=== PATIENT | female | born 1960 | race Hispanic/Latino ===

== ENCOUNTER 2016-08-27 10:06 | Emergency (ER) | payer MEDICARE ==
[2016-08-27 11:24] VITALS: BP 120/82
[2016-08-27 11:59] LABS: Basophils % (Auto) 0.7 % (0.0-1.8); Eosinophils % (Auto) 2.2 % (0.0-4.3); Hematocrit 37.4 % (30.3-42.9); Hemoglobin 12.2 gm/dl (10.1-14.3); Mean Corpuscular HGB Conc 33 % (30-34); Mean Corpuscular Hemoglobin 28 pg (28-32); Mean Corpuscular Volume 86 fl (79-97); Platelet Count 308 K/mm3 (140-440); Red Blood Count 4.33 M/mm3 (3.65-5.03); Red Cell Distribution Width 13.9 % (13.2-15.2); White Blood Count 6.8 K/mm3 (4.5-11.0)
--- NOTE | 2016-08-27 11:59 | Cat Scan Report ---
CT HEAD WITHOUT CONTRAST: HISTORY: Headache, loss of consciousness. Serial contiguous axial images were obtained through the cranium. Intravenous contrast material was not administered. The ventricles are normal in size and appearance. There is no mass effect or midline shift. No areas of abnormally increased or decreased attenuation are seen. No mass lesion is seen. The mastoid air cells and visualized portions of the sinuses are normal. IMPRESSION: Cranial CT scan within normal limits.
[2016-08-27 12:31] LABS: Anion Gap 18 mmol/L; Blood Urea Nitrogen 7 mg/dL (7-17); Calcium 9.3 mg/dL (8.4-10.2); Carbon Dioxide 26 mmol/L (22-30); Chloride 103.1 mmol/L (98-107); Glucose 95 mg/dL (65-100); Potassium 4.6 mmol/L (3.6-5.0); Sodium 142 mmol/L (137-145)
--- NOTE | 2016-08-29 00:50 | ED Elopement Review ---
ED Pt Elopement review - Results review Lab results: Laboratory Tests 08/27/16 08/27/16 11:50 11:50 WBC 6.8 RBC 4.33 Hgb 12.2 Hct 37.4 MCV 86 MCH 28 MCHC 33 RDW 13.9 Plt Count 308 Lymph % (Auto) 35.2 H [place] % (Auto) 9.7 H Eos % (Auto) 2.2 Baso % (Auto) 0.7 Lymph # 2.4 [place] # 0.7 Eos # 0.1 Baso # 0.0 Seg Neutrophils % 52.2 Seg Neutrophils # 3.5 Sodium 142 Potassium 4.6 Chloride 103.1 Carbon Dioxide 26 Anion Gap 18 BUN 7 Creatinine 0.7 Estimated GFR > 60 BUN/Creatinine Ratio 10.00 Glucose 95 Calcium 9.3 - Call Back decision Pt Call Back Decision: Pt to F/U with PMD
== END 2016-08-27 15:08 | disposition left against medical advice (07) ==
LOC: ED 10:06
DX: R51 Headache (principal); Z53.21 Procedure and treatment not carried out due to patient leaving prior to being seen by health care provider
CPT/HCPCS: 36415; 70450; 80048; 85025

== ENCOUNTER 2016-08-30 14:06 | Emergency (ER) | payer MEDICARE ==
[2016-08-30 14:58] VITALS: BP 107/73
[2016-08-30] MEDS ORDERED: NACL 0.9% 1000 ML 1,000 ML IV ONE (15:05)
--- NOTE | 2016-08-30 15:07 | Emergency Department Report ---
Chief Complaint: Seizure Stated Complaint: SEIZURE/FALLS Time Seen by Provider: 08/30/16 14:50 - HPI History of Present Illness: witnessed sz on keppra sz from noise she said see pmh bruising and redness of nose and bue ambulatory takes meds see list vss sleepy but a/o with no focal neuro - Exam Vital Signs: Vital Signs 08/30/16 14:55 Temperature 98.2 F Pulse Rate 79 Respiratory 16 Rate Blood Pressure 107/73 O2 Sat by Pulse 98 Oximetry MSE screening note: Focused history and physical exam performed. Due to findings the following was ordered: ED Medical Decision Making - Lab Data Result diagrams: 08/30/16 15:10 08/30/16 15:10 ED Disposition for MSE Condition: Stable
[2016-08-30 15:29] LABS: Basophils % (Auto) 0.5 % (0.0-1.8); Hematocrit 35.7 % (30.3-42.9); Mean Corpuscular HGB Conc 34 % (30-34); Mean Corpuscular Hemoglobin 29 pg (28-32); Mean Corpuscular Volume 85 fl (79-97); Platelet Count 316 K/mm3 (140-440); Red Blood Count 4.19 M/mm3 (3.65-5.03); Red Cell Distribution Width 13.6 % (13.2-15.2); White Blood Count 8.7 K/mm3 (4.5-11.0)
[2016-08-30 16:10] LABS: Chloride 100.1 mmol/L (98-107); Potassium 4.5 mmol/L (3.6-5.0); Sodium 138 mmol/L (137-145)
[2016-08-30 16:47] LABS: Alanine Aminotransferase 15 units/L (7-56); Albumin/Globulin Ratio 1.2 %; Alkaline Phosphatase 113 units/L (35-129); Anion Gap 20 mmol/L; BUN/Creatinine Ratio 18.88; Blood Urea Nitrogen 17 mg/dL (7-17); Calcium 9.4 mg/dL (8.4-10.2); Carbon Dioxide 22 mmol/L (22-30); Creatine Kinase 298 units/L (30-135); Glucose 124 mg/dL (65-100); Total Protein 7.4 g/dL (6.3-8.2)
== END 2016-08-30 20:35 | disposition left against medical advice (07) ==
LOC: ED 14:06
DX: R56.9 Unspecified convulsions (principal); Z53.21 Procedure and treatment not carried out due to patient leaving prior to being seen by health care provider
CPT/HCPCS: 36415; 80053; 80177; 82550; 85025

== ENCOUNTER 2016-08-31 16:32 | Inpatient (IN) | payer MEDICARE ==
[2016-08-31] MEDS ORDERED: TYLENOL PO ONE (18:58)
[2016-08-31] MEDS ORDERED: FIORICET PO ONE (19:46)
[2016-08-31] MEDS ORDERED: KEPPRA 1,000 MG/NS 0.75% 100ML 1,000 MG/100 ML BAG IV ONE (19:46)
[2016-08-31] MEDS ORDERED: ATIVAN IV ONE ×2 (19:46→21:41)
--- NOTE | 2016-08-31 19:58 | Emergency Department Report ---
HPI - General Chief Complaint: Seizure Time Seen by Provider: 08/31/16 19:37 - HPI HPI: Room 24 The patient is a 56-year-old female presenting with a chief complaint of seizures. The patient states yesterday she had a seizure. The patient believes today she had 2 seizures. The patient states she does develop bruising all over her body including bilateral elbows, bilateral knees and pain in the left right toe. The patient has bilateral black eyes. The patient complains of a headache and gives a score of 10/10. Patient denies nausea or vomiting. The patient states she feels "beat up." The patient states she has been compliant with her Keppra at 1000 mg twice a day Location: [see above] Duration: Intermittent since yesterday Quality: "Beat up" Severity: 01/25 Modifying factors: [see above] Context: [see above] Mode of transportation: [not driving] ED Past Medical Hx - Past Medical History Hx Hypertension: Yes Hx CVA: Yes Hx Seizures: Yes Hx Asthma: Yes Additional medical history: 'nerve disorder,' a-fib, fibroids - Surgical History Past Surgical History?: Yes Hx Cholecystectomy: Yes Hx Appendectomy: Yes Additional Surgical History: head sx, hysterectomy. right ankle surgery. spinal surgery x 2. jaw surgery. nasal surgery - Family History Family history: no significant - Social History Smoking Status: Never Smoker Substance Use Type: None - Medications Home Medications: Home Medications Medication Instructions Recorded Confirmed Last Taken Type Ondansetron [Zofran ODT TAB] 4 mg PO Q8HR #20 tab.rapdis 01/14/15 08/31/16 1 Day Ago Rx Ibuprofen [Motrin 400 MG tab] 400 mg PO Q8H PRN #30 tablet 06/30/16 08/31/16 Unknown Rx Lexapro 10 mg PO DAILY 08/31/16 08/31/16 Unknown History Lyrica 150 mg PO TID 08/31/16 08/31/16 Unknown History NexIUM 40 mg PO DAILY 08/31/16 08/31/16 Unknown History Promethazine 25 mg PO Q6HR PRN 08/31/16 08/31/16 Unknown History Zolpidem 10 mg PO HS 08/31/16 08/31/16 Unknown History levETIRAcetam 1,000 mg PO BID 08/31/16 08/31/16 Unknown History ED Review of Systems ROS: Stated complaint: POSS SEIZURE Other details as noted in HPI Comment: All other systems reviewed and negative Constitutional: denies: chills, fever Eyes: denies: eye pain, eye discharge, vision change ENT: denies: ear pain, throat pain Respiratory: denies: cough, shortness of breath, wheezing Cardiovascular: denies: chest pain, palpitations Endocrine: no symptoms reported Gastrointestinal: denies: abdominal pain, nausea, diarrhea Genitourinary: denies: urgency, dysuria, discharge Musculoskeletal: myalgia Skin: other (bruising in bilateral lower and upper extremities). denies: rash, lesions Neurological: headache, other (seizures) Psychiatric: denies: anxiety, depression Hematological/Lymphatic: denies: easy bleeding, easy bruising Physical Exam - Physical Exam Vital Signs: Vital Signs 08/31/16 17:50 Temperature 98 F Pulse Rate 71 Blood Pressure 101/75 O2 Sat by Pulse 97 Oximetry Physical Exam: GENERAL: The patient is well-developed well-nourished female lying on stretcher with bilateral periorbital ecchymosis. [] HEENT: Normocephalic. Bilateral periorbital ecchymosis. Extraocular motions are intact. Patient has moist mucous membranes. NECK: There is tenderness palpation of the upper cervical spine CHEST/LUNGS: Clear to auscultation. There is no respiratory distress noted. HEART/CARDIOVASCULAR: Regular. There is no tachycardia. There is no gallop rub or murmur. ABDOMEN: Abdomen is soft, nontender. Patient has normal bowel sounds. There is no abdominal distention. SKIN: There is bilateral periorbital ecchymosis. There is ecchymosis of bilateral elbows and knees. NEURO: The patient is awake, alert, and oriented. The patient is cooperative. The patient has no focal neurologic deficits. The patient has normal speech. Cranial nerves II through XII grossly intact, there is no pronator drift MUSCULOSKELETAL: There is tenderness to palpation of bilateral knees ED Course Vital Signs 08/31/16 17:50 Temperature 98 F Pulse Rate 71 Blood Pressure 101/75 O2 Sat by Pulse 97 Oximetry - Reevaluation(s) Reevaluation #1: 08/31/16 21:50 Patient reported syncopal episode while in CT there was no convulsive activity noted. Will admit the patient to the hospital for further evaluation - Consultations Consultation #1: 08/31/16 19:59 Dr Jl rodríguez ED Medical Decision Making - Lab Data Result diagrams: 08/31/16 19:57 08/31/16 19:57 Laboratory Tests 08/31/16 08/31/16 08/31/16 19:57 19:57 19:57 WBC 6.4 RBC 4.27 Hgb 11.9 Hct 36.5 MCV 86 MCH 28 MCHC 33 RDW 13.7 Plt Count 273 Lymph % (Auto) 41.5 H [place] % (Auto) 10.7 H Eos % (Auto) 2.1 Baso % (Auto) 0.5 Lymph # 2.6 [place] # 0.7 Eos # 0.1 Baso # 0.0 Seg Neutrophils % 45.2 Seg Neutrophils # 2.9 Sodium 140 Potassium 3.9 Chloride 99.8 Carbon Dioxide 26 Anion Gap 18 BUN 13 Creatinine 0.7 Estimated GFR > 60 BUN/Creatinine Ratio 18.57 Glucose 102 H Calcium 8.9 Magnesium 2.10 - Radiology Data Radiology results: report reviewed (CT head, CT cervical spine), image reviewed (CT head, CT cervical spine, bilateral knee x-ray, bilateral elbow x-ray, left great toe x-ray) interpreted by me: Left great toe x-ray-no acute fracture Bilateral knee x-rays-no acute fractures Bilateral elbow x-rays-no acute fractures CT cervical spine (read by radiologist)-no evidence of fracture or subluxation. CT head (read by radiologist)-small scalp hematoma left side of the forehead. No evidence of skull fracture or acute intracranial hemorrhage - Differential Diagnosis ICH, epilepsy, hyponatremia, hypomagnesemia, patella fracture, olecranon fr Critical care attestation.: If time is entered above; I have spent that time in minutes in the direct care of this critically ill patient, excluding procedure time. ED Disposition Clinical Impression: Seizures, Syncope, Contusion, knee, Elbow contusion Disposition: OP ADMITTED IP TO THIS HOSP Is pt being admited?: Yes Does the pt Need Aspirin: No Condition: Fair Instructions: Syncope (ED) Referrals: OSITO MA JR, MD [Primary Care Provider] - 3-5 Days Time of Disposition: 21:50 (hospitalist notified)
[2016-08-31 20:22] LABS: Basophils % (Auto) 0.5 % (0.0-1.8); Eosinophils % (Auto) 2.1 % (0.0-4.3); Hematocrit 36.5 % (30.3-42.9); Hemoglobin 11.9 gm/dl (10.1-14.3); Mean Corpuscular HGB Conc 33 % (30-34); Mean Corpuscular Hemoglobin 28 pg (28-32); Mean Corpuscular Volume 86 fl (79-97); Platelet Count 273 K/mm3 (140-440); Red Blood Count 4.27 M/mm3 (3.65-5.03); Red Cell Distribution Width 13.7 % (13.2-15.2); White Blood Count 6.4 K/mm3 (4.5-11.0)
[2016-08-31 21:06] LABS: Anion Gap 18 mmol/L; BUN/Creatinine Ratio 18.57; Blood Urea Nitrogen 13 mg/dL (7-17); Calcium 8.9 mg/dL (8.4-10.2); Carbon Dioxide 26 mmol/L (22-30); Chloride 99.8 mmol/L (98-107); Glucose 102 mg/dL (65-100); Potassium 3.9 mmol/L (3.6-5.0); Sodium 140 mmol/L (137-145)
--- NOTE | 2016-08-31 21:18 | Cat Scan Report ---
FINAL REPORT PROCEDURE: CT HEAD/BRAIN WO CON TECHNIQUE: Computerized tomography of the head was performed without contrast material. HISTORY: head trauma after seizure. History of epilepsy COMPARISON: Prior CT scan of the brain 08/27/2016 FINDINGS: Brain: Brain density appears normal. No evidence of intracranial hemorrhage. No parenchymal hemorrhage, mass lesions or mass effect are seen. No abnormal extraxial fluid collects or masses are seen. Ventricles: Ventricles are normal size and are midline. Bone Windows: No evidence of skull fracture. Small scalp hematoma visualized left side of the forehead. Paranasal sinuses: Clear Mastoid air cells: Clear IMPRESSION: Small scalp hematoma left side of the forehead. No evidence of skull fracture or acute intracranial hemorrhage.
--- NOTE | 2016-08-31 21:28 | Cat Scan Report ---
FINAL REPORT PROCEDURE: CT CERVICAL SPINE WO CON TECHNIQUE: Computerized tomography of the cervical spine was performed from the skull base to T1 without contrast material. HISTORY: neck pain after seizure. History of epilepsy COMPARISON: No prior studies are available for comparison. FINDINGS: No fracture or subluxation is visualized. The prevertebral soft tissues appear normal. Bone density appears normal. Mild facet arthritis visualized on the left at C5-C6. Facets otherwise are unremarkable. There is minimal posterior osteophytic spurring at the C2-3 level without focal disc herniation or spinal stenosis. There is mild posterior osteophytic spurring at C3-C4 level overlying a mild disc bulge obscuring the anterior epidural space without definite cord compression or focal disc herniation. There is asymmetric posterior osteophytic spurring at the C4-C5 level to the left overlying a disc protrusion. This obscures the anterior epidural space and appears to be mildly compressing the left side of the cord. There is mild posterior osteophytic spurring at the C5-C6 level without focal disc herniation or spinal stenosis. There is no cord compression. There is heterogeneous density throughout the thyroid gland. There may be multiple nodules present. No other abnormalities are seen. IMPRESSION: No evidence of fracture or subluxation. Mild facet arthritis present as described. Degenerative disc disease is present as described. This is greatest at the C4-C5 level as described with possible mild cord compression as described Possible nodular thyroid gland. Consider follow-up thyroid ultrasound.
[2016-08-31] MEDS ORDERED: MORPHINE IV ONE (22:11)
[2016-08-31] MEDS ORDERED: MILK OF MAGNESIA PO PRN (22:15)
[2016-08-31] MEDS ORDERED: DULCOLAX PR PRN (22:15)
--- NOTE | 2016-08-31 22:26 | History and Physical Report ---
History of Present Illness History of present illness: SEE PREVIOUS H & P DICTATION Medications and Allergies Allergies Allergy/AdvReac Type Severity Reaction Status Date / Time Penicillins Allergy Itching Verified 01/14/15 20:26 seafood Allergy Swelling Uncoded 06/29/16 13:16 tape Allergy Rash Uncoded 06/29/16 13:16 Home Medications Medication Instructions Recorded Confirmed Last Taken Type Ondansetron [Zofran ODT TAB] 4 mg PO Q8HR #20 tab.rapdis 01/14/15 08/31/16 1 Day Ago Rx Ibuprofen [Motrin 400 MG tab] 400 mg PO Q8H PRN #30 tablet 06/30/16 08/31/16 Unknown Rx Lexapro 10 mg PO DAILY 08/31/16 08/31/16 Unknown History Lyrica 150 mg PO TID 08/31/16 08/31/16 Unknown History NexIUM 40 mg PO DAILY 08/31/16 08/31/16 Unknown History Promethazine 25 mg PO Q6HR PRN 08/31/16 08/31/16 Unknown History Zolpidem 10 mg PO HS 08/31/16 08/31/16 Unknown History levETIRAcetam 1,000 mg PO BID 08/31/16 08/31/16 Unknown History Exam - Constitutional Vitals: Temp Pulse Resp BP Pulse Ox 98 F 71 101/75 97 08/31/16 17:50 08/31/16 17:50 08/31/16 17:50 08/31/16 17:50 Results - Labs CBC & Chem 7: 09/01/16 07:10 09/02/16 03:48 Labs: Abnormal lab results 08/31/16 08/31/16 Range/Units 19:57 19:57 Lymph % (Auto) 41.5 H (13.4-35.0) % [place] % (Auto) 10.7 H (0.0-7.3) % Glucose 102 H (65-100) mg/dL
[2016-09-01] MEDS: TYLENOL PO PRN (00:49)
--- NOTE | 2016-09-01 07:41 | Admit Criteria Form ---
Admission Criteria Documentation: SYNCOPE Clinical Indications for Admission to Inpatient Care ( Place 'X' for any and all applicable criteria): Admission is indicated for syncope and ANY ONE of the following (1)(2)(3)(4)(5) (6)(7) : [ X]I. Inpatient admission required rather than observation care (Also use Syncope: Observation Care Criteria as appropriate) because of ANY ONE of the following: [ ]a) Hemodynamic instability that is severe or persistent [ ]b) Cardiac arrhythmias of immediate concern identified or strongly suspected (eg, needs electrophysiologic study) [ ]c) Acute coronary syndrome identified (Also use Myocardial Infarction or Angina Criteria form ) [ ]d) Structural cardiac disorder (eg, aortic stenosis) suspected as cause that requires immediate correction [ ]e) Respiratory symptoms (eg, dyspnea, tachypnea) that are severe or persistent [X ]f) Neurologic signs or symptoms that are severe or persistent ( eg, stroke, seizures, altered mental status) [ ]g) Severe electrolyte abnormalities requiring inpatient care [ ]h) Supplemental oxygen or respiratory treatment for over 24 hrs that are performable only in acute inpatient setting [ ]i) IV fluid to replace significant ongoing (eg, for over 24 hrs ) losses (>3 L/m2 per day) [ ]j) Continuous intravenous infusion of anticoagulation, platelet inhibitor, vasoactive, or antiarrhythmic medication(15)(16) [ ]k) Pulmonary artery catheter monitoring [ ]l) Temporary pacemaker placement(17) [ ]m) Emergent cardioversion(18) [ ]n) Other conditions, treatment or monitoring requiring inpatient admission [ ]II. Suspicion of imminently dangerous cause (eg, rare causes like pericardial tamponade, pulmonary embolism) [ ]III. Syncope causing severe injury requiring hospitalization Extended stay beyond goal length of stay may be needed for(28) [ ]a) Dangerous arrhythmia(15)(23)(27)(29) [ ]b) Myocardial ischemia [ ]c) Seizure disorder [ ]d) Syncope-related injuries The original Standardized Safety content created by [employer] has been revised. The portions of the content which have been revised are identified through the use of italic text or in bold, and Chad [employer] has neither reviewed nor approved the modified material. All other unmodified content is copyright [facility] [employer]. Please see references footnoted in the original [facility] edition 2016 Admission Criteria Met: Yes
[2016-09-01 08:02] LABS: Anion Gap 15 mmol/L; BUN/Creatinine Ratio 21.66; Blood Urea Nitrogen 13 mg/dL (7-17); Calcium 8.6 mg/dL (8.4-10.2); Carbon Dioxide 27 mmol/L (22-30); Chloride 102.2 mmol/L (98-107); Glucose 95 mg/dL (65-100); Potassium 3.4 mmol/L (3.6-5.0); Sodium 141 mmol/L (137-145)
[2016-09-01] MEDS ORDERED: K-DUR PO ONE (10:00)
--- NOTE | 2016-09-01 10:01 | XRay Report ---
X-RAY LEFT GREAT TOE THREE VIEWS: 08/31/16 19:48:00 CLINICAL: Pain after seizure. FINDINGS: No fracture or dislocation. Hallux valgus deformity and mild arthritis at the first MTP joint. Normal soft tissues. The rest of the bones are normal. No soft tissue air or foreign body. IMPRESSION: Mild arthritis.
--- NOTE | 2016-09-01 10:01 | XRay Report ---
BILATERAL KNEE THREE VIEWS EACH: 08/31/16 16:32:00 CLINICAL: Pain and bruising after seizure. FINDINGS: Right: No fracture or dislocation. Normal joint spaces. No joint effusion. Normal soft tissues. Left: No fracture or dislocation. Normal joint spaces. No joint effusion.Mild anterior soft tissue swelling. No foreign body or soft tissue air. IMPRESSION: Mild anterior soft tissue swelling of the left knee but otherwise normal.
--- NOTE | 2016-09-01 10:01 | XRay Report ---
X-RAY BILATERAL ELBOW THREE VIEWS EACH: 08/31/16 19:48:00 CLINICAL: Pain and bruising after seizure. FINDINGS: Right: Normal bones, joints and soft tissues. No joint effusion. No fracture or dislocation. Left: No fracture or dislocation. Arthritis at the radiohumeral joint. No joint effusion. Benign calcification at the medial epicondyle of the humerus. IMPRESSION: Mild arthritis of the left elbow. Normal right elbow.
[2016-09-01 10:29] LABS: Basophils % (Auto) 0.7 % (0.0-1.8); Hematocrit 35.8 % (30.3-42.9); Hemoglobin 11.7 gm/dl (10.1-14.3); Mean Corpuscular HGB Conc 33 % (30-34); Mean Corpuscular Hemoglobin 28 pg (28-32); Mean Corpuscular Volume 86 fl (79-97); Platelet Count 257 K/mm3 (140-440); Red Blood Count 4.17 M/mm3 (3.65-5.03); Red Cell Distribution Width 14.1 % (13.2-15.2); White Blood Count 5.4 K/mm3 (4.5-11.0)
[2016-09-01] MEDS: MORPHINE IV PRN (10:39)
[2016-09-01] MEDS ORDERED: KEPPRA PO SCH ×2 (11:00→22:00)
[2016-09-01] MEDS ORDERED: NARCAN 0.4 MG/1 ML ONE (11:26)
--- NOTE | 2016-09-01 11:31 | Consultation ---
History of Present Illness Consult date: 09/01/16 Requesting physician: JUSTUS BRYSON Reason for Consult: seizure Chief complaint: seizure History of present illness: The patient is a 56-year-old female Hx seizure disorder since age 12 on LEV 1g BID, Lyrica 150mg TID also for fibromyalgia, stroke in 2008 w/ residual R hemiparesis/sensory loss, and R ankle RSD p/w breakthrough Sz w/ LOC on 08/31. She has had seizure poorly described but w/ LOC Q2 days over this last 1 week. She is not clear of triggers. She gets SANCHEZ then loses consciousness. She has been told she convulses. Druation is ? 2-3 mins. There were no clear aggravating , relieving or temporal factors. Severity such to cause LOC and fall w/ bruising all over her body including bilateral elbows, bilateral knees and pain in the left right toe. The patient has bilateral black eyes. The patient complains of a headache and gives a score of 10/10 which has been progressive over this last 1 week Patient denies nausea or vomiting. The patient states she feels "beat up." The patient states she has been compliant with her meds. Past History Past Medical History: seizures, other (fibromylagia) Past Surgical History: No surgical history Social history: single. denies: alcohol abuse, prescription drug abuse, IV drug use Family history: no significant family history Medications and Allergies Allergies Allergy/AdvReac Type Severity Reaction Status Date / Time Penicillins Allergy Itching Verified 01/14/15 20:26 seafood Allergy Swelling Uncoded 06/29/16 13:16 tape Allergy Rash Uncoded 06/29/16 13:16 Home Medications Medication Instructions Recorded Confirmed Last Taken Type Ondansetron [Zofran ODT TAB] 4 mg PO Q8HR #20 tab.rapdis 01/14/15 08/31/16 1 Day Ago Rx Ibuprofen [Motrin 400 MG tab] 400 mg PO Q8H PRN #30 tablet 06/30/16 08/31/16 Unknown Rx Lexapro 10 mg PO DAILY 08/31/16 08/31/16 Unknown History Lyrica 150 mg PO TID 08/31/16 08/31/16 Unknown History NexIUM 40 mg PO DAILY 08/31/16 08/31/16 Unknown History Promethazine 25 mg PO Q6HR PRN 08/31/16 08/31/16 Unknown History Zolpidem 10 mg PO HS 08/31/16 08/31/16 Unknown History levETIRAcetam 1,000 mg PO BID 08/31/16 08/31/16 Unknown History Active Meds: Active Medications Acetaminophen (Tylenol) 650 mg PO Q4H PRN PRN Reason: Pain MILD(1-3)/Fever >100.5/SANCHEZ Last Admin: 09/01/16 00:49 Dose: 650 mg Bisacodyl (Dulcolax) 10 mg CO QDAY PRN PRN Reason: Constipation unrelieved by [facility] Lorazepam (Ativan) 2 mg IV Q4H PRN PRN Reason: Seizures Magnesium Hydroxide (Milk Of Magnesia) 30 ml PO Q4H PRN PRN Reason: Constipation Morphine Sulfate (Morphine) 1 mg IV Q4H PRN PRN Reason: Pain, Moderate (4-6) Last Admin: 09/01/16 10:39 Dose: 1 mg Ondansetron HCl (Zofran) 4 mg IV Q8H PRN PRN Reason: N/V unrelieved by [facility] Pneumococcal Polyvalent Vaccine (Pneumovax 23) 0.5 ml IM .ONCE ONE Stop: 09/01/16 12:01 Potassium Chloride (K-Dur) 40 meq PO ONCE ONE Stop: 09/01/16 10:01 Review of Systems All systems: negative Neurological: head injury, weakness, numbness, seizures, syncope, lack of coordination, headaches, change in mentation, confusion, memory loss, balance difficulties, motor disturbance (R side chronic), sensory deficit (R sided chronic) Physical Examination - Vital Signs Vital Signs: Vital Signs Temp Pulse BP Pulse Ox 98 F 71 101/75 97 08/31/16 17:50 08/31/16 17:50 08/31/16 17:50 08/31/16 17:50 - Constitutional General appearance: uncomfortable, acutely ill - EENT EENT: Present: PERRL, mucous membranes moist, hearing intact, vision intact, other (b/l facial ecchymoses) - Respiratory Respiratory: Present: chest non-tender, normal breath sounds, no respiratory distress - Cardiovascular Cardiovascular: Present: regular rate Extremities: Present: no peripheral edema bilatateraly, no clubbing, cyanosis, no inflammation, no ischemia or petechiae, other (bruising all over lindsey elbows, knees) - Gastrointestinal Gastrointestinal: Present: normoactive bowel sounds, soft, non-distended - Integumentary Integumentary: Present: normal - Neurologic Cranial nerve examination: PERRL, EOMI, VFF, tongue midline, intact, intact shoulder shrug, Intact Vestibulo-ocular r, intact corneal reflex, normal palatal elevation, other (decr sensation on R face) Speech examination: intact Sensorimotor examination: hemiparesis (on R) Motor examination - right side: 5: biceps (exaggerated giveaway power in RUE) , triceps, wrist flexion, wrist extension, cargo service agent, hip flexors, knee extensors, dorsiflexion, toe extension (EHL), plantarflexion Motor examination - left side: 08/20: biceps, triceps, wrist flexion, wrist extension, cargo service agent, hip flexors, knee extensors, dorsiflexion, toe extension (EHL) , plantarflexion Detailed sensory examination: light touch (decr on R), temperature (decr on R) Reflex and gait examination: intact Reflexes: 1+: ankle, 2+: bicep, knee, tricep - Musculoskeletal Musculoskeletal: Present: no fluid collection, no pain, normal range of motion - Psychiatric Psychiatric: Present: depressed, cooperative Results - Laboratory Findings CBC and BMP: 09/01/16 07:10 09/01/16 04:00 Abnormal Lab Findings: Abnormal Labs 08/31/16 09/01/16 09/01/16 22:36 04:00 07:10 Lymph % (Auto) 44.9 H [place] % (Auto) 11.1 H D-Dimer 242.30 H Potassium 3.4 L Creatinine 0.6 L Assessment and Plan 56 YO F reported Hx seizure disorder since age 12 on LEV 1g BID, Lyrica 150mg TID also for fibromyalgia, reported AED complaince, stroke in 2008 w/ residual R hemiparesis/sensory loss, and R ankle RSD p/w breakthrough poorly described but w/ LOC x up to 2-6 times on 08/31 w/ recent increase in baseline frequency to LOC Q2 days over this last 1 week for unclear etiology. She has suffered numerous facial and elbow/knee ecchymoses from fall. She also reports progressive holocranial bifrontal maximal headache but w/o migrainous Hx-I suspect post concussive syndrome. CTH/C-spine nonacute beyond L scalp hematoma. Neuro exam essentially intact w/ slightly worsened baseline R hemiparesis. Plan and Recommendation: 1. Telemetry bed w/ Q4 hour neuro checks & Sz precautions 2. Brain imaging: MRI Brain +/- Jonny Seizure Protocol 3. Labs: Serum/Urine Tox, UA/UCx, Electrolytes especially Na, Ca, Mg, and Glucose, TSH/Vit B12/Ammonia and correct as necessary 4. Cont Infectious work up/medical management for UTI, PNA, cellulitis, bacteremia, etc. 5. Avoid hyponatremia, hypo/hyper-calcemia, hypo/hyperglycemia, acidosis, hypoxia/hypoxemia, hypercarbia/hypercapnia 6. Avoid institution of any psychoactive medications (e.g. antihistamines, anticholinergics, BZD, hypnotics, opiates) as able unless low doses of low potency antipsychotic needed for behavioral issues complicating medical care 7. AED therapy: Increase Keppra to 1500mg BID, cont Lyrica 150mg TID 8. Avoid meds that can lower sz threshold e.g. Tramadol, fluroquinolones, carbapenems 9. If Hx obtained to suggest EtOH dependence, supplement Thiamine, Folate and B12 10. Pt advised of [place] driving regulations: report date of presumed Seizure/ unexplained loss of consciousness/awareness spell to [facility], refrain from operating a motor vehicle for 6 months after this date, and avoid unsupervised activity particularly around water or heights 11. For SANCHEZ: KINDRA-Decadron 4mg IV BID x 6 doses, VPA 500mg IV Q8hrs x 3 doses, Fioricet prn. Pt w/ Toradol intolerance.
[2016-09-01] MEDS ORDERED: PNEUMOVAX 23 IM ONE (12:00)
[2016-09-01] MEDS ORDERED: KEPPRA 1,000 MG in D5W 100 ML IV SCH (12:00)
[2016-09-01] MEDS ORDERED: NARCAN 0.4 MG/1 ML IV ONE (12:09)
[2016-09-01] MEDS: DECADRON IV SCH ×2 (12:41→21:54)
[2016-09-01] MEDS ORDERED: DepaCON 500 MG in NACL 0.9% 100 ML IV SCH (14:00)
[2016-09-01] MEDS: DepaCON 500 MG in NACL 0.9% 100 ML IV SCH ×2 (14:39→23:00)
[2016-09-01] MEDS: LYRICA PO SCH ×2 (14:40→20:41)
[2016-09-01] MEDS: FIORICET PO PRN ×2 (14:40→20:41)
--- NOTE | 2016-09-01 15:23 | Progress Note ---
Assessment and Plan 56 YO F reported Hx seizure disorder on Keppra 1g BID, Lyrica 150mg TID also for fibromyalgia, reported AED complaince, stroke in 2008 w/ residual R hemiparesis/sensory loss, and R ankle RSD presented with breakthrough seizure with LOC x up to 2-6 times on 08/31. She has suffered numerous facial and elbow/ knee ecchymoses from fall. She also reports progressive holocranial bifrontal maximal headache but w/o migrainous Hx-I suspect post concussive syndrome. CTH/C -spine nonacute beyond L scalp hematoma. Neuro exam essentially intact w/ slightly worsened baseline R hemiparesis. Breakthrough seizure - CT head did not show any acute new finding - Neurologic following - Added Depakote and increase the dose of Keppra - We'll transfer her to ICU as she had another 2 episodes of breakthrough seizure on the floor History of CVA with right-sided hemiparesis - We'll monitor her frequent neuro exam - We'll continue Lipitor and we will do PT for when medically stable Fibromyalgia - Continue developing team Headache - Placed on fiorecet by Neurology Scalp hematoma - Seen on CT patient at the left Side of the forehead - Continue to monitor clinically GI and DVT prophylaxis - PPI and SCD Subjective Date of service: 09/01/16 Interval history: Patient seen and examined. Medical records and medication list reviewed. Code MET called this am. Pt was taking to nurse then became unresponsive, but did not loose pulse she then developed jerking movement for few seconds After the episode she was awake and c/o headache Similar episode develop this afternoon, pt will be transferred to ICU Discussed with Dr. Dos Santos Objective - Exam Narrative Exam: GENERAL: well-developed and well-nourished WF lying on bed appeared to be in no discomfort. HEENT: Normocephalic. Atraumatic. No conjunctival congestion or icterus. Patient has moist mucous membranes. NECK: Supple. Trachea midline. CHEST/LUNGS: Clear to auscultated bilaterally, breathing nonlabored. No wheezes crackles or rhonchi. HEART/CARDIOVASCULAR: Regular in rate and rhythm. S1 and S2 positive. ABDOMEN: Abdomen is soft, nontender. Patient has normal bowel sounds. SKIN: There is no rash. Warm and dry. NEURO: Right-sided weakness. MUSCULOSKELETAL: No joint effusion or tenderness. EXTRIMITY: No edema, no cyanosis or clubbing. PSYCH: Noted no agitation. - Constitutional Vitals: Vital Signs - 12hr 09/01/16 08:00 Temperature 97.9 F Pulse Rate [ 65 Left Radial] Respiratory 18 Rate Blood Pressure 104/62 [Left Arm] O2 Sat by Pulse 95 Oximetry - Labs CBC & Chem 7: 09/01/16 07:10 09/02/16 03:48 Labs: Abnormal lab results 08/31/16 09/01/16 09/01/16 Range/Units 22:36 04:00 07:10 Lymph % (Auto) 44.9 H (13.4-35.0) % [place] % (Auto) 11.1 H (0.0-7.3) % D-Dimer 242.30 H (0-234) ng/mlDDU Potassium 3.4 L (3.6-5.0) mmol/L Creatinine 0.6 L (0.7-1.2) mg/dL POC Glucose (70-105) TSH (0.270-4.200) mlU/mL 09/01/16 09/01/16 Range/Units 11:36 13:45 Lymph % (Auto) (13.4-35.0) % [place] % (Auto) (0.0-7.3) % D-Dimer (0-234) ng/mlDDU Potassium (3.6-5.0) mmol/L Creatinine (0.7-1.2) mg/dL POC Glucose 106 H (70-105) TSH 5.370 H (0.270-4.200) mlU/mL
[2016-09-01] MEDS: ATIVAN IV PRN ×2 (17:18→21:46)
[2016-09-01] MEDS: ZOFRAN IV PRN (21:46)
[2016-09-02] MEDS: MORPHINE IV PRN ×2 (00:59→21:15)
[2016-09-02] MEDS ORDERED: DILANTIN 1,000 MG in NACL 0.9% 250ML 250 ML IV ONE (01:16)
[2016-09-02] MEDS: BENADRYL IV PRN (02:40)
[2016-09-02 05:36] LABS: Anion Gap 21 mmol/L; BUN/Creatinine Ratio 21.66; Blood Urea Nitrogen 13 mg/dL (7-17); Calcium 8.8 mg/dL (8.4-10.2); Carbon Dioxide 21 mmol/L (22-30); Chloride 101.5 mmol/L (98-107); Glucose 157 mg/dL (65-100); Potassium 4.4 mmol/L (3.6-5.0); Sodium 139 mmol/L (137-145)
[2016-09-02] MEDS: DepaCON 500 MG in NACL 0.9% 100 ML IV SCH (06:46)
[2016-09-02] MEDS: TYLENOL PO PRN (08:37)
[2016-09-02] MEDS: DECADRON IV SCH ×2 (09:37→22:21)
[2016-09-02] MEDS: LYRICA PO SCH ×3 (09:37→19:49)
[2016-09-02] MEDS ORDERED: KEPPRA PO SCH (10:00)
--- NOTE | 2016-09-02 10:47 | Event Note ---
Date: 09/02/16 I attempted to see this patient between my scheduled coverage time of 8 AM-12 PM but they were not present in the floor room. I will return to staff in f/u . Multiple recurrent events noted of b/l UE and LE rotational and side to side movements w/ preserved consciousness, no tongue bite, incontinence or post ictal state. I am suspicious her events are more likely psychogenic/factitious rather than neurologic/epileptic in etiology. 56 YO F reported Hx seizure disorder since age 12 on LEV 1g BID, Lyrica 150mg TID also for fibromyalgia, reported AED complaince, stroke in 2008 w/ residual R hemiparesis/sensory loss, and R ankle RSD p/w breakthrough poorly described but w/ LOC x up to 2-6 times on 08/31 w/ recent increase in baseline frequency to LOC Q2 days over this last 1 week for unclear etiology. She has suffered numerous facial and elbow/knee ecchymoses from unclear reasion. She also reports progressive holocranial bifrontal maximal headache but w/o migrainous Hx -I suspect post concussive syndrome. CTH/C-spine nonacute beyond L scalp hematoma. Neuro exam essentially intact w/ slightly worsened baseline R hemiparesis. Plan and Recommendation: 1. Telemetry bed w/ Q4 hour neuro checks & Sz precautions 2. Brain imaging: MRI Brain +/- Jonny Seizure Protocol 3. Labs: Serum/Urine Tox, UA/UCx, Electrolytes especially Na, Ca, Mg, and Glucose, TSH/Vit B12/Ammonia and correct as necessary 4. Cont Infectious work up/medical management for UTI, PNA, cellulitis, bacteremia, etc. 5. Avoid hyponatremia, hypo/hyper-calcemia, hypo/hyperglycemia, acidosis, hypoxia/hypoxemia, hypercarbia/hypercapnia 6. Avoid institution of any psychoactive medications (e.g. antihistamines, anticholinergics, BZD, hypnotics, opiates) as able unless low doses of low potency antipsychotic needed for behavioral issues complicating medical care 7. AED therapy: Resume home Keppra to 1000mg BID, cont Lyrica 150mg TID 8. Avoid meds that can lower sz threshold e.g. Tramadol, fluroquinolones, carbapenems 9. If Hx obtained to suggest EtOH dependence, supplement Thiamine, Folate and B12 10. Pt advised of [place] driving regulations: report date of presumed Seizure/ unexplained loss of consciousness/awareness spell to [place], refrain from operating a motor vehicle for 6 months after this date, and avoid unsupervised activity particularly around water or heights 11. For SANCHEZ: KINDRA-Decadron 4mg IV BID x 6 doses, VPA 500mg IV Q8hrs x 3 doses, Fioricet prn. Pt w/ Toradol intolerance. 12. Consider mental health evaluation as available.
[2016-09-02] MEDS: ATIVAN IV PRN ×2 (12:58→19:18)
[2016-09-02] MEDS: KEPPRA PO SCH ×2 (13:12→22:22)
[2016-09-02] MEDS: FIORICET PO PRN ×2 (13:28→19:19)
--- NOTE | 2016-09-02 15:41 | Progress Note ---
Assessment and Plan 56 YO F reported Hx seizure disorder on Keppra 1g BID, Lyrica 150mg TID also for fibromyalgia, reported AED complaince, stroke in 2008 w/ residual R hemiparesis/sensory loss, and R ankle RSD presented with breakthrough seizure with LOC x up to 2-6 times on 08/31. She has suffered numerous facial and elbow/ knee ecchymoses from fall. She also reports progressive holocranial bifrontal maximal headache but w/o migrainous Hx-I suspect post concussive syndrome. CTH/C -spine nonacute beyond L scalp hematoma. Neuro exam essentially intact w/ slightly worsened baseline R hemiparesis. Breakthrough seizure, likely - CT head did not show any acute new finding - Neurologic following and questioned whether patient has underlying psych issue contributing to this seizure-like episode - d/filiberto Depakote and cont the dose of Keppra 1000 bid -We'll get psych eval History of bipolar disorder - We'll get psych consult History of CVA with right-sided hemiparesis - We'll monitor her frequent neuro exam - We'll continue Lipitor and we will do PT for when medically stable Fibromyalgia - Continue developing team Headache - Placed on fiorecet by Neurology Scalp hematoma due to fall - Seen on CT patient at the left Side of the forehead - Continue to monitor clinically GI and DVT prophylaxis - PPI and SCD Subjective Date of service: 09/02/16 Interval history: Patient seen and examined. Medical records and medication list reviewed. She is resting on bed, answers questions appropriately Objective - Exam Narrative Exam: GENERAL: well-developed and well-nourished WF lying on bed appeared to be in no discomfort. HEENT: Normocephalic. Atraumatic. No conjunctival congestion or icterus. Patient has moist mucous membranes. Bilateral black eyes. NECK: Supple. Trachea midline. CHEST/LUNGS: Clear to auscultated bilaterally, breathing nonlabored. No wheezes crackles or rhonchi. HEART/CARDIOVASCULAR: Regular in rate and rhythm. S1 and S2 positive. ABDOMEN: Abdomen is soft, nontender. Patient has normal bowel sounds. SKIN: There is no rash. Warm and dry. Multiple bruises mostly on hands and legs and on her left breast NEURO: Right-sided weakness. MUSCULOSKELETAL: No joint effusion or tenderness. EXTRIMITY: No edema, no cyanosis or clubbing. PSYCH: Noted no agitation. - Constitutional Vitals: Vital Signs - 12hr 09/02/16 09/02/16 08:00 10:00 Temperature 97.7 F Pulse Rate [ 82 Left Radial] Respiratory 20 Rate Blood Pressure 102/59 [Left Arm] O2 Sat by Pulse 96 94 Oximetry - Labs CBC & Chem 7: 09/01/16 07:10 09/02/16 03:48 Labs: Abnormal lab results 09/01/16 09/02/16 Range/Units 13:45 03:48 Carbon Dioxide 21 L (22-30) mmol/L Creatinine 0.6 L (0.7-1.2) mg/dL Glucose 157 H (65-100) mg/dL Free T4 0.73 L (0.76-1.46) ng/dL
--- NOTE | 2016-09-02 18:13 | Consultation ---
History of Present Illness - Reason for Consult Consult date: 09/02/16 Reason for consult: Mental Health Evaluation Requesting physician: DANIELITO GUTIERREZ - Chief Complaint Chief complaint: "I have seizures" - History of Present Psychiatric Illness The patient is a 56-year-old female presenting with a chief complaint of seizures. Today patient is calm, cooperative, but lethargic during assessment. Currently, patient has bruising under her eyes and her elbows. She stated that she had experienced LOC and fail prior to coming to hospital. She stated that she had a seizure and decided to come [facility] for treatment. She stated it's important for her to get a "handle" of this situation so she can have a productive life. During our conversation, patient was eating and drinking with no problems. Earlier today, she left her room and was found in a different part of hospital per the RN notes. She stated that the nurses took to long to come to her room (wanted to shower), so she decided to leave and go home. Patient admitted that leaving her room may have been the "wrong thing to do." Patient stated that she has had a couple seizures since her admission. She denies SI/HI' s, AVH's, a poor appetite, or depression symptoms. Patient denies recreational drug use or consumption of alcohol (etoh). Per the RN notes, her sister Kae [phone] stated that the patient has a mental health hx. Patient has taken Lexapro. Medications and Allergies Allergies Allergy/AdvReac Type Severity Reaction Status Date / Time Penicillins Allergy Itching Verified 01/14/15 20:26 seafood Allergy Swelling Uncoded 06/29/16 13:16 tape Allergy Rash Uncoded 06/29/16 13:16 Home Medications Medication Instructions Recorded Confirmed Last Taken Type Ondansetron [Zofran ODT TAB] 4 mg PO Q8HR #20 tab.rapdis 01/14/15 08/31/16 1 Day Ago Rx Ibuprofen [Motrin 400 MG tab] 400 mg PO Q8H PRN #30 tablet 06/30/16 08/31/16 Unknown Rx Lexapro 10 mg PO DAILY 08/31/16 08/31/16 Unknown History Lyrica 150 mg PO TID 08/31/16 08/31/16 Unknown History NexIUM 40 mg PO DAILY 08/31/16 08/31/16 Unknown History Promethazine 25 mg PO Q6HR PRN 08/31/16 08/31/16 Unknown History Zolpidem 10 mg PO HS 08/31/16 08/31/16 Unknown History levETIRAcetam 1,000 mg PO BID 08/31/16 08/31/16 Unknown History Active Meds: Active Medications Acetaminophen (Tylenol) 650 mg PO Q4H PRN PRN Reason: Pain MILD(1-3)/Fever >100.5/SANCHEZ Last Admin: 09/02/16 08:37 Dose: 650 mg Acetaminophen/Butalbital/Caffeine (Fioricet) 2 tab PO Q4H PRN PRN Reason: Headache Last Admin: 09/02/16 13:28 Dose: 2 tab Bisacodyl (Dulcolax) 10 mg [place] QDAY PRN PRN Reason: Constipation unrelieved by MOM Dexamethasone (Decadron) 4 mg IV Q12HR [facility] Stop: 09/03/16 22:01 Last Admin: 09/02/16 09:37 Dose: 4 mg Diphenhydramine HCl (Benadryl) 25 mg IV Q6H PRN PRN Reason: Itching Last Admin: 09/02/16 02:40 Dose: 25 mg Levetiracetam (Keppra) 1,000 mg PO BID [facility] Last Admin: 09/02/16 13:12 Dose: 1,000 mg Lorazepam (Ativan) 2 mg IV Q4H PRN PRN Reason: Seizures Last Admin: 09/02/16 12:58 Dose: 2 mg Magnesium Hydroxide (Milk Of Magnesia) 30 ml PO Q4H PRN PRN Reason: Constipation Morphine Sulfate (Morphine) 1 mg IV Q4H PRN PRN Reason: Pain, Moderate (4-6) Last Admin: 09/02/16 00:59 Dose: 1 mg Ondansetron HCl (Zofran) 4 mg IV Q8H PRN PRN Reason: N/V unrelieved by Reglan Last Admin: 09/01/16 21:46 Dose: 4 mg Pregabalin (Lyrica) 150 mg PO TID [facility] Last Admin: 09/02/16 13:12 Dose: 150 mg Past psychiatric history - Past Medical History Past Medical History: hypothyroidism, seizures Past Surgical History: Other (ankle surgery) - past Psychiatric treatment and history psychiatric treatment history: Patient states that she takes Lexapro. TSH elevated. Patient denies a fam psy hx. - Social History Social history: Lives alone Mental Status Exam - Vital signs Last Vital Signs Temp 97.7 F 09/02/16 08:00 Pulse 82 09/02/16 08:00 Resp 20 09/02/16 08:00 BP 102/59 09/02/16 08:00 Pulse Ox 94 09/02/16 10:00 - Exam Narrative exam: ROS (-) depression MSE: Appearance: cooperative, calm Behavior: good eye contact Speech: regular rate and tone Mood: "I feel good" Affect: congruent to mood Thought Process: circumstantial Thought Content: denies SI/HI's and AVH's Motor Activity: in bed eating Cognition: a/ox 3 Insight: fair Judgment: limited Results Result Diagrams: 09/01/16 07:10 09/02/16 03:48 Abnormal lab results 09/01/16 09/02/16 Range/Units 13:45 03:48 Carbon Dioxide 21 L (22-30) mmol/L Creatinine 0.6 L (0.7-1.2) mg/dL Glucose 157 H (65-100) mg/dL Free T4 0.73 L (0.76-1.46) ng/dL All other labs normal. Assessment and Plan Assessment and plan: Impression: Hx of seizures. The patient is a 56-year-old female presenting with a chief complaint of seizures. Today patient is calm, cooperative, but lethargic during assessment. Currently, patient has blackened eyes and bruising on her elbows. She stated that she had experienced LOC and fail prior to coming to hospital. She stated that she had a seizure and decided to come [facility] for treatment. She stated it's important for her to get a "handle" of this situation so she can have a productive life. During our conversation, patient was eating and drinking with no problems. She denies SI/HI's and AVH's. TSH 5.370. Called Vish Palomo (past boyfriend) [phone], number does not work. Called sister Kae [phone] to confirm that patient may have a mental rula hx, no answer. DD: Unspecified Mood DO Recommendation/Plan: Gather more collateral information to determine treatment. Continue current medical treatment (seizure mgmt) - hospitalist/neuro. Recommend 1:1 sitter if possible. Move patient closer to nursing station. Continue with bed alarm. Will follow-up with patient tomorrow.
--- NOTE | 2016-09-02 23:02 | Cat Scan Report ---
FINAL REPORT EXAM: CT HEAD/BRAIN WO CON HISTORY: fall TECHNIQUE: Noncontrast serial axial images from skull base to vertex PRIORS: CT scan of the head from 08/31/2016 FINDINGS: Soft tissue swelling is noted in the scalp over the left frontal convexity.There is no mass effect or midline shift. There are no abnormal intra or extra-axial fluid collections. Cortical sulci and lateral ventricles are within normal limits for size and configuration. Basilar cisterns are patent. No acute intracranial hemorrhage is identified. Visualized paranasal sinuses and mastoid air cells are well aerated. No acute osseous abnormality is identified. IMPRESSION: 1. No acute intracranial hemorrhage is identified. 2. Soft tissue swelling is seen in the scalp over the left frontal convexity. No underlying fracture is identified.
[2016-09-03] MEDS: FIORICET PO PRN ×2 (05:31→14:09)
[2016-09-03] MEDS: SYNTHROID PO SCH (05:32)
[2016-09-03] MEDS: LYRICA PO SCH ×3 (09:12→23:45)
[2016-09-03] MEDS: KEPPRA PO SCH ×2 (09:12→23:45)
[2016-09-03] MEDS: DECADRON IV SCH ×2 (09:13→23:45)
[2016-09-03] MEDS: MORPHINE IV PRN (10:14)
[2016-09-03] MEDS: BENADRYL IV PRN (10:15)
--- NOTE | 2016-09-03 10:57 | Progress Note ---
Assessment and Plan 56 YO F reported Hx seizure disorder since age 12 on LEV 1g BID, Lyrica 150mg TID also for fibromyalgia, reported AED complaince, stroke in 2008 w/ residual R hemiparesis/sensory loss, and R ankle RSD p/w breakthrough poorly described but w/ reported LOC x up to 2-6 times on 08/31 w/ recent increase in Sz baseline frequency to LOC Q2 days over this last 1 week for unclear etiology. She has suffered numerous facial and elbow/knee ecchymoses from fall she states. She also reports progressive holocranial bifrontal maximal headache but w/o migrainous Hx-I suspect post concussive syndrome. CTH/C-spine nonacute beyond L scalp hematoma. Neuro exam essentially intact w/ slightly worsened baseline R hemiparesis. ON 09/01 and 09/02 nurses and other care providers have witnessed numerous recurrent events of b/l UE and LE rotational and side to side movements w/ preserved consciousness, no tongue bite, incontinence or post ictal state. I am suspicious her events are more likely psychogenic/factitious rather than neurologic/epileptic in etiology. She also affirms prior Dx of stress induced seizures but also affirms epileptic seizures as well. f/u CTH neg. MRI unable to be done d/t inability to stay still. Plan and Recommendation: 1. Telemetry bed w/ Q4 hour neuro checks & Sz precautions 2. Brain imaging: MRI Brain +/- Jonny Seizure Protocol when able to tolerate 3. Labs: Serum/Urine Tox, UA/UCx, Electrolytes especially Na, Ca, Mg, and Glucose, TSH/Vit B12/Ammonia and correct as necessary 4. Cont Infectious work up/medical management for UTI, PNA, cellulitis, bacteremia, etc. 5. Avoid hyponatremia, hypo/hyper-calcemia, hypo/hyperglycemia, acidosis, hypoxia/hypoxemia, hypercarbia/hypercapnia 6. Avoid institution of any psychoactive medications (e.g. antihistamines, anticholinergics, BZD, hypnotics, opiates) as able unless low doses of low potency antipsychotic needed for behavioral issues complicating medical care 7. AED therapy: Resume home Keppra to 1000mg BID, cont Lyrica 150mg TID 8. Avoid meds that can lower sz threshold e.g. Tramadol, fluroquinolones, carbapenems 9. If Hx obtained to suggest EtOH dependence, supplement Thiamine, Folate and B12 10. Pt advised of [place] driving regulations: report date of presumed Seizure/ unexplained loss of consciousness/awareness spell to [facility], refrain from operating a motor vehicle for 6 months after this date, and avoid unsupervised activity particularly around water or heights 11. For SANCHEZ: KINDRA-Decadron 4mg IV BID x 6 doses, VPA 500mg IV Q8hrs x 3 doses, Fioricet prn. Pt w/ Toradol intolerance. 12. Cont mental health evaluation as available. 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 multiple recurrent events 09/02 requiring restraints and Psych eval ongoing. Objective - Vital Sign Vital Signs - 12hr 09/03/16 10:00 O2 Sat by Pulse 96 Oximetry - General Apperance Constitutional: uncomfortable, older than stated age - EENT EENT: PERRL, mucous membranes dry, hearing intact, vision intact, other ( ecchymoses throughout) - Respiratory Respiratory: chest non-tender, normal breath sounds, no respiratory distress - Cardiovascular Cardiovascular: regular rate Extremities: no peripheral edema bilat, no clubbing, cyanosis, no inflammation, no ischemia or petechiae - Gastrointestinal Gastrointestinal: normoactive bowel sounds, soft, non-distended - Integumentary Integumentary: normal - Neurologic Cranial nerve examination: PERRL, EOMI, VFF, face symmetric, tongue midline, intact, Intact Vestibulo-ocular r, intact corneal reflex, normal palatal elevation Speech examination: intact Detailed motor examination: full strength in all [place] Motor examination - right side: 5/5: biceps, triceps, wrist flexion, wrist extension, wallpaper cleaner, hip flexors, knee extensors, dorsiflexion, toe extension (EHL) , plantarflexion Motor examination - left side: 5/5: biceps, triceps, wrist flexion, wrist extension, wallpaper cleaner, hip flexors, knee extensors, dorsiflexion, toe extension (EHL) , plantarflexion Detailed sensory examination: intact, light touch Reflexes: 2+: ankle, bicep, knee, tricep - Musculoskeletal Musculoskeletal: no fluid collection, no pain, normal range of motion - Psychiatric Psychiatric: mood/affect appropriate, cooperative - Laboratory Findings CBC and BMP: 09/01/16 07:10 09/02/16 03:48 Abnormal Lab Findings: Abnormal Labs 08/31/16 09/01/16 09/01/16 22:36 04:00 07:10 Lymph % (Auto) 44.9 H [place] % (Auto) 11.1 H D-Dimer 242.30 H Potassium 3.4 L Carbon Dioxide Creatinine 0.6 L Glucose POC Glucose TSH Free T4 09/01/16 09/01/16 09/01/16 11:36 13:45 13:45 Lymph % (Auto) [place] % (Auto) D-Dimer Potassium Carbon Dioxide Creatinine Glucose POC Glucose 106 H TSH 5.370 H Free T4 0.73 L 09/02/16 03:48 Lymph % (Auto) [place] % (Auto) D-Dimer Potassium Carbon Dioxide 21 L Creatinine 0.6 L Glucose 157 H POC Glucose TSH Free T4
--- NOTE | 2016-09-03 14:18 | Progress Note ---
Assessment and Plan 56 YO F reported Hx seizure disorder on Keppra 1g BID, Lyrica 150mg TID also for fibromyalgia, reported AED complaince, stroke in 2008 w/ residual R hemiparesis/sensory loss, and R ankle RSD presented with breakthrough seizure with LOC x up to 2-6 times on 08/31. She has suffered numerous facial and elbow/ knee ecchymoses from fall. She also reports progressive holocranial bifrontal maximal headache but w/o migrainous Hx-I suspect post concussive syndrome. CTH/C -spine nonacute beyond L scalp hematoma. Neuro exam essentially intact w/ slightly worsened baseline R hemiparesis. Breakthrough seizure, likely - CT head did not show any acute new finding - Neurologic following and questioned whether patient has underlying psych issue contributing to this seizure-like episode - d/filiberto Depakote and cont the dose of Keppra 1000 bid Acute psychosis - psych following - place on prn haldol History of CVA with right-sided hemiparesis - We'll monitor her frequent neuro exam - We'll continue Lipitor and we will do PT for when medically stable Fibromyalgia - Continue neurontin Headache - Placed on fiorecet by Neurology Scalp hematoma due to fall - Seen on CT patient at the left Side of the forehead - Continue to monitor clinically GI and DVT prophylaxis - PPI and SCD Disposition: patient might need inpatient psych placement Subjective Date of service: 09/03/16 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 Medical records and medication list reviewed. Patient is very restless, placed on 1;1 sitter last night after she took off her restrain and tried to get out of the bed Objective - Exam Narrative Exam: GENERAL: well-developed and well-nourished WF lying on bed restrained HEENT: Normocephalic. Atraumatic. No conjunctival congestion or icterus. Patient has moist mucous membranes. Bilateral black eyes. NECK: Supple. Trachea midline. CHEST/LUNGS: Clear to auscultated bilaterally, breathing nonlabored. No wheezes crackles or rhonchi. HEART/CARDIOVASCULAR: Regular in rate and rhythm. S1 and S2 positive. ABDOMEN: Abdomen is soft, nontender. Patient has normal bowel sounds. SKIN: There is no rash. Warm and dry. Multiple bruises mostly on hands and legs and on her left breast NEURO: Right-sided weakness. MUSCULOSKELETAL: No joint effusion or tenderness. EXTRIMITY: No edema, no cyanosis or clubbing. PSYCH: restless. - Constitutional Vitals: Vital Signs - 12hr 09/03/16 09/03/16 09/03/16 10:00 10:44 14:06 Temperature 98.1 F Pulse Rate [ 72 Apical] Respiratory 18 16 Rate Blood Pressure 114/70 [Left Arm] O2 Sat by Pulse 96 98 Oximetry - Labs CBC & Chem 7: 09/01/16 07:10 09/02/16 03:48
[2016-09-03] MEDS: HALDOL IM PRN (16:12)
--- NOTE | 2016-09-03 17:46 | Progress Note ---
Subjective - Reason for Consult Consult date: 09/03/16 Reason for consult: psychosis/epilepsy Mental Status Exam - Vital signs Last Vital Signs Temp 97.9 F 09/03/16 15:47 Pulse 78 09/03/16 15:47 Resp 16 09/03/16 15:47 BP 134/96 09/03/16 15:47 Pulse Ox 98 09/03/16 14:06 Assessment and Plan Per discussion with nursing staff, patient was heavily sedated with haloperidol secondary to physical agitation. On examination, patient was in physical restraints. I informed the nurse that as long as she is chemically restrained, we should remove physical reassurance and observed. No further assessment could be completed because patient was sedated Plan: - Remove physical restraints as tolerated - Continue to use haloperidol as necessary for severe agitation - Reassess for admission to an inpatient psychiatric facility when patient is less sedated
[2016-09-04] MEDS: HALDOL IM PRN ×2 (02:48→22:27)
[2016-09-04] MEDS: SYNTHROID PO SCH (06:02)
[2016-09-04] MEDS: LYRICA PO SCH ×3 (12:17→20:07)
[2016-09-04] MEDS: KEPPRA PO SCH ×2 (12:18→22:28)
[2016-09-04] MEDS: MORPHINE IV PRN ×2 (13:18→20:08)
--- NOTE | 2016-09-04 16:28 | Progress Note ---
Assessment and Plan 56 YO F reported Hx seizure disorder on Keppra 1g BID, Lyrica 150mg TID also for fibromyalgia, reported AED complaince, stroke in 2008 w/ residual R hemiparesis/sensory loss, and R ankle RSD presented with breakthrough seizure with LOC x up to 2-6 times on 08/31. She has suffered numerous facial and elbow/ knee ecchymoses from fall. She also reports progressive holocranial bifrontal maximal headache but w/o migrainous Hx-I suspect post concussive syndrome. CTH/C -spine nonacute beyond L scalp hematoma. Neuro exam essentially intact w/ slightly worsened baseline R hemiparesis. Breakthrough seizure, likely - CT head did not show any acute new finding - Neurologic following and questioned whether patient has underlying psych issue contributing to this seizure-like episode - d/filiberto Depakote and cont the dose of Keppra 1000 bid Acute psychosis - psych following, will wait for further recommendation - placed on prn haldol History of CVA with right-sided hemiparesis - We'll monitor her frequent neuro exam - We'll continue Lipitor and we will do PT for when medically stable Fibromyalgia - Continue neurontin Headache - Placed on fiorecet by Neurology Scalp hematoma due to fall - Seen on CT patient at the left Side of the forehead - Continue to monitor clinically GI and DVT prophylaxis - PPI and SCD Disposition: patient might need inpatient psych placement Subjective Date of service: 09/04/16 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 Medical records and medication list reviewed. Patient was very restless, placed on 1;1 sitter after she took off her restrain and tried to get out of the bed she is restrained today and appears agitated Objective - Exam Narrative Exam: GENERAL: well-developed and well-nourished WF lying on bed restrained HEENT: Normocephalic. Atraumatic. No conjunctival congestion or icterus. Patient has moist mucous membranes. Bilateral black eyes. NECK: Supple. Trachea midline. CHEST/LUNGS: Clear to auscultated bilaterally, breathing nonlabored. No wheezes crackles or rhonchi. HEART/CARDIOVASCULAR: Regular in rate and rhythm. S1 and S2 positive. ABDOMEN: Abdomen is soft, nontender. Patient has normal bowel sounds. SKIN: There is no rash. Warm and dry. Multiple bruises mostly on hands and legs and on her left breast NEURO: Right-sided weakness. MUSCULOSKELETAL: No joint effusion or tenderness. EXTRIMITY: No edema, no cyanosis or clubbing. PSYCH: restless. - Constitutional Vitals: Vital Signs - 12hr 09/04/16 09/04/16 09/04/16 07:34 12:27 13:25 Temperature 97.8 F 98.7 F Pulse Rate [ 77 76 Right] Respiratory 18 18 Rate Blood Pressure 88/52 91/57 114/59 [Right Arm] O2 Sat by Pulse 93 100 Oximetry 09/04/16 15:12 Temperature 97.8 F Pulse Rate [ 68 Right] Respiratory 18 Rate Blood Pressure 81/49 [Right Arm] O2 Sat by Pulse 97 Oximetry - Labs CBC & Chem 7: 09/01/16 07:10 09/02/16 03:48
[2016-09-04] MEDS: FIORICET PO PRN (17:38)
[2016-09-05] MEDS: SYNTHROID PO SCH (05:59)
[2016-09-05] MEDS: KEPPRA PO SCH ×2 (09:17→22:24)
[2016-09-05] MEDS: LYRICA PO SCH ×3 (09:17→20:25)
[2016-09-05] MEDS: FIORICET PO PRN ×3 (11:44→20:23)
--- NOTE | 2016-09-05 14:36 | Progress Note ---
Assessment and Plan 56 YO F reported Hx seizure disorder on Keppra 1g BID, Lyrica 150mg TID also for fibromyalgia, reported AED complaince, stroke in 2008 w/ residual R hemiparesis/sensory loss, and R ankle RSD presented with breakthrough seizure with LOC x up to 2-6 times on 08/31. She has suffered numerous facial and elbow/ knee ecchymoses from fall. She also reports progressive holocranial bifrontal maximal headache but w/o migrainous Hx-I suspect post concussive syndrome. CTH/C -spine nonacute beyond L scalp hematoma. Neuro exam essentially intact w/ slightly worsened baseline R hemiparesis. Breakthrough seizure, likely - CT head did not show any acute new finding - Neurologic following and questioned whether patient has underlying psych issue contributing to this seizure-like episode - d/filiberto Depakote and cont the dose of Keppra 1000 bid Acute psychosis - psych following, will wait for further recommendation - placed on prn haldol History of CVA with right-sided hemiparesis - We'll monitor her frequent neuro exam - We'll continue Lipitor and we will do PT for when medically stable Fibromyalgia - Continue neurontin Headache - Placed on fiorecet by Neurology Scalp hematoma due to fall - Seen on CT patient at the left Side of the forehead - Continue to monitor clinically GI and DVT prophylaxis - PPI and SCD Disposition: wait for psych eval Subjective Date of service: 09/05/16 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 Medical records and medication list reviewed. Patient was very restless, placed on 1;1 sitter after she took off her restrain and tried to get out of the bed she is off restrained today and appears much cooperative today Objective - Exam Narrative Exam: GENERAL: well-developed and well-nourished WF lying on bed off restrained HEENT: Normocephalic. Atraumatic. No conjunctival congestion or icterus. Patient has moist mucous membranes. Bilateral black eyes. NECK: Supple. Trachea midline. CHEST/LUNGS: Clear to auscultated bilaterally, breathing nonlabored. No wheezes crackles or rhonchi. HEART/CARDIOVASCULAR: Regular in rate and rhythm. S1 and S2 positive. ABDOMEN: Abdomen is soft, nontender. Patient has normal bowel sounds. SKIN: There is no rash. Warm and dry. Multiple bruises mostly on hands and legs and on her left breast NEURO: Right-sided weakness. MUSCULOSKELETAL: No joint effusion or tenderness. EXTRIMITY: No edema, no cyanosis or clubbing. PSYCH: cooperative. - Constitutional Vitals: Vital Signs - 12hr 09/05/16 08:00 Temperature 97.8 F Pulse Rate [ 64 Left Radial] Respiratory 20 Rate Blood Pressure 87/52 [Left Arm] O2 Sat by Pulse 94 Oximetry - Labs CBC & Chem 7: 09/01/16 07:10 09/02/16 03:48
[2016-09-05] MEDS: HALDOL IM PRN (22:22)
[2016-09-05] MEDS: TYLENOL PO PRN (22:23)
--- NOTE | 2016-09-05 22:37 | Physician Progress Note ---
REASON FOR FOLLOWUP: To reevaluate her mental status and also her response to therapy. SUBJECTIVE DATA: Includes \\"I'm fine, how are you? Who are you?\\" OBJECTIVE DATA: Includes the patient is noted sitting in bed, eating her lunch. She is alert and oriented to person, place, time and situation. Affect appears to be a kind of flat. Mood is depressed. She appeared to have some black eyes and also a knot on her head. I am not sure exactly what happened, may be the incident leading up to being here. She reports she had a seizure and fell out. Eye contact was good. Thought process appeared to be organized. She is more improved with cognition. She is able to answer questions. She denies any suicidal or homicidal ideations. She denies any auditory or visual hallucinations. She reports eating well as about 80% of her lunch has gone as she was eating well, being assessed. She reports sleeping well. She denies any other issues. She denies any auditory or visual hallucinations. Concentration appeared to be intact. Memory appeared to be intact. Insight and judgment appeared to be appropriate at the current time. ASSESSMENT: Includes altered mental status which appeared to be resolving. PLAN: To continue with the current regimen as prescribed and continue to follow during hospitalization. JOB# [id number] TORRIE/VINCE
[2016-09-06] MEDS: SYNTHROID PO SCH (06:54)
[2016-09-06] MEDS: FIORICET PO PRN ×4 (08:09→20:57)
[2016-09-06] MEDS: LYRICA PO SCH ×3 (08:09→20:58)
[2016-09-06] MEDS: ZOFRAN IV PRN (09:52)
[2016-09-06] MEDS: KEPPRA PO SCH ×2 (09:52→21:00)
--- NOTE | 2016-09-06 12:51 | Progress Note ---
Assessment and Plan 56 YO F reported Hx seizure disorder since age 12 on LEV 1g BID, Lyrica 150mg TID also for fibromyalgia, reported AED complaince, stroke in 2008 w/ residual R hemiparesis/sensory loss, and R ankle RSD p/w breakthrough poorly described but w/ reported LOC x up to 2-6 times on 08/31 w/ recent increase in Sz baseline frequency to LOC Q2 days over this last 1 week for unclear etiology. She has suffered numerous facial and elbow/knee ecchymoses from fall she states. She also reports progressive holocranial bifrontal maximal headache but w/o migrainous Hx-I suspect post concussive syndrome. CTH/C-spine nonacute beyond L scalp hematoma. Neuro exam essentially intact w/ slightly worsened baseline R hemiparesis. ON 09/01 and 09/02 nurses and other care providers have witnessed numerous recurrent events of b/l UE and LE rotational and side to side movements w/ preserved consciousness, no tongue bite, incontinence or post ictal state. I am suspicious her events are more likely psychogenic/factitious rather than neurologic/epileptic in etiology. She also affirms prior Dx of stress induced seizures but also affirms epileptic seizures as well. f/u CTH neg. MRI unable to be done d/t inability to stay still. On 09/06 remains @ baseline w/o recurrent "seizure." Plan and Recommendation: 1. Telemetry bed w/ Q4 hour neuro checks & Sz precaution 2. Labs: Serum/Urine Tox, UA/UCx, Electrolytes especially Na, Ca, Mg, and Glucose, TSH/Vit B12/Ammonia and correct as necessary 3. Cont Infectious work up/medical management for UTI, PNA, cellulitis, bacteremia, etc. 4. Avoid hyponatremia, hypo/hyper-calcemia, hypo/hyperglycemia, acidosis, hypoxia/hypoxemia, hypercarbia/hypercapnia 5. Avoid institution of any psychoactive medications (e.g. antihistamines, anticholinergics, BZD, hypnotics, opiates) as able unless low doses of low potency antipsychotic needed for behavioral issues complicating medical care 6. AED therapy: Resume home Keppra to 1000mg BID, cont Lyrica 150mg TID 7. Avoid meds that can lower sz threshold e.g. Tramadol, fluroquinolones, carbapenems 8. If Hx obtained to suggest EtOH dependence, supplement Thiamine, Folate and B12 9. Pt advised of [place] driving regulations: report date of presumed Seizure/ unexplained loss of consciousness/awareness spell to [facility], refrain from operating a motor vehicle for 6 months after this date, and avoid unsupervised activity particularly around water or heights 10. For SANCHEZ: KINDRA-Decadron 4mg IV BID x 6 doses, VPA 500mg IV Q8hrs x 3 doses, Fioricet prn. Pt w/ Toradol intolerance. 11. Cont mental health evaluation as available. 12. 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 off restraints. Objective - Vital Sign Vital Signs - 12hr 09/06/16 08:15 Temperature 98.3 F Pulse Rate [ 72 Right] Respiratory 16 Rate Blood Pressure 109/60 [Right Arm] O2 Sat by Pulse 98 Oximetry - General Apperance Constitutional: comfortable - EENT EENT: PERRL, mucous membranes moist, hearing intact, vision intact, other ( echymosses under eyes, on knees/elbows) - Respiratory Respiratory: chest non-tender, normal breath sounds, no respiratory distress - Cardiovascular Cardiovascular: regular rate Extremities: no peripheral edema bilat, no clubbing, cyanosis, no inflammation, no ischemia or petechiae - Gastrointestinal Gastrointestinal: normoactive bowel sounds, soft, non-distended - Integumentary Integumentary: normal - Neurologic Cranial nerve examination: PERRL, EOMI, VFF, V1/V2/V3 grossly intact, face symmetric, tongue midline, intact, intact shoulder shrug, Intact Vestibulo- ocular r, intact corneal reflex, normal palatal elevation Speech examination: intact Detailed motor examination: full strength in all guicho Motor examination - right side: 5/5: biceps, triceps, wrist flexion, wrist extension, esthetician permanent makeup artist, hip flexors, knee extensors, dorsiflexion, toe extension (EHL) , plantarflexion Motor examination - left side: 5/5: biceps, triceps, wrist flexion, wrist extension, esthetician permanent makeup artist, hip flexors, knee extensors, dorsiflexion, toe extension (EHL) , plantarflexion Detailed sensory examination: intact Reflex and gait examination: intact Reflexes: 2+: ankle, bicep, knee, tricep - Musculoskeletal Musculoskeletal: no fluid collection, no pain, normal range of motion - Psychiatric Psychiatric: mood/affect appropriate, cooperative - Laboratory Findings CBC and BMP: 09/01/16 07:10 09/02/16 03:48 Abnormal Lab Findings: Abnormal Labs 08/31/16 09/01/16 09/01/16 22:36 04:00 07:10 Lymph % (Auto) 44.9 H [place] % (Auto) 11.1 H D-Dimer 242.30 H Potassium 3.4 L Carbon Dioxide Creatinine 0.6 L Glucose POC Glucose TSH Free T4 09/01/16 09/01/16 09/01/16 11:36 13:45 13:45 Lymph % (Auto) [place] % (Auto) D-Dimer Potassium Carbon Dioxide Creatinine Glucose POC Glucose 106 H TSH 5.370 H Free T4 0.73 L 09/02/16 03:48 Lymph % (Auto) [place] % (Auto) D-Dimer Potassium Carbon Dioxide 21 L Creatinine 0.6 L Glucose 157 H POC Glucose TSH Free T4
--- NOTE | 2016-09-06 13:33 | Progress Note ---
Assessment and Plan 56 YO F reported Hx seizure disorder on Keppra 1g BID, Lyrica 150mg TID also for fibromyalgia, reported AED complaince, stroke in 2008 w/ residual R hemiparesis/sensory loss, and R ankle RSD presented with breakthrough seizure with LOC x up to 2-6 times on 08/31. She has suffered numerous facial and elbow/ knee ecchymoses from fall. She also reports progressive holocranial bifrontal maximal headache but w/o migrainous Hx-I suspect post concussive syndrome. CTH/C -spine nonacute beyond L scalp hematoma. Neuro exam essentially intact w/ slightly worsened baseline R hemiparesis. Breakthrough seizure, likely - CT head did not show any acute new finding - Neurologic following and questioned whether patient has underlying psych issue contributing to this seizure-like episode - d/filiberto Depakote and cont the dose of Keppra 1000 bid Acute psychosis - psych following, will wait for further recommendation - placed on prn haldol History of CVA with right-sided hemiparesis - We'll monitor her frequent neuro exam - We'll continue Lipitor and we will do PT for when medically stable - MRI could not be done as she was not cooperative Fibromyalgia - Continue neurontin Headache - Placed on fiorecet by Neurology Scalp hematoma due to fall - Seen on CT patient at the left Side of the forehead - Continue to monitor clinically GI and DVT prophylaxis - PPI and SCD Disposition: wait for psych eval, will consult PT Subjective Date of service: 09/06/16 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 Medical records and medication list reviewed. Patient was very restless, placed on 1;1 sitter after she took off her restrain and tried to get out of the bed she is off restrained since yesterday and appears much cooperative Objective - Exam Narrative Exam: GENERAL: well-developed and well-nourished WF lying on bed off restrained HEENT: Normocephalic. Atraumatic. No conjunctival congestion or icterus. Patient has moist mucous membranes. Bilateral black eyes. NECK: Supple. Trachea midline. CHEST/LUNGS: Clear to auscultated bilaterally, breathing nonlabored. No wheezes crackles or rhonchi. HEART/CARDIOVASCULAR: Regular in rate and rhythm. S1 and S2 positive. ABDOMEN: Abdomen is soft, nontender. Patient has normal bowel sounds. SKIN: There is no rash. Warm and dry. Multiple bruises mostly on hands and legs and on her left breast NEURO: Right-sided weakness. MUSCULOSKELETAL: No joint effusion or tenderness. EXTRIMITY: No edema, no cyanosis or clubbing. PSYCH: cooperative. - Constitutional Vitals: Vital Signs - 12hr 09/06/16 08:15 Temperature 98.3 F Pulse Rate [ 72 Right] Respiratory 16 Rate Blood Pressure 109/60 [Right Arm] O2 Sat by Pulse 98 Oximetry - Labs CBC & Chem 7: 09/01/16 07:10 09/02/16 03:48
--- NOTE | 2016-09-06 16:49 | Progress Note ---
Subjective - Reason for Consult Consult date: 09/06/16 Reason for consult: Psychiatry Follow-up - Chief Complaint Chief complaint: "Thank you" The patient is a 56-year-old female presenting with a chief complaint of seizures. Today patient is calm and cooperative during our conversation. She stated that she would like help once she is discharged. She asked about seeing a therapist and a psychiatrist in her local area. Per RN note, no distress or behavioral issues overnight. Patient denies SI/HI's, AVH's, poor appetite, sleep disturbance or depression symptoms. Mental Status Exam - Vital signs Last Vital Signs Temp 98.3 F 09/06/16 08:15 Pulse 72 09/06/16 08:15 Resp 16 09/06/16 08:15 BP 109/60 09/06/16 08:15 Pulse Ox 98 09/06/16 08:15 - Exam Narrative exam: MSE: Appearance: cooperative, calm Behavior: good eye contact Speech: regular rate and tone Mood: "I feel good" Affect: congruent to mood Thought Process: linear Thought Content: denies SI/HI's and AVH's Motor Activity: in bed eating Cognition: a/ox 3 Insight: fair Judgment: fair Assessment and Plan Impression: The patient is a 56-year-old female presenting with a chief complaint of seizures. Today patient is calm and cooperative during our conversation. She stated that she would like help once she is discharged. She asked about seeing a therapist and a psychiatrist in her local area. Per RN note , no distress or behavioral issues overnight. She denies SI/HI's and AVH's Recommendation/Plan: Per psychiatry we sign off this patient. Provided outpatient psy services information to patient within her local area.
[2016-09-06] MEDS: MORPHINE IV PRN (22:26)
[2016-09-06] MEDS: BENADRYL IV PRN (22:26)
[2016-09-07] MEDS: FIORICET PO PRN ×3 (05:54→16:01)
[2016-09-07] MEDS ORDERED: SYNTHROID PO SCH (06:00)
[2016-09-07 07:44] VITALS: BP 102/80
[2016-09-07] MEDS: LYRICA PO SCH ×2 (09:28→13:29)
[2016-09-07] MEDS: KEPPRA PO SCH (09:29)
--- NOTE | 2016-09-07 10:43 | Discharge Summary ---
Providers - Providers Date of Admission: 08/31/16 22:15 Date of discharge: 09/07/16 Attending physician: JARETT DE GUZMNA 09/01/16 03:59 Consult to Wound/ET Nurse [CONS] Routine Reason For Exam: wound eval 09/02/16 10:10 Consult to Physician [CONS] Routine Consulting Provider: OLY GREEN Reason For Exam: bipolar disorder Place consult to:: mental health Notified:: ELIZA Phone number called:: [phone] Was contact made?: Yes If yes, spoke with:: ELIZA Time called:: 10:19 09/06/16 11:22 Physical Therapy Evaluation and Treat [CONS] Routine Comment: Reason For Exam: ambulation Primary care physician: OSITO MA Hospitalization Reason for admission: seizure-like activity Condition: Fair Disposition: DC/TX HOME UNDER HOME HEALTH Time spent for discharge: 35 min Core Measure Documentation - Palliative Care Palliative Care/ Comfort Measures: Not Applicable Exam - Constitutional Vitals: Temp Pulse Resp BP Pulse Ox 97.7 F 68 18 102/80 100 09/07/16 07:40 09/07/16 07:40 09/07/16 07:40 09/07/16 07:40 09/07/16 07:40 Plan Activity: advance as tolerated, fall precautions Diet: low cholesterol, low salt Durable Medical Equipment Needed Upon Discharge: Walker-Rolling Follow up with: OSITO MA JR, MD [Primary Care Provider] - 3-5 Days Prescriptions: AtorvaSTATin [Lipitor] 10 mg PO QHS #30 tablet Aspirin EC [Aspirin Enteric Coated TAB] 81 mg PO QDAY #30 tablet.dr De La Cruz/Acetamin/Caff 50-325-40 [Fioricet] 2 tab PO Q4H PRN #20 tablet PRN Reason: Headache levETIRAcetam [Keppra TAB] 1,000 mg PO BID #120 tablet Levothyroxine [Synthroid] 100 mcg PO DAILY@0600 #30 tablet Lyrica 150 mg PO TID #180
== END 2016-09-07 18:28 | disposition home health service (06) | DRG 101 ==
LOC: ED 16:32 → 3A 22:15
PROVIDERS: ADMIT Internal Medicine; ATTEND Internal Medicine
DX: G40.901 Epilepsy, unspecified, not intractable, with status epilepticus (principal); F23 Brief psychotic disorder; I69.351 Hemiplegia and hemiparesis following cerebral infarction affecting right dominant side; S00.03XA Contusion of scalp, initial encounter; M79.7 Fibromyalgia; I10 Essential (primary) hypertension; I48.91 Unspecified atrial fibrillation; S80.02XA Contusion of left knee, initial encounter; S80.01XA Contusion of right knee, initial encounter; S50.02XA Contusion of left elbow, initial encounter; S50.01XA Contusion of right elbow, initial encounter; R55 Syncope and collapse; E03.9 Hypothyroidism, unspecified; F31.9 Bipolar disorder, unspecified; Z90.49 Acquired absence of other specified parts of digestive tract; Z90.710 Acquired absence of both cervix and uterus; Z88.0 Allergy status to penicillin; Z91.013 Allergy to seafood
CPT/HCPCS: 36415; 70450; 72125; 80048; 82962; 83735; 84439; 84443; 85025; 85379; 90732; 93005; 93010; 96374; 96375; 96376; G8978-GP; G8979-GP; J1100; J1165; J1200; J1630; J1953; J2060; J2270; J2310; J2405; J7050

== ENCOUNTER 2016-09-08 14:55 | Emergency (ER) | payer MEDICARE ==
--- NOTE | 2016-09-08 15:31 | Emergency Department Report ---
ED Seizure HPI - General Chief Complaint: Seizure Stated Complaint: SEIZURE Time Seen by Provider: 09/08/16 15:26 Source: patient Mode of arrival: Stretcher Limitations: No Limitations - History of Present Illness Initial Comments: 56-year-old female presents to the emergency department after a CODE BLUE was called in the hospital cafeteria. Upon my response to this CODE BLUE, the patient was found lying on the floor the cafeteria. Witnesses stated that the patient had 2 seizures. Patient was alert and following commands on my arrival. She states she did not know what happened. Patient was apparently discharged from the hospital yesterday. There are no other complaints. MD Complaint: seizure -: Sudden, This afternoon Description of Episode: tonic-clonic movement Witnessed:: Yes Trauma: No Seizure History: known seizure disorder Possible Precipitating Event: none Associated Symptoms: denies other symptoms Treatments Prior to Arrival: none - Related Data Home Medications Medication Instructions Recorded Confirmed Last Taken Lexapro 10 mg PO DAILY 08/31/16 08/31/16 Unknown NexIUM 40 mg PO DAILY 08/31/16 08/31/16 Unknown Promethazine 25 mg PO Q6HR PRN 08/31/16 08/31/16 Unknown Zolpidem 10 mg PO HS 08/31/16 08/31/16 Unknown Previous Rx's Medication Instructions Recorded Last Taken Type Ondansetron [Zofran ODT TAB] 4 mg PO Q8HR #20 tab.rapdis 01/14/15 1 Day Ago Rx Ibuprofen [Motrin 400 MG tab] 400 mg PO Q8H PRN #30 tablet 06/30/16 Unknown Rx Aspirin EC [Aspirin Enteric Coated 81 mg PO QDAY #30 tablet. 09/07/16 Unknown Rx TAB] AtorvaSTATin [Lipitor] 10 mg PO QHS #30 tablet 09/07/16 Unknown Rx Butalb/Acetamin/Caff 50-325-40 2 tab PO Q4H PRN #20 tablet 09/07/16 Unknown Rx [Fioricet] Levothyroxine [Synthroid] 100 mcg PO DAILY@0600 #30 tablet 09/07/16 Unknown Rx Lyrica 150 mg PO TID #180 09/07/16 Unknown Rx levETIRAcetam [Keppra TAB] 1,000 mg PO BID #120 tablet 09/07/16 Unknown Rx Allergies Allergy/AdvReac Type Severity Reaction Status Date / Time Penicillins Allergy Itching Verified 01/14/15 20:26 seafood Allergy Swelling Uncoded 06/29/16 13:16 tape Allergy Rash Uncoded 06/29/16 13:16 ED Review of Systems ROS: Stated complaint: SEIZURE Other details as noted in HPI Comment: All other systems reviewed and negative Neurological: as per HPI (seizure) ED Past Medical Hx - Past Medical History Previous Medical History?: Yes Hx Hypertension: Yes Hx CVA: Yes Hx Seizures: Yes Hx Asthma: Yes Additional medical history: 'nerve disorder,' a-fib, fibroids - Surgical History Past Surgical History?: Yes Hx Cholecystectomy: Yes Hx Appendectomy: Yes Additional Surgical History: head sx, hysterectomy. right ankle surgery. spinal surgery x 2. jaw surgery. nasal surgery - Family History Family history: no significant - Social History Smoking Status: Never Smoker Substance Use Type: None - Medications Home Medications: Home Medications Medication Instructions Recorded Confirmed Last Taken Type Ondansetron [Zofran ODT TAB] 4 mg PO Q8HR #20 tab.rapdis 01/14/15 08/31/16 1 Day Ago Rx Ibuprofen [Motrin 400 MG tab] 400 mg PO Q8H PRN #30 tablet 06/30/16 08/31/16 Unknown Rx Lexapro 10 mg PO DAILY 08/31/16 08/31/16 Unknown History NexIUM 40 mg PO DAILY 08/31/16 08/31/16 Unknown History Promethazine 25 mg PO Q6HR PRN 08/31/16 08/31/16 Unknown History Zolpidem 10 mg PO HS 08/31/16 08/31/16 Unknown History Aspirin EC [Aspirin Enteric Coated 81 mg PO QDAY #30 tablet. 09/07/16 Unknown Rx TAB] AtorvaSTATin [Lipitor] 10 mg PO QHS #30 tablet 09/07/16 Unknown Rx Butalb/Acetamin/Caff 50-325-40 2 tab PO Q4H PRN #20 tablet 09/07/16 Unknown Rx [Fioricet] Levothyroxine [Synthroid] 100 mcg PO DAILY@0600 #30 tablet 09/07/16 Unknown Rx Lyrica 150 mg PO TID #180 09/07/16 Unknown Rx levETIRAcetam [Keppra TAB] 1,000 mg PO BID #120 tablet 09/07/16 Unknown Rx ED Physical Exam - General Limitations: No Limitations General appearance: alert, in no apparent distress - Head Head exam: Present: atraumatic, normocephalic - Eye Eye exam: Present: normal appearance, PERRL, EOMI - ENT ENT exam: Present: normal exam, normal orophraynx, mucous membranes moist - Neck Neck exam: Present: normal inspection, full ROM. Absent: tenderness - Respiratory Respiratory exam: Present: normal lung sounds bilaterally. Absent: respiratory distress - Cardiovascular Cardiovascular Exam: Present: regular rate, normal rhythm, normal heart sounds - GI/Abdominal GI/Abdominal exam: Present: soft, normal bowel sounds. Absent: distended, tenderness - Extremities Exam Extremities exam: Present: normal inspection, full ROM. Absent: tenderness - Back Exam Back exam: Present: normal inspection, full ROM. Absent: tenderness - Neurological Exam Neurological exam: Present: alert, oriented X3. Absent: motor sensory deficit - Skin Skin exam: Present: warm, dry, intact ED Course Vital Signs 09/08/16 09/08/16 09/08/16 14:46 14:50 15:00 Temperature Pulse Rate 105 H 107 H Respiratory 31 H 17 Rate Blood Pressure 166/94 166/94 Blood Pressure [Right] O2 Sat by Pulse 89 100 99 Oximetry 09/08/16 09/08/16 09/08/16 15:08 15:10 15:20 Temperature 98.1 F Pulse Rate 110 H 101 H 133 H Respiratory 18 17 12 Rate Blood Pressure 166/94 152/90 143/113 Blood Pressure [Right] O2 Sat by Pulse 100 100 99 Oximetry 09/08/16 09/08/16 09/08/16 15:30 15:40 15:50 Temperature Pulse Rate 70 95 H Respiratory 15 9 L 11 L Rate Blood Pressure 143/113 143/113 143/113 Blood Pressure [Right] O2 Sat by Pulse 100 100 100 Oximetry 09/08/16 09/08/16 09/08/16 16:00 16:10 16:20 Temperature Pulse Rate 89 101 H 102 H Respiratory 29 H 18 16 Rate Blood Pressure 143/113 143/113 143/113 Blood Pressure [Right] O2 Sat by Pulse 99 98 100 Oximetry 09/08/16 09/08/16 09/08/16 16:56 17:00 17:10 Temperature Pulse Rate Respiratory Rate Blood Pressure 143/113 111/78 156/89 Blood Pressure [Right] O2 Sat by Pulse 100 99 100 Oximetry 09/08/16 09/08/16 09/08/16 17:21 17:30 17:41 Temperature Pulse Rate Respiratory Rate Blood Pressure 143/113 123/79 136/82 Blood Pressure [Right] O2 Sat by Pulse 100 100 99 Oximetry 09/08/16 09/08/16 09/08/16 17:51 18:01 18:11 Temperature Pulse Rate Respiratory Rate Blood Pressure 119/75 126/72 126/72 Blood Pressure [Right] O2 Sat by Pulse 100 100 99 Oximetry 09/08/16 09/08/16 09/08/16 18:21 18:30 18:41 Temperature Pulse Rate Respiratory Rate Blood Pressure 121/79 116/68 126/72 Blood Pressure [Right] O2 Sat by Pulse 100 100 100 Oximetry 09/08/16 18:58 Temperature Pulse Rate 91 H Respiratory 18 Rate Blood Pressure Blood Pressure 126/72 [Right] O2 Sat by Pulse 98 Oximetry ED Medical Decision Making - Lab Data Result diagrams: 09/08/16 15:35 09/08/16 14:35 - EKG Data -: EKG Interpreted by Ri EKG shows normal: sinus rhythm, axis, intervals, QRS complexes, ST-T waves Rate: normal - EKG Data When compared to previous EKG there are: previous EKG unavailable Interpretation: normal EKG - Medical Decision Making Patient apparently had no postictal period. There is some concern for possible pseudoseizures. Obtaining labs. Patient will be monitored in the emergency department. Results reviewed and unremarkable. Patient had no further seizure activity in the emergency department. Patient was discharged home to follow up with her neurologist. - Differential Diagnosis seizure disorder, pseudoseizure, electrolyte abnormality Critical care attestation.: If time is entered above; I have spent that time in minutes in the direct care of this critically ill patient, excluding procedure time. ED Disposition Clinical Impression: Headache, Chronic pain of right lower extremity Disposition: DISCHARGED TO HOME OR SELFCARE Is pt being admited?: No Condition: Good Additional Instructions: Continue current outpatient medications. Do not drive or car or operate motor vehicles for the next 6 months. Follow up with an outpatient psychiatrist as directed during her recent discharge summary. Follow up with any of the listed neurology specialist within the next 2 weeks. Follow up with a primary care doctor within the next week. please return to the ER right away with fevers, chills, chest pain, shortness of breath, loss of consciousness, intractable nausea or vomiting, homicidality, suicidality, confusion, change in mental status. Referrals: CRISTINA LOPEZ MD [Staff Physician] - 3-5 Days THADDEUS GUERRA MD [Staff Physician] - 3-5 Days PRIMARY CARE, [Primary Care Provider] - 3-5 Days WINSOME SAMUELS MD [Staff Physician] - 3-5 Days
[2016-09-08 16:11] LABS: Basophils % (Auto) 0.6 % (0.0-1.8); Eosinophils % (Auto) 1.5 % (0.0-4.3); Hematocrit 38.9 % (30.3-42.9); Hemoglobin 13.3 gm/dl (10.1-14.3); Mean Corpuscular HGB Conc 34 % (30-34); Mean Corpuscular Hemoglobin 30 pg (28-32); Mean Corpuscular Volume 87 fl (79-97); Platelet Count 269 K/mm3 (140-440); Red Blood Count 4.45 M/mm3 (3.65-5.03); Red Cell Distribution Width 14.6 % (13.2-15.2); White Blood Count 9.7 K/mm3 (4.5-11.0)
[2016-09-08 16:23] LABS: Anion Gap 20 mmol/L; BUN/Creatinine Ratio 17.14; Blood Urea Nitrogen 12 mg/dL (7-17); Calcium 9.5 mg/dL (8.4-10.2); Carbon Dioxide 24 mmol/L (22-30); Chloride 102.9 mmol/L (98-107); Glucose 116 mg/dL (65-100); Potassium 4.3 mmol/L (3.6-5.0); Sodium 143 mmol/L (137-145)
[2016-09-08] MEDS ORDERED: KETALAR IV ONE ×2 (16:28→17:00)
--- NOTE | 2016-09-08 16:29 | Event Note ---
Date: 09/08/16 Patient signed out to me by Dr. Ellison. One ago evaluated the patient, she complains of headache pain, and chronic right lower extremity pain. Patient recently had an extensive workup and evaluation at this facility. To me, the patient denies chest pain, shortness of breath, homicidality, suicidality. During her recent hospital admission, she had an extensive evaluation by neurology, and psychiatry. She also had an essentially unremarkable nuclear stress test June 2016. She currently has a GCS of 15, with an NIH score of 0. She did complain of chronic right lower extremity pain, consistent with her prior episodes of RSD. Patient has an unremarkable neurologic examination, and has been observed in the ER for a prolonged period of time. Her laboratory studies are unremarkable , noncontrast CT scan of the brain is negative, x-ray of the chest not consistent with pneumonia, and her tachycardia has resolved. As per review of her old medical records, the patient is suitable to follow-up with outpatient psychiatry, outpatient neurology. Alert and oriented 3. Head is normocephalic, with bilateral periorbital ecchymosis. Extraocular movements intact. Tongue midline. No facial droop. Facial sensation intact to light touch in the V1, V2, V3 distribution bilaterally. 5 and 5 strength in 4 extremities.. Sensation is intact to light touch in 4 extremities. Gait within normal limits. Neck is nontender, no midline tenderness, full range of motion. Abdomen soft and benign, no rebound, guarding or peritoneal signs. S1, S2, regular rate and rhythm. No murmurs rubs or gallops. 2+ pulses are appreciated for extremity. No long bony tenderness. Compartments are soft. No crepitus. No streaking. Vital Signs 09/08/16 09/08/16 09/08/16 14:46 14:50 15:00 Temperature Pulse Rate 105 H 107 H Respiratory 31 H 17 Rate Blood Pressure 166/94 166/94 O2 Sat by Pulse 89 100 99 Oximetry 09/08/16 09/08/16 09/08/16 15:08 15:10 15:20 Temperature 98.1 F Pulse Rate 110 H 101 H 133 H Respiratory 18 17 12 Rate Blood Pressure 166/94 152/90 143/113 O2 Sat by Pulse 100 100 99 Oximetry 09/08/16 09/08/16 09/08/16 15:30 15:40 15:50 Temperature Pulse Rate 70 95 H Respiratory 15 9 L 11 L Rate Blood Pressure 143/113 143/113 143/113 O2 Sat by Pulse 100 100 100 Oximetry 09/08/16 09/08/16 09/08/16 16:00 16:10 16:20 Temperature Pulse Rate 89 101 H 102 H Respiratory 29 H 18 16 Rate Blood Pressure 143/113 143/113 143/113 O2 Sat by Pulse 99 98 100 Oximetry 09/08/16 17:21 Temperature Pulse Rate Respiratory Rate Blood Pressure 143/113 O2 Sat by Pulse 100 Oximetry Labs 09/08/16 09/08/16 09/08/16 14:35 15:35 16:25 WBC 9.7 RBC 4.45 Hgb 13.3 Hct 38.9 MCV 87 MCH 30 MCHC 34 RDW 14.6 Plt Count 269 Lymph % (Auto) 27.0 [place] % (Auto) 9.8 H Eos % (Auto) 1.5 Baso % (Auto) 0.6 Lymph # 2.6 [place] # 0.9 H Eos # 0.1 Baso # 0.1 Seg Neutrophils % 61.1 Seg Neutrophils # 5.9 PT 12.6 INR 0.95 Sodium 143 Potassium 4.3 Chloride 102.9 Carbon Dioxide 24 Anion Gap 20 BUN 12 Creatinine 0.7 Estimated GFR > 60 BUN/Creatinine Ratio 17.14 Glucose 116 H Calcium 9.5 Magnesium 2.20 Urine Color Urine Turbidity Urine pH Ur Specific [place] Urine Protein Urine Glucose (UA) Urine Ketones Urine Blood Urine Nitrite Urine Bilirubin Urine Urobilinogen Ur Leukocyte Esterase Urine WBC (Auto) Urine RBC (Auto) U Epithel Cells (Auto) Urine Mucus Salicylates Acetaminophen 09/08/16 09/08/16 09/08/16 16:25 16:25 16:38 WBC RBC Hgb Hct MCV MCH MCHC RDW Plt Count Lymph % (Auto) [place] % (Auto) Eos % (Auto) Baso % (Auto) Lymph # [place] # Eos # Baso # Seg Neutrophils % Seg Neutrophils # PT INR Sodium Potassium Chloride Carbon Dioxide Anion Gap BUN Creatinine Estimated GFR BUN/Creatinine Ratio Glucose Calcium Magnesium Urine Color Yellow Urine Turbidity Clear Urine pH 5.0 Ur Specific [place] 1.023 Urine Protein <15 mg/dl Urine Glucose (UA) Neg Urine Ketones Neg Urine Blood Neg Urine Nitrite Neg Urine Bilirubin Neg Urine Urobilinogen < 2.0 Ur Leukocyte Esterase Tr Urine WBC (Auto) 6.0 Urine RBC (Auto) 2.0 U Epithel Cells (Auto) < 1.0 Urine Mucus 3+ Salicylates < 0.3 L Acetaminophen < 15.0
[2016-09-08 16:53] LABS: INR 0.95 (0.87-1.13)
--- NOTE | 2016-09-08 16:57 | Cat Scan Report ---
CRANIAL CT SCAN: History: Seizure. Serial contiguous axial images were obtained through the cranium. Intravenous contrast material was not administered. The ventricles are normal in size and appearance. There is no mass effect or midline shift. No areas of abnormally increased or decreased attenuation are seen. No mass lesion is seen. The mastoid air cells and visualized portions of the sinuses are normal. IMPRESSION: Cranial CT scan within normal limits.
[2016-09-08 17:18] LABS: Bilirubin,Urine NEG (Negative); Blood,Urine NEG (Negative); Ketones,Urine NEG (Negative); Leukocyte Esterase,Urine TR (Negative); Mucus,Urine 3+ /HPF; Nitrite,Urine NEG (Negative); Protein,Urine <15 mg/dL mg/dL (Negative); Urobilinogen,Urine < 2.0 mg/dL (<2.0)
[2016-09-08 18:58] VITALS: BP 126/72
--- NOTE | 2016-09-09 07:36 | XRay Report ---
AP CHEST: HISTORY: Seizure, pneumonia AP view of the chest demonstrates a normal mediastinal and cardiac contour with clear lungs and normal bony and soft tissue structures. IMPRESSION: Unremarkable AP chest. No change since 06/29/16.
== END 2016-09-08 18:58 | disposition home or self-care (01) ==
LOC: ED 14:55
DX: R51 Headache (principal); G89.29 Other chronic pain; M79.661 Pain in right lower leg; I10 Essential (primary) hypertension; Z86.73 Personal history of transient ischemic attack (TIA), and cerebral infarction without residual deficits; J45.909 Unspecified asthma, uncomplicated; Z90.49 Acquired absence of other specified parts of digestive tract; Z79.82 Long term (current) use of aspirin; Z88.0 Allergy status to penicillin; Z91.013 Allergy to seafood; Z91.018 Allergy to other foods
CPT/HCPCS: 36415; 70450; 71010; 80048; 81001; 83735; 85025; 85610; 93005; 93010; 96374; 99285; G0480; 80320

== ENCOUNTER 2016-12-17 19:17 | Emergency (ER) | payer MEDICARE ==
[2016-12-17] MEDS ORDERED: KEPPRA 1,000 MG/NS 0.75% 100ML 1,000 MG/100 ML BAG IV ONE (20:49)
[2016-12-17] MEDS ORDERED: NORCO 5/325 PO ONE (20:50)
--- NOTE | 2016-12-17 21:01 | Emergency Department Report ---
HPI - General Chief Complaint: Back Pain/Injury Time Seen by Provider: 12/17/16 20:41 - HPI HPI: Room 3 The patient is a 56-year-old female presented with a chief complaint of back pain. The patient has a history of seizures states she had one 2 days ago. The patient states she was told during her fall the seizure she was striking her back the corner of a wall. Patient states that time she developed low back pain that has been worsening. Patient comes to the hospital for evaluation of her low back pain. Patient also states she has a bump on her head from where she struck it during the seizures as well Location: Head, low back Duration: 2 days Quality: Pain Severity: 01/25 Modifying factors: Movement increases pain Context: [see above] Mode of transportation: [not driving] ED Past Medical Hx - Past Medical History Hx Hypertension: Yes Hx CVA: Yes (2008) Hx Arthritis: Yes Hx Seizures: Yes Hx Asthma: Yes Additional medical history: 'nerve disorder,' a-fib, fibroids - Surgical History Hx Cholecystectomy: Yes Hx Appendectomy: Yes Additional Surgical History: head sx, hysterectomy. right ankle surgery. spinal surgery x 2. jaw surgery. nasal surgery - Family History Family history: no significant - Social History Smoking Status: Never Smoker Substance Use Type: None - Medications Home Medications: Home Medications Medication Instructions Recorded Confirmed Last Taken Type Ondansetron [Zofran ODT TAB] 4 mg PO Q8HR #20 tab.rapdis 01/14/15 08/31/16 1 Day Ago Rx Ibuprofen [Motrin 400 MG tab] 400 mg PO Q8H PRN #30 tablet 06/30/16 08/31/16 Unknown Rx Lexapro 10 mg PO DAILY 08/31/16 08/31/16 Unknown History NexIUM 40 mg PO DAILY 08/31/16 08/31/16 Unknown History Promethazine 25 mg PO Q6HR PRN 08/31/16 08/31/16 Unknown History Zolpidem 10 mg PO HS 08/31/16 08/31/16 Unknown History Aspirin EC [Aspirin Enteric Coated 81 mg PO QDAY #30 tablet. 09/07/16 Unknown Rx TAB] AtorvaSTATin [Lipitor] 10 mg PO QHS #30 tablet 09/07/16 Unknown Rx Butalb/Acetamin/Caff 50-325-40 2 tab PO Q4H PRN #20 tablet 09/07/16 Unknown Rx [Fioricet] Levothyroxine [Synthroid] 100 mcg PO DAILY@0600 #30 tablet 09/07/16 Unknown Rx Lyrica 150 mg PO TID #180 09/07/16 Unknown Rx levETIRAcetam [Keppra TAB] 1,000 mg PO BID #120 tablet 09/07/16 Unknown Rx Ibuprofen [Motrin 800 MG tab] 800 mg PO Q8HR PRN #20 tablet 12/17/16 Unknown Rx Metaxalone [Skelaxin] 800 mg PO TID #10 tablet 12/17/16 Unknown Rx traMADol [Ultram] 50 mg PO Q6HR PRN #10 tablet 12/17/16 Unknown Rx ED Review of Systems ROS: Stated complaint: BACK PAIN Other details as noted in HPI Comment: All other systems reviewed and negative Constitutional: denies: chills, fever Eyes: denies: eye pain, eye discharge, vision change ENT: denies: ear pain, throat pain Respiratory: denies: cough, shortness of breath, wheezing Cardiovascular: denies: chest pain, palpitations Endocrine: no symptoms reported Gastrointestinal: denies: abdominal pain, nausea, diarrhea Genitourinary: denies: urgency, dysuria, discharge Musculoskeletal: back pain Skin: denies: rash, lesions Neurological: headache Psychiatric: denies: anxiety, depression Hematological/Lymphatic: denies: easy bleeding, easy bruising Physical Exam - Physical Exam Vital Signs: Vital Signs 12/17/16 20:00 Temperature 98.2 F Pulse Rate 74 Respiratory 16 Rate Blood Pressure 114/77 Blood Pressure 114/77 [Right] O2 Sat by Pulse 98 Oximetry Physical Exam: GENERAL: The patient is well-developed well-nourished female lying on stretcher appearing to be in mild discomfort. [] HEENT: Normocephalic. Extraocular motions are intact. Patient has moist mucous membranes. NECK: Supple. Trachea midline CHEST/LUNGS: Clear to auscultation. There is no respiratory distress noted. HEART/CARDIOVASCULAR: Regular. There is no tachycardia. There is no gallop rub or murmur. ABDOMEN: Abdomen is soft, nontender. Patient has normal bowel sounds. There is no abdominal distention. SKIN: There is no rash. There is no edema. There is no diaphoresis. NEURO: The patient is awake, alert, and oriented. The patient is cooperative. The patient has normal speech MUSCULOSKELETAL: There is tenderness to palpation of the lumbar spine. There is no axial step-offs. There is no evidence of acute injury. ED Course Vital Signs 12/17/16 20:00 Temperature 98.2 F Pulse Rate 74 Respiratory 16 Rate Blood Pressure 114/77 Blood Pressure 114/77 [Right] O2 Sat by Pulse 98 Oximetry ED Medical Decision Making - Radiology Data Radiology results: report reviewed (CT head, CT lumbar spine), image reviewed ( CT head, CT lumbar spine) CT head (read by radiologist)-normal examination. Stable appearance CT lumbar spine (read by radiologist)-mild degenerative change. No fracture seen - Differential Diagnosis lumbar strain, lumbar fracture, ICH, closed head injury Critical care attestation.: If time is entered above; I have spent that time in minutes in the direct care of this critically ill patient, excluding procedure time. ED Disposition Clinical Impression: Acute lumbar back pain, Closed head injury Disposition: TO HOME OR SELFCARE Is pt being admited?: No Does the pt Need Aspirin: No Condition: Stable Additional Instructions: Return to the emergency department immediately should you develop worsening symptoms, fever, inability to tolerate food or liquid or any other concerns. Prescriptions: Ibuprofen [Motrin 800 MG tab] 800 mg PO Q8HR PRN #20 tablet PRN Reason: Pain Metaxalone [Skelaxin] 800 mg PO TID #10 tablet traMADol [Ultram] 50 mg PO Q6HR PRN #10 tablet PRN Reason: Pain Referrals: LISS ANGEL MD [Primary Care Provider] - 3-5 Days ELLEN NOLEN MD [Staff Physician] - 3-5 Days (Dr. Nolen is an orthopedic surgeon. Please follow up with him for further evaluation) Time of Disposition: 23:24
--- NOTE | 2016-12-17 22:25 | Cat Scan Report ---
FINAL REPORT PROCEDURE: CT LUMBAR SPINE WO CON TECHNIQUE: Computerized axial tomography of the lumbar spine was performed from T12 to the sacrum without contrast material. HISTORY: pain after seizure and fall COMPARISON: No prior studies are available for comparison. FINDINGS: Alignment is satisfactory. No fracture. L1-2: No significant abnormality. L2-3: Mild disc bulge. L3-4: Mild disc bulge. L4-5: Mild disc bulge. Facet spurring. No canal stenosis. L5-S1: Disc bulge with left paracentral disc protrusion narrowing the left lateral recess, series 4 image 78. Mild facet spurring. Other: Paraspinal soft tissues are intact. Punctate right renal calcification.. IMPRESSION: Mild degenerative change. No fracture seen
--- NOTE | 2016-12-17 23:19 | Cat Scan Report ---
FINAL REPORT PROCEDURE: CT HEAD/BRAIN WO CON TECHNIQUE: Computerized tomography of the head was performed without contrast material. HISTORY: pain after seizure and fall COMPARISON: September 02, 2016 FINDINGS: Skull and scalp: Normal. Paranasal sinuses: Normal. Ventricles and subarachnoid spaces: Normal. Cerebrum: No evidence of hemorrhage, acute infarction or mass . Cerebellum and brainstem: No evidence of hemorrhage, acute infarction or mass. Vasculature: Normal. Comments: None. IMPRESSION: Normal Examination. Stable appearance.
[2016-12-18 00:05] VITALS: BP 126/88
== END 2016-12-18 00:20 | disposition home or self-care (01) ==
LOC: ED 19:17
DX: S09.90XA Unspecified injury of head, initial encounter (principal); M54.5 Low back pain; I10 Essential (primary) hypertension; M19.90 Unspecified osteoarthritis, unspecified site; J45.909 Unspecified asthma, uncomplicated; G58.9 Mononeuropathy, unspecified; Z79.82 Long term (current) use of aspirin; W18.30XA Fall on same level, unspecified, initial encounter; Y93.89 Activity, other specified; Y99.9 Unspecified external cause status; Y92.89 Other specified places as the place of occurrence of the external cause
CPT/HCPCS: 70450; 72131; 96365; 99284; J1953

== ENCOUNTER 2017-08-26 12:09 | Inpatient (IN) | payer MEDICARE ==
[~2017-08-26 12:09] MED LIST: Fluarix Quad 2017-2018(36 MOS+ IM ONE
--- NOTE | 2017-08-26 12:47 | Emergency Department Report ---
ED Neuro Deficit HPI - General Chief Complaint: Neuro Symptoms/Deficit Stated Complaint: POSSIBLE CVA Time Seen by Provider: 08/26/17 12:32 Source: EMS Mode of arrival: Ambulatory Limitations: Physical Limitation - History of Present Illness Initial Comments: Patient was last seen normal last night. She woke up this morning with increased right-sided weakness and dysarthria and dysphagia. -: unknown Location: speech, right face, right arm, right leg Presenting Symptoms: Present: Weak/Paralyzed One Side, Facial Droop/Numbness, Unable to Speak Clearly History of same: Yes Place: home Severity: Unable to Determine Quality: weak Improves With: none Worsens With: none Associated Symptoms: denies other symptoms Treatments Prior to Arrival: none - Related Data Home Medications: Home Medications Medication Instructions Recorded Confirmed Last Taken levETIRAcetam [Keppra TAB] 1,500 mg PO BID 05/13/17 08/26/17 08/25/17 Cyclobenzaprine HCl [Flexeril 5 MG 5 mg PO TID 08/26/17 08/26/17 08/25/17 TAB] Pregabalin [Lyrica] 150 mg PO TID 08/26/17 08/26/17 08/25/17 Zolpidem [Ambien] 10 mg PO QHS 08/26/17 08/26/17 08/25/17 Previous Rx's Medication Instructions Recorded Last Taken Type Metoprolol Xl [Metoprolol 50 mg PO QDAY #30 tablet 05/16/17 08/25/17 Rx SUCCINATE ER TAB] Allergies/Adverse Reactions: Allergies Allergy/AdvReac Type Severity Reaction Status Date / Time Penicillins Allergy Itching Verified 01/14/15 20:26 seafood Allergy Swelling Uncoded 06/29/16 13:16 tape Allergy Rash Uncoded 06/29/16 13:16 ED Review of Systems ROS: Stated complaint: POSSIBLE CVA Other details as noted in HPI Comment: Unobtainable due to pts medical conditions (Patient is non verbal) ED Past Medical Hx - Past Medical History Previous Medical History?: Yes Hx Hypertension: Yes Hx CVA: Yes (2008) Hx Heart Attack/AMI: No Hx Congestive Heart Failure: No Hx Diabetes: No Hx Deep Vein Thrombosis: No Hx Pulmonary Embolism: No Hx GERD: No Hx Liver Disease: No Hx Renal Disease: No Hx of Cancer: No Hx Sickle Cell Disease: No Hx Arthritis: Yes Hx Headaches / Migraines: No Hx Seizures: Yes Hx Kidney Stones: No Hx Psychiatric Treatment: No Hx Asthma: Yes Hx COPD: No Hx Tuberculosis: No Hx Dementia: No Hx HIV: No Additional medical history: 'nerve disorder,' a-fib, fibroids - Surgical History Past Surgical History?: Yes Hx Coronary Stent: No Hx Open Heart Surgery: No Hx Pacemaker: No Hx Internal Defibrillator: No Hx Cholecystectomy: Yes Hx Appendectomy: Yes Hx Breast Surgery: No Additional Surgical History: head sx, hysterectomy. right ankle surgery. spinal surgery x 2. jaw surgery. nasal surgery - Social History Smoking Status: Unknown if ever smoked Substance Use Type: None - Medications Home Medications: Home Medications Medication Instructions Recorded Confirmed Last Taken Type levETIRAcetam [Keppra TAB] 1,500 mg PO BID 05/13/17 08/26/17 08/25/17 History Metoprolol Xl [Metoprolol 50 mg PO QDAY #30 tablet 05/16/17 08/26/17 08/25/17 Rx SUCCINATE ER TAB] Cyclobenzaprine HCl [Flexeril 5 MG 5 mg PO TID 08/26/17 08/26/17 08/25/17 History TAB] Pregabalin [Lyrica] 150 mg PO TID 08/26/17 08/26/17 08/25/17 History Zolpidem [Ambien] 10 mg PO QHS 08/26/17 08/26/17 08/25/17 History ED Neuro Physical Exam - General Limitations: Altered Mental Status, Physical Limitation General appearance: alert, in no apparent distress Suspected Stroke: Yes - Head Head exam: Present: atraumatic, normocephalic, normal inspection - Eye Eye exam: Present: normal appearance - ENT ENT exam: Present: mucous membranes moist, other (Right facial droop) - Neck Neck exam: Present: normal inspection - Respiratory Respiratory exam: Present: normal lung sounds bilaterally. Absent: respiratory distress, wheezes - Cardiovascular Cardiovascular Exam: Present: regular rate, normal rhythm, normal heart sounds - GI/Abdominal GI/Abdominal exam: Present: soft, normal bowel sounds. Absent: distended, tenderness, guarding, rebound - Extremities Exam Extremities exam: Present: normal inspection, full ROM, normal capillary refill - Back Exam Back exam: Present: normal inspection, full ROM - Neurological Exam Neurological exam: Present: alert - NIHSS Assessment Interval: Baseline 1a. Level of Consciousness: alert 1b. LOC Questions: answers no questions correctly 1c. LOC Commands: performs no tasks correctly 2. Best Gaze: normal 3. Visual: no visual loss 4. Facial Palsy: partial paralysis 5b. Motor Arm Right: no movement 5a. Motor Arm Left: some gravity effort 6a. Motor Leg Left: some gravity effort 6b. Motor Leg Right: no movement 7. Limb Ataxia: present 2 limbs 8. Sensory: mild/moderate sensory loss 9. Best Language: severe aphasia 10. Dysarthria: severe dysarthria 11. Extinction/Inattention: profound inattention Total Score: 27 Stroke Severity: Severe Stroke - Psychiatric Psychiatric exam: Present: flat affect ED Course Vital Signs 08/26/17 08/26/17 08/26/17 12:29 12:30 12:42 Temperature 98.6 F 98.6 F Pulse Rate 86 Respiratory 12 12 12 Rate Blood Pressure 116/12 Blood Pressure 116/82 [Right] O2 Sat by Pulse 100 100 100 Oximetry 08/26/17 08/26/17 08/26/17 15:01 16:55 17:00 Temperature 98.6 F 98.6 F Pulse Rate 88 89 Respiratory 14 18 18 Rate Blood Pressure Blood Pressure 129/79 147/85 [Right] O2 Sat by Pulse 100 100 Oximetry 08/26/17 18:00 Temperature Pulse Rate Respiratory 18 Rate Blood Pressure Blood Pressure 113/74 [Right] O2 Sat by Pulse 100 Oximetry - Reevaluation(s) Reevaluation #1: 08/26/17 16:[address] Smith who is a tele neurology specialist. He said patient is out of the window for TPA therefore TPA is not recommended. However patient sholud get CT angiogram of head and neck. He also wants patient to be given aspirin and she should be admitted by the hospitalist for further stroke workup. - Lab Data Result diagrams: 08/26/17 12:57 08/26/17 13:02 Lab Results 08/26/17 08/26/17 08/26/17 Range/Units 12:57 12:57 13:02 WBC 5.7 (4.5-11.0) K/mm3 RBC 4.42 (3.65-5.03) M/mm3 Hgb 12.4 (10.1-14.3) gm/dl Hct 37.6 (30.3-42.9) % MCV 85 (79-97) fl MCH 28 (28-32) pg MCHC 33 (30-34) % RDW 15.0 (13.2-15.2) % Plt Count 298 (140-440) K/mm3 Lymph % (Auto) 40.1 H (13.4-35.0) % [facility] % (Auto) 8.8 H (0.0-7.3) % Eos % (Auto) 2.3 (0.0-4.3) % Baso % (Auto) 0.7 (0.0-1.8) % Lymph # 2.3 (1.2-5.4) K/mm3 [facility] # 0.5 (0.0-0.8) K/mm3 Eos # 0.1 (0.0-0.4) K/mm3 Baso # 0.0 (0.0-0.1) K/mm3 Seg Neutrophils % 48.1 (40.0-70.0) % Seg Neutrophils # 2.7 (1.8-7.7) K/mm3 PT 12.1 L (12.2-14.9) Sec. INR 0.86 L (0.87-1.13) APTT 27.2 (24.2-36.6) Sec. Thrombin Time 16.1 (15.1-19.6) Sec. Sodium (137-145) mmol/L Potassium (3.6-5.0) mmol/L Chloride (98-107) mmol/L Carbon Dioxide (22-30) mmol/L Anion Gap mmol/L BUN (7-17) mg/dL Creatinine (0.7-1.2) mg/dL Estimated GFR ml/min BUN/Creatinine Ratio % Glucose (65-100) mg/dL Calcium (8.4-10.2) mg/dL Total Bilirubin (0.1-1.2) mg/dL AST (5-40) units/L ALT (7-56) units/L Alkaline Phosphatase (35-129) units/L Total Creatine Kinase 74 (30-135) units/L CK-MB (CK-2) 1.1 (0.0-4.0) ng/mL CK-MB (CK-2) Rel Index 1.4 (0-4) Troponin T < 0.010 (0.00-0.029) ng/mL Total Protein (6.3-8.2) g/dL Albumin (3.9-5) g/dL Albumin/Globulin Ratio % Urine Color (Yellow) Urine Turbidity (Clear) Urine pH (5.0-7.0) Ur Specific [place] (1.003-1.030) Urine Protein (Negative) mg/dL Urine Glucose (UA) (Negative) mg/dL Urine Ketones (Negative) mg/dL Urine Blood (Negative) Urine Nitrite (Negative) Urine Bilirubin (Negative) Urine Urobilinogen (<2.0) mg/dL Ur Leukocyte Esterase (Negative) Urine WBC (Auto) (0.0-6.0) /HPF Urine RBC (Auto) (0.0-6.0) /HPF U Epithel Cells (Auto) (0-13.0) /HPF Hyaline Casts /LPF Urine Mucus /HPF Urine Opiates Screen Urine Methadone Screen Ur Barbiturates Screen Ur Phencyclidine Scrn Ur Amphetamines Screen U Benzodiazepines Scrn Urine Cocaine Screen U Marijuana (THC) Screen Drugs of Abuse Note 08/26/17 08/26/17 08/26/17 Range/Units 13:02 14:11 14:11 WBC (4.5-11.0) K/mm3 RBC (3.65-5.03) M/mm3 Hgb (10.1-14.3) gm/dl Hct (30.3-42.9) % MCV (79-97) fl MCH (28-32) pg MCHC (30-34) % RDW (13.2-15.2) % Plt Count (140-440) K/mm3 Lymph % (Auto) (13.4-35.0) % [facility] % (Auto) (0.0-7.3) % Eos % (Auto) (0.0-4.3) % Baso % (Auto) (0.0-1.8) % Lymph # (1.2-5.4) K/mm3 [facility] # (0.0-0.8) K/mm3 Eos # (0.0-0.4) K/mm3 Baso # (0.0-0.1) K/mm3 Seg Neutrophils % (40.0-70.0) % Seg Neutrophils # (1.8-7.7) K/mm3 PT (12.2-14.9) Sec. INR (0.87-1.13) APTT (24.2-36.6) Sec. Thrombin Time (15.1-19.6) Sec. Sodium 138 (137-145) mmol/L Potassium 4.3 (3.6-5.0) mmol/L Chloride 101.2 (98-107) mmol/L Carbon Dioxide 24 (22-30) mmol/L Anion Gap 17 mmol/L BUN 9 (7-17) mg/dL Creatinine 0.7 (0.7-1.2) mg/dL Estimated GFR > 60 ml/min BUN/Creatinine Ratio 13 % Glucose 111 H (65-100) mg/dL Calcium 9.6 (8.4-10.2) mg/dL Total Bilirubin 0.20 (0.1-1.2) mg/dL AST 18 (5-40) units/L ALT 15 (7-56) units/L Alkaline Phosphatase 123 (35-129) units/L Total Creatine Kinase (30-135) units/L CK-MB (CK-2) (0.0-4.0) ng/mL CK-MB (CK-2) Rel Index (0-4) Troponin T (0.00-0.029) ng/mL Total Protein 7.7 (6.3-8.2) g/dL Albumin 3.6 L (3.9-5) g/dL Albumin/Globulin Ratio 0.9 % Urine Color Straw (Yellow) Urine Turbidity Clear (Clear) Urine pH 5.0 (5.0-7.0) Ur Specific [place] 1.004 (1.003-1.030) Urine Protein <15 mg/dl (Negative) mg/dL Urine Glucose (UA) Neg (Negative) mg/dL Urine Ketones Neg (Negative) mg/dL Urine Blood Neg (Negative) Urine Nitrite Neg (Negative) Urine Bilirubin Neg (Negative) Urine Urobilinogen < 2.0 (<2.0) mg/dL Ur Leukocyte Esterase Neg (Negative) Urine WBC (Auto) 3.0 (0.0-6.0) /HPF Urine RBC (Auto) 1.0 (0.0-6.0) /HPF U Epithel Cells (Auto) 1.0 (0-13.0) /HPF Hyaline Casts 1 /LPF Urine Mucus Few /HPF Urine Opiates Screen Presumptive negative Urine Methadone Screen Presumptive negative Ur Barbiturates Screen Presumptive negative Ur Phencyclidine Scrn Presumptive negative Ur Amphetamines Screen Presumptive negative U Benzodiazepines Scrn Presumptive negative Urine Cocaine Screen Presumptive negative U Marijuana (THC) Screen Presumptive negative Drugs of Abuse Note Disclamer - EKG Data -: EKG Interpreted by Me EKG shows normal: sinus rhythm Rate: normal When compared to previous EKG there are: previous EKG unavailable, other (No STEMI) Interpretation: nonspecific ST-T wave spencer - Radiology Data Radiology results: report reviewed, image reviewed Critical Care Time: Yes Critical care time in (mins) excluding proc time.: 35 Critical care attestation.: If time is entered above; I have spent that time in minutes in the direct care of this critically ill patient, excluding procedure time. ED Disposition Clinical Impression: Weakness due to cerebrovascular accident CVA (cerebral vascular accident) Qualifiers: CVA mechanism: other Qualified Code(s): I63.8 - Other cerebral infarction Altered mental status Qualifiers: Altered mental status type: unspecified Qualified Code(s): R41.82 - Altered mental status, unspecified Disposition: DC-09 OP ADMIT IP TO THIS HOSP Is pt being admited?: Yes Does the pt Need Aspirin: Yes Condition: Stable Time of Disposition: 15:35
[2017-08-26 13:07] LABS: Basophils % (Auto) 0.7 % (0.0-1.8); Eosinophils # (Auto) 0.1 K/mm3 (0.0-0.4); Eosinophils % (Auto) 2.3 % (0.0-4.3); Hematocrit 37.6 % (30.3-42.9); Hemoglobin 12.4 gm/dl (10.1-14.3); Lymphocytes # (Auto) 2.3 K/mm3 (1.2-5.4); Lymphocytes % (Auto) 40.1 % (13.4-35.0); Mean Corpuscular HGB Conc 33 % (30-34); Mean Corpuscular Hemoglobin 28 pg (28-32); Mean Corpuscular Volume 85 fl (79-97); Monocytes # (Auto) 0.5 K/mm3 (0.0-0.8); Monocytes % (Auto) 8.8 % (0.0-7.3); Platelet Count 298 K/mm3 (140-440); Red Blood Count 4.42 M/mm3 (3.65-5.03)
--- NOTE | 2017-08-26 13:08 | XRay Report ---
CHEST ONE VIEW INDICATION: Shortness of breath. COMPARISON: 09/08/2016. FINDINGS: Portable, single, frontal chest radiograph demonstrates normal cardiomediastinal silhouette and clear lungs, given poorer inspiration. Unremarkable bones. Extrinsic EKG leads. CONCLUSION: No acute disease in the chest. Thank you for the opportunity to participate in this patient's care.
[2017-08-26 13:18] LABS: INR 0.86 (0.87-1.13); Partial Thromboplastin Time 27.2 Sec. (24.2-36.6); Thrombin Time 16.1 Sec. (15.1-19.6)
[2017-08-26 13:24] LABS: Creatine Kinase MB 1.1 ng/mL (0.0-4.0)
[2017-08-26 13:26] LABS: Alanine Aminotransferase 15 units/L (7-56); Albumin 3.6 g/dL (3.9-5); BUN/Creatinine Ratio 13; Blood Urea Nitrogen 9 mg/dL (7-17); Calcium 9.6 mg/dL (8.4-10.2); Hemolysis Index 6
--- NOTE | 2017-08-26 13:59 | Cat Scan Report ---
HEAD CT WITHOUT CONTRAST INDICATION: Neurologic deficits less than 6 hours or symptoms present upon awakening. 98N. COMPARISON: 05/14/2017 FINDINGS: Noncontrast head CT demonstrates normal ventricles and sulci without acute or recent infarct, hemorrhage, mass effect or midline shift. No abnormal extra-axial fluid collections. Posterior fossa structures and basilar cisterns appear within normal limits. Grossly clear imaged paranasal sinuses and mastoid air cells. Rightward nasal septal bowing/approximately 3 mm rightward septal spur again noted. Normal eye globes. Normal calvarium and scalp. Small radiopaque dental material and few possible missing teeth. CONCLUSION: No acute intracranial CT abnormality with few other findings, as above. MRI is more sensitive for detection of acute infarct and may be useful for further evaluation in the setting of a focal neurologic deficit. I phoned the above results to Dr. Smith in the ER, 1:50 PM, 08/26/2017. Thank you for the opportunity to participate in this patient's care.
[2017-08-26] MEDS ORDERED: SUBLIMAZE ONE (14:35)
[2017-08-26 14:45] LABS: Bilirubin,Urine NEG (Negative); Blood,Urine NEG (Negative); Color,Urine Straw (Yellow); Hyaline Casts,Urine 1 /LPF; Mucus,Urine FEW /HPF; Protein,Urine <15 mg/dL mg/dL (Negative); Urobilinogen,Urine < 2.0 mg/dL (<2.0)
[2017-08-26 14:51] LABS: Amphetamine Screen,Urine PRESUMPTIVE NEGATIVE; Benzodiazepines Screen,Urine PRESUMPTIVE NEGATIVE; Cannabinoid Screen,Urine PRESUMPTIVE NEGATIVE; Cocaine Screen,Urine PRESUMPTIVE NEGATIVE; Methadone Screen,Urine PRESUMPTIVE NEGATIVE; Opiate Screen,Urine PRESUMPTIVE NEGATIVE
[2017-08-26] MEDS ORDERED: ASPIRIN PR ONE (16:20)
[2017-08-26] MEDS ORDERED: SUBLIMAZE IV ONE (16:54)
--- NOTE | 2017-08-26 17:20 | Cat Scan Report ---
FINAL REPORT EXAM: CT ANGIO HEAD HISTORY: Right sided weakness TECHNIQUE: Spiral CTA of brain after the uneventful administration of IV contrast. Multiplanar reformations. PRIORS: CT brain, 13 May 2017. FINDINGS: Normal enhancement of the basilar and bilateral internal carotid arteries and their main intracranial branches. No abnormal aneurysmal dilatation, significant stenosis or apparent occlusion. P-comm arteries evident bilaterally. No parenchymal mass, hemorrhage, midline shift or hydrocephalus. No evidence of acute cortical infarct. No abnormal extra-axial fluid or air collections. No pathologic enhancement. Osseous calvarium grossly intact. IMPRESSION: 1. No acute intracranial findings. 2. < 50% stenosis by NASCET criteria.
--- NOTE | 2017-08-26 17:26 | Cat Scan Report ---
FINAL REPORT EXAM: CT ANGIO NECK HISTORY: Right sided weakness TECHNIQUE: Spiral CTA of the neck after the uneventful administration of IV contrast. Multiplanar reformations. PRIORS: None. FINDINGS: Normal enhancement of the bilateral CCAs, ICAs and ECAs. No abnormal aneurysmal dilatation, apparent dissection, significant stenosis or occlusion. Vertebral arteries are patent, with very mild left-sided dominance. Hyperdense or enhancing nodule in left inferior thyroid lobe measuring 1.2 cm, nonspecific. IMPRESSION: 1. < 50% carotid stenosis by NASCET criteria. 2. Left thyroid nodule, nonspecific. Followup may be warranted.
[2017-08-26] MEDS ORDERED: MORPHINE IV PRN (21:44)
--- NOTE | 2017-08-27 00:30 | History and Physical Report ---
History of Present Illness Date of examination: 08/26/17 Date of admission: 08/26/17 16:21 Chief complaint: Chief complaint: Right-sided weakness History of present illness: History of Present Illness: 57-year-old female- with history of seizure disorder and muscle spasms and hypertension comes in for right-sided weakness and aphasia. Patient also has a right facial weakness. Patient went to bed normal but woke up with right- sided weakness and dysarthria and dysphagia. Last well-known time is not known. Patient has no movement on the right side Past Medical History Previous Medical History?: Yes Hx Hypertension: Yes Hx CVA: Yes (2008) Hx Arthritis: Yes Hx Seizures: Yes Hx Asthma: Yes Additional medical history: 'nerve disorder,' a-fib, fibroids - Surgical History Past Surgical History?: Yes Hx Cholecystectomy: Yes Hx Appendectomy: Yes Additional Surgical History: head sx, hysterectomy. right ankle surgery. spinal surgery x 2. jaw surgery. nasal surgery Family history Htn - Social History Smoking Status: Unknown if ever smoked Substance Use Type: None - Medications Home Medications: Home Medications Medication Instructions Recorded Confirmed Last Taken Type levETIRAcetam [Keppra TAB] 1,500 mg PO BID 05/13/17 08/26/17 08/25/17 History Metoprolol Xl [Metoprolol 50 mg PO QDAY #30 tablet 05/16/17 08/26/17 08/25/17 Rx SUCCINATE ER TAB] Cyclobenzaprine HCl [Flexeril 5 MG 5 mg PO TID 08/26/17 08/26/17 08/25/17 History TAB] Pregabalin [Lyrica] 150 mg PO TID 08/26/17 08/26/17 08/25/17 History Zolpidem [Ambien] 10 mg PO QHS 08/26/17 08/26/17 08/25/17 History Review of Systems ROS: Stated complaint: POSSIBLE CVA Other details as noted in HPI Comment: Unobtainable due to pts medical conditions (Patient is non verbal) Medications and Allergies Allergies Allergy/AdvReac Type Severity Reaction Status Date / Time Penicillins Allergy Itching Verified 01/14/15 20:26 seafood Allergy Swelling Uncoded 06/29/16 13:16 tape Allergy Rash Uncoded 06/29/16 13:16 Home Medications Medication Instructions Recorded Confirmed Last Taken Type levETIRAcetam [Keppra TAB] 1,500 mg PO BID 05/13/17 08/26/17 08/25/17 History Metoprolol Xl [Metoprolol 50 mg PO QDAY #30 tablet 05/16/17 08/26/17 08/25/17 Rx SUCCINATE ER TAB] Cyclobenzaprine HCl [Flexeril 5 MG 5 mg PO TID 08/26/17 08/26/17 08/25/17 History TAB] Pregabalin [Lyrica] 150 mg PO TID 08/26/17 08/26/17 08/25/17 History Zolpidem [Ambien] 10 mg PO QHS 08/26/17 08/26/17 08/25/17 History Active Meds: Active Medications Morphine Sulfate (Morphine) 2 mg IV Q3H PRN PRN Reason: Pain, Moderate (4-6) Last Admin: 08/26/17 21:53 Dose: 2 mg Exam - Constitutional Vitals: Temp Pulse Resp BP Pulse Ox 98.0 F 89 18 142/87 96 08/26/17 19:11 08/26/17 19:53 08/26/17 22:23 08/26/17 19:11 08/26/17 20:11 General appearance: Present: no acute distress, well-nourished - EENT Eyes: Present: PERRL ENT: hearing intact, clear oral mucosa - Neck Neck: Present: supple, normal ROM - Respiratory Respiratory effort: normal Respiratory: bilateral: CTA - Cardiovascular Heart rate: 80 Rhythm: regular Heart Sounds: Present: S1 & S2. Absent: rub, click - Extremities Extremities: no ischemia, pulses intact, pulses symmetrical, No edema Peripheral Pulses: within normal limits - Abdominal General gastrointestinal: Present: soft, non-tender, non-distended, normal bowel sounds Female genitourinary: Present: normal - Rectal Rectal Exam: deferred - Integumentary Integumentary: Present: clear, warm, dry - Musculoskeletal Musculoskeletal: right sided weakness (0/5 power in right side), other (right facial weakness present. Dysarthria present. Dysphagia present.) - Psychiatric Psychiatric: appropriate mood/affect, intact judgment & insight - Neurologic Neurologic: CNII-XII intact, moves all extremities - Allied Health Allied health notes reviewed: nursing, case management Results - Labs CBC & Chem 7: 05/11/18 12:57 08/26/17 13:02 Labs: Laboratory Last Values WBC 5.7 K/mm3 (4.5-11.0) 08/26/17 12:57 RBC 4.42 M/mm3 (3.65-5.03) 08/26/17 12:57 Hgb 12.4 gm/dl (10.1-14.3) 08/26/17 12:57 Hct 37.6 % (30.3-42.9) 08/26/17 12:57 MCV 85 fl (79-97) 08/26/17 12:57 MCH 28 pg (28-32) 08/26/17 12:57 MCHC 33 % (30-34) 08/26/17 12:57 RDW 15.0 % (13.2-15.2) 08/26/17 12:57 Plt Count 298 K/mm3 (140-440) 08/26/17 12:57 Lymph % (Auto) 40.1 % (13.4-35.0) H 08/26/17 12:57 [place] % (Auto) 8.8 % (0.0-7.3) H 08/26/17 12:57 Eos % (Auto) 2.3 % (0.0-4.3) 08/26/17 12:57 Baso % (Auto) 0.7 % (0.0-1.8) 08/26/17 12:57 Lymph # 2.3 K/mm3 (1.2-5.4) 08/26/17 12:57 [place] # 0.5 K/mm3 (0.0-0.8) 08/26/17 12:57 Eos # 0.1 K/mm3 (0.0-0.4) 08/26/17 12:57 Baso # 0.0 K/mm3 (0.0-0.1) 08/26/17 12:57 Seg Neutrophils % 48.1 % (40.0-70.0) 08/26/17 12:57 Seg Neutrophils # 2.7 K/mm3 (1.8-7.7) 08/26/17 12:57 PT 12.1 Sec. (12.2-14.9) L 08/26/17 12:57 INR 0.86 (0.87-1.13) L 08/26/17 12:57 APTT 27.2 Sec. (24.2-36.6) 08/26/17 12:57 Thrombin Time 16.1 Sec. (15.1-19.6) 08/26/17 12:57 Sodium 138 mmol/L (137-145) 08/26/17 13:02 Potassium 4.3 mmol/L (3.6-5.0) 08/26/17 13:02 Chloride 101.2 mmol/L (98-107) 08/26/17 13:02 Carbon Dioxide 24 mmol/L (22-30) 08/26/17 13:02 Anion Gap 17 mmol/L 08/26/17 13:02 BUN 9 mg/dL (7-17) 08/26/17 13:02 Creatinine 0.7 mg/dL (0.7-1.2) 08/26/17 13:02 Estimated GFR > 60 ml/min 08/26/17 13:02 BUN/Creatinine Ratio 13 % 08/26/17 13:02 Glucose 111 mg/dL (65-100) H 08/26/17 13:02 Calcium 9.6 mg/dL (8.4-10.2) 08/26/17 13:02 Total Bilirubin 0.20 mg/dL (0.1-1.2) 08/26/17 13:02 AST 18 units/L (5-40) 08/26/17 13:02 ALT 15 units/L (7-56) 08/26/17 13:02 Alkaline Phosphatase 123 units/L (35-129) 08/26/17 13:02 Total Creatine Kinase 74 units/L (30-135) 08/26/17 13:02 CK-MB (CK-2) 1.1 ng/mL (0.0-4.0) 08/26/17 13:02 CK-MB (CK-2) Rel Index 1.4 (0-4) 08/26/17 13:02 Troponin T < 0.010 ng/mL (0.00-0.029) 08/26/17 13:02 Total Protein 7.7 g/dL (6.3-8.2) 08/26/17 13:02 Albumin 3.6 g/dL (3.9-5) L 08/26/17 13:02 Albumin/Globulin Ratio 0.9 % 08/26/17 13:02 Urine Color Straw (Yellow) 08/26/17 14:11 Urine Turbidity Clear (Clear) 08/26/17 14:11 Urine pH 5.0 (5.0-7.0) 08/26/17 14:11 Ur Specific [place] 1.004 (1.003-1.030) 08/26/17 14:11 Urine Protein <15 mg/dl mg/dL (Negative) 08/26/17 14:11 Urine Glucose (UA) Neg mg/dL (Negative) 08/26/17 14:11 Urine Ketones Neg mg/dL (Negative) 08/26/17 14:11 Urine Blood Neg (Negative) 08/26/17 14:11 Urine Nitrite Neg (Negative) 08/26/17 14:11 Urine Bilirubin Neg (Negative) 08/26/17 14:11 Urine Urobilinogen < 2.0 mg/dL (<2.0) 08/26/17 14:11 Ur Leukocyte Esterase Neg (Negative) 08/26/17 14:11 Urine WBC (Auto) 3.0 /HPF (0.0-6.0) 08/26/17 14:11 Urine RBC (Auto) 1.0 /HPF (0.0-6.0) 08/26/17 14:11 U Epithel Cells (Auto) 1.0 /HPF (0-13.0) 08/26/17 14:11 Hyaline Casts 1 /LPF 08/26/17 14:11 Urine Mucus Few /HPF 08/26/17 14:11 Urine Opiates Screen Presumptive negative 08/26/17 14:11 Urine Methadone Screen Presumptive negative 08/26/17 14:11 Ur Barbiturates Screen Presumptive negative 08/26/17 14:11 Ur Phencyclidine Scrn Presumptive negative 08/26/17 14:11 Ur Amphetamines Screen Presumptive negative 08/26/17 14:11 U Benzodiazepines Scrn Presumptive negative 08/26/17 14:11 Urine Cocaine Screen Presumptive negative 08/26/17 14:11 U Marijuana (THC) Screen Presumptive negative 08/26/17 14:11 Drugs of Abuse Note Disclamer 08/26/17 14:11 - Imaging and Cardiology EKG: report reviewed CT Scan - head: report reviewed (CT head) Imaging and Cardiology: CT head CONCLUSION: No acute intracranial CT abnormality with few other findings, as above. MRI is more sensitive for detection of acute infarct and may be useful for further evaluation in the setting of a focal neurologic deficit. CT angiogram FINDINGS: Normal enhancement of the bilateral CCAs, ICAs and ECAs. No abnormal aneurysmal dilatation, apparent dissection, significant stenosis or occlusion. Vertebral arteries are patent, with very mild left-sided dominance. Hyperdense or enhancing nodule in left inferior thyroid lobe measuring 1.2 cm, nonspecific. IMPRESSION: 1. lt; 50% carotid stenosis by NASCET criteria. 2. Left thyroid nodule, nonspecific. Followup may be warranted. Head CTA FINDINGS: Normal enhancement of the basilar and bilateral internal carotid arteries and their main intracranial branches. No abnormal aneurysmal dilatation , significant stenosis or apparent occlusion. P-comm arteries evident bilaterally. No parenchymal mass, hemorrhage, midline shift or hydrocephalus. No evidence of acute cortical infarct. No abnormal extra-axial fluid or air collections. No pathologic enhancement. Osseous calvarium grossly intact. IMPRESSION: 1. No acute intracranial findings. Assessment and Plan Advance Directives: Yes (full code) VTE prophylaxis?: Chemical Plan of care discussed with patient/family: Yes - Patient Problems (1) CVA (cerebral vascular accident) Current Visit: Yes Status: Acute Qualifiers: CVA mechanism: other Qualified Code(s): I63.8 - Other cerebral infarction Plan to address problem: Patient not a candidate for TPA Last well-known time not known MRI/MRA echocardiogram and carotid duplex scan ordered Neurology consult ordered (2) Hypertension Current Visit: Yes Status: Chronic Qualifiers: Hypertension type: essential hypertension Qualified Code(s): I10 - Essential (primary) hypertension Plan to address problem: continue metoprolol (3) Seizure disorder Current Visit: Yes Status: Acute Plan to address problem: Continue Keppra and Lyrica (4) DVT prophylaxis Current Visit: No Status: Acute Plan to address problem: Heparin subcutaneously GI prophylaxis with famotidine
[2017-08-27] MEDS ORDERED: TYLENOL PO PRN (00:45)
[2017-08-27] MEDS ORDERED: SODIUM CHLORIDE FLUSH SYRINGE 10 ML INJ PRN (00:47)
[2017-08-27] MEDS: NACL 0.9% 1000 ML 1,000 ML IV SCH (05:39)
[2017-08-27] MEDS: KEPPRA 750 MG in NACL 0.9% 100 ML IV SCH ×3 (05:39→21:23)
[2017-08-27] MEDS ORDERED: Fluarix Quad 2017-2018(36 MOS+ IM ONE (12:00)
[2017-08-27] MEDS: PEPCID IV SCH ×2 (12:09→21:23)
[2017-08-27] MEDS: SODIUM CHLORIDE FLUSH SYRINGE 10 ML IV SCH ×2 (12:10→21:24)
[2017-08-27] MEDS: MORPHINE IV PRN ×2 (12:10→18:06)
--- NOTE | 2017-08-27 13:17 | Progress Note ---
Assessment and Plan Assessment and plan: Patient is a 56 yo woman with a history cva x 2, sz disorder, hypertension, asthma who pw right sided weakness. CT head CONCLUSION: No acute intracranial CT abnormality with few other findings , as above. MRI is more sensitive for detection of acute infarct and may be useful for further evaluation in the setting of a focal neurologic deficit. CT angiogram FINDINGS: Normal enhancement of the bilateral CCAs, ICAs and ECAs. No abnormal aneurysmal dilatation, apparent dissection, significant stenosis or occlusion. Vertebral arteries are patent, with very mild left-sided dominance. Hyperdense or enhancing nodule in left inferior thyroid lobe measuring 1.2 cm, nonspecific. IMPRESSION: 1. lt; 50% carotid stenosis by NASCET criteria. 2. Left thyroid nodule, nonspecific. Followup may be warranted. Head CTA FINDINGS: Normal enhancement of the basilar and bilateral internal carotid arteries and their main intracranial branches. No abnormal aneurysmal dilatation, significant stenosis or apparent occlusion. P-comm arteries evident bilaterally. No parenchymal mass, hemorrhage, midline shift or hydrocephalus. No evidence of acute cortical infarct. No abnormal extra-axial fluid or air collections. No pathologic enhancement. Osseous calvarium grossly intact. IMPRESSION: 1. No acute intracranial findings. - Patient Problems (1) CVA (cerebral vascular accident) Current Visit: Yes Status: Acute CVA mechanism: other Qualified Code(s): I63.8 - Other cerebral infarction Plan to address problem: Patient not a candidate for TPA Last well-known time not known MRI/MRA echocardiogram and carotid duplex scan ordered Neurology consult ordered -Hypertension Current Visit: Yes Status: Chronic Qualifiers: Hypertension type: essential hypertension Qualified Code(s): I10 - Essential (primary) hypertension Plan to address problem: continue metoprolol - Seizure disorder Current Visit: Yes Status: Acute Plan to address problem: Continue Keppra and Lyrica - DVT prophylaxis Current Visit: No Status: Acute Plan to address problem: Heparin subcutaneously -GI prophylaxis with famotidine mri brain, echo, us carotid pending History Interval history: Patient was seen and examined. Follow-up on current diagnosis. Overnight uneventful. Patient denies any chest pain, shortness breath, nausea/vomiting or severe headaches. Imaging, nursing note, chart, labs and old chart reviewed. Discussed with patient. Hospitalist Physical - Physical exam Narrative exam: GEN: WDWN, NAD, Awake, Alert, Orientated x 3 HEENT: NCAT, EOMI, PERRL, OP Clear NECK: supple, no adenopathy, no thyromegaly, no JVD CVS/HEART: RRR, normal S1S2, pulses present bilaterally CHEST/LUNGS: CTA B, Symmetrical chest expansion, good air entry bilaterally GI/Abdomen: soft, NTND, good bowel sounds, no guarding or rebound /Bladder: no suprapubic tenderness, no CVA or paraspinal tenderness EXT/Skin: no c/c/e, no obvious rash MSK: right sided weakness Neuro: CN 2-12 grossly intact, facial asym, dysarthria, right hemiparesis Psych: calm - Constitutional Vitals: Temp Pulse Resp BP Pulse Ox 97.7 F 98 H 20 107/51 95 08/27/17 05:53 08/27/17 05:38 08/27/17 12:40 08/27/17 05:38 08/27/17 12:20 General appearance: Present: no acute distress, well-nourished Results - Labs CBC & Chem 7: 08/26/17 12:57 08/26/17 13:02 Labs: Laboratory Last Values WBC 5.7 K/mm3 (4.5-11.0) 08/26/17 12:57 RBC 4.42 M/mm3 (3.65-5.03) 08/26/17 12:57 Hgb 12.4 gm/dl (10.1-14.3) 08/26/17 12:57 Hct 37.6 % (30.3-42.9) 08/26/17 12:57 MCV 85 fl (79-97) 08/26/17 12:57 MCH 28 pg (28-32) 08/26/17 12:57 MCHC 33 % (30-34) 08/26/17 12:57 RDW 15.0 % (13.2-15.2) 08/26/17 12:57 Plt Count 298 K/mm3 (140-440) 08/26/17 12:57 Lymph % (Auto) 40.1 % (13.4-35.0) H 08/26/17 12:57 [place] % (Auto) 8.8 % (0.0-7.3) H 08/26/17 12:57 Eos % (Auto) 2.3 % (0.0-4.3) 08/26/17 12:57 Baso % (Auto) 0.7 % (0.0-1.8) 08/26/17 12:57 Lymph # 2.3 K/mm3 (1.2-5.4) 08/26/17 12:57 [place] # 0.5 K/mm3 (0.0-0.8) 08/26/17 12:57 Eos # 0.1 K/mm3 (0.0-0.4) 08/26/17 12:57 Baso # 0.0 K/mm3 (0.0-0.1) 08/26/17 12:57 Seg Neutrophils % 48.1 % (40.0-70.0) 08/26/17 12:57 Seg Neutrophils # 2.7 K/mm3 (1.8-7.7) 08/26/17 12:57 PT 12.1 Sec. (12.2-14.9) L 08/26/17 12:57 INR 0.86 (0.87-1.13) L 08/26/17 12:57 APTT 27.2 Sec. (24.2-36.6) 08/26/17 12:57 Thrombin Time 16.1 Sec. (15.1-19.6) 08/26/17 12:57 Sodium 138 mmol/L (137-145) 08/26/17 13:02 Potassium 4.3 mmol/L (3.6-5.0) 08/26/17 13:02 Chloride 101.2 mmol/L (98-107) 08/26/17 13:02 Carbon Dioxide 24 mmol/L (22-30) 08/26/17 13:02 Anion Gap 17 mmol/L 08/26/17 13:02 BUN 9 mg/dL (7-17) 08/26/17 13:02 Creatinine 0.7 mg/dL (0.7-1.2) 08/26/17 13:02 Estimated GFR > 60 ml/min 08/26/17 13:02 BUN/Creatinine Ratio 13 % 08/26/17 13:02 Glucose 111 mg/dL (65-100) H 08/26/17 13:02 Hemoglobin A1c 5.9 % (4-6) 08/27/17 01:21 Calcium 9.6 mg/dL (8.4-10.2) 08/26/17 13:02 Total Bilirubin 0.20 mg/dL (0.1-1.2) 08/26/17 13:02 AST 18 units/L (5-40) 08/26/17 13:02 ALT 15 units/L (7-56) 08/26/17 13:02 Alkaline Phosphatase 123 units/L (35-129) 08/26/17 13:02 Total Creatine Kinase 74 units/L (30-135) 08/26/17 13:02 CK-MB (CK-2) 1.1 ng/mL (0.0-4.0) 08/26/17 13:02 CK-MB (CK-2) Rel Index 1.4 (0-4) 08/26/17 13:02 Troponin T < 0.010 ng/mL (0.00-0.029) 08/26/17 13:02 Total Protein 7.7 g/dL (6.3-8.2) 08/26/17 13:02 Albumin 3.6 g/dL (3.9-5) L 08/26/17 13:02 Albumin/Globulin Ratio 0.9 % 08/26/17 13:02 Urine Color Straw (Yellow) 08/26/17 14:11 Urine Turbidity Clear (Clear) 08/26/17 14:11 Urine pH 5.0 (5.0-7.0) 08/26/17 14:11 Ur Specific [place] 1.004 (1.003-1.030) 08/26/17 14:11 Urine Protein <15 mg/dl mg/dL (Negative) 08/26/17 14:11 Urine Glucose (UA) Neg mg/dL (Negative) 08/26/17 14:11 Urine Ketones Neg mg/dL (Negative) 08/26/17 14:11 Urine Blood Neg (Negative) 08/26/17 14:11 Urine Nitrite Neg (Negative) 08/26/17 14:11 Urine Bilirubin Neg (Negative) 08/26/17 14:11 Urine Urobilinogen < 2.0 mg/dL (<2.0) 08/26/17 14:11 Ur Leukocyte Esterase Neg (Negative) 08/26/17 14:11 Urine WBC (Auto) 3.0 /HPF (0.0-6.0) 08/26/17 14:11 Urine RBC (Auto) 1.0 /HPF (0.0-6.0) 08/26/17 14:11 U Epithel Cells (Auto) 1.0 /HPF (0-13.0) 08/26/17 14:11 Hyaline Casts 1 /LPF 08/26/17 14:11 Urine Mucus Few /HPF 08/26/17 14:11 Urine Opiates Screen Presumptive negative 08/26/17 14:11 Urine Methadone Screen Presumptive negative 08/26/17 14:11 Ur Barbiturates Screen Presumptive negative 08/26/17 14:11 Ur Phencyclidine Scrn Presumptive negative 08/26/17 14:11 Ur Amphetamines Screen Presumptive negative 08/26/17 14:11 U Benzodiazepines Scrn Presumptive negative 08/26/17 14:11 Urine Cocaine Screen Presumptive negative 08/26/17 14:11 U Marijuana (THC) Screen Presumptive negative 08/26/17 14:11 Drugs of Abuse Note Disclamer 08/26/17 14:11
--- NOTE | 2017-08-27 13:28 | Consultation ---
History of Present Illness Consult date: 08/27/17 History of present illness: patient seen and assessed went over the teleneurology consult interesting that she has long history of epilepsy but doubt this is related to seizure plan MRI of brain Medications and Allergies Allergies Allergy/AdvReac Type Severity Reaction Status Date / Time Penicillins Allergy Itching Verified 01/14/15 20:26 seafood Allergy Swelling Uncoded 06/29/16 13:16 tape Allergy Rash Uncoded 06/29/16 13:16 Home Medications Medication Instructions Recorded Confirmed Last Taken Type levETIRAcetam [Keppra TAB] 1,500 mg PO BID 05/13/17 08/26/17 08/25/17 History Metoprolol Xl [Metoprolol 50 mg PO QDAY #30 tablet 05/16/17 08/26/17 08/25/17 Rx SUCCINATE ER TAB] Cyclobenzaprine HCl [Flexeril 5 MG 5 mg PO TID 08/26/17 08/26/17 08/25/17 History TAB] Pregabalin [Lyrica] 150 mg PO TID 08/26/17 08/26/17 08/25/17 History Zolpidem [Ambien] 10 mg PO QHS 08/26/17 08/26/17 08/25/17 History Active Meds: Active Medications Acetaminophen (Tylenol) 650 mg PO Q4H PRN PRN Reason: Pain MILD(1-3)/Fever >100.5/SANCHEZ Famotidine (Pepcid) 20 mg IV BID [facility] Last Admin: 08/27/17 12:09 Dose: 20 mg Levetiracetam 750 mg/ Sodium (Chloride) 107.5 mls @ 400 mls/hr IV Q12HR [facility] Last Admin: 08/27/17 12:10 Dose: 400 mls/hr Sodium Chloride (Nacl 0.9% 1000 Ml) 1,000 mls @ 75 mls/hr IV DIRECT [facility] Last Admin: 08/27/17 05:39 Dose: 75 mls/hr Morphine Sulfate (Morphine) 2 mg IV Q4H PRN PRN Reason: Pain, Moderate (4-6) Last Admin: 08/27/17 12:10 Dose: 2 mg Ondansetron HCl (Zofran) 4 mg IV Q8H PRN PRN Reason: Nausea And Vomiting Sodium Chloride (Sodium Chloride Flush Syringe 10 Ml) 10 ml IV BID [facility] Last Admin: 08/27/17 12:10 Dose: Not Given Sodium Chloride (Sodium Chloride Flush Syringe 10 Ml) 10 ml IV PRN PRN PRN Reason: LINE FLUSH Physical Examination - Vital Signs Vital Signs: Vital Signs Temp Resp BP Pulse Ox 98.6 F 12 116/12 100 08/26/17 12:29 08/26/17 12:29 08/26/17 12:29 08/26/17 12:29 - Assessment Assessment Interval: Baseline - Level of Consciousness 1a. Level of Consciousness: alert - LOC Questions 1b. LOC Questions: answers no questions correctly - LOC Command 1c. LOC Commands: performs no tasks correctly - Best Gaze 2. Best Gaze: normal - Visual 3. Visual: no visual loss - Facial Palsy 4. Facial Palsy: partial paralysis - Motor Arm 5b. Motor Arm Right: no movement - Motor Leg 6a. Motor Leg Left: some gravity effort - Limb Ataxia 7. Limb Ataxia: present 2 limbs - Sensory 8. Sensory: mild/moderate sensory loss - Best Language 9. Best Language: severe aphasia - Dysarthria 10. Dysarthria: severe dysarthria - Extinction and Inattention 11. Extinction/Inattention: profound inattention Results - Laboratory Findings CBC and BMP: 08/26/17 12:57 08/26/17 13:02 Abnormal Lab Findings: Abnormal Labs 08/26/17 08/26/17 08/26/17 12:57 12:57 13:02 Lymph % (Auto) 40.1 H Sac % (Auto) 8.8 H PT 12.1 L INR 0.86 L Glucose 111 H Albumin 3.6 L
--- NOTE | 2017-08-27 16:30 | Magnetic Resonance Report ---
FINAL REPORT EXAM: MR BRAIN WO CON HISTORY: Stroke. Slurred speech and right-sided weakness. TECHNIQUE: Multiplanar MRI of the brain. No contrast administered. PRIORS: CT brain, 13 May 2017. CTA brain, 26 Aug 2017. FINDINGS: Brain volume is normal for age. No acute infarct seen on diffusion-weighted imaging. No parenchymal mass, mass-effect, hemorrhage, midline shift or hydrocephalus. No pathologic extra-axial fluid collection. No pineal region or sellar masses. No cerebellar tonsillar herniation. IMPRESSION: 1. No acute intracranial findings.
--- NOTE | 2017-08-27 16:32 | Magnetic Resonance Report ---
FINAL REPORT EXAM: MR MRA/MRV HEAD WO CON HISTORY: Stroke. Slurred speech and right-sided weakness. TECHNIQUE: Multiplanar MRA of [place]. No contrast administered. PRIORS: CTA brain, 26 Aug 2017. FINDINGS: Normal flow related enhancement in the basilar and bilateral internal carotid arteries and their main intracranial branches. No abnormal aneurysmal dilatation, focal signal dropout or signal void to suggest significant stenosis or apparent occlusion. P-comm arteries evident bilaterally. IMPRESSION: 1. No significant findings.
[2017-08-28] MEDS: NACL 0.9% 1000 ML 1,000 ML IV SCH ×2 (00:28→16:51)
[2017-08-28] MEDS: MORPHINE IV PRN ×3 (01:02→16:47)
--- NOTE | 2017-08-28 04:21 | Consultation ---
HISTORY OF PRESENT ILLNESS: This is a patient who presented to [facility] on 08/26/2017. I have reviewed over the ____ Neurology about a patient who has had right-sided weakness, last known ____ was the previous evening. She apparently awoke, home health worker notes that she was not speaking correctly, difficulty speaking. IV medication was not recommended because she was outside the time window. Consultation with a local neurologist was recommended. The patient had noted to have aphasia with right-sided weakness. On seeing the patient at this point, she has a bit of weakness over the right side is present. She has a stammering, slurred speech. Reviewing her CT scan is negative. She is under the care of an [facility] neurologist for seizure disorder. She states she had seizures as a child, had earlier brain surgery for placement of possibly a shunt catheter when she was much younger, but she began then to have seizures again recently and has been seen by [facility] for this, has been on seizure meds for treatment of this condition. At this point, she has a very slurred stammering speech, but is able to communicate fairly well. She is alert. She does not have movement of her left arm, right leg and she has a right central facial weakness. I do not see her having any active seizure activity. PHYSICAL EXAMINATION: NEUROLOGIC: On my examination of the patient, she has full ocular movements. No visual field cut. Pupils are briskly reactive to light. Cranial nerves 2-12 are intact with the exception of the central 7th weakness. Sensory examination is hypesthesia to light touch, pinprick in the right arm and right face. IMPRESSION: Acute stroke, left cerebral hemisphere. Await MRI scan of brain. Recommend EEG. I do not think that this represents a Varinder's paralysis or the so called postictal paralysis. Recommendation is to further assess the patient. I will follow the patient with you. JOB# [id number] NEO/VINCE
[2017-08-28 08:43] LABS: Basophils % (Auto) 0.7 % (0.0-1.8); Eosinophils % (Auto) 3.1 % (0.0-4.3); Hematocrit 35.9 % (30.3-42.9); Hemoglobin 12.1 gm/dl (10.1-14.3); Lymphocytes # (Auto) 1.2 K/mm3 (1.2-5.4); Lymphocytes % (Auto) 23.7 % (13.4-35.0); Mean Corpuscular HGB Conc 34 % (30-34); Mean Corpuscular Hemoglobin 29 pg (28-32); Mean Corpuscular Volume 85 fl (79-97); Monocytes % (Auto) 8.7 % (0.0-7.3); Platelet Count 244 K/mm3 (140-440); Red Blood Count 4.25 M/mm3 (3.65-5.03); Red Cell Distribution Width 14.8 % (13.2-15.2)
[2017-08-28 08:44] LABS: Eosinophils # (Auto) 0.1 K/mm3 (0.0-0.4); Monocytes # (Auto) 0.4 K/mm3 (0.0-0.8)
--- NOTE | 2017-08-28 08:58 | Progress Note ---
Assessment and Plan Assessment and plan: Patient is a 56 yo woman with a history cva x 2, sz disorder, hypertension, asthma who pw right sided weakness. CT head CONCLUSION: No acute intracranial CT abnormality with few other findings , as above. MRI is more sensitive for detection of acute infarct and may be useful for further evaluation in the setting of a focal neurologic deficit. CT angiogram FINDINGS: Normal enhancement of the bilateral CCAs, ICAs and ECAs. No abnormal aneurysmal dilatation, apparent dissection, significant stenosis or occlusion. Vertebral arteries are patent, with very mild left-sided dominance. Hyperdense or enhancing nodule in left inferior thyroid lobe measuring 1.2 cm, nonspecific. IMPRESSION: 1. lt; 50% carotid stenosis by NASCET criteria. 2. Left thyroid nodule, nonspecific. Followup may be warranted. Head CTA FINDINGS: Normal enhancement of the basilar and bilateral internal carotid arteries and their main intracranial branches. No abnormal aneurysmal dilatation, significant stenosis or apparent occlusion. P-comm arteries evident bilaterally. No parenchymal mass, hemorrhage, midline shift or hydrocephalus. No evidence of acute cortical infarct. No abnormal extra-axial fluid or air collections. No pathologic enhancement. Osseous calvarium grossly intact. IMPRESSION: 1. No acute intracranial findings. MRI and MRA brain reported as no acute findings. Carotid Doppler unremarkable Dysarthria, CVA ruled out Patient not a candidate for TPA bc Last well-known time is not known Neurology consult ordered -Hypertension Current Visit: Yes Status: Chronic Qualifiers: Hypertension type: essential hypertension Qualified Code(s): I10 - Essential (primary) hypertension Plan to address problem: continue metoprolol - Seizure disorder Current Visit: Yes Status: Acute Plan to address problem: Continue Keppra and Lyrica - DVT prophylaxis Current Visit: No Status: Acute Plan to address problem: Heparin subcutaneously -GI prophylaxis with famotidine d/c, needs outpatient psych History Interval history: Patient was seen and examined. Follow-up on current diagnosis. Overnight uneventful. Patient denies any chest pain, shortness breath, nausea/vomiting or severe headaches. Imaging, nursing note, chart, labs and old chart reviewed. Discussed with patient. Hospitalist Physical - Physical exam Narrative exam: GEN: WDWN, NAD, Awake, Alert, Orientated x 3 HEENT: NCAT, EOMI, PERRL, OP Clear NECK: supple, no adenopathy, no thyromegaly, no JVD CVS/HEART: RRR, normal S1S2, pulses present bilaterally CHEST/LUNGS: CTA B, Symmetrical chest expansion, good air entry bilaterally GI/Abdomen: soft, NTND, good bowel sounds, no guarding or rebound /Bladder: no suprapubic tenderness, no CVA or paraspinal tenderness EXT/Skin: no c/c/e, no obvious rash MSK: right sided weakness Neuro: CN 2-12 grossly intact, facial asym, dysarthria, right hemiparesis Psych: calm - Constitutional Vitals: Temp Pulse Resp BP Pulse Ox 97.6 F 102 H 20 96/73 95 08/28/17 05:00 08/28/17 04:31 08/28/17 05:00 08/28/17 04:31 08/28/17 04:31 General appearance: Present: no acute distress, well-nourished Results - Labs CBC & Chem 7: 08/28/17 08:06 08/26/17 13:02 Labs: Laboratory Last Values WBC 4.9 K/mm3 (4.5-11.0) 08/28/17 08:06 RBC 4.25 M/mm3 (3.65-5.03) 08/28/17 08:06 Hgb 12.1 gm/dl (10.1-14.3) 08/28/17 08:06 Hct 35.9 % (30.3-42.9) 08/28/17 08:06 MCV 85 fl (79-97) 08/28/17 08:06 MCH 29 pg (28-32) 08/28/17 08:06 MCHC 34 % (30-34) 08/28/17 08:06 RDW 14.8 % (13.2-15.2) 08/28/17 08:06 Plt Count 244 K/mm3 (140-440) 08/28/17 08:06 Lymph % (Auto) 23.7 % (13.4-35.0) 08/28/17 08:06 [place] % (Auto) 8.7 % (0.0-7.3) H 08/28/17 08:06 Eos % (Auto) 3.1 % (0.0-4.3) 08/28/17 08:06 Baso % (Auto) 0.7 % (0.0-1.8) 08/28/17 08:06 Lymph # 1.2 K/mm3 (1.2-5.4) 08/28/17 08:06 [place] # 0.4 K/mm3 (0.0-0.8) 08/28/17 08:06 Eos # 0.1 K/mm3 (0.0-0.4) 08/28/17 08:06 Baso # 0.0 K/mm3 (0.0-0.1) 08/28/17 08:06 Seg Neutrophils % 63.8 % (40.0-70.0) 08/28/17 08:06 Seg Neutrophils # 3.1 K/mm3 (1.8-7.7) 08/28/17 08:06 PT 12.1 Sec. (12.2-14.9) L 08/26/17 12:57 INR 0.86 (0.87-1.13) L 08/26/17 12:57 APTT 27.2 Sec. (24.2-36.6) 08/26/17 12:57 Thrombin Time 16.1 Sec. (15.1-19.6) 08/26/17 12:57 Sodium 138 mmol/L (137-145) 08/26/17 13:02 Potassium 4.3 mmol/L (3.6-5.0) 08/26/17 13:02 Chloride 101.2 mmol/L (98-107) 08/26/17 13:02 Carbon Dioxide 24 mmol/L (22-30) 08/26/17 13:02 Anion Gap 17 mmol/L 08/26/17 13:02 BUN 9 mg/dL (7-17) 08/26/17 13:02 Creatinine 0.7 mg/dL (0.7-1.2) 08/26/17 13:02 Estimated GFR > 60 ml/min 08/26/17 13:02 BUN/Creatinine Ratio 13 % 08/26/17 13:02 Glucose 111 mg/dL (65-100) H 08/26/17 13:02 Hemoglobin A1c 5.9 % (4-6) 08/27/17 01:21 Calcium 9.6 mg/dL (8.4-10.2) 08/26/17 13:02 Total Bilirubin 0.20 mg/dL (0.1-1.2) 08/26/17 13:02 AST 18 units/L (5-40) 08/26/17 13:02 ALT 15 units/L (7-56) 08/26/17 13:02 Alkaline Phosphatase 123 units/L (35-129) 08/26/17 13:02 Total Creatine Kinase 74 units/L (30-135) 08/26/17 13:02 CK-MB (CK-2) 1.1 ng/mL (0.0-4.0) 08/26/17 13:02 CK-MB (CK-2) Rel Index 1.4 (0-4) 08/26/17 13:02 Troponin T < 0.010 ng/mL (0.00-0.029) 08/26/17 13:02 Total Protein 7.7 g/dL (6.3-8.2) 08/26/17 13:02 Albumin 3.6 g/dL (3.9-5) L 08/26/17 13:02 Albumin/Globulin Ratio 0.9 % 08/26/17 13:02 Urine Color Straw (Yellow) 08/26/17 14:11 Urine Turbidity Clear (Clear) 08/26/17 14:11 Urine pH 5.0 (5.0-7.0) 08/26/17 14:11 Ur Specific [place] 1.004 (1.003-1.030) 08/26/17 14:11 Urine Protein <15 mg/dl mg/dL (Negative) 08/26/17 14:11 Urine Glucose (UA) Neg mg/dL (Negative) 08/26/17 14:11 Urine Ketones Neg mg/dL (Negative) 08/26/17 14:11 Urine Blood Neg (Negative) 08/26/17 14:11 Urine Nitrite Neg (Negative) 08/26/17 14:11 Urine Bilirubin Neg (Negative) 08/26/17 14:11 Urine Urobilinogen < 2.0 mg/dL (<2.0) 08/26/17 14:11 Ur Leukocyte Esterase Neg (Negative) 08/26/17 14:11 Urine WBC (Auto) 3.0 /HPF (0.0-6.0) 08/26/17 14:11 Urine RBC (Auto) 1.0 /HPF (0.0-6.0) 08/26/17 14:11 U Epithel Cells (Auto) 1.0 /HPF (0-13.0) 08/26/17 14:11 Hyaline Casts 1 /LPF 08/26/17 14:11 Urine Mucus Few /HPF 08/26/17 14:11 Urine Opiates Screen Presumptive negative 08/26/17 14:11 Urine Methadone Screen Presumptive negative 08/26/17 14:11 Ur Barbiturates Screen Presumptive negative 08/26/17 14:11 Ur Phencyclidine Scrn Presumptive negative 08/26/17 14:11 Ur Amphetamines Screen Presumptive negative 08/26/17 14:11 U Benzodiazepines Scrn Presumptive negative 08/26/17 14:11 Urine Cocaine Screen Presumptive negative 08/26/17 14:11 U Marijuana (THC) Screen Presumptive negative 08/26/17 14:11 Drugs of Abuse Note Disclamer 08/26/17 14:11
[2017-08-28 09:15] LABS: Alanine Aminotransferase 27 units/L (7-56); Albumin 3.3 g/dL (3.9-5); BUN/Creatinine Ratio 17; Blood Urea Nitrogen 10 mg/dL (7-17); Calcium 8.2 mg/dL (8.4-10.2); Chol/HDL Ratio 4.43 %; HDL Cholesterol 44 mg/dL (40-59); Hemolysis Index 11; LDL Cholesterol,Direct 141 mg/dL (50-130)
[2017-08-28] MEDS: KEPPRA 750 MG in NACL 0.9% 100 ML IV SCH (09:54)
[2017-08-28] MEDS: PEPCID IV SCH ×2 (09:54→22:21)
[2017-08-28] MEDS: SODIUM CHLORIDE FLUSH SYRINGE 10 ML IV SCH (10:00)
--- NOTE | 2017-08-28 12:00 | Progress Note ---
Subjective Date of service: 08/28/17 Interval history: went over the MRI and it is normal strongly suspect that seizure may have been th ppt'ing issue plan EEG Objective - Vital Sign Vital Signs - 12hr 08/28/17 08/28/17 08/28/17 00:35 00:53 01:02 Temperature 98.2 F Pulse Rate 96 H Respiratory 18 20 Rate Respiratory Rate [Head] Blood Pressure 135/105 Blood Pressure 135/105 [Right] O2 Sat by Pulse 95 Oximetry 08/28/17 08/28/17 08/28/17 01:32 04:31 05:00 Temperature 97.6 F Pulse Rate 102 H Respiratory 20 20 Rate Respiratory Rate [Head] Blood Pressure 96/73 Blood Pressure [Right] O2 Sat by Pulse 95 Oximetry 08/28/17 08/28/17 08/28/17 07:10 08:55 08:56 Temperature 97.5 F L Pulse Rate 88 Respiratory 20 20 Rate Respiratory Rate [Head] Blood Pressure 88/39 Blood Pressure [Right] O2 Sat by Pulse 96 95 Oximetry 08/28/17 08/28/17 09:25 10:00 Temperature Pulse Rate Respiratory 20 Rate Respiratory 20 Rate [Head] Blood Pressure Blood Pressure [Right] O2 Sat by Pulse Oximetry - Laboratory Findings CBC and BMP: 08/28/17 08:06 08/28/17 08:06 Abnormal Lab Findings: Abnormal Labs 08/26/17 08/26/17 08/26/17 12:57 12:57 13:02 Lymph % (Auto) 40.1 H [place] % (Auto) 8.8 H PT 12.1 L INR 0.86 L Creatinine Glucose 111 H Calcium Alkaline Phosphatase Albumin 3.6 L LDL Cholesterol Direct 08/28/17 08/28/17 08:06 08:06 Lymph % (Auto) [place] % (Auto) 8.7 H PT INR Creatinine 0.6 L Glucose 103 H Calcium 8.2 L Alkaline Phosphatase 136 H Albumin 3.3 L LDL Cholesterol Direct 141 H
--- NOTE | 2017-08-28 14:16 | Progress Note ---
Assessment and Plan Assessment and plan: Patient is a 56 yo woman with a history cva x 2, sz disorder, hypertension, asthma who pw right sided weakness. CT head CONCLUSION: No acute intracranial CT abnormality with few other findings , as above. MRI is more sensitive for detection of acute infarct and may be useful for further evaluation in the setting of a focal neurologic deficit. CT angiogram FINDINGS: Normal enhancement of the bilateral CCAs, ICAs and ECAs. No abnormal aneurysmal dilatation, apparent dissection, significant stenosis or occlusion. Vertebral arteries are patent, with very mild left-sided dominance. Hyperdense or enhancing nodule in left inferior thyroid lobe measuring 1.2 cm, nonspecific. IMPRESSION: 1. lt; 50% carotid stenosis by NASCET criteria. 2. Left thyroid nodule, nonspecific. Followup may be warranted. Head CTA FINDINGS: Normal enhancement of the basilar and bilateral internal carotid arteries and their main intracranial branches. No abnormal aneurysmal dilatation, significant stenosis or apparent occlusion. P-comm arteries evident bilaterally. No parenchymal mass, hemorrhage, midline shift or hydrocephalus. No evidence of acute cortical infarct. No abnormal extra-axial fluid or air collections. No pathologic enhancement. Osseous calvarium grossly intact. IMPRESSION: 1. No acute intracranial findings. MRI and MRA brain reported as no acute findings. Carotid Doppler unremarkable -Acute on chronic Seizure disorder Plan to address problem: Continue Keppra and Lyrica Dysarthria, CVA ruled out Patient not a candidate for TPA bc Last well-known time is not known Neurology consult ordered -Hypertension Plan to address problem: continue metoprolol - DVT prophylaxis Plan to address problem: Heparin subcutaneously -GI prophylaxis with famotidine d/c, needs outpatient psych EEG per neurology ECHO pending History Interval history: Patient was seen and examined. Follow-up on current diagnosis. Overnight uneventful. Patient denies any chest pain, shortness breath, nausea/vomiting or severe headaches. Imaging, nursing note, chart, labs and old chart reviewed. Discussed with patient. Hospitalist Physical - Physical exam Narrative exam: GEN: WDWN, NAD, Awake, Alert, Orientated x 3 HEENT: NCAT, EOMI, PERRL, OP Clear NECK: supple, no adenopathy, no thyromegaly, no JVD CVS/HEART: RRR, normal S1S2, pulses present bilaterally CHEST/LUNGS: CTA B, Symmetrical chest expansion, good air entry bilaterally GI/Abdomen: soft, NTND, good bowel sounds, no guarding or rebound /Bladder: no suprapubic tenderness, no CVA or paraspinal tenderness EXT/Skin: no c/c/e, no obvious rash MSK: right sided weakness Neuro: CN 2-12 grossly intact, facial asym, dysarthria, right hemiparesis Psych: calm - Constitutional Vitals: Temp Pulse Resp BP Pulse Ox 97.5 F L 88 20 88/39 95 08/28/17 07:10 08/28/17 07:10 08/28/17 10:00 08/28/17 07:10 08/28/17 08:56 General appearance: Present: no acute distress, well-nourished Results - Labs CBC & Chem 7: 08/28/17 08:06 08/28/17 08:06 Labs: Laboratory Last Values WBC 4.9 K/mm3 (4.5-11.0) 08/28/17 08:06 RBC 4.25 M/mm3 (3.65-5.03) 08/28/17 08:06 Hgb 12.1 gm/dl (10.1-14.3) 08/28/17 08:06 Hct 35.9 % (30.3-42.9) 08/28/17 08:06 MCV 85 fl (79-97) 08/28/17 08:06 MCH 29 pg (28-32) 08/28/17 08:06 MCHC 34 % (30-34) 08/28/17 08:06 RDW 14.8 % (13.2-15.2) 08/28/17 08:06 Plt Count 244 K/mm3 (140-440) 08/28/17 08:06 Lymph % (Auto) 23.7 % (13.4-35.0) 08/28/17 08:06 [place] % (Auto) 8.7 % (0.0-7.3) H 08/28/17 08:06 Eos % (Auto) 3.1 % (0.0-4.3) 08/28/17 08:06 Baso % (Auto) 0.7 % (0.0-1.8) 08/28/17 08:06 Lymph # 1.2 K/mm3 (1.2-5.4) 08/28/17 08:06 [place] # 0.4 K/mm3 (0.0-0.8) 08/28/17 08:06 Eos # 0.1 K/mm3 (0.0-0.4) 08/28/17 08:06 Baso # 0.0 K/mm3 (0.0-0.1) 08/28/17 08:06 Seg Neutrophils % 63.8 % (40.0-70.0) 08/28/17 08:06 Seg Neutrophils # 3.1 K/mm3 (1.8-7.7) 08/28/17 08:06 PT 12.1 Sec. (12.2-14.9) L 08/26/17 12:57 INR 0.86 (0.87-1.13) L 08/26/17 12:57 APTT 27.2 Sec. (24.2-36.6) 08/26/17 12:57 Thrombin Time 16.1 Sec. (15.1-19.6) 08/26/17 12:57 Sodium 138 mmol/L (137-145) 08/28/17 08:06 Potassium 4.0 mmol/L (3.6-5.0) 08/28/17 08:06 Chloride 104.5 mmol/L (98-107) 08/28/17 08:06 Carbon Dioxide 23 mmol/L (22-30) 08/28/17 08:06 Anion Gap 15 mmol/L 08/28/17 08:06 BUN 10 mg/dL (7-17) 08/28/17 08:06 Creatinine 0.6 mg/dL (0.7-1.2) L 08/28/17 08:06 Estimated GFR > 60 ml/min 08/28/17 08:06 BUN/Creatinine Ratio 17 % 08/28/17 08:06 Glucose 103 mg/dL (65-100) H 08/28/17 08:06 Hemoglobin A1c 5.9 % (4-6) 08/27/17 01:21 Calcium 8.2 mg/dL (8.4-10.2) L 08/28/17 08:06 Total Bilirubin 0.40 mg/dL (0.1-1.2) 08/28/17 08:06 AST 36 units/L (5-40) 08/28/17 08:06 ALT 27 units/L (7-56) 08/28/17 08:06 Alkaline Phosphatase 136 units/L (35-129) H 08/28/17 08:06 Total Creatine Kinase 74 units/L (30-135) 08/26/17 13:02 CK-MB (CK-2) 1.1 ng/mL (0.0-4.0) 08/26/17 13:02 CK-MB (CK-2) Rel Index 1.4 (0-4) 08/26/17 13:02 Troponin T < 0.010 ng/mL (0.00-0.029) 08/26/17 13:02 Total Protein 7.3 g/dL (6.3-8.2) 08/28/17 08:06 Albumin 3.3 g/dL (3.9-5) L 08/28/17 08:06 Albumin/Globulin Ratio 0.8 % 08/28/17 08:06 Triglycerides 116 mg/dL (2-149) 08/28/17 08:06 Cholesterol 195 mg/dL (50-199) 08/28/17 08:06 LDL Cholesterol Direct 141 mg/dL (50-130) H 08/28/17 08:06 HDL Cholesterol 44 mg/dL (40-59) 08/28/17 08:06 Cholesterol/HDL Ratio 4.43 % 08/28/17 08:06 Urine Color Straw (Yellow) 08/26/17 14:11 Urine Turbidity Clear (Clear) 08/26/17 14:11 Urine pH 5.0 (5.0-7.0) 08/26/17 14:11 Ur Specific [place] 1.004 (1.003-1.030) 08/26/17 14:11 Urine Protein <15 mg/dl mg/dL (Negative) 08/26/17 14:11 Urine Glucose (UA) Neg mg/dL (Negative) 08/26/17 14:11 Urine Ketones Neg mg/dL (Negative) 08/26/17 14:11 Urine Blood Neg (Negative) 08/26/17 14:11 Urine Nitrite Neg (Negative) 08/26/17 14:11 Urine Bilirubin Neg (Negative) 08/26/17 14:11 Urine Urobilinogen < 2.0 mg/dL (<2.0) 08/26/17 14:11 Ur Leukocyte Esterase Neg (Negative) 08/26/17 14:11 Urine WBC (Auto) 3.0 /HPF (0.0-6.0) 08/26/17 14:11 Urine RBC (Auto) 1.0 /HPF (0.0-6.0) 08/26/17 14:11 U Epithel Cells (Auto) 1.0 /HPF (0-13.0) 08/26/17 14:11 Hyaline Casts 1 /LPF 08/26/17 14:11 Urine Mucus Few /HPF 08/26/17 14:11 Urine Opiates Screen Presumptive negative 08/26/17 14:11 Urine Methadone Screen Presumptive negative 08/26/17 14:11 Ur Barbiturates Screen Presumptive negative 08/26/17 14:11 Ur Phencyclidine Scrn Presumptive negative 08/26/17 14:11 Ur Amphetamines Screen Presumptive negative 08/26/17 14:11 U Benzodiazepines Scrn Presumptive negative 08/26/17 14:11 Urine Cocaine Screen Presumptive negative 08/26/17 14:11 U Marijuana (THC) Screen Presumptive negative 08/26/17 14:11 Drugs of Abuse Note Disclamer 08/26/17 14:11
[2017-08-29] MEDS: KEPPRA 750 MG in NACL 0.9% 100 ML IV SCH ×3 (01:04→22:43)
[2017-08-29] MEDS: MORPHINE IV PRN ×3 (01:06→19:02)
[2017-08-29] MEDS: PEPCID IV SCH ×2 (09:48→22:43)
[2017-08-29] MEDS: SODIUM CHLORIDE FLUSH SYRINGE 10 ML IV SCH ×3 (09:49→22:43)
--- NOTE | 2017-08-29 10:33 | Progress Note ---
Assessment and Plan Assessment and plan: Patient is a 56 yo woman with a history cva x 2, sz disorder, hypertension, asthma who pw right sided weakness. CT head CONCLUSION: No acute intracranial CT abnormality with few other findings , as above. MRI is more sensitive for detection of acute infarct and may be useful for further evaluation in the setting of a focal neurologic deficit. CT angiogram FINDINGS: Normal enhancement of the bilateral CCAs, ICAs and ECAs. No abnormal aneurysmal dilatation, apparent dissection, significant stenosis or occlusion. Vertebral arteries are patent, with very mild left-sided dominance. Hyperdense or enhancing nodule in left inferior thyroid lobe measuring 1.2 cm, nonspecific. IMPRESSION: 1. lt; 50% carotid stenosis by NASCET criteria. 2. Left thyroid nodule, nonspecific. Followup may be warranted. Head CTA FINDINGS: Normal enhancement of the basilar and bilateral internal carotid arteries and their main intracranial branches. No abnormal aneurysmal dilatation, significant stenosis or apparent occlusion. P-comm arteries evident bilaterally. No parenchymal mass, hemorrhage, midline shift or hydrocephalus. No evidence of acute cortical infarct. No abnormal extra-axial fluid or air collections. No pathologic enhancement. Osseous calvarium grossly intact. IMPRESSION: 1. No acute intracranial findings. MRI and MRA brain reported as no acute findings. Carotid Doppler unremarkable Dysarthria, CVA ruled out Patient not a candidate for TPA bc Last well-known time is not known Neurology consult ordered -Hypertension Current Visit: Yes Status: Chronic Qualifiers: Hypertension type: essential hypertension Qualified Code(s): I10 - Essential (primary) hypertension Plan to address problem: continue metoprolol - Seizure disorder Current Visit: Yes Status: Acute Plan to address problem: Continue Keppra and Lyrica - DVT prophylaxis Current Visit: No Status: Acute Plan to address problem: Heparin subcutaneously -GI prophylaxis with famotidine d/c, needs outpatient psych Return to her outpatient Neurologist, Dr. Taran Wagoner [phone] Dispos: await for EEG ordered by neurologist Dr. Mcdowell History Interval history: Patient was seen and examined. Follow-up on current diagnosis. Overnight uneventful. Patient denies any chest pain, shortness breath, nausea/vomiting or severe headaches. Imaging, nursing note, chart, labs and old chart reviewed. Discussed with patient. Hospitalist Physical - Physical exam Narrative exam: GEN: WDWN, NAD, Awake, Alert, Orientated x 3 HEENT: NCAT, EOMI, PERRL, OP Clear NECK: supple, no adenopathy, no thyromegaly, no JVD CVS/HEART: RRR, normal S1S2, pulses present bilaterally CHEST/LUNGS: CTA B, Symmetrical chest expansion, good air entry bilaterally GI/Abdomen: soft, NTND, good bowel sounds, no guarding or rebound /Bladder: no suprapubic tenderness, no CVA or paraspinal tenderness EXT/Skin: no c/c/e, no obvious rash MSK: right sided weakness Neuro: CN 2-12 grossly intact, facial asym, dysarthria, right hemiparesis Psych: calm - Constitutional Vitals: Temp Pulse Resp BP Pulse Ox 32.1 F L 82 20 118/67 98 08/29/17 07:05 08/29/17 07:05 08/29/17 07:05 08/29/17 07:05 08/29/17 07:05 General appearance: Present: no acute distress, well-nourished Results - Labs CBC & Chem 7: 08/28/17 08:06 08/28/17 08:06 Labs: Laboratory Last Values WBC 4.9 K/mm3 (4.5-11.0) 08/28/17 08:06 RBC 4.25 M/mm3 (3.65-5.03) 08/28/17 08:06 Hgb 12.1 gm/dl (10.1-14.3) 08/28/17 08:06 Hct 35.9 % (30.3-42.9) 08/28/17 08:06 MCV 85 fl (79-97) 08/28/17 08:06 MCH 29 pg (28-32) 08/28/17 08:06 MCHC 34 % (30-34) 08/28/17 08:06 RDW 14.8 % (13.2-15.2) 08/28/17 08:06 Plt Count 244 K/mm3 (140-440) 08/28/17 08:06 Lymph % (Auto) 23.7 % (13.4-35.0) 08/28/17 08:06 [place] % (Auto) 8.7 % (0.0-7.3) H 08/28/17 08:06 Eos % (Auto) 3.1 % (0.0-4.3) 08/28/17 08:06 Baso % (Auto) 0.7 % (0.0-1.8) 08/28/17 08:06 Lymph # 1.2 K/mm3 (1.2-5.4) 08/28/17 08:06 [place] # 0.4 K/mm3 (0.0-0.8) 08/28/17 08:06 Eos # 0.1 K/mm3 (0.0-0.4) 08/28/17 08:06 Baso # 0.0 K/mm3 (0.0-0.1) 08/28/17 08:06 Seg Neutrophils % 63.8 % (40.0-70.0) 08/28/17 08:06 Seg Neutrophils # 3.1 K/mm3 (1.8-7.7) 08/28/17 08:06 PT 12.1 Sec. (12.2-14.9) L 08/26/17 12:57 INR 0.86 (0.87-1.13) L 08/26/17 12:57 APTT 27.2 Sec. (24.2-36.6) 08/26/17 12:57 Thrombin Time 16.1 Sec. (15.1-19.6) 08/26/17 12:57 Sodium 138 mmol/L (137-145) 08/28/17 08:06 Potassium 4.0 mmol/L (3.6-5.0) 08/28/17 08:06 Chloride 104.5 mmol/L (98-107) 08/28/17 08:06 Carbon Dioxide 23 mmol/L (22-30) 08/28/17 08:06 Anion Gap 15 mmol/L 08/28/17 08:06 BUN 10 mg/dL (7-17) 08/28/17 08:06 Creatinine 0.6 mg/dL (0.7-1.2) L 08/28/17 08:06 Estimated GFR > 60 ml/min 08/28/17 08:06 BUN/Creatinine Ratio 17 % 08/28/17 08:06 Glucose 103 mg/dL (65-100) H 08/28/17 08:06 Hemoglobin A1c 5.9 % (4-6) 08/27/17 01:21 Calcium 8.2 mg/dL (8.4-10.2) L 08/28/17 08:06 Total Bilirubin 0.40 mg/dL (0.1-1.2) 08/28/17 08:06 AST 36 units/L (5-40) 08/28/17 08:06 ALT 27 units/L (7-56) 08/28/17 08:06 Alkaline Phosphatase 136 units/L (35-129) H 08/28/17 08:06 Total Creatine Kinase 74 units/L (30-135) 08/26/17 13:02 CK-MB (CK-2) 1.1 ng/mL (0.0-4.0) 08/26/17 13:02 CK-MB (CK-2) Rel Index 1.4 (0-4) 08/26/17 13:02 Troponin T < 0.010 ng/mL (0.00-0.029) 08/26/17 13:02 Total Protein 7.3 g/dL (6.3-8.2) 08/28/17 08:06 Albumin 3.3 g/dL (3.9-5) L 08/28/17 08:06 Albumin/Globulin Ratio 0.8 % 08/28/17 08:06 Triglycerides 116 mg/dL (2-149) 08/28/17 08:06 Cholesterol 195 mg/dL (50-199) 08/28/17 08:06 LDL Cholesterol Direct 141 mg/dL (50-130) H 08/28/17 08:06 HDL Cholesterol 44 mg/dL (40-59) 08/28/17 08:06 Cholesterol/HDL Ratio 4.43 % 08/28/17 08:06 Urine Color Straw (Yellow) 08/26/17 14:11 Urine Turbidity Clear (Clear) 08/26/17 14:11 Urine pH 5.0 (5.0-7.0) 08/26/17 14:11 Ur Specific [place] 1.004 (1.003-1.030) 08/26/17 14:11 Urine Protein <15 mg/dl mg/dL (Negative) 08/26/17 14:11 Urine Glucose (UA) Neg mg/dL (Negative) 08/26/17 14:11 Urine Ketones Neg mg/dL (Negative) 08/26/17 14:11 Urine Blood Neg (Negative) 08/26/17 14:11 Urine Nitrite Neg (Negative) 08/26/17 14:11 Urine Bilirubin Neg (Negative) 08/26/17 14:11 Urine Urobilinogen < 2.0 mg/dL (<2.0) 08/26/17 14:11 Ur Leukocyte Esterase Neg (Negative) 08/26/17 14:11 Urine WBC (Auto) 3.0 /HPF (0.0-6.0) 08/26/17 14:11 Urine RBC (Auto) 1.0 /HPF (0.0-6.0) 08/26/17 14:11 U Epithel Cells (Auto) 1.0 /HPF (0-13.0) 08/26/17 14:11 Hyaline Casts 1 /LPF 08/26/17 14:11 Urine Mucus Few /HPF 08/26/17 14:11 Urine Opiates Screen Presumptive negative 08/26/17 14:11 Urine Methadone Screen Presumptive negative 08/26/17 14:11 Ur Barbiturates Screen Presumptive negative 08/26/17 14:11 Ur Phencyclidine Scrn Presumptive negative 08/26/17 14:11 Ur Amphetamines Screen Presumptive negative 08/26/17 14:11 U Benzodiazepines Scrn Presumptive negative 08/26/17 14:11 Urine Cocaine Screen Presumptive negative 08/26/17 14:11 U Marijuana (THC) Screen Presumptive negative 08/26/17 14:11 Drugs of Abuse Note Disclamer 08/26/17 14:11
[2017-08-29] MEDS: NACL 0.9% 1000 ML 1,000 ML IV SCH (22:43)
[2017-08-30] MEDS: MORPHINE IV PRN ×4 (03:29→21:18)
[2017-08-30] MEDS: KEPPRA 750 MG in NACL 0.9% 100 ML IV SCH ×2 (09:06→22:30)
[2017-08-30] MEDS: PEPCID IV SCH ×2 (09:06→21:18)
[2017-08-30] MEDS: SODIUM CHLORIDE FLUSH SYRINGE 10 ML IV SCH ×2 (09:06→21:19)
--- NOTE | 2017-08-30 12:01 | Gastroenterology Consultation ---
History of Present Illness - Reason for Consult Consult date: 08/30/17 PEG placement Requesting physician: HERNAN WHITFIELD - History of Present Illness Patient is a 57 y/o female with PMH of CVA, seizure disorder and HTN who presented to ED with c/o right-sided weakness, dysarthria, and dysphagia and was admitted for possible CVA. CT and MRI of head did not show any acute process. EEG is pending. GI has been consulted for a PEG placement due to dysphagia after a failed speech eval yesterday. This morning pt was resting in bed w/o acute distress. Denies any abd pain or N/V. Past History Past Medical History: hypertension, seizures, stroke Past Surgical History: appendectomy, cholecystectomy, hysterectomy, Other (head , right ankle, spinal sx, jaw, and nasal) Social history: other (denies substance abuse) Family history: hypertension Medications and Allergies Allergies Allergy/AdvReac Type Severity Reaction Status Date / Time Penicillins Allergy Itching Verified 01/14/15 20:26 seafood Allergy Swelling Uncoded 06/29/16 13:16 tape Allergy Rash Uncoded 06/29/16 13:16 Home Medications Medication Instructions Recorded Confirmed Last Taken Type levETIRAcetam [Keppra TAB] 1,500 mg PO BID 05/13/17 08/26/17 08/25/17 History Metoprolol Xl [Metoprolol 50 mg PO QDAY #30 tablet 05/16/17 08/26/17 08/25/17 Rx SUCCINATE ER TAB] Cyclobenzaprine HCl [Flexeril 5 MG 5 mg PO TID 08/26/17 08/26/17 08/25/17 History TAB] Pregabalin [Lyrica] 150 mg PO TID 08/26/17 08/26/17 08/25/17 History Zolpidem [Ambien] 10 mg PO QHS 08/26/17 08/26/17 08/25/17 History Active Meds: Active Medications Acetaminophen (Tylenol) 650 mg PO Q4H PRN PRN Reason: Pain MILD(1-3)/Fever >100.5/SANCHEZ Atorvastatin Calcium (Lipitor) 40 mg PO QHS [facility] Last Admin: 08/29/17 22:44 Dose: Not Given Famotidine (Pepcid) 20 mg IV BID [facility] Last Admin: 08/30/17 09:06 Dose: 20 mg Levetiracetam 750 mg/ Sodium (Chloride) 107.5 mls @ 400 mls/hr IV Q12HR [facility] Last Admin: 08/30/17 09:06 Dose: 400 mls/hr Sodium Chloride (Nacl 0.9% 1000 Ml) 1,000 mls @ 75 mls/hr IV DIRECT [facility] Last Admin: 08/29/17 22:43 Dose: 75 mls/hr Morphine Sulfate (Morphine) 2 mg IV Q4H PRN PRN Reason: Pain, Moderate (4-6) Last Admin: 08/30/17 09:14 Dose: 2 mg Ondansetron HCl (Zofran) 4 mg IV Q8H PRN PRN Reason: Nausea And Vomiting Sodium Chloride (Sodium Chloride Flush Syringe 10 Ml) 10 ml IV BID [facility] Last Admin: 08/30/17 09:06 Dose: 10 ml Sodium Chloride (Sodium Chloride Flush Syringe 10 Ml) 10 ml IV PRN PRN PRN Reason: LINE FLUSH Review of Systems - Review of Systems All systems: negative Gastrointestinal: other (dysphagia) Exam - Constitutional Vital Signs: Temp Pulse Resp BP Pulse Ox 98.0 F 89 16 99/69 98 08/30/17 07:14 08/30/17 10:00 08/30/17 10:00 08/30/17 07:14 08/30/17 09:20 General appearance: no acute distress, other (dysarthria) - Respiratory Respiratory: bilateral: CTA - Cardiovascular Rhythm: regular Heart Sounds: Present: S1 & S2 - Gastrointestinal General gastrointestinal: Present: soft, non-distended, normal bowel sounds - Neurologic Neurological: alert and oriented x3 - Labs CBC & Chem 7: 08/28/17 08:06 08/28/17 08:06 Assessment and Plan 1.PEG placement -failed speech eval yesterday -discussed with patient the nature of this procedure, details of technique, benefits, purpose, and risks including perforation, bleeding, infection, and independent risks of anesthesia- she is in agreement with proceeding with PEG placement -will schedule for EGD with PEG placement in am -Keep NPO -INR in am -electrolyte management per primary team -continue supportive care -will follow
[2017-08-30] MEDS: NACL 0.9% 1000 ML 1,000 ML IV SCH (14:48)
--- NOTE | 2017-08-30 15:27 | Progress Note ---
Assessment and Plan Assessment and plan: 57 year old female with past medical history significant for CVA x2, seizure presented to the emergency department with complaints of dysphasia, dysarthria, and worsening of right-sided weakness CVA - Workup is negative for CVA - Patient is on a statin and aspirin Dysphagia - Failed swallow evaluation - GI consulted for PEG placement Dysarthria - continue speech therapy Seizure - Continue Keppra DVT prophylaxis Disposition - Continue inpatient care, likely would have PEG placement in the morning History Interval history: Patient was seen and evaluated this morning, patient has dysarthria and dysphagia. Hospitalist Physical - Physical exam Narrative exam: Not in cardiopulmonary distress. The patient appeared well nourished and normally developed. Vital signs as documented. Head exam is unremarkable. No scleral icterus . Neck is without jugular venous distension, thyromegaly, or carotid bruits. Lungs are clear to auscultation. Cardiac exam reveals regular rate and Rhythm. First and second heart sounds normal. No murmurs, rubs or gallops. Abdominal exam reveals normal bowel sounds, no masses, no organomegaly and no aortic enlargement. Extremities are nonedematous and both femoral and pedal pulses are normal. EXHIBIT ELECTRICIAN: Alert and oriented 3. No focal weakness. - Constitutional Vitals: Temp Pulse Resp BP Pulse Ox 97.9 F 89 18 119/73 98 08/30/17 12:11 08/30/17 12:11 08/30/17 12:11 08/30/17 12:11 08/30/17 12:11 General appearance: Present: no acute distress, well-nourished Results - Labs CBC & Chem 7: 08/28/17 08:06 08/28/17 08:06 Labs: Laboratory Last Values WBC 4.9 K/mm3 (4.5-11.0) 08/28/17 08:06 RBC 4.25 M/mm3 (3.65-5.03) 08/28/17 08:06 Hgb 12.1 gm/dl (10.1-14.3) 08/28/17 08:06 Hct 35.9 % (30.3-42.9) 08/28/17 08:06 MCV 85 fl (79-97) 08/28/17 08:06 MCH 29 pg (28-32) 08/28/17 08:06 MCHC 34 % (30-34) 08/28/17 08:06 RDW 14.8 % (13.2-15.2) 08/28/17 08:06 Plt Count 244 K/mm3 (140-440) 08/28/17 08:06 Lymph % (Auto) 23.7 % (13.4-35.0) 08/28/17 08:06 [place] % (Auto) 8.7 % (0.0-7.3) H 08/28/17 08:06 Eos % (Auto) 3.1 % (0.0-4.3) 08/28/17 08:06 Baso % (Auto) 0.7 % (0.0-1.8) 08/28/17 08:06 Lymph # 1.2 K/mm3 (1.2-5.4) 08/28/17 08:06 [place] # 0.4 K/mm3 (0.0-0.8) 08/28/17 08:06 Eos # 0.1 K/mm3 (0.0-0.4) 08/28/17 08:06 Baso # 0.0 K/mm3 (0.0-0.1) 08/28/17 08:06 Seg Neutrophils % 63.8 % (40.0-70.0) 08/28/17 08:06 Seg Neutrophils # 3.1 K/mm3 (1.8-7.7) 08/28/17 08:06 PT 12.1 Sec. (12.2-14.9) L 08/26/17 12:57 INR 0.86 (0.87-1.13) L 08/26/17 12:57 APTT 27.2 Sec. (24.2-36.6) 08/26/17 12:57 Thrombin Time 16.1 Sec. (15.1-19.6) 08/26/17 12:57 Sodium 138 mmol/L (137-145) 08/28/17 08:06 Potassium 4.0 mmol/L (3.6-5.0) 08/28/17 08:06 Chloride 104.5 mmol/L (98-107) 08/28/17 08:06 Carbon Dioxide 23 mmol/L (22-30) 08/28/17 08:06 Anion Gap 15 mmol/L 08/28/17 08:06 BUN 10 mg/dL (7-17) 08/28/17 08:06 Creatinine 0.6 mg/dL (0.7-1.2) L 08/28/17 08:06 Estimated GFR > 60 ml/min 08/28/17 08:06 BUN/Creatinine Ratio 17 % 08/28/17 08:06 Glucose 103 mg/dL (65-100) H 08/28/17 08:06 Hemoglobin A1c 5.9 % (4-6) 08/27/17 01:21 Calcium 8.2 mg/dL (8.4-10.2) L 08/28/17 08:06 Total Bilirubin 0.40 mg/dL (0.1-1.2) 08/28/17 08:06 AST 36 units/L (5-40) 08/28/17 08:06 ALT 27 units/L (7-56) 08/28/17 08:06 Alkaline Phosphatase 136 units/L (35-129) H 08/28/17 08:06 Total Creatine Kinase 74 units/L (30-135) 08/26/17 13:02 CK-MB (CK-2) 1.1 ng/mL (0.0-4.0) 08/26/17 13:02 CK-MB (CK-2) Rel Index 1.4 (0-4) 08/26/17 13:02 Troponin T < 0.010 ng/mL (0.00-0.029) 08/26/17 13:02 Total Protein 7.3 g/dL (6.3-8.2) 08/28/17 08:06 Albumin 3.3 g/dL (3.9-5) L 08/28/17 08:06 Albumin/Globulin Ratio 0.8 % 08/28/17 08:06 Triglycerides 116 mg/dL (2-149) 08/28/17 08:06 Cholesterol 195 mg/dL (50-199) 08/28/17 08:06 LDL Cholesterol Direct 141 mg/dL (50-130) H 08/28/17 08:06 HDL Cholesterol 44 mg/dL (40-59) 08/28/17 08:06 Cholesterol/HDL Ratio 4.43 % 08/28/17 08:06 Urine Color Straw (Yellow) 08/26/17 14:11 Urine Turbidity Clear (Clear) 08/26/17 14:11 Urine pH 5.0 (5.0-7.0) 08/26/17 14:11 Ur Specific [place] 1.004 (1.003-1.030) 08/26/17 14:11 Urine Protein <15 mg/dl mg/dL (Negative) 08/26/17 14:11 Urine Glucose (UA) Neg mg/dL (Negative) 08/26/17 14:11 Urine Ketones Neg mg/dL (Negative) 08/26/17 14:11 Urine Blood Neg (Negative) 08/26/17 14:11 Urine Nitrite Neg (Negative) 08/26/17 14:11 Urine Bilirubin Neg (Negative) 08/26/17 14:11 Urine Urobilinogen < 2.0 mg/dL (<2.0) 08/26/17 14:11 Ur Leukocyte Esterase Neg (Negative) 08/26/17 14:11 Urine WBC (Auto) 3.0 /HPF (0.0-6.0) 08/26/17 14:11 Urine RBC (Auto) 1.0 /HPF (0.0-6.0) 08/26/17 14:11 U Epithel Cells (Auto) 1.0 /HPF (0-13.0) 08/26/17 14:11 Hyaline Casts 1 /LPF 08/26/17 14:11 Urine Mucus Few /HPF 08/26/17 14:11 Urine Opiates Screen Presumptive negative 08/26/17 14:11 Urine Methadone Screen Presumptive negative 08/26/17 14:11 Ur Barbiturates Screen Presumptive negative 08/26/17 14:11 Ur Phencyclidine Scrn Presumptive negative 08/26/17 14:11 Ur Amphetamines Screen Presumptive negative 08/26/17 14:11 U Benzodiazepines Scrn Presumptive negative 08/26/17 14:11 Urine Cocaine Screen Presumptive negative 08/26/17 14:11 U Marijuana (THC) Screen Presumptive negative 08/26/17 14:11 Drugs of Abuse Note Disclamer 08/26/17 14:11
[2017-08-31] MEDS: NACL 0.9% 1000 ML 1,000 ML IV SCH ×2 (03:58→23:48)
[2017-08-31 05:19] LABS: BUN/Creatinine Ratio 10; Blood Urea Nitrogen 5 mg/dL (7-17); Calcium 8.1 mg/dL (8.4-10.2); Hemolysis Index 7
[2017-08-31 05:20] LABS: INR 0.96 (0.87-1.13)
[2017-08-31] MEDS: SODIUM CHLORIDE FLUSH SYRINGE 10 ML IV PRN (05:39)
[2017-08-31] MEDS: MORPHINE IV PRN ×2 (05:39→17:40)
[2017-08-31] MEDS: KEPPRA 750 MG in NACL 0.9% 100 ML IV SCH (09:52)
[2017-08-31] MEDS: PEPCID IV SCH ×2 (09:52→23:55)
[2017-08-31] MEDS: SODIUM CHLORIDE FLUSH SYRINGE 10 ML IV SCH (09:52)
--- NOTE | 2017-08-31 13:43 | Progress Note ---
Assessment and Plan Assessment and plan: 57 year old female with past medical history significant for CVA x2, seizure presented to the emergency department with complaints of dysphasia, dysarthria, and worsening of right-sided weakness CVA - Workup is negative for CVA - Patient is on a statin and aspirin Dysphagia - Failed swallow evaluation - Patient will had PEG placed this morning Dysarthria - continue speech therapy Seizure - Continue Keppra DVT prophylaxis Disposition - Possible discharge home with home health and O/P speech therapy. patient wants to be discharged home. History Interval history: Patient was seen and evaluated this morning, patient has dysarthria and dysphagia. Hospitalist Physical - Physical exam Narrative exam: Not in cardiopulmonary distress. patient has dysarthria. The patient appeared well nourished and normally developed. Vital signs as documented. Head exam is unremarkable. No scleral icterus . Neck is without jugular venous distension, thyromegaly, or carotid bruits. Lungs are clear to auscultation. Cardiac exam reveals regular rate and Rhythm. First and second heart sounds normal. No murmurs, rubs or gallops. Abdominal exam reveals normal bowel sounds, no masses, no organomegaly and no aortic enlargement. Extremities are nonedematous and both femoral and pedal pulses are normal. 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 right sided weakness. - Constitutional Vitals: Temp Pulse Resp BP Pulse Ox 97.8 F 81 18 125/87 96 08/31/17 07:20 08/31/17 10:00 08/31/17 07:20 08/31/17 07:20 08/31/17 10:12 General appearance: Present: no acute distress, well-nourished Results - Labs CBC & Chem 7: 08/28/17 08:06 08/31/17 04:36 Labs: Laboratory Last Values WBC 4.9 K/mm3 (4.5-11.0) 08/28/17 08:06 RBC 4.25 M/mm3 (3.65-5.03) 08/28/17 08:06 Hgb 12.1 gm/dl (10.1-14.3) 08/28/17 08:06 Hct 35.9 % (30.3-42.9) 08/28/17 08:06 MCV 85 fl (79-97) 08/28/17 08:06 MCH 29 pg (28-32) 08/28/17 08:06 MCHC 34 % (30-34) 08/28/17 08:06 RDW 14.8 % (13.2-15.2) 08/28/17 08:06 Plt Count 244 K/mm3 (140-440) 08/28/17 08:06 Lymph % (Auto) 23.7 % (13.4-35.0) 08/28/17 08:06 [place] % (Auto) 8.7 % (0.0-7.3) H 08/28/17 08:06 Eos % (Auto) 3.1 % (0.0-4.3) 08/28/17 08:06 Baso % (Auto) 0.7 % (0.0-1.8) 08/28/17 08:06 Lymph # 1.2 K/mm3 (1.2-5.4) 08/28/17 08:06 [place] # 0.4 K/mm3 (0.0-0.8) 08/28/17 08:06 Eos # 0.1 K/mm3 (0.0-0.4) 08/28/17 08:06 Baso # 0.0 K/mm3 (0.0-0.1) 08/28/17 08:06 Seg Neutrophils % 63.8 % (40.0-70.0) 08/28/17 08:06 Seg Neutrophils # 3.1 K/mm3 (1.8-7.7) 08/28/17 08:06 PT 13.3 Sec. (12.2-14.9) 08/31/17 04:36 INR 0.96 (0.87-1.13) 08/31/17 04:36 APTT 27.2 Sec. (24.2-36.6) 08/26/17 12:57 Thrombin Time 16.1 Sec. (15.1-19.6) 08/26/17 12:57 Sodium 140 mmol/L (137-145) 08/31/17 04:36 Potassium 4.4 mmol/L (3.6-5.0) 08/31/17 04:36 Chloride 106.5 mmol/L (98-107) 08/31/17 04:36 Carbon Dioxide 21 mmol/L (22-30) L 08/31/17 04:36 Anion Gap 17 mmol/L 08/31/17 04:36 BUN 5 mg/dL (7-17) L 08/31/17 04:36 Creatinine 0.5 mg/dL (0.7-1.2) L 08/31/17 04:36 Estimated GFR > 60 ml/min 08/31/17 04:36 BUN/Creatinine Ratio 10 % 08/31/17 04:36 Glucose 103 mg/dL (65-100) H 08/28/17 08:06 Hemoglobin A1c 5.9 % (4-6) 08/27/17 01:21 Calcium 8.1 mg/dL (8.4-10.2) L 08/31/17 04:36 Total Bilirubin 0.40 mg/dL (0.1-1.2) 08/28/17 08:06 AST 36 units/L (5-40) 08/28/17 08:06 ALT 27 units/L (7-56) 08/28/17 08:06 Alkaline Phosphatase 136 units/L (35-129) H 08/28/17 08:06 Total Creatine Kinase 74 units/L (30-135) 08/26/17 13:02 CK-MB (CK-2) 1.1 ng/mL (0.0-4.0) 08/26/17 13:02 CK-MB (CK-2) Rel Index 1.4 (0-4) 08/26/17 13:02 Troponin T < 0.010 ng/mL (0.00-0.029) 08/26/17 13:02 Total Protein 7.3 g/dL (6.3-8.2) 08/28/17 08:06 Albumin 3.3 g/dL (3.9-5) L 08/28/17 08:06 Albumin/Globulin Ratio 0.8 % 08/28/17 08:06 Triglycerides 116 mg/dL (2-149) 08/28/17 08:06 Cholesterol 195 mg/dL (50-199) 08/28/17 08:06 LDL Cholesterol Direct 141 mg/dL (50-130) H 08/28/17 08:06 HDL Cholesterol 44 mg/dL (40-59) 08/28/17 08:06 Cholesterol/HDL Ratio 4.43 % 08/28/17 08:06 Urine Color Straw (Yellow) 08/26/17 14:11 Urine Turbidity Clear (Clear) 08/26/17 14:11 Urine pH 5.0 (5.0-7.0) 08/26/17 14:11 Ur Specific [place] 1.004 (1.003-1.030) 08/26/17 14:11 Urine Protein <15 mg/dl mg/dL (Negative) 08/26/17 14:11 Urine Glucose (UA) Neg mg/dL (Negative) 08/26/17 14:11 Urine Ketones Neg mg/dL (Negative) 08/26/17 14:11 Urine Blood Neg (Negative) 08/26/17 14:11 Urine Nitrite Neg (Negative) 08/26/17 14:11 Urine Bilirubin Neg (Negative) 08/26/17 14:11 Urine Urobilinogen < 2.0 mg/dL (<2.0) 08/26/17 14:11 Ur Leukocyte Esterase Neg (Negative) 08/26/17 14:11 Urine WBC (Auto) 3.0 /HPF (0.0-6.0) 08/26/17 14:11 Urine RBC (Auto) 1.0 /HPF (0.0-6.0) 08/26/17 14:11 U Epithel Cells (Auto) 1.0 /HPF (0-13.0) 08/26/17 14:11 Hyaline Casts 1 /LPF 08/26/17 14:11 Urine Mucus Few /HPF 08/26/17 14:11 Urine Opiates Screen Presumptive negative 08/26/17 14:11 Urine Methadone Screen Presumptive negative 08/26/17 14:11 Ur Barbiturates Screen Presumptive negative 08/26/17 14:11 Ur Phencyclidine Scrn Presumptive negative 08/26/17 14:11 Ur Amphetamines Screen Presumptive negative 08/26/17 14:11 U Benzodiazepines Scrn Presumptive negative 08/26/17 14:11 Urine Cocaine Screen Presumptive negative 08/26/17 14:11 U Marijuana (THC) Screen Presumptive negative 08/26/17 14:11 Drugs of Abuse Note Disclamer 08/26/17 14:11
--- NOTE | 2017-08-31 14:12 | Progress Note ---
Subjective Date of service: 08/31/17 Interval history: MRI is negative and no further seizures are witnessed Objective - Vital Sign Vital Signs - 12hr 08/31/17 08/31/17 08/31/17 05:25 07:20 10:00 Temperature 97.6 F 97.8 F Pulse Rate 92 H 84 81 Respiratory 20 18 Rate Blood Pressure 141/89 125/87 O2 Sat by Pulse 93 94 Oximetry 08/31/17 10:12 Temperature Pulse Rate Respiratory Rate Blood Pressure O2 Sat by Pulse 96 Oximetry - Laboratory Findings CBC and BMP: 08/28/17 08:06 08/31/17 04:36 Abnormal Lab Findings: Abnormal Labs 08/26/17 08/26/17 08/26/17 12:57 12:57 13:02 Lymph % (Auto) 40.1 H [place] % (Auto) 8.8 H PT 12.1 L INR 0.86 L Carbon Dioxide BUN Creatinine Glucose 111 H Calcium Alkaline Phosphatase Albumin 3.6 L LDL Cholesterol Direct 08/28/17 08/28/17 08/31/17 08:06 08:06 04:36 Lymph % (Auto) [place] % (Auto) 8.7 H PT INR Carbon Dioxide 21 L BUN 5 L Creatinine 0.6 L 0.5 L Glucose 103 H Calcium 8.2 L 8.1 L Alkaline Phosphatase 136 H Albumin 3.3 L LDL Cholesterol Direct 141 H
[2017-08-31] MEDS ORDERED: NACL 0.9% 1000 ML 1,000 ML ONE (14:15)
[2017-08-31] MEDS ORDERED: ANCEF/STERILE WATER 2 GM/20 ML 0 GM/0 ML SYRINGE IV ONE (15:04)
[2017-08-31] MEDS ORDERED: DIPRIVAN 10 MG/ML IV ONE ×2 (15:10)
--- NOTE | 2017-08-31 15:10 | Anesthesia Consultation ---
Anesthesia Consult and Med Hx Date of service: 08/31/17 - Airway Anesthetic Teeth Evaluation: Poor, Chipped ROM Head & Neck: Adequate Mental/Hyoid Distance: Inadequate Mallampati Class: Class III Intubation Access Assessment: Possibly Difficult - Pulmonary Exam CTA: Yes - Cardiac Exam Cardiac Exam: RRR - Pre-Operative Health Status ASA Pre-Surgery Classification: ASA3 Proposed Anesthetic Plan: MAC - Pulmonary Hx Smoking: No Hx Asthma: Yes COPD: No Hx Sleep Apnea: No (potential candidate) - Cardiovascular System Hx Hypertension: Yes Hx Heart Attack/AMI: No Hx Cardia Arrhythmia: Yes (pt states heart skips a beat occasionally) Hx Pacemaker: No Hx Internal Defibrillator: No - Central Nervous System Hx Seizures: Yes (past hx, recent 08/24) CVA: Yes (2) - Endocrine Hx Renal Disease: No Hx Liver Disease: No - Hematic Hx Sickle Cell Disease: No
[2017-08-31] MEDS ORDERED: GARAMYCIN/NS 80 MG/100 ML 100 ML IV ONE (15:11)
--- NOTE | 2017-08-31 15:11 | Anesthesia Day of Surgery ---
Anesthesia Day of Surgery - Day of Surgery Patient Examined: Yes Patient H&P Reviewed: Yes Patient is NPO: Yes
[2017-08-31] MEDS ORDERED: VERSED ONE (15:27)
--- NOTE | 2017-08-31 15:45 | Post Operative Note ---
Pre-op diagnosis: dysphagia, nutrition support Post-op diagnosis: same Findings: EGD hiatal hernia - negative other - 20F pull peg placed, bumper at 5 cm Procedure: EGD/PEG Anesthesia: MAC Surgeon: GENE JHAVERI Estimated blood loss: none Pathology: none Condition: stable Disposition: floor
[2017-08-31] MEDS ORDERED: DILAUDID ONE (15:52)
[2017-08-31] MEDS ORDERED: CLEOCIN 600 MG/50 mL 600 MG/50 ML BAG IV NR (16:00)
--- NOTE | 2017-08-31 16:09 | Post Anesthesia Evaluation ---
- Post Anesthesia Evaluation Patient Participated: Yes Airway Patent: Yes Stable Respiratory Function: Yes Nausea/Vomiting: No Temp > 96.8F: Yes Pain Manageable: Yes Adequeate Hydration: Yes Anesthesia Complications: No Block Receding Appropriately: Not Applicable Patient on Ventilator: No
[2017-08-31] MEDS ORDERED: SODIUM BICARBONATE FEEDTUBE PRN (16:25)
[2017-08-31] MEDS ORDERED: SIMPLE SYRUP FEEDTUBE PRN ×2 (16:25)
[2017-08-31] MEDS ORDERED: PANCREAZE DR 10,500 UNIT FEEDTUBE PRN (16:25)
--- NOTE | 2017-08-31 16:49 | Operative Report ---
INDICATION: 1. Dysphagia. 2. Nutritional support. 3. Failed swallow evaluation. MEDICATIONS: Propofol per [employer] SURVEYOR. COMPLICATIONS: None. DESCRIPTION OF PROCEDURE: The patient was brought to procedure suite. The patient had the procedure discussed with her at length. All risks, complications, and benefits were discussed after which the patient signed for the procedure performed. The patient was placed in supine position. Mouth block was placed in the patient's oral cavity. After adequate sedation medication as above, endoscope was placed into the mouth and brought to the second portion of duodenum. Retroflexion view performed. The patient's vital signs remained stable throughout the procedure. FINDINGS: There was noted to be a small hiatal hernia at GE junction, 30 cm from the gums. Esophagus otherwise appeared to be normal. Stomach and duodenum appeared grossly normal. Retroflexion showed no other pathology. After this, especially using standard technique and transillumination, area for adequate placement of PEG was found in the gastric body. A 20-Italian pull PEG was then placed. Bump was noted to be 5 cm. Post-procedure, the patient was satisfactory. The patient tolerated the procedure well. No complications during the procedure. IMPRESSION: 1. Hiatal hernia. 2. Otherwise, normal esophagus. 3. PEG tube placement without obvious complications. RECOMMENDATIONS: 1. Watch for signs of bleeding, infection. 2. Nutrition support. 3. Avoid NSAIDs and aspirin for 5 days. 4. We will follow up in a.m. JOB# [id number] [facility]
[2017-08-31] MEDS: ZOFRAN IV PRN (19:53)
[2017-09-01] MEDS: MORPHINE IV PRN ×3 (00:06→19:12)
[2017-09-01] MEDS: KEPPRA 750 MG in NACL 0.9% 100 ML IV SCH ×3 (00:41→22:48)
[2017-09-01] MEDS: SODIUM CHLORIDE FLUSH SYRINGE 10 ML IV SCH ×3 (10:14→22:22)
[2017-09-01] MEDS: PEPCID IV SCH ×2 (10:14→22:48)
--- NOTE | 2017-09-01 10:32 | Gastroenterology Progress Note ---
Assessment and Plan 1.PEG placement -s/p EGD that revealed a hiatal hernia with PEG placement yesterday -PEG site this am w/o s/s of infection or bleeding -bumper off loaded to prevent skin breakdown -split gauze PRN -tolerating TFs -continue supportive care -no further GI recommendations at this time -will sign off, please call if needed Subjective Date of service: 09/01/17 Principal diagnosis: PEG placement Interval history: Patient resting in bed w/o acute distress. Reports abd soreness at PEG site but no N/V. Tolerating TFs. PEG site w/o redness, swelling, odor, drainage, or bleeding. Objective - Constitutional Vitals: Temp Pulse Resp BP Pulse Ox 98.3 F 97 H 18 106/64 97 09/01/17 07:42 09/01/17 07:42 09/01/17 07:42 09/01/17 07:42 09/01/17 07:42 General appearance: no acute distress - Respiratory Respiratory: bilateral: CTA - Cardiovascular Rhythm: regular Heart Sounds: Present: S1 & S2 - Gastrointestinal General gastrointestinal: Present: soft, non-tender, non-distended, normal bowel sounds, other (+PEG) - Neurologic Neurological: alert and oriented x3 - Labs CBC & Chem 7: 08/28/17 08:06 08/31/17 04:36 Labs: Laboratory Results - last 24 hr 08/31/17 04:36 Glucose 75
[2017-09-01] MEDS: TRIPLE ANTIBIOTIC TP SCH (13:30)
--- NOTE | 2017-09-01 16:47 | Progress Note ---
Assessment and Plan Assessment and plan: 57 year old female with past medical history significant for CVA x2, seizure presented to the emergency department with complaints of dysphasia, dysarthria, and worsening of right-sided weakness CVA - Workup is negative for CVA - Patient is on a statin and aspirin Dysphagia - Failed swallow evaluation - Patient will had PEG placed yesterday and functional Dysarthria - continue speech therapy Seizure - Continue Keppra DVT prophylaxis Disposition - Pending acute rehab placement. History Interval history: Patient was seen and evaluated this morning, patient complains mild pain at the site of PEG tube placement. Patient's dysarthria is getting better. Hospitalist Physical - Physical exam Narrative exam: Not in cardiopulmonary distress. patient has dysarthria. The patient appeared well nourished and normally developed. Vital signs as documented. Head exam is unremarkable. No scleral icterus . Neck is without jugular venous distension, thyromegaly, or carotid bruits. Lungs are clear to auscultation. Cardiac exam reveals regular rate and Rhythm. First and second heart sounds normal. No murmurs, rubs or gallops. Abdominal exam reveals normal bowel sounds, no masses, no organomegaly and no aortic enlargement. Extremities are nonedematous and both femoral and pedal pulses are normal. 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 right sided weakness. - Constitutional Vitals: Temp Pulse Resp BP Pulse Ox 98.3 F 94 H 18 106/64 97 09/01/17 07:42 09/01/17 10:00 09/01/17 07:42 09/01/17 07:42 09/01/17 07:42 General appearance: Present: no acute distress, well-nourished Results - Labs CBC & Chem 7: 08/28/17 08:06 08/31/17 04:36 Labs: Laboratory Last Values WBC 4.9 K/mm3 (4.5-11.0) 08/28/17 08:06 RBC 4.25 M/mm3 (3.65-5.03) 08/28/17 08:06 Hgb 12.1 gm/dl (10.1-14.3) 08/28/17 08:06 Hct 35.9 % (30.3-42.9) 08/28/17 08:06 MCV 85 fl (79-97) 08/28/17 08:06 MCH 29 pg (28-32) 08/28/17 08:06 MCHC 34 % (30-34) 08/28/17 08:06 RDW 14.8 % (13.2-15.2) 08/28/17 08:06 Plt Count 244 K/mm3 (140-440) 08/28/17 08:06 Lymph % (Auto) 23.7 % (13.4-35.0) 08/28/17 08:06 [place] % (Auto) 8.7 % (0.0-7.3) H 08/28/17 08:06 Eos % (Auto) 3.1 % (0.0-4.3) 08/28/17 08:06 Baso % (Auto) 0.7 % (0.0-1.8) 08/28/17 08:06 Lymph # 1.2 K/mm3 (1.2-5.4) 08/28/17 08:06 [place] # 0.4 K/mm3 (0.0-0.8) 08/28/17 08:06 Eos # 0.1 K/mm3 (0.0-0.4) 08/28/17 08:06 Baso # 0.0 K/mm3 (0.0-0.1) 08/28/17 08:06 Seg Neutrophils % 63.8 % (40.0-70.0) 08/28/17 08:06 Seg Neutrophils # 3.1 K/mm3 (1.8-7.7) 08/28/17 08:06 PT 13.3 Sec. (12.2-14.9) 08/31/17 04:36 INR 0.96 (0.87-1.13) 08/31/17 04:36 APTT 27.2 Sec. (24.2-36.6) 08/26/17 12:57 Thrombin Time 16.1 Sec. (15.1-19.6) 08/26/17 12:57 Sodium 140 mmol/L (137-145) 08/31/17 04:36 Potassium 4.4 mmol/L (3.6-5.0) 08/31/17 04:36 Chloride 106.5 mmol/L (98-107) 08/31/17 04:36 Carbon Dioxide 21 mmol/L (22-30) L 08/31/17 04:36 Anion Gap 17 mmol/L 08/31/17 04:36 BUN 5 mg/dL (7-17) L 08/31/17 04:36 Creatinine 0.5 mg/dL (0.7-1.2) L 08/31/17 04:36 Estimated GFR > 60 ml/min 08/31/17 04:36 BUN/Creatinine Ratio 10 % 08/31/17 04:36 Glucose 75 mg/dL (65-100) 08/31/17 04:36 Hemoglobin A1c 5.9 % (4-6) 08/27/17 01:21 Calcium 8.1 mg/dL (8.4-10.2) L 08/31/17 04:36 Total Bilirubin 0.40 mg/dL (0.1-1.2) 08/28/17 08:06 AST 36 units/L (5-40) 08/28/17 08:06 ALT 27 units/L (7-56) 08/28/17 08:06 Alkaline Phosphatase 136 units/L (35-129) H 08/28/17 08:06 Total Creatine Kinase 74 units/L (30-135) 08/26/17 13:02 CK-MB (CK-2) 1.1 ng/mL (0.0-4.0) 08/26/17 13:02 CK-MB (CK-2) Rel Index 1.4 (0-4) 08/26/17 13:02 Troponin T < 0.010 ng/mL (0.00-0.029) 08/26/17 13:02 Total Protein 7.3 g/dL (6.3-8.2) 08/28/17 08:06 Albumin 3.3 g/dL (3.9-5) L 08/28/17 08:06 Albumin/Globulin Ratio 0.8 % 08/28/17 08:06 Triglycerides 116 mg/dL (2-149) 08/28/17 08:06 Cholesterol 195 mg/dL (50-199) 08/28/17 08:06 LDL Cholesterol Direct 141 mg/dL (50-130) H 08/28/17 08:06 HDL Cholesterol 44 mg/dL (40-59) 08/28/17 08:06 Cholesterol/HDL Ratio 4.43 % 08/28/17 08:06 Urine Color Straw (Yellow) 08/26/17 14:11 Urine Turbidity Clear (Clear) 08/26/17 14:11 Urine pH 5.0 (5.0-7.0) 08/26/17 14:11 Ur Specific [place] 1.004 (1.003-1.030) 08/26/17 14:11 Urine Protein <15 mg/dl mg/dL (Negative) 08/26/17 14:11 Urine Glucose (UA) Neg mg/dL (Negative) 08/26/17 14:11 Urine Ketones Neg mg/dL (Negative) 08/26/17 14:11 Urine Blood Neg (Negative) 08/26/17 14:11 Urine Nitrite Neg (Negative) 08/26/17 14:11 Urine Bilirubin Neg (Negative) 08/26/17 14:11 Urine Urobilinogen < 2.0 mg/dL (<2.0) 08/26/17 14:11 Ur Leukocyte Esterase Neg (Negative) 08/26/17 14:11 Urine WBC (Auto) 3.0 /HPF (0.0-6.0) 08/26/17 14:11 Urine RBC (Auto) 1.0 /HPF (0.0-6.0) 08/26/17 14:11 U Epithel Cells (Auto) 1.0 /HPF (0-13.0) 08/26/17 14:11 Hyaline Casts 1 /LPF 08/26/17 14:11 Urine Mucus Few /HPF 08/26/17 14:11 Urine Opiates Screen Presumptive negative 08/26/17 14:11 Urine Methadone Screen Presumptive negative 08/26/17 14:11 Ur Barbiturates Screen Presumptive negative 08/26/17 14:11 Ur Phencyclidine Scrn Presumptive negative 08/26/17 14:11 Ur Amphetamines Screen Presumptive negative 08/26/17 14:11 U Benzodiazepines Scrn Presumptive negative 08/26/17 14:11 Urine Cocaine Screen Presumptive negative 08/26/17 14:11 U Marijuana (THC) Screen Presumptive negative 08/26/17 14:11 Drugs of Abuse Note Disclamer 08/26/17 14:11
--- NOTE | 2017-09-01 17:20 | Query- Nutrition ---
Dear ___Dodie De La Cruz_ Date: 09/01/2017 [employer]aper/CDS: NACHOCINDY___ Phone#:___[phone] Exercise your independent professional judgment when responding to query. Questions asked do not imply a particular answer is desired or expected. We greatly appreciate your clarification on this issue. Clinical Documentation States: 57 year old female with past medical history significant for CVA x2, seizure presented to the emergency department with complaints of dysphasia, dysarthria, and worsening of right-sided weakness. Taken from hospitalist progress note (Trevin Castillo) on 08/31/2017. Assessement & Plan CVA Dysphagia Dysarthria Clinical Findings Show: 08/26/2017 08/28/2017 Albumin 3.6L 3.3L Please select the most appropriate option 3 [x] Mild Malnutrition [] Mild - Moderate Malnutrition [] Moderate - Severe Malnutrition [] Severe Malnutrition Serum Albumin 2.8 to 3.4 g/dl or Pre-albumin 5 to 17 mg/dl1,2 Inadequate nutritional intake1,2,3,4 NPO > 5 days Weight loss: 5% in 1 month or 7.5% in 3 months or 10% in 6 months1, 3,4 BMI 16 to 18.4 or Weight <90% of ideal body weight1,2,3,4 Serum Albumin < 2.8 g/ dl1,2 Lymphocytes < 1500/ L2 Inadequate nutritional intake3, high stress e.g. major trauma, sepsis,pancreatitis, mendes etc. Decubitus ulcers1,2, , skin breakdown2, easy hair pluckability2 Weight <80% standard for height2 Triceps skin fold <3 mm2 Mid-arm muscle circumference <15 cm2 Creatinine-height index <60% standard2 [ ] Cachexia [ ] Emaciated w/Malnutrition [ ] Other: [ ] Unable to determine [ ] Comment/Explanation: Present on Admission: [ ] Yes (Y) [ ] Clinically undeterminable (W) [ x] No (N) Please also document response in your Progress Notes and/or Discharge Summary and indicate if the condition was present on admission. MTDD
[2017-09-02] MEDS: MORPHINE IV PRN ×2 (03:14→09:38)
[2017-09-02] MEDS: SODIUM CHLORIDE FLUSH SYRINGE 10 ML IV PRN ×2 (03:15→22:25)
[2017-09-02] MEDS: NACL 0.9% 1000 ML 1,000 ML IV SCH (05:12)
[2017-09-02] MEDS: PEPCID IV SCH ×2 (09:38→21:08)
[2017-09-02] MEDS: KEPPRA 750 MG in NACL 0.9% 100 ML IV SCH ×2 (09:39→22:24)
[2017-09-02] MEDS: TRIPLE ANTIBIOTIC TP SCH (09:39)
[2017-09-02] MEDS: SODIUM CHLORIDE FLUSH SYRINGE 10 ML IV SCH ×2 (10:26→22:25)
--- NOTE | 2017-09-02 12:53 | Progress Note ---
Assessment and Plan Assessment and plan: 57 year old female with past medical history significant for CVA x2, seizure presented to the emergency department with complaints of dysphasia, dysarthria, and worsening of right-sided weakness CVA - Workup is negative for CVA - Patient is on a statin and aspirin Dysphagia - Failed swallow evaluation - Patient had PEG placed yesterday and functional Dysarthria - continue speech therapy - Improving Seizure - Continue Keppra DVT prophylaxis Disposition - Pending acute rehab placement. History Interval history: Patient was seen and evaluated this morning, patient complains mild pain at the site of PEG tube placement. Patient's dysarthria is getting better. Hospitalist Physical - Physical exam Narrative exam: Not in cardiopulmonary distress. patient has dysarthria. The patient appeared well nourished and normally developed. Vital signs as documented. Head exam is unremarkable. No scleral icterus . Neck is without jugular venous distension, thyromegaly, or carotid bruits. Lungs are clear to auscultation. Cardiac exam reveals regular rate and Rhythm. First and second heart sounds normal. No murmurs, rubs or gallops. Abdominal exam reveals normal bowel sounds, no masses, no organomegaly and no aortic enlargement. Extremities are nonedematous and both femoral and pedal pulses are normal. 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 right sided weakness. - Constitutional Vitals: Temp Pulse Resp BP Pulse Ox 98.1 F 104 H 20 119/81 95 09/02/17 11:50 09/02/17 11:50 09/02/17 11:50 09/02/17 11:50 09/02/17 11:50 General appearance: Present: no acute distress, well-nourished Results - Labs CBC & Chem 7: 08/28/17 08:06 08/31/17 04:36 Labs: Laboratory Last Values WBC 4.9 K/mm3 (4.5-11.0) 08/28/17 08:06 RBC 4.25 M/mm3 (3.65-5.03) 08/28/17 08:06 Hgb 12.1 gm/dl (10.1-14.3) 08/28/17 08:06 Hct 35.9 % (30.3-42.9) 08/28/17 08:06 MCV 85 fl (79-97) 08/28/17 08:06 MCH 29 pg (28-32) 08/28/17 08:06 MCHC 34 % (30-34) 08/28/17 08:06 RDW 14.8 % (13.2-15.2) 08/28/17 08:06 Plt Count 244 K/mm3 (140-440) 08/28/17 08:06 Lymph % (Auto) 23.7 % (13.4-35.0) 08/28/17 08:06 [place] % (Auto) 8.7 % (0.0-7.3) H 08/28/17 08:06 Eos % (Auto) 3.1 % (0.0-4.3) 08/28/17 08:06 Baso % (Auto) 0.7 % (0.0-1.8) 08/28/17 08:06 Lymph # 1.2 K/mm3 (1.2-5.4) 08/28/17 08:06 [place] # 0.4 K/mm3 (0.0-0.8) 08/28/17 08:06 Eos # 0.1 K/mm3 (0.0-0.4) 08/28/17 08:06 Baso # 0.0 K/mm3 (0.0-0.1) 08/28/17 08:06 Seg Neutrophils % 63.8 % (40.0-70.0) 08/28/17 08:06 Seg Neutrophils # 3.1 K/mm3 (1.8-7.7) 08/28/17 08:06 PT 13.3 Sec. (12.2-14.9) 08/31/17 04:36 INR 0.96 (0.87-1.13) 08/31/17 04:36 APTT 27.2 Sec. (24.2-36.6) 08/26/17 12:57 Thrombin Time 16.1 Sec. (15.1-19.6) 08/26/17 12:57 Sodium 140 mmol/L (137-145) 08/31/17 04:36 Potassium 4.4 mmol/L (3.6-5.0) 08/31/17 04:36 Chloride 106.5 mmol/L (98-107) 08/31/17 04:36 Carbon Dioxide 21 mmol/L (22-30) L 08/31/17 04:36 Anion Gap 17 mmol/L 08/31/17 04:36 BUN 5 mg/dL (7-17) L 08/31/17 04:36 Creatinine 0.5 mg/dL (0.7-1.2) L 08/31/17 04:36 Estimated GFR > 60 ml/min 08/31/17 04:36 BUN/Creatinine Ratio 10 % 08/31/17 04:36 Glucose 75 mg/dL (65-100) 08/31/17 04:36 Hemoglobin A1c 5.9 % (4-6) 08/27/17 01:21 Calcium 8.1 mg/dL (8.4-10.2) L 08/31/17 04:36 Total Bilirubin 0.40 mg/dL (0.1-1.2) 08/28/17 08:06 AST 36 units/L (5-40) 08/28/17 08:06 ALT 27 units/L (7-56) 08/28/17 08:06 Alkaline Phosphatase 136 units/L (35-129) H 08/28/17 08:06 Total Creatine Kinase 74 units/L (30-135) 08/26/17 13:02 CK-MB (CK-2) 1.1 ng/mL (0.0-4.0) 08/26/17 13:02 CK-MB (CK-2) Rel Index 1.4 (0-4) 08/26/17 13:02 Troponin T < 0.010 ng/mL (0.00-0.029) 08/26/17 13:02 Total Protein 7.3 g/dL (6.3-8.2) 08/28/17 08:06 Albumin 3.3 g/dL (3.9-5) L 08/28/17 08:06 Albumin/Globulin Ratio 0.8 % 08/28/17 08:06 Triglycerides 116 mg/dL (2-149) 08/28/17 08:06 Cholesterol 195 mg/dL (50-199) 08/28/17 08:06 LDL Cholesterol Direct 141 mg/dL (50-130) H 08/28/17 08:06 HDL Cholesterol 44 mg/dL (40-59) 08/28/17 08:06 Cholesterol/HDL Ratio 4.43 % 08/28/17 08:06 Urine Color Straw (Yellow) 08/26/17 14:11 Urine Turbidity Clear (Clear) 08/26/17 14:11 Urine pH 5.0 (5.0-7.0) 08/26/17 14:11 Ur Specific [place] 1.004 (1.003-1.030) 08/26/17 14:11 Urine Protein <15 mg/dl mg/dL (Negative) 08/26/17 14:11 Urine Glucose (UA) Neg mg/dL (Negative) 08/26/17 14:11 Urine Ketones Neg mg/dL (Negative) 08/26/17 14:11 Urine Blood Neg (Negative) 08/26/17 14:11 Urine Nitrite Neg (Negative) 08/26/17 14:11 Urine Bilirubin Neg (Negative) 08/26/17 14:11 Urine Urobilinogen < 2.0 mg/dL (<2.0) 08/26/17 14:11 Ur Leukocyte Esterase Neg (Negative) 08/26/17 14:11 Urine WBC (Auto) 3.0 /HPF (0.0-6.0) 08/26/17 14:11 Urine RBC (Auto) 1.0 /HPF (0.0-6.0) 08/26/17 14:11 U Epithel Cells (Auto) 1.0 /HPF (0-13.0) 08/26/17 14:11 Hyaline Casts 1 /LPF 08/26/17 14:11 Urine Mucus Few /HPF 08/26/17 14:11 Urine Opiates Screen Presumptive negative 08/26/17 14:11 Urine Methadone Screen Presumptive negative 08/26/17 14:11 Ur Barbiturates Screen Presumptive negative 08/26/17 14:11 Ur Phencyclidine Scrn Presumptive negative 08/26/17 14:11 Ur Amphetamines Screen Presumptive negative 08/26/17 14:11 U Benzodiazepines Scrn Presumptive negative 08/26/17 14:11 Urine Cocaine Screen Presumptive negative 08/26/17 14:11 U Marijuana (THC) Screen Presumptive negative 08/26/17 14:11 Drugs of Abuse Note Disclamer 08/26/17 14:11
[2017-09-02] MEDS: PERCOCET 5/325 PO PRN (20:56)
[2017-09-02] MEDS: ASPIRIN PO SCH (22:24)
[2017-09-03] MEDS: MORPHINE IV PRN ×2 (05:31→20:24)
--- NOTE | 2017-09-03 08:24 | Discharge Summary ---
Providers - Providers Date of Admission: 08/26/17 16:21 Date of discharge: 09/07/17 Attending physician: SUZAN NATH MD 08/27/17 00:45 Consult to Physician [CONS] Routine Comment: Consulting Provider: WINSOME CONNELL Physician Instructions: Reason For Exam: CVA 08/27/17 00:47 Occupational Therapy Evaluate and Treat [CONS] Routine Comment: Reason For Exam: Neuro deficits Physical Therapy Evaluation and Treat [CONS] Routine Comment: Reason For Exam: Neuro deficits 08/29/17 12:20 Speech Therapy Evaluation and Treat [CONS] Routine Reason For Exam: swallowing eval 08/30/17 10:38 Consult to Physician [CONS] Routine Comment: Consulting Provider: OPAL DONALD Physician Instructions: Evaluate for PEG tube placement Reason For Exam: dysphagia 08/31/17 15:45 Consult to Dietitian/Nutrition [CONS] Routine Physician Instructions: Reason For Exam: Reason for Consult: peg tube feeds Primary care physician: OSITO MA Hospitalization Reason for admission: altered mental status, dysphagia, dysarthria Condition: Stable Pertinent studies: MRI head 1. No acute intracranial findings. CT head, CTA neck, echo and carotid Doppler are negative Hospital course: Admission HPI 57-year-old female- with history of seizure disorder and muscle spasms and hypertension comes in for right-sided weakness and aphasia. Patient also has a right facial weakness. Patient went to bed normal but woke up with right- sided weakness and dysarthria and dysphagia. Last well-known time is not known. Patient has no movement on the right side. Patient said she had history of stroke and had chronic weakness of the right side. Stroke workup was done and imaging didn't show acute changes. Patient's dysarthria resolved, right-sided weakness is chronic and is at baseline. Patient has dysphagia and failed swallow evaluation. She has consulted and PEG tube placed. Currently patient is on tube feeding and discharge it to subacute rehabilitation. Appropriate medication prescriptions and were given the time of discharge. Patient was hemodynamically stable at the time of discharge. Disposition: [id number]/[place]-[id number] Time spent for discharge: 31 minutes - Discharge Diagnoses (1) Altered mental status Status: Acute Qualifiers: Altered mental status type: unspecified Qualified Code(s): R41.82 - Altered mental status, unspecified (2) CVA (cerebral vascular accident) Status: Acute Qualifiers: CVA mechanism: other Qualified Code(s): I63.8 - Other cerebral infarction (3) Seizure disorder Status: Acute (4) Hypertension Status: Chronic Qualifiers: Hypertension type: essential hypertension Qualified Code(s): I10 - Essential (primary) hypertension Core Measure Documentation - Palliative Care Palliative Care/ Comfort Measures: Not Applicable - Core Measures Any of the following diagnoses?: history only (CVA) Exam - Physical Exam Narrative exam: Not in cardiopulmonary distress. The patient appeared well nourished and normally developed. Vital signs as documented. Head exam is unremarkable. No scleral icterus . Neck is without jugular venous distension, thyromegaly, or carotid bruits. Lungs are clear to auscultation. Cardiac exam reveals regular rate and Rhythm. First and second heart sounds normal. No murmurs, rubs or gallops. Abdominal exam reveals normal bowel sounds, no masses, no organomegaly and no aortic enlargement. Extremities are nonedematous and both femoral and pedal pulses are normal. 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 Mild right sided weakness (chronic). - Constitutional Vitals: Temp Pulse Resp BP Pulse Ox 97.9 F 94 H 18 110/77 96 09/03/17 07:58 09/03/17 07:58 09/03/17 07:58 09/03/17 07:58 09/03/17 07:58 Plan Activity: advance as tolerated Weight Bearing Status: Full Weight Bearing Diet: low cholesterol, low salt Follow up with: OSITO MA JR, MD [Primary Care Provider] - 7 Days Prescriptions: AtorvaSTATin [Lipitor] 40 mg PO QHS #30 tablet Aspirin [Aspirin TAB] 325 mg PO QDAY #30 tablet Other Discharge Orders: Speech Therapy (Amb) Location: None Selected
[2017-09-03] MEDS: PEPCID IV SCH (09:37)
[2017-09-03] MEDS: TRIPLE ANTIBIOTIC TP SCH (09:37)
[2017-09-03] MEDS: ASPIRIN PO SCH (09:37)
[2017-09-03] MEDS: SODIUM CHLORIDE FLUSH SYRINGE 10 ML IV SCH ×2 (09:38→23:41)
[2017-09-03] MEDS: KEPPRA 750 MG in NACL 0.9% 100 ML IV SCH (09:52)
[2017-09-03] MEDS: PERCOCET 5/325 PO PRN (11:12)
[2017-09-03] MEDS: ZOFRAN IV PRN (17:51)
[2017-09-03] MEDS: KEPPRA FEEDTUBE SCH (23:40)
[2017-09-03] MEDS: PEPCID PO SCH (23:40)
[2017-09-04] MEDS: MORPHINE IV PRN ×3 (06:23→18:36)
[2017-09-04] MEDS: ASPIRIN PO SCH (11:12)
[2017-09-04] MEDS: KEPPRA FEEDTUBE SCH (11:12)
[2017-09-04] MEDS: PEPCID PO SCH (11:12)
[2017-09-04] MEDS: TRIPLE ANTIBIOTIC TP SCH (11:13)
--- NOTE | 2017-09-04 15:38 | Progress Note ---
Assessment and Plan Assessment and plan: 57 year old female with past medical history significant for CVA x2, seizure presented to the emergency department with complaints of dysphasia, dysarthria, and worsening of right-sided weakness CVA - Workup is negative for CVA - Patient is on a statin and aspirin Dysphagia - Failed swallow evaluation - Patient had PEG placed and functional Dysarthria - Rsollved Seizure - Continue Keppra DVT prophylaxis Disposition - Patient was discharged but the case management on Tuesday called and said her home PEG tube feeding was not arranged and patient should have to stay until Tuesday. - Patient Problems (1) Altered mental status Current Visit: Yes Status: Acute Qualifiers: Altered mental status type: unspecified Qualified Code(s): R41.82 - Altered mental status, unspecified (2) CVA (cerebral vascular accident) Current Visit: Yes Status: Acute Qualifiers: CVA mechanism: other Qualified Code(s): I63.8 - Other cerebral infarction (3) Seizure disorder Current Visit: Yes Status: Acute (4) Hypertension Current Visit: Yes Status: Chronic Qualifiers: Hypertension type: essential hypertension Qualified Code(s): I10 - Essential (primary) hypertension History Interval history: Patient was seen and evaluated this morning, patient complains mild pain at the site of PEG tube placement. Patient's dysarthria resolved. Hospitalist Physical - Physical exam Narrative exam: Not in cardiopulmonary distress. The patient appeared well nourished and normally developed. Vital signs as documented. Head exam is unremarkable. No scleral icterus . Neck is without jugular venous distension, thyromegaly, or carotid bruits. Lungs are clear to auscultation. Cardiac exam reveals regular rate and Rhythm. First and second heart sounds normal. No murmurs, rubs or gallops. Abdominal exam reveals normal bowel sounds, no masses, no organomegaly and no aortic enlargement. Extremities are nonedematous and both femoral and pedal pulses are normal. [employer]: Alert and oriented 3. Mild right sided weakness (chronic). - Constitutional Vitals: Temp Pulse Resp BP Pulse Ox 98.4 F 88 15 118/75 91 09/04/17 12:40 09/04/17 12:40 09/04/17 12:40 09/04/17 12:40 09/04/17 12:40 General appearance: Present: no acute distress, well-nourished Results - Labs CBC & Chem 7: 08/28/17 08:06 08/31/17 04:36 Labs: Laboratory Last Values WBC 4.9 K/mm3 (4.5-11.0) 08/28/17 08:06 RBC 4.25 M/mm3 (3.65-5.03) 08/28/17 08:06 Hgb 12.1 gm/dl (10.1-14.3) 08/28/17 08:06 Hct 35.9 % (30.3-42.9) 08/28/17 08:06 MCV 85 fl (79-97) 08/28/17 08:06 MCH 29 pg (28-32) 08/28/17 08:06 MCHC 34 % (30-34) 08/28/17 08:06 RDW 14.8 % (13.2-15.2) 08/28/17 08:06 Plt Count 244 K/mm3 (140-440) 08/28/17 08:06 Lymph % (Auto) 23.7 % (13.4-35.0) 08/28/17 08:06 [place] % (Auto) 8.7 % (0.0-7.3) H 08/28/17 08:06 Eos % (Auto) 3.1 % (0.0-4.3) 08/28/17 08:06 Baso % (Auto) 0.7 % (0.0-1.8) 08/28/17 08:06 Lymph # 1.2 K/mm3 (1.2-5.4) 08/28/17 08:06 [place] # 0.4 K/mm3 (0.0-0.8) 08/28/17 08:06 Eos # 0.1 K/mm3 (0.0-0.4) 08/28/17 08:06 Baso # 0.0 K/mm3 (0.0-0.1) 08/28/17 08:06 Seg Neutrophils % 63.8 % (40.0-70.0) 08/28/17 08:06 Seg Neutrophils # 3.1 K/mm3 (1.8-7.7) 08/28/17 08:06 PT 13.3 Sec. (12.2-14.9) 08/31/17 04:36 INR 0.96 (0.87-1.13) 08/31/17 04:36 APTT 27.2 Sec. (24.2-36.6) 08/26/17 12:57 Thrombin Time 16.1 Sec. (15.1-19.6) 08/26/17 12:57 Sodium 140 mmol/L (137-145) 08/31/17 04:36 Potassium 4.4 mmol/L (3.6-5.0) 08/31/17 04:36 Chloride 106.5 mmol/L (98-107) 08/31/17 04:36 Carbon Dioxide 21 mmol/L (22-30) L 08/31/17 04:36 Anion Gap 17 mmol/L 08/31/17 04:36 BUN 5 mg/dL (7-17) L 08/31/17 04:36 Creatinine 0.5 mg/dL (0.7-1.2) L 08/31/17 04:36 Estimated GFR > 60 ml/min 08/31/17 04:36 BUN/Creatinine Ratio 10 % 08/31/17 04:36 Glucose 75 mg/dL (65-100) 08/31/17 04:36 Hemoglobin A1c 5.9 % (4-6) 08/27/17 01:21 Calcium 8.1 mg/dL (8.4-10.2) L 08/31/17 04:36 Total Bilirubin 0.40 mg/dL (0.1-1.2) 08/28/17 08:06 AST 36 units/L (5-40) 08/28/17 08:06 ALT 27 units/L (7-56) 08/28/17 08:06 Alkaline Phosphatase 136 units/L (35-129) H 08/28/17 08:06 Total Creatine Kinase 74 units/L (30-135) 08/26/17 13:02 CK-MB (CK-2) 1.1 ng/mL (0.0-4.0) 08/26/17 13:02 CK-MB (CK-2) Rel Index 1.4 (0-4) 08/26/17 13:02 Troponin T < 0.010 ng/mL (0.00-0.029) 08/26/17 13:02 Total Protein 7.3 g/dL (6.3-8.2) 08/28/17 08:06 Albumin 3.3 g/dL (3.9-5) L 08/28/17 08:06 Albumin/Globulin Ratio 0.8 % 08/28/17 08:06 Triglycerides 116 mg/dL (2-149) 08/28/17 08:06 Cholesterol 195 mg/dL (50-199) 08/28/17 08:06 LDL Cholesterol Direct 141 mg/dL (50-130) H 08/28/17 08:06 HDL Cholesterol 44 mg/dL (40-59) 08/28/17 08:06 Cholesterol/HDL Ratio 4.43 % 08/28/17 08:06 Urine Color Straw (Yellow) 08/26/17 14:11 Urine Turbidity Clear (Clear) 08/26/17 14:11 Urine pH 5.0 (5.0-7.0) 08/26/17 14:11 Ur Specific [place] 1.004 (1.003-1.030) 08/26/17 14:11 Urine Protein <15 mg/dl mg/dL (Negative) 08/26/17 14:11 Urine Glucose (UA) Neg mg/dL (Negative) 08/26/17 14:11 Urine Ketones Neg mg/dL (Negative) 08/26/17 14:11 Urine Blood Neg (Negative) 08/26/17 14:11 Urine Nitrite Neg (Negative) 08/26/17 14:11 Urine Bilirubin Neg (Negative) 08/26/17 14:11 Urine Urobilinogen < 2.0 mg/dL (<2.0) 08/26/17 14:11 Ur Leukocyte Esterase Neg (Negative) 08/26/17 14:11 Urine WBC (Auto) 3.0 /HPF (0.0-6.0) 08/26/17 14:11 Urine RBC (Auto) 1.0 /HPF (0.0-6.0) 08/26/17 14:11 U Epithel Cells (Auto) 1.0 /HPF (0-13.0) 08/26/17 14:11 Hyaline Casts 1 /LPF 08/26/17 14:11 Urine Mucus Few /HPF 08/26/17 14:11 Urine Opiates Screen Presumptive negative 08/26/17 14:11 Urine Methadone Screen Presumptive negative 08/26/17 14:11 Ur Barbiturates Screen Presumptive negative 08/26/17 14:11 Ur Phencyclidine Scrn Presumptive negative 08/26/17 14:11 Ur Amphetamines Screen Presumptive negative 08/26/17 14:11 U Benzodiazepines Scrn Presumptive negative 08/26/17 14:11 Urine Cocaine Screen Presumptive negative 08/26/17 14:11 U Marijuana (THC) Screen Presumptive negative 08/26/17 14:11 Drugs of Abuse Note Disclamer 08/26/17 14:11
[2017-09-05] MEDS: PEPCID PO SCH ×3 (01:03→22:38)
[2017-09-05] MEDS: KEPPRA FEEDTUBE SCH ×3 (01:03→23:07)
[2017-09-05] MEDS: SODIUM CHLORIDE FLUSH SYRINGE 10 ML IV SCH (01:05)
[2017-09-05] MEDS: MORPHINE IV PRN (01:05)
--- NOTE | 2017-09-05 08:19 | Progress Note ---
Subjective Date of service: 09/05/17 Principal diagnosis: PEG placement Interval history: seizures are better speech about back to baseline no longer weak on the right side encephalopathic disorder is better suspect multiple factors are overlapping seizures congenital disorder Objective - Vital Sign Vital Signs - 12hr 09/04/17 09/04/17 09/05/17 20:31 23:39 01:05 Temperature 98.1 F 97.7 F Pulse Rate 87 91 H Respiratory 18 16 18 Rate Blood Pressure 102/54 107/68 O2 Sat by Pulse 94 94 Oximetry 09/05/17 04:05 Temperature 97.5 F L Pulse Rate 88 Respiratory 18 Rate Blood Pressure 115/66 O2 Sat by Pulse 93 Oximetry - Laboratory Findings CBC and BMP: 08/28/17 08:06 08/31/17 04:36 Abnormal Lab Findings: Abnormal Labs 08/26/17 08/26/17 08/26/17 12:57 12:57 13:02 Lymph % (Auto) 40.1 H [place] % (Auto) 8.8 H PT 12.1 L INR 0.86 L Carbon Dioxide BUN Creatinine Glucose 111 H Calcium Alkaline Phosphatase Albumin 3.6 L LDL Cholesterol Direct 08/28/17 08/28/17 08/31/17 08:06 08:06 04:36 Lymph % (Auto) [place] % (Auto) 8.7 H PT INR Carbon Dioxide 21 L BUN 5 L Creatinine 0.6 L 0.5 L Glucose 103 H Calcium 8.2 L 8.1 L Alkaline Phosphatase 136 H Albumin 3.3 L LDL Cholesterol Direct 141 H
[2017-09-05] MEDS: PERCOCET 5/325 PO PRN ×2 (10:29→22:38)
[2017-09-05] MEDS: TRIPLE ANTIBIOTIC TP SCH (10:31)
[2017-09-05] MEDS: ASPIRIN PO SCH (10:31)
--- NOTE | 2017-09-05 15:31 | Progress Note ---
Assessment and Plan Assessment and plan: 57 year old female with past medical history significant for CVA x2, seizure presented to the emergency department with complaints of dysphasia, dysarthria, and worsening of right-sided weakness CVA - Workup is negative for CVA - Patient is on a statin and aspirin Dysphagia - Failed swallow evaluation - Patient had PEG placed and functional Dysarthria - Rsollved Seizure - Continue Keppra DVT prophylaxis Disposition - Patient has been medically clear for the last 3-4days, patient is here because g tube feeding was not arranged. Patient will go to subacute rehabilitation. - Patient Problems (1) Altered mental status Current Visit: Yes Status: Acute Qualifiers: Altered mental status type: unspecified Qualified Code(s): R41.82 - Altered mental status, unspecified (2) CVA (cerebral vascular accident) Current Visit: Yes Status: Acute Qualifiers: CVA mechanism: other Qualified Code(s): I63.8 - Other cerebral infarction (3) Seizure disorder Current Visit: Yes Status: Acute (4) Hypertension Current Visit: Yes Status: Chronic Qualifiers: Hypertension type: essential hypertension Qualified Code(s): I10 - Essential (primary) hypertension History Interval history: Patient was seen and evaluated this morning, patient complains mild pain at the site of PEG tube placement. Patient's dysarthria resolved. Hospitalist Physical - Physical exam Narrative exam: Not in cardiopulmonary distress. The patient appeared well nourished and normally developed. Vital signs as documented. Head exam is unremarkable. No scleral icterus . Neck is without jugular venous distension, thyromegaly, or carotid bruits. Lungs are clear to auscultation. Cardiac exam reveals regular rate and Rhythm. First and second heart sounds normal. No murmurs, rubs or gallops. Abdominal exam reveals normal bowel sounds, no masses, no organomegaly and no aortic enlargement. Extremities are nonedematous and both femoral and pedal pulses are normal. 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 Mild right sided weakness (chronic). - Constitutional Vitals: Temp Pulse Resp BP Pulse Ox 97.5 F L 86 16 105/74 96 09/05/17 09:08 09/05/17 09:08 09/05/17 10:29 09/05/17 09:08 09/05/17 09:08 General appearance: Present: no acute distress, well-nourished Results - Labs CBC & Chem 7: 08/28/17 08:06 08/31/17 04:36 Labs: Laboratory Last Values WBC 4.9 K/mm3 (4.5-11.0) 08/28/17 08:06 RBC 4.25 M/mm3 (3.65-5.03) 08/28/17 08:06 Hgb 12.1 gm/dl (10.1-14.3) 08/28/17 08:06 Hct 35.9 % (30.3-42.9) 08/28/17 08:06 MCV 85 fl (79-97) 08/28/17 08:06 MCH 29 pg (28-32) 08/28/17 08:06 MCHC 34 % (30-34) 08/28/17 08:06 RDW 14.8 % (13.2-15.2) 08/28/17 08:06 Plt Count 244 K/mm3 (140-440) 08/28/17 08:06 Lymph % (Auto) 23.7 % (13.4-35.0) 08/28/17 08:06 [place] % (Auto) 8.7 % (0.0-7.3) H 08/28/17 08:06 Eos % (Auto) 3.1 % (0.0-4.3) 08/28/17 08:06 Baso % (Auto) 0.7 % (0.0-1.8) 08/28/17 08:06 Lymph # 1.2 K/mm3 (1.2-5.4) 08/28/17 08:06 [place] # 0.4 K/mm3 (0.0-0.8) 08/28/17 08:06 Eos # 0.1 K/mm3 (0.0-0.4) 08/28/17 08:06 Baso # 0.0 K/mm3 (0.0-0.1) 08/28/17 08:06 Seg Neutrophils % 63.8 % (40.0-70.0) 08/28/17 08:06 Seg Neutrophils # 3.1 K/mm3 (1.8-7.7) 08/28/17 08:06 PT 13.3 Sec. (12.2-14.9) 08/31/17 04:36 INR 0.96 (0.87-1.13) 08/31/17 04:36 APTT 27.2 Sec. (24.2-36.6) 08/26/17 12:57 Thrombin Time 16.1 Sec. (15.1-19.6) 08/26/17 12:57 Sodium 140 mmol/L (137-145) 08/31/17 04:36 Potassium 4.4 mmol/L (3.6-5.0) 08/31/17 04:36 Chloride 106.5 mmol/L (98-107) 08/31/17 04:36 Carbon Dioxide 21 mmol/L (22-30) L 08/31/17 04:36 Anion Gap 17 mmol/L 08/31/17 04:36 BUN 5 mg/dL (7-17) L 08/31/17 04:36 Creatinine 0.5 mg/dL (0.7-1.2) L 08/31/17 04:36 Estimated GFR > 60 ml/min 08/31/17 04:36 BUN/Creatinine Ratio 10 % 08/31/17 04:36 Glucose 75 mg/dL (65-100) 08/31/17 04:36 Hemoglobin A1c 5.9 % (4-6) 08/27/17 01:21 Calcium 8.1 mg/dL (8.4-10.2) L 08/31/17 04:36 Total Bilirubin 0.40 mg/dL (0.1-1.2) 08/28/17 08:06 AST 36 units/L (5-40) 08/28/17 08:06 ALT 27 units/L (7-56) 08/28/17 08:06 Alkaline Phosphatase 136 units/L (35-129) H 08/28/17 08:06 Total Creatine Kinase 74 units/L (30-135) 08/26/17 13:02 CK-MB (CK-2) 1.1 ng/mL (0.0-4.0) 08/26/17 13:02 CK-MB (CK-2) Rel Index 1.4 (0-4) 08/26/17 13:02 Troponin T < 0.010 ng/mL (0.00-0.029) 08/26/17 13:02 Total Protein 7.3 g/dL (6.3-8.2) 08/28/17 08:06 Albumin 3.3 g/dL (3.9-5) L 08/28/17 08:06 Albumin/Globulin Ratio 0.8 % 08/28/17 08:06 Triglycerides 116 mg/dL (2-149) 08/28/17 08:06 Cholesterol 195 mg/dL (50-199) 08/28/17 08:06 LDL Cholesterol Direct 141 mg/dL (50-130) H 08/28/17 08:06 HDL Cholesterol 44 mg/dL (40-59) 08/28/17 08:06 Cholesterol/HDL Ratio 4.43 % 08/28/17 08:06 Urine Color Straw (Yellow) 08/26/17 14:11 Urine Turbidity Clear (Clear) 08/26/17 14:11 Urine pH 5.0 (5.0-7.0) 08/26/17 14:11 Ur Specific [place] 1.004 (1.003-1.030) 08/26/17 14:11 Urine Protein <15 mg/dl mg/dL (Negative) 08/26/17 14:11 Urine Glucose (UA) Neg mg/dL (Negative) 08/26/17 14:11 Urine Ketones Neg mg/dL (Negative) 08/26/17 14:11 Urine Blood Neg (Negative) 08/26/17 14:11 Urine Nitrite Neg (Negative) 08/26/17 14:11 Urine Bilirubin Neg (Negative) 08/26/17 14:11 Urine Urobilinogen < 2.0 mg/dL (<2.0) 08/26/17 14:11 Ur Leukocyte Esterase Neg (Negative) 08/26/17 14:11 Urine WBC (Auto) 3.0 /HPF (0.0-6.0) 08/26/17 14:11 Urine RBC (Auto) 1.0 /HPF (0.0-6.0) 08/26/17 14:11 U Epithel Cells (Auto) 1.0 /HPF (0-13.0) 08/26/17 14:11 Hyaline Casts 1 /LPF 08/26/17 14:11 Urine Mucus Few /HPF 08/26/17 14:11 Urine Opiates Screen Presumptive negative 08/26/17 14:11 Urine Methadone Screen Presumptive negative 08/26/17 14:11 Ur Barbiturates Screen Presumptive negative 08/26/17 14:11 Ur Phencyclidine Scrn Presumptive negative 08/26/17 14:11 Ur Amphetamines Screen Presumptive negative 08/26/17 14:11 U Benzodiazepines Scrn Presumptive negative 08/26/17 14:11 Urine Cocaine Screen Presumptive negative 08/26/17 14:11 U Marijuana (THC) Screen Presumptive negative 08/26/17 14:11 Drugs of Abuse Note Disclamer 08/26/17 14:11
--- NOTE | 2017-09-05 17:09 | Vascular Lab Report ---
CAROTID DUPLEX STUDY: RIGHT PSVEDV CCA PROX:9628 CCA DIST:8735 ICA PROX:5424 ICA MID:8643 ICA DIST:7538 ECA: 6214 VERT: 53 19 LEFT PSVEDV CCA PROX:88315 CCA DIST:8631 ICA PROX:7032 ICA MID:7937 ICA DIST:5125 ECA: 6816 VERT: 58 24 REASON FOR EXAM: Stroke. COMMENTS ON THE RIGHT: Doppler frequency analysis is consistent with 16 to 49 percent diameter reduction of the internal carotid artery. Minimal amount of plaque is seen. The common carotid artery is patent. The external carotid artery is patent. The vertebral artery has antegrade flow. COMMENTS ON THE LEFT: Doppler frequency analysis is consistent with 16 to 49 percent diameter reduction of the internal carotid artery. Minimal amount of plaque is seen. The common carotid artery is patent. The external carotid artery is patent. The vertebral artery has antegrade flow. IMPRESSION: Less than 50% diameter reduction in the internal carotid arteries bilaterally.
[2017-09-06] MEDS: PERCOCET 5/325 PO PRN ×3 (08:05→21:48)
[2017-09-06] MEDS: SODIUM CHLORIDE FLUSH SYRINGE 10 ML IV SCH ×2 (08:41→10:22)
[2017-09-06] MEDS: PEPCID PO SCH ×2 (10:20→21:49)
[2017-09-06] MEDS: KEPPRA FEEDTUBE SCH ×2 (10:21→21:49)
[2017-09-06] MEDS: ASPIRIN PO SCH (10:21)
[2017-09-06] MEDS: TRIPLE ANTIBIOTIC TP SCH (10:21)
--- NOTE | 2017-09-06 14:57 | Progress Note ---
Assessment and Plan Assessment and plan: 57 year old female with past medical history significant for CVA x2, seizure presented to the emergency department with complaints of dysphasia, dysarthria, and worsening of right-sided weakness CVA - Workup is negative for CVA - Patient is on a statin and aspirin Dysphagia - Failed swallow evaluation - Patient had PEG placed and functional Dysarthria - Rsollved Seizure - Continue Keppra DVT prophylaxis Disposition - Patient has been medically clear for the last 3-4days, patient is pending for subacute rehabilitation placement. - Patient Problems (1) Altered mental status Current Visit: Yes Status: Acute Qualifiers: Altered mental status type: unspecified Qualified Code(s): R41.82 - Altered mental status, unspecified (2) CVA (cerebral vascular accident) Current Visit: Yes Status: Acute Qualifiers: CVA mechanism: other Qualified Code(s): I63.8 - Other cerebral infarction (3) Seizure disorder Current Visit: Yes Status: Acute (4) Hypertension Current Visit: Yes Status: Chronic Qualifiers: Hypertension type: essential hypertension Qualified Code(s): I10 - Essential (primary) hypertension History Interval history: Patient was seen and evaluated this morning, patient complains mild pain at the site of PEG tube placement. Patient's dysarthria resolved. Hospitalist Physical - Physical exam Narrative exam: Not in cardiopulmonary distress. The patient appeared well nourished and normally developed. Vital signs as documented. Head exam is unremarkable. No scleral icterus . Neck is without jugular venous distension, thyromegaly, or carotid bruits. Lungs are clear to auscultation. Cardiac exam reveals regular rate and Rhythm. First and second heart sounds normal. No murmurs, rubs or gallops. Abdominal exam reveals normal bowel sounds, no masses, no organomegaly and no aortic enlargement. Extremities are nonedematous and both femoral and pedal pulses are normal. PAPER SORTER AND COUNTER: Alert and oriented 3. Mild right sided weakness (chronic). - Constitutional Vitals: Temp Pulse Resp BP Pulse Ox 97.9 F 87 20 102/69 93 09/06/17 07:24 09/06/17 07:24 09/06/17 07:24 09/06/17 07:24 09/06/17 07:24 General appearance: Present: no acute distress, well-nourished Results - Labs CBC & Chem 7: 08/28/17 08:06 08/31/17 04:36 Labs: Laboratory Last Values WBC 4.9 K/mm3 (4.5-11.0) 08/28/17 08:06 RBC 4.25 M/mm3 (3.65-5.03) 08/28/17 08:06 Hgb 12.1 gm/dl (10.1-14.3) 08/28/17 08:06 Hct 35.9 % (30.3-42.9) 08/28/17 08:06 MCV 85 fl (79-97) 08/28/17 08:06 MCH 29 pg (28-32) 08/28/17 08:06 MCHC 34 % (30-34) 08/28/17 08:06 RDW 14.8 % (13.2-15.2) 08/28/17 08:06 Plt Count 244 K/mm3 (140-440) 08/28/17 08:06 Lymph % (Auto) 23.7 % (13.4-35.0) 08/28/17 08:06 Burke % (Auto) 8.7 % (0.0-7.3) H 08/28/17 08:06 Eos % (Auto) 3.1 % (0.0-4.3) 08/28/17 08:06 Baso % (Auto) 0.7 % (0.0-1.8) 08/28/17 08:06 Lymph # 1.2 K/mm3 (1.2-5.4) 08/28/17 08:06 Burke # 0.4 K/mm3 (0.0-0.8) 08/28/17 08:06 Eos # 0.1 K/mm3 (0.0-0.4) 08/28/17 08:06 Baso # 0.0 K/mm3 (0.0-0.1) 08/28/17 08:06 Seg Neutrophils % 63.8 % (40.0-70.0) 08/28/17 08:06 Seg Neutrophils # 3.1 K/mm3 (1.8-7.7) 08/28/17 08:06 PT 13.3 Sec. (12.2-14.9) 08/31/17 04:36 INR 0.96 (0.87-1.13) 08/31/17 04:36 APTT 27.2 Sec. (24.2-36.6) 08/26/17 12:57 Thrombin Time 16.1 Sec. (15.1-19.6) 08/26/17 12:57 Sodium 140 mmol/L (137-145) 08/31/17 04:36 Potassium 4.4 mmol/L (3.6-5.0) 08/31/17 04:36 Chloride 106.5 mmol/L (98-107) 08/31/17 04:36 Carbon Dioxide 21 mmol/L (22-30) L 08/31/17 04:36 Anion Gap 17 mmol/L 08/31/17 04:36 BUN 5 mg/dL (7-17) L 08/31/17 04:36 Creatinine 0.5 mg/dL (0.7-1.2) L 08/31/17 04:36 Estimated GFR > 60 ml/min 08/31/17 04:36 BUN/Creatinine Ratio 10 % 08/31/17 04:36 Glucose 75 mg/dL (65-100) 08/31/17 04:36 Hemoglobin A1c 5.9 % (4-6) 08/27/17 01:21 Calcium 8.1 mg/dL (8.4-10.2) L 08/31/17 04:36 Total Bilirubin 0.40 mg/dL (0.1-1.2) 08/28/17 08:06 AST 36 units/L (5-40) 08/28/17 08:06 ALT 27 units/L (7-56) 08/28/17 08:06 Alkaline Phosphatase 136 units/L (35-129) H 08/28/17 08:06 Total Creatine Kinase 74 units/L (30-135) 08/26/17 13:02 CK-MB (CK-2) 1.1 ng/mL (0.0-4.0) 08/26/17 13:02 CK-MB (CK-2) Rel Index 1.4 (0-4) 08/26/17 13:02 Troponin T < 0.010 ng/mL (0.00-0.029) 08/26/17 13:02 Total Protein 7.3 g/dL (6.3-8.2) 08/28/17 08:06 Albumin 3.3 g/dL (3.9-5) L 08/28/17 08:06 Albumin/Globulin Ratio 0.8 % 08/28/17 08:06 Triglycerides 116 mg/dL (2-149) 08/28/17 08:06 Cholesterol 195 mg/dL (50-199) 08/28/17 08:06 LDL Cholesterol Direct 141 mg/dL (50-130) H 08/28/17 08:06 HDL Cholesterol 44 mg/dL (40-59) 08/28/17 08:06 Cholesterol/HDL Ratio 4.43 % 08/28/17 08:06 Urine Color Straw (Yellow) 08/26/17 14:11 Urine Turbidity Clear (Clear) 08/26/17 14:11 Urine pH 5.0 (5.0-7.0) 08/26/17 14:11 Ur Specific Clifford 1.004 (1.003-1.030) 08/26/17 14:11 Urine Protein <15 mg/dl mg/dL (Negative) 08/26/17 14:11 Urine Glucose (UA) Neg mg/dL (Negative) 08/26/17 14:11 Urine Ketones Neg mg/dL (Negative) 08/26/17 14:11 Urine Blood Neg (Negative) 08/26/17 14:11 Urine Nitrite Neg (Negative) 08/26/17 14:11 Urine Bilirubin Neg (Negative) 08/26/17 14:11 Urine Urobilinogen < 2.0 mg/dL (<2.0) 08/26/17 14:11 Ur Leukocyte Esterase Neg (Negative) 08/26/17 14:11 Urine WBC (Auto) 3.0 /HPF (0.0-6.0) 08/26/17 14:11 Urine RBC (Auto) 1.0 /HPF (0.0-6.0) 08/26/17 14:11 U Epithel Cells (Auto) 1.0 /HPF (0-13.0) 08/26/17 14:11 Hyaline Casts 1 /LPF 08/26/17 14:11 Urine Mucus Few /HPF 08/26/17 14:11 Urine Opiates Screen Presumptive negative 08/26/17 14:11 Urine Methadone Screen Presumptive negative 08/26/17 14:11 Ur Barbiturates Screen Presumptive negative 08/26/17 14:11 Ur Phencyclidine Scrn Presumptive negative 08/26/17 14:11 Ur Amphetamines Screen Presumptive negative 08/26/17 14:11 U Benzodiazepines Scrn Presumptive negative 08/26/17 14:11 Urine Cocaine Screen Presumptive negative 08/26/17 14:11 U Marijuana (THC) Screen Presumptive negative 08/26/17 14:11 Drugs of Abuse Note Disclamer 08/26/17 14:11
--- NOTE | 2017-09-06 16:21 | Query-Altered Level of Consc. ---
Dear ____Dodie Date: 09/06/2017 Air Conditioning Engineer/CDS: [email or web address] Phone#:____[phone] Exercise your independent professional judgment when responding to this query. Questions asked do not imply a particular answer is desired or expected. We greatly appreciate your clarification on this issue. Clinical Documentation States: 57 year old female with past medical history significant for CVA x2, seizure presented to the emergency department with complaints of dysphasia, dysarthria, and worsening of right-sided weakness. Taken from progress note( )on 09/03/17. seizures are better, encephalopathic disorder is better. Taken from neurology note (Gonzalez Donald) on 09/05/17 Assessment and Plan: Altered Mental Status CVA Please provide an appropriate diagnosis clarifying the Etiology and Acuity of this clinical scenario: [ ] Metabolic Encephalopathy [ ] Toxic Encephalopathy [ ] Toxic - Metabolic Encephalopathy [ ] Septic Encephalopathy with Sepsis [ ] Septic Encephalopathy without Sepsis [ ] Acute Hepatic Encephalopathy [ ] Subacute Hepatic Encephalopathy [x ] Encephalopathy [ ] Other: [ ] Unable To Determine [ ]Comment/Explanation: Present on Admission: [ x] Yes (Y) [ ] Clinically undeterminable (W) [ ] No (N) Please also document response in your Progress Notes and/or Discharge Summary and indicate if the condition was present on admission. MTDD
[2017-09-07] MEDS: SODIUM CHLORIDE FLUSH SYRINGE 10 ML IV SCH ×2 (03:22→16:35)
[2017-09-07] MEDS: MORPHINE IV PRN ×2 (05:54→13:07)
[2017-09-07 08:49] VITALS: BP 118/77
[2017-09-07] MEDS: TRIPLE ANTIBIOTIC TP SCH (10:41)
[2017-09-07] MEDS: ASPIRIN PO SCH (10:41)
[2017-09-07] MEDS: KEPPRA FEEDTUBE SCH (10:41)
[2017-09-07] MEDS: PEPCID PO SCH (10:41)
--- NOTE | 2017-09-07 11:30 | XRay Report ---
AP CHEST: HISTORY: Pleuritic chest pain AP view of the chest demonstrates a normal mediastinal and cardiac contour with clear lungs and normal bony and soft tissue structures. Minor linear atelectasis in the middle lobe is noted. No significant change since 08/26/17. IMPRESSION: Unremarkable AP chest.
== END 2017-09-07 16:15 | DRG 391 ==
LOC: ED 12:09 → 4A 16:21 → 3A 08-31 11:23
PROVIDERS: ADMIT Internal Medicine; ATTEND Internal Medicine
PROC: 0DH63UZ Insertion of Feeding Device into Stomach, Percutaneous Approach (ICD-10-PCS; principal; 2017-08-31)
PROC: 3E0234Z Introduction of Serum, Toxoid and Vaccine into Muscle, Percutaneous Approach (ICD-10-PCS; 2017-09-01)
DX: R13.10 Dysphagia, unspecified (principal); G93.40 Encephalopathy, unspecified; E44.1 Mild protein-calorie malnutrition; R47.01 Aphasia; I69.351 Hemiplegia and hemiparesis following cerebral infarction affecting right dominant side; G40.909 Epilepsy, unspecified, not intractable, without status epilepticus; R47.1 Dysarthria and anarthria; Z68.34 Body mass index [BMI] 34.0-34.9, adult; R41.82 Altered mental status, unspecified; Z23 Encounter for immunization; I10 Essential (primary) hypertension; J45.909 Unspecified asthma, uncomplicated; Z88.0 Allergy status to penicillin; Z91.013 Allergy to seafood; Z91.048 Other nonmedicinal substance allergy status; I48.91 Unspecified atrial fibrillation; Z90.49 Acquired absence of other specified parts of digestive tract; Z82.49 Family history of ischemic heart disease and other diseases of the circulatory system; K44.9 Diaphragmatic hernia without obstruction or gangrene
CPT/HCPCS: 36415; 70450; 70496; 70498; 70544; 70551; 71045; 80048; 80053; 80061; 80307; 81001; 82550; 82553; 83036; 84484; 85025; 85610; 85670; 85730; 90686; 93005; 93010; 93306; 93880; 95819; 99291; A6250; A9270-GY; G8978-GP; G8979-GP; G8987-GO; G8988-GO; G8996-GN; G8997-GN; J0690; J1170; J1580; J1953; J2250; J2270; J2405; J2704; J3010; J7030; Q9967

== ENCOUNTER 2018-09-25 12:43 | Emergency (ER) | payer MEDICARE ==
[2018-09-25] MEDS ORDERED: DUONEB *Not for PRN Use IH ONE (13:17)
--- NOTE | 2018-09-25 13:20 | XRay Report ---
AP CHEST: HISTORY: Dyspnea Compared to 09/07/17. AP view of the chest demonstrates a normal mediastinal and cardiac contour with clear lungs and normal bony and soft tissue structures. IMPRESSION: Unremarkable AP chest.
--- NOTE | 2018-09-25 13:23 | Emergency Department Report ---
HPI - General Chief Complaint: Dyspnea/Respdistress Time Seen by Provider: 09/25/18 13:05 - HPI HPI: 58-year-old C female presents to the emergency department with a complaint of a 2-3 day history of shortness of breath and a mixed dry and productive cough. The patient has a past medical history that includes seizures, paroxysmal A. fib, asthma, CVA, RI, fibromyalgia and hypertension. She says that she is on home oxygen as needed but denies any history of COPD. She denies any tobacco or illicit drug use. She has used her albuterol inhaler and nebulizer treatments without any relief. No recent travel or sick contacts at home. Her primary care physician is Dr. Langford but she has not seen him regarding her symptoms. ED Past Medical Hx - Past Medical History Hx Hypertension: Yes Hx CVA: Yes (2008) Hx Heart Attack/AMI: No Hx Congestive Heart Failure: No Hx Diabetes: No Hx Deep Vein Thrombosis: No Hx Pulmonary Embolism: No Hx GERD: No Hx Liver Disease: No Hx Renal Disease: No Hx Sickle Cell Disease: No Hx Arthritis: Yes Hx Headaches / Migraines: No Hx Seizures: Yes (past hx, recent 08/24) Hx Kidney Stones: No Hx Psychiatric Treatment: No Hx Asthma: Yes Hx COPD: No Hx Tuberculosis: No Hx Dementia: No Hx HIV: No Additional medical history: 'nerve disorder,' a-fib, fibroids - Surgical History Hx Coronary Stent: No Hx Open Heart Surgery: No Hx Pacemaker: No Hx Internal Defibrillator: No Hx Cholecystectomy: Yes Hx Appendectomy: Yes Hx Breast Surgery: No Additional Surgical History: head sx, hysterectomy. right ankle surgery. spi nal surgery x 2. jaw surgery. nasal surgery - Social History Smoking Status: Never Smoker Substance Use Type: None - Medications Home Medications: Home Medications Medication Instructions Recorded Confirmed Last Taken Type levETIRAcetam [Keppra TAB] 1,500 mg PO BID 05/13/17 08/26/17 08/25/17 History Metoprolol Xl [Metoprolol 50 mg PO QDAY #30 tablet 05/16/17 08/26/17 08/25/17 Rx SUCCINATE ER TAB] Cyclobenzaprine HCl [Flexeril 5 MG 5 mg PO TID 08/26/17 08/26/17 08/25/17 History TAB] Pregabalin [Lyrica] 150 mg PO TID 08/26/17 08/26/17 08/25/17 History Zolpidem [Ambien] 10 mg PO QHS 08/26/17 08/26/17 08/25/17 History Aspirin 325 mg PO QDAY #30 tablet 09/03/17 Unknown Rx AtorvaSTATin [Lipitor] 40 mg PO QHS #30 tablet 09/03/17 Unknown Rx HYDROcodone/APAP 5-325 [Ora 1 - 2 each PO Q6HR PRN #7 tablet 08/05/18 Unknown Rx 5/325] Ibuprofen [Motrin 800 MG tab] 800 mg PO Q8HR PRN #20 tablet 08/05/18 Unknown Rx ALBUTEROL Inhaler (OR & NICU) 2 puff IH QID PRN #1 inhalation 09/25/18 Unknown Rx [ProAir HFA Inhaler] ALBUTEROL NEB's [Proventil 0.083% 2.5 mg IH TID PRN #1 box 09/25/18 Unknown Rx NEBS] Prednisone [predniSONE 10 mg 10 mg PO .TAPER #1 tab.ds.pk 09/25/18 Unknown Rx (6-Day Pack, 21 Tabs)] ED Review of Systems ROS: Stated complaint: SOB Other details as noted in HPI Constitutional: denies: chills, fever Eyes: denies: eye pain, vision change ENT: denies: ear pain, throat pain Respiratory: cough, shortness of breath Cardiovascular: denies: chest pain, edema Gastrointestinal: denies: abdominal pain, vomiting Genitourinary: denies: dysuria, frequency Musculoskeletal: denies: back pain, arthralgia Skin: denies: rash, lesions Neurological: denies: headache, weakness Physical Exam - Physical Exam Vital Signs: Vital Signs 09/25/18 12:49 Temperature 99.3 F Pulse Rate 108 H Respiratory 18 Rate Blood Pressure 132/81 O2 Sat by Pulse 93 Oximetry Physical Exam: GENERAL: The patient is well-developed well-nourished. HENT: Normocephalic. Atraumatic. Patient has moist mucous membranes. EYES: Extraocular motions are intact. Pupils equal reactive to light bilaterally. NECK: Supple. Trachea is midline. CHEST/LUNGS: Mild wheezing throughout the chest. No tachypnea or accessory muscle use.. There is no respiratory distress noted. HEART/CARDIOVASCULAR: Regular. There is mild tachycardia. There is no murmur. ABDOMEN: Abdomen is soft, nontender. Patient has normal bowel sounds. There is no abdominal distention. SKIN: Skin is warm and dry. NEURO: The patient is awake, alert, and cooperative. The patient has no focal neurologic deficits. The patient has normal speech. MUSCULOSKELETAL: There is no tenderness or deformity. There is no evidence of acute injury. ED Course Vital Signs 09/25/18 12:49 Temperature 99.3 F Pulse Rate 108 H Respiratory 18 Rate Blood Pressure 132/81 O2 Sat by Pulse 93 Oximetry ED Medical Decision Making - Lab Data Result diagrams: 09/25/18 13:03 09/25/18 13:03 - EKG Data -: EKG Interpreted by Me EKG shows normal: sinus rhythm, axis, intervals, QRS complexes, ST-T waves Rate: normal - EKG Data When compared to previous EKG there are: previous EKG unavailable Interpretation: normal EKG - Radiology Data Radiology results: image reviewed interpreted by me: Chest x-ray does not show any acute process. There are no pleural effusions, obvious pneumonia and there is no pneumothorax. - Medical Decision Making Patient presents to the emergency department with a 2 to three-day history of some progressive worsening shortness of breath. On examination she just has some mild wheezing but no signs of any respiratory distress. Vital signs stable throughout her ED course. Chest x-ray did not show any pleural effusions, pneumonia, focal consolidation, pneumothorax, or any other acute process. The patient's labs were unremarkable including CBC, metabolic panel, troponin and a d-dimer. Patient was given 2 breathing treatments as well as a dose of Solu- Medrol. She was reevaluated multiple times for multiple hours and says that she is feeling improved. The patient was instructed to follow-up with her primary care physician in the next few days and return to the ER with any worsening of her symptoms or any acute distress. - Differential Diagnosis asthma, pneumonia, bronchitis, PE Critical Care Time: No Critical care attestation.: If time is entered above; I have spent that time in minutes in the direct care of this critically ill patient, excluding procedure time. ED Disposition Clinical Impression: Shortness of breath, Bronchitis Disposition: - TO HOME OR SELFCARE Is pt being admited?: No Condition: Stable Instructions: Acute Bronchitis (ED), Dyspnea (ED) Additional Instructions: Please follow up with her primary care physician in the next few days. Return to the emergency Department with any worsening of your symptoms or any acute distress. Prescriptions: Prednisone [predniSONE 10 mg (6-Day Pack, 21 Tabs)] 10 mg PO .TAPER #1 tab.ds.pk ALBUTEROL Inhaler (OR & NICU) [ProAir HFA Inhaler] 2 puff IH QID PRN #1 inhalation PRN Reason: Shortness Of Breath ALBUTEROL NEB's [Proventil 0.083% NEBS] 2.5 mg IH TID PRN #1 box PRN Reason: Wheezing Referrals: OSITO LANGFORD [Other] - 2-3 Days Time of Disposition: 16:51
[2018-09-25 13:51] LABS: Basophils % (Auto) 0.2 % (0.0-1.8); Eosinophils # (Auto) 0.1 K/mm3 (0.0-0.4); Eosinophils % (Auto) 0.8 % (0.0-4.3); Hematocrit 33.4 % (30.3-42.9); Hemoglobin 11.1 gm/dl (10.1-14.3); Lymphocytes # (Auto) 1.8 K/mm3 (1.2-5.4); Lymphocytes % (Auto) 19.4 % (13.4-35.0); Mean Corpuscular HGB Conc 33 % (30-34); Mean Corpuscular Volume 85 fl (79-97); Monocytes # (Auto) 0.5 K/mm3 (0.0-0.8); Platelet Count 220 K/mm3 (140-440); Red Blood Count 3.95 M/mm3 (3.65-5.03); Red Cell Distribution Width 16.1 % (13.2-15.2)
[2018-09-25 14:02] LABS: Alanine Aminotransferase 45 units/L (7-56); Albumin 3.7 g/dL (3.9-5); BUN/Creatinine Ratio 9; Blood Urea Nitrogen 6 mg/dL (7-17); Calcium 8.7 mg/dL (8.4-10.2); Hemolysis Index 2
[2018-09-25] MEDS ORDERED: SOLU-Medrol IV ONE (14:09)
[2018-09-25] MEDS ORDERED: BENADRYL IV ONE (14:34)
[2018-09-25] MEDS ORDERED: PROVENTIL IH ONE (15:17)
[2018-09-25 16:14] VITALS: BP 123/75
== END 2018-09-25 17:28 | disposition home or self-care (01) ==
LOC: ED 12:43
DX: J45.909 Unspecified asthma, uncomplicated (principal); I10 Essential (primary) hypertension; M19.90 Unspecified osteoarthritis, unspecified site; Z86.73 Personal history of transient ischemic attack (TIA), and cerebral infarction without residual deficits; Z90.49 Acquired absence of other specified parts of digestive tract; Z90.710 Acquired absence of both cervix and uterus; Z79.82 Long term (current) use of aspirin; Z79.899 Other long term (current) drug therapy; Z88.8 Allergy status to other drugs, medicaments and biological substances; Z88.0 Allergy status to penicillin; Z91.013 Allergy to seafood; Z98.890 Other specified postprocedural states
CPT/HCPCS: 36415; 71045; 80053; 83880; 84484; 85025; 85379; 93005; 93010; 94640; 96374; 96375; 99285; J1200; J2930

== ENCOUNTER 2018-12-13 10:15 | Observation (INO) | payer MEDICARE ==
--- NOTE | 2018-12-13 10:52 | Emergency Department Report ---
ED Abdominal Pain HPI - General Chief Complaint: Abdominal Pain Stated Complaint: ABD PAIN Time Seen by Provider: 12/13/18 10:45 Source: EMS Mode of arrival: Ambulatory Limitations: No Limitations - History of Present Illness Initial Comments: Patient is a 58-year-old female that presents emergency room with lower abdominal pain. Patient states the pain is 10 out of 10. Patient states the pain is worse with movement and better with rest. Patient states she had a colonoscopy yesterday. Patient states her colonoscopy was unremarkable. Patient states she's having bright red blood per rectum. Patient states she's had 3-4 bloody bowel movements since noon yesterday. MD Complaint: abdominal pain -: Sudden Location: LLQ, RLQ Radiation: back Migration to: no migration Severity: severe Severity scale (0 -10): 10 Quality: stabbing Consistency: constant Associated Symptoms: hematochezia. denies: nausea, vomiting, diarrhea, fever, chills, constipation, dysuria, hematemesis, melena, hematuria, anorexia, syncope - Related Data Home Medications Medication Instructions Recorded Confirmed Last Taken levETIRAcetam [Keppra TAB] 1,500 mg PO BID 05/13/17 12/13/18 12/13/18 Cyclobenzaprine HCl [Flexeril 5 MG 5 mg PO TID 08/26/17 12/13/18 12/03/18 TAB] Pregabalin [Lyrica] 150 mg PO TID 08/26/17 12/13/18 12/13/18 Zolpidem [Ambien] 10 mg PO QHS 08/26/17 12/13/18 12/12/18 Previous Rx's Medication Instructions Recorded Last Taken Type Metoprolol Xl [Metoprolol 50 mg PO QDAY #30 tablet 05/16/17 12/13/18 Rx SUCCINATE ER TAB] Aspirin 325 mg PO QDAY #30 tablet 09/03/17 12/13/18 Rx AtorvaSTATin [Lipitor] 40 mg PO QHS #30 tablet 09/03/17 12/13/18 Rx Ibuprofen [Motrin 800 MG tab] 800 mg PO Q8HR PRN #20 tablet 08/05/18 12/03/18 Rx ALBUTEROL Inhaler (OR & NICU) 2 puff IH QID PRN #1 inhalation 06/10/19 08/27/19 Rx [ProAir HFA Inhaler] ALBUTEROL NEB's [Proventil 0.083% 2.5 mg IH TID PRN #1 box 09/25/18 12/11/18 Rx NEBS] Allergies Allergy/AdvReac Type Severity Reaction Status Date / Time Penicillins Allergy Itching Verified 08/05/18 12:50 seafood Allergy Swelling Uncoded 06/29/16 13:16 tape Allergy Rash Uncoded 06/29/16 13:16 ED Review of Systems ROS: Stated complaint: ABD PAIN Other details as noted in HPI Constitutional: denies: chills, fever Eyes: denies: eye pain, eye discharge, vision change ENT: denies: ear pain, throat pain Respiratory: denies: cough, shortness of breath, wheezing Cardiovascular: denies: chest pain, palpitations Endocrine: no symptoms reported Gastrointestinal: abdominal pain. denies: nausea, diarrhea Genitourinary: denies: urgency, dysuria, discharge Musculoskeletal: denies: back pain, joint swelling, arthralgia Skin: denies: rash, lesions Neurological: denies: headache, weakness, paresthesias Psychiatric: denies: anxiety, depression Hematological/Lymphatic: denies: easy bleeding, easy bruising ED Past Medical Hx - Past Medical History Previous Medical History?: Yes Hx Hypertension: Yes Hx CVA: Yes (2008) Hx Heart Attack/AMI: No Hx Congestive Heart Failure: No Hx Diabetes: No Hx Deep Vein Thrombosis: No Hx Pulmonary Embolism: No Hx GERD: No Hx Liver Disease: No Hx Renal Disease: No Hx Sickle Cell Disease: No Hx Arthritis: Yes Hx Headaches / Migraines: No Hx Seizures: Yes (past hx, recent 08/24) Hx Kidney Stones: No Hx Psychiatric Treatment: No Hx Asthma: Yes Hx COPD: No Hx Tuberculosis: No Hx Dementia: No Hx HIV: No Additional medical history: 'nerve disorder,' a-fib, fibroids - Surgical History Past Surgical History?: Yes Hx Coronary Stent: No Hx Open Heart Surgery: No Hx Pacemaker: No Hx Internal Defibrillator: No Hx Cholecystectomy: Yes Hx Appendectomy: Yes Hx Breast Surgery: No Additional Surgical History: head sx, hysterectomy. right ankle surgery. spinal surgery x 2. jaw surgery. nasal surgery - Family History Family history: no significant - Social History Smoking Status: Never Smoker Substance Use Type: None - Medications Home Medications: Home Medications Medication Instructions Recorded Confirmed Last Taken Type levETIRAcetam [Keppra TAB] 1,500 mg PO BID 05/13/17 12/13/18 12/13/18 History Metoprolol Xl [Metoprolol 50 mg PO QDAY #30 tablet 05/16/17 12/13/18 12/13/18 Rx SUCCINATE ER TAB] Cyclobenzaprine HCl [Flexeril 5 MG 5 mg PO TID 08/26/17 12/13/18 12/03/18 History TAB] Pregabalin [Lyrica] 150 mg PO TID 08/26/17 12/13/18 12/13/18 History Zolpidem [Ambien] 10 mg PO QHS 08/26/17 12/13/18 12/12/18 History Aspirin 325 mg PO QDAY #30 tablet 09/03/17 12/13/18 12/13/18 Rx AtorvaSTATin [Lipitor] 40 mg PO QHS #30 tablet 09/03/17 12/13/18 12/13/18 Rx Ibuprofen [Motrin 800 MG tab] 800 mg PO Q8HR PRN #20 tablet 08/05/18 12/13/18 12/03/18 Rx ALBUTEROL Inhaler (OR & NICU) 2 puff IH QID PRN #1 inhalation 09/25/18 12/13/18 12/12/18 Rx [ProAir HFA Inhaler] ALBUTEROL NEB's [Proventil 0.083% 2.5 mg IH TID PRN #1 box 09/25/18 12/13/18 12/11/18 Rx NEBS] ED Physical Exam - General Limitations: No Limitations General appearance: alert, in no apparent distress - Head Head exam: Present: atraumatic, normocephalic - Eye Eye exam: Present: normal appearance - ENT ENT exam: Present: mucous membranes moist - Neck Neck exam: Present: normal inspection - Respiratory Respiratory exam: Present: normal lung sounds bilaterally. Absent: respiratory distress - Cardiovascular Cardiovascular Exam: Present: regular rate, normal rhythm. Absent: systolic murmur, diastolic murmur, rubs, gallop - GI/Abdominal GI/Abdominal exam: Present: soft, tenderness (generalized tenderness but lower greater than upper), normal bowel sounds - Extremities Exam Extremities exam: Present: normal inspection - Back Exam Back exam: Present: normal inspection - Neurological Exam Neurological exam: Present: alert, oriented X3 - Psychiatric Psychiatric exam: Present: normal affect, normal mood - Skin Skin exam: Present: warm, dry, intact, normal color. Absent: rash ED Course Vital Signs 12/13/18 12/13/18 12/13/18 10:33 10:35 11:01 Pulse Rate 93 H Respiratory 17 Rate Blood Pressure 139/80 129/105 O2 Sat by Pulse 95 94 85 Oximetry 12/13/18 12/13/18 12/13/18 11:05 11:11 11:15 Pulse Rate 95 H 106 H 94 H Respiratory 13 15 15 Rate Blood Pressure 129/105 129/105 129/105 O2 Sat by Pulse 95 97 97 Oximetry 12/13/18 12/13/18 12/13/18 11:21 11:25 11:31 Pulse Rate 100 H 97 H 111 H Respiratory 22 13 38 H Rate Blood Pressure 129/105 129/105 163/134 O2 Sat by Pulse 95 96 95 Oximetry 12/13/18 12/13/18 12/13/18 11:41 12:00 12:30 Pulse Rate 88 93 H 84 Respiratory 18 12 12 Rate Blood Pressure 120/62 137/80 116/68 O2 Sat by Pulse 95 89 94 Oximetry 12/13/18 12/13/18 12/13/18 13:00 13:31 14:01 Pulse Rate 87 97 H Respiratory 14 22 Rate Blood Pressure 127/89 127/89 127/89 O2 Sat by Pulse 91 91 94 Oximetry 12/13/18 12/13/18 12/13/18 14:31 15:01 15:31 Pulse Rate Respiratory Rate Blood Pressure 133/99 133/99 133/99 O2 Sat by Pulse 93 95 97 Oximetry 12/13/18 16:01 Pulse Rate Respiratory Rate Blood Pressure 133/99 O2 Sat by Pulse 97 Oximetry - Reevaluation(s) Reevaluation #1: I discussed all results with patient. Patient will be admitted to the hospitalist service. Patient agrees plan of care. 12/13/18 16:17 - Consultations Consultation #1: DANE paged 12/13/18 15:56 Discussed case with dane Ross. Dr. Cantrell recommends admission for pain control and serial labs and he will see the patient the morning. 12/13/18 16:18 Consultation #2: hospitalist consulted or admission. Hospitalist to admit patient. Bridge orders placed 12/13/18 16:20 ED Medical Decision Making - Lab Data Result diagrams: 12/13/18 10:42 12/13/18 10:42 - Radiology Data Radiology results: report reviewed CT ABDOMEN AND PELVIS WITH CONTRAST INDICATION / CLINICAL INFORMATION: abd pain. recent colonoscopy. TECHNIQUE: Axial CT images were obtained through the abdomen and pelvis after 100 mL Omnipaque [address] scans at this location are performed using CT dose reduction f or ALARA by means of automated exposure control. COMPARISON: CT abdomen pelvis 01/14/2015 FINDINGS: LOWER CHEST: No significant abnormality. LIVER: Small hepatic cyst. BILIARY SYSTEM: Prior cholecystectomy. No significant intra- or extrahepatic biliary dilation. PANCREAS: No significant abnormality. SPLEEN: No significant abnormality. ADRENALS: No significant abnormality. KIDNEYS and URETERS: Bilateral renal cysts and additional subcentimeter renal low densities which are too small to characterize but statistically benign. STOMACH / BOWEL: Small hiatal hernia. No evidence of bowel obstruction or perienteric inflammation. PERITONEUM: No free fluid. No free air. No fluid collection. LYMPH NODES: No significant adenopathy. VASCULAR STRUCTURES: No significant abnormality. URINARY BLADDER: No significant abnormality. REPRODUCTIVE ORGANS: Prior hysterectomy. No adnexal mass. ADDITIONAL FINDINGS: None. SKELETAL SYSTEM: No significant abnormality. IMPRESSION: 1. No acute process identified within the abdomen or pelvis to account for patient's abdominal pain. - Medical Decision Making Patient is a 58-year-old female that presents emergency room with abdominal pain and bright red blood per rectum after colonoscopy. Patient's CT negative. GI consultation. I discussed this case with GI at length and he recommended admission for pain management and further evaluation and rule out possible procedure obligation. Lactic acid ordered. Patient admitted to the hospitalist service. Patient's labs unremarkable. Patient's CT negative. Patient given multiple pain medications. - Differential Diagnosis abdominal pain. Post colonoscopy complication. Rectal bleed Critical Care Time: Yes Critical care attestation.: If time is entered above; I have spent that time in minutes in the direct care of this critically ill patient, excluding procedure time. Critical Care Time: 35 minutes ED Disposition Clinical Impression: BRBPR (bright red blood per rectum), Intractable abdominal pain Abdominal pain Qualifiers: Abdominal location: lower abdomen, unspecified Qualified Code(s): R10.30 - Lower abdominal pain, unspecified Disposition: DC-09 OP ADMIT IP TO THIS HOSP Is pt being admited?: Yes Does the pt Need Aspirin: No Condition: Critical Time of Disposition: 16:21
[2018-12-13 11:05] LABS: Basophils % (Auto) 0.7 % (0.0-1.8); Eosinophils # (Auto) 0.1 K/mm3 (0.0-0.4); Eosinophils % (Auto) 1.8 % (0.0-4.3); Hemoglobin 11.7 gm/dl (10.1-14.3); Lymphocytes # (Auto) 2.6 K/mm3 (1.2-5.4); Lymphocytes % (Auto) 39.3 % (13.4-35.0); Mean Corpuscular HGB Conc 34 % (30-34); Mean Corpuscular Volume 83 fl (79-97); Monocytes # (Auto) 0.6 K/mm3 (0.0-0.8); Monocytes % (Auto) 9.8 % (0.0-7.3); Platelet Count 271 K/mm3 (140-440); Red Blood Count 4.23 M/mm3 (3.65-5.03); Red Cell Distribution Width 15.3 % (13.2-15.2)
[2018-12-13 11:19] LABS: Alanine Aminotransferase 16 units/L (7-56); Albumin 3.8 g/dL (3.9-5); BUN/Creatinine Ratio 21; Blood Urea Nitrogen 17 mg/dL (7-17); Calcium 9.5 mg/dL (8.4-10.2); Hemolysis Index 4
[2018-12-13 11:37] LABS: Bilirubin,Urine NEG (Negative); Blood,Urine SM (Negative); Color,Urine Yellow (Yellow); Mucus,Urine FEW /HPF; Protein,Urine <15 mg/dL mg/dL (Negative); Urobilinogen,Urine < 2.0 mg/dL (<2.0)
[2018-12-13] MEDS ORDERED: DILAUDID IM ONE (11:47)
--- NOTE | 2018-12-13 15:39 | Cat Scan Report ---
CT ABDOMEN AND PELVIS WITH CONTRAST INDICATION / CLINICAL INFORMATION: abd pain. recent colonoscopy. TECHNIQUE: Axial CT images were obtained through the abdomen and pelvis after 100 mL Omnipaque [address] scans at this location are performed using CT dose reduction for ALARA by means of automated exposure control. COMPARISON: CT abdomen pelvis 01/14/2015 FINDINGS: LOWER CHEST: No significant abnormality. LIVER: Small hepatic cyst. BILIARY SYSTEM: Prior cholecystectomy. No significant intra- or extrahepatic biliary dilation. PANCREAS: No significant abnormality. SPLEEN: No significant abnormality. ADRENALS: No significant abnormality. KIDNEYS and URETERS: Bilateral renal cysts and additional subcentimeter renal low densities which are too small to characterize but statistically benign. STOMACH / BOWEL: Small hiatal hernia. No evidence of bowel obstruction or perienteric inflammation. PERITONEUM: No free fluid. No free air. No fluid collection. LYMPH NODES: No significant adenopathy. VASCULAR STRUCTURES: No significant abnormality. URINARY BLADDER: No significant abnormality. REPRODUCTIVE ORGANS: Prior hysterectomy. No adnexal mass. ADDITIONAL FINDINGS: None. SKELETAL SYSTEM: No significant abnormality. IMPRESSION: 1. No acute process identified within the abdomen or pelvis to account for patient's abdominal pain. Signer Name: Arelis Arboleda MD Signed: 12/13/2018 3:35 PM Workstation Name: [id number]
[2018-12-13] MEDS ORDERED: DILAUDID IV ONE (15:56)
[2018-12-13 17:15] LABS: INR 0.99 (0.87-1.13)
[2018-12-13 17:17] LABS: Partial Thromboplastin Time 26.9 Sec. (24.2-36.6)
--- NOTE | 2018-12-13 18:35 | History and Physical Report ---
History of Present Illness Date of examination: 12/13/18 Date of admission: 12/13/18 16:25 Chief complaint: Lower GI bleed since yesterday History of present illness: 58-year-old female presents to emergency room with lower abdominal pain. Patient states the pain is 10 out of 10. Patient states the pain is worse with movement and better with rest. Patient states she had a colonoscopy yesterday. Patient states her colonoscopy was unremarkable. Patient states she's having bright red blood per rectum. Patient states she's had 3-4 bloody bowel movements since noon yesterday.No syncope or loghtheadedness Past Medical History Previous Medical History?: Yes Hypertension: Yes CVA: Yes (2008) Arthritis: Yes Seizures: Yes (past hx, recent 08/24) Asthma: Yes Additional medical history: 'nerve disorder,' a-fib, fibroids - Surgical History Past Surgical History?: Yes Cholecystectomy: Yes Appendectomy: Yes Additional Surgical History: head sx, hysterectomy. right ankle surgery. spinal surgery x 2. jaw surgery. nasal surgery Family History HTN Social History Smoking Status: Never Smoker Substance Use Type: None - Medications Home Medications: Home Medications Medication Instructions Recorded Confirmed Last Taken Type levETIRAcetam [Keppra TAB] 1,500 mg PO BID 05/13/17 12/13/18 12/13/18 History Metoprolol Xl [Metoprolol 50 mg PO QDAY #30 tablet 05/16/17 12/13/18 12/13/18 Rx SUCCINATE ER TAB] Cyclobenzaprine HCl [Flexeril 5 MG 5 mg PO TID 08/26/17 12/13/18 12/03/18 History TAB] Pregabalin [Lyrica] 150 mg PO TID 08/26/17 12/13/18 12/13/18 History Zolpidem [Ambien] 10 mg PO QHS 08/26/17 12/13/18 12/12/18 History Aspirin 325 mg PO QDAY #30 tablet 09/03/17 12/13/18 12/13/18 Rx AtorvaSTATin [Lipitor] 40 mg PO QHS #30 tablet 09/03/17 12/13/18 12/13/18 Rx Ibuprofen [Motrin 800 MG tab] 800 mg PO Q8HR PRN #20 tablet 08/05/18 12/13/18 12/03/18 Rx ALBUTEROL Inhaler (OR & NICU) 2 puff IH QID PRN #1 inhalation 09/25/18 12/13/18 12/12/18 Rx [ProAir HFA Inhaler] ALBUTEROL NEB's [Proventil 0.083% 2.5 mg IH TID PRN #1 box 09/25/18 12/13/18 12/11/18 Rx NEBS] Review of Systems ROS: Stated complaint: ABD PAIN Other details as noted in HPI Constitutional: denies: chills, fever Eyes: denies: eye pain, eye discharge, vision change ENT: denies: ear pain, throat pain Respiratory: denies: cough, shortness of breath, wheezing Cardiovascular: denies: chest pain, palpitations Endocrine: no symptoms reported Gastrointestinal: abdominal pain. denies: nausea, diarrhea Genitourinary: denies: urgency, dysuria, discharge Musculoskeletal: denies: back pain, joint swelling, arthralgia Skin: denies: rash, lesions Neurological: denies: headache, weakness, paresthesias Psychiatric: denies: anxiety, depression Hematological/Lymphatic: denies: easy bleeding, easy bruising Medications and Allergies Allergies Allergy/AdvReac Type Severity Reaction Status Date / Time Penicillins Allergy Itching Verified 08/05/18 12:50 seafood Allergy Swelling Uncoded 06/29/16 13:16 tape Allergy Rash Uncoded 06/29/16 13:16 Home Medications Medication Instructions Recorded Confirmed Last Taken Type levETIRAcetam [Keppra TAB] 1,500 mg PO BID 05/13/17 12/13/18 12/13/18 History Metoprolol Xl [Metoprolol 50 mg PO QDAY #30 tablet 05/16/17 12/13/18 12/13/18 Rx SUCCINATE ER TAB] Cyclobenzaprine HCl [Flexeril 5 MG 5 mg PO TID 08/26/17 12/13/18 12/03/18 History TAB] Pregabalin [Lyrica] 150 mg PO TID 08/26/17 12/13/18 12/13/18 History Zolpidem [Ambien] 10 mg PO QHS 08/26/17 12/13/18 12/12/18 History Aspirin 325 mg PO QDAY #30 tablet 09/03/17 12/13/18 12/13/18 Rx AtorvaSTATin [Lipitor] 40 mg PO QHS #30 tablet 09/03/17 12/13/18 12/13/18 Rx Ibuprofen [Motrin 800 MG tab] 800 mg PO Q8HR PRN #20 tablet 08/05/18 12/13/18 12/03/18 Rx ALBUTEROL Inhaler (OR & NICU) 2 puff IH QID PRN #1 inhalation 09/25/18 12/13/18 12/12/18 Rx [ProAir HFA Inhaler] ALBUTEROL NEB's [Proventil 0.083% 2.5 mg IH TID PRN #1 box 09/25/18 12/13/18 12/11/18 Rx NEBS] Exam - Constitutional Vitals: Temp Pulse Resp BP Pulse Ox 97 H 22 135/87 93 12/13/18 13:31 12/13/18 13:31 12/13/18 18:01 12/13/18 18:01 General appearance: Present: no acute distress, well-nourished - EENT Eyes: Present: PERRL ENT: hearing intact, clear oral mucosa - Neck Neck: Present: supple, normal ROM - Respiratory Respiratory effort: normal Respiratory: bilateral: CTA - Cardiovascular Heart rate: 78 Rhythm: regular Heart Sounds: Present: S1 & S2. Absent: rub, click - Extremities Extremities: no ischemia, pulses intact, pulses symmetrical, No edema Peripheral Pulses: within normal limits - Abdominal General gastrointestinal: Present: soft, non-tender, non-distended, normal bowel sounds Female genitourinary: Present: normal - Rectal Rectal Exam: stool bloody - Integumentary Integumentary: Present: clear, warm, dry - Musculoskeletal Musculoskeletal: gait normal, strength equal bilaterally - Psychiatric Psychiatric: appropriate mood/affect, intact judgment & insight - Neurologic Neurologic: CNII-XII intact, moves all extremities - Allied Health Allied health notes reviewed: nursing, case management Results - Labs CBC & Chem 7: 12/13/18 23:47 12/13/18 10:42 Labs: Laboratory Last Values WBC 6.5 K/mm3 (4.5-11.0) 12/13/18 10:42 RBC 4.23 M/mm3 (3.65-5.03) 12/13/18 10:42 Hgb 11.7 gm/dl (10.1-14.3) 12/13/18 10:42 Hct 35.0 % (30.3-42.9) 12/13/18 10:42 MCV 83 fl (79-97) 12/13/18 10:42 MCH 28 pg (28-32) 12/13/18 10:42 MCHC 34 % (30-34) 12/13/18 10:42 RDW 15.3 % (13.2-15.2) H 12/13/18 10:42 Plt Count 271 K/mm3 (140-440) 12/13/18 10:42 Lymph % (Auto) 39.3 % (13.4-35.0) H 12/13/18 10:42 [place] % (Auto) 9.8 % (0.0-7.3) H 12/13/18 10:42 Eos % (Auto) 1.8 % (0.0-4.3) 12/13/18 10:42 Baso % (Auto) 0.7 % (0.0-1.8) 12/13/18 10:42 Lymph # 2.6 K/mm3 (1.2-5.4) 12/13/18 10:42 [place] # 0.6 K/mm3 (0.0-0.8) 12/13/18 10:42 Eos # 0.1 K/mm3 (0.0-0.4) 12/13/18 10:42 Baso # 0.0 K/mm3 (0.0-0.1) 12/13/18 10:42 Seg Neutrophils % 48.4 % (40.0-70.0) 12/13/18 10:42 Seg Neutrophils # 3.2 K/mm3 (1.8-7.7) 12/13/18 10:42 PT 12.8 Sec. (12.2-14.9) 12/13/18 16:45 INR 0.99 (0.87-1.13) 12/13/18 16:45 APTT 26.9 Sec. (24.2-36.6) 12/13/18 16:45 Sodium 143 mmol/L (137-145) 12/13/18 10:42 Potassium 4.0 mmol/L (3.6-5.0) 12/13/18 10:42 Chloride 104.7 mmol/L (98-107) 12/13/18 10:42 Carbon Dioxide 25 mmol/L (22-30) 12/13/18 10:42 17 mmol/L 12/13/18 10:42 BUN 17 mg/dL (7-17) 12/13/18 10:42 0.8 mg/dL (0.7-1.2) 12/13/18 10:42 Estimated GFR > 60 ml/min 12/13/18 10:42 21 % 12/13/18 10:42 Glucose 99 mg/dL (65-100) 12/13/18 10:42 Lactic Acid 1.40 mmol/L (0.7-2.0) 12/13/18 16:30 Calcium 9.5 mg/dL (8.4-10.2) 12/13/18 10:42 < 0.20 mg/dL (0.1-1.2) 12/13/18 10:42 AST 16 units/L (5-40) 12/13/18 10:42 ALT 16 units/L (7-56) 12/13/18 10:42 116 units/L (35-129) 12/13/18 10:42 7.9 g/dL (6.3-8.2) 12/13/18 10:42 3.8 g/dL (3.9-5) L 12/13/18 10:42 0.9 % 12/13/18 10:42 Yellow (Yellow) 12/13/18 11:00 Slightly-cloudy (Clear) 12/13/18 11:00 5.0 (5.0-7.0) 12/13/18 11:00 Ur Specific [place] 1.021 (1.003-1.030) 12/13/18 11:00 <15 mg/dl mg/dL (Negative) 12/13/18 11:00 Neg mg/dL (Negative) 12/13/18 11:00 Neg mg/dL (Negative) 12/13/18 11:00 Sm (Negative) 12/13/18 11:00 Neg (Negative) 12/13/18 11:00 Neg (Negative) 12/13/18 11:00 < 2.0 mg/dL (<2.0) 12/13/18 11:00 Ur Leukocyte Esterase Tr (Negative) 12/13/18 11:00 5.0 /HPF (0.0-6.0) 12/13/18 11:00 5.0 /HPF (0.0-6.0) 12/13/18 11:00 U Epithel Cells (Auto) 6.0 /HPF (0-13.0) 12/13/18 11:00 Few /HPF 12/13/18 11:00 - Imaging and Cardiology CT scan - abdomen: report reviewed (NAF) Assessment and Plan Advance Directives: Yes (Full code) VTE prophylaxis?: Mechanical Plan of care discussed with patient/family: Yes - Patient Problems (1) Lower GI bleed Current Visit: Yes Status: Acute Plan to address problem: Possible diverticular bleed GI consult Monitor H/H (2) HTN (hypertension) Current Visit: Yes Status: Chronic Qualifiers: Hypertension type: essential hypertension Qualified Code(s): I10 - Essential (primary) hypertension Plan to address problem: On catapress patch (3) Seizure disorder Current Visit: Yes Status: Chronic Plan to address problem: IV Keppra for now (4) HLD (hyperlipidemia) Current Visit: Yes Status: Chronic Qualifiers: Hyperlipidemia type: mixed hyperlipidemia Qualified Code(s): E78.2 - Mixed hyperlipidemia Plan to address problem: Hold statins for now (5) Peripheral neuropathy Current Visit: Yes Status: Chronic Qualifiers: Peripheral neuropathy type: polyneuropathy, unspecified Qualified Code(s): G62.9 - Polyneuropathy, unspecified Plan to address problem: Hold Lyrica (6) Asthma Current Visit: Yes Status: Inactive Qualifiers: Asthma complication type: unspecified Plan to address problem: Albuterol Prn (7) DVT prophylaxis Current Visit: Yes Status: Acute Plan to address problem: On Scd's and GI prophylaxis
[2018-12-13] MEDS ORDERED: PROAIR IH PRN (22:41)
[2018-12-13] MEDS ORDERED: PROVENTIL IH PRN (22:41)
[2018-12-13] MEDS ORDERED: TYLENOL PO PRN (22:46)
[2018-12-13] MEDS ORDERED: SODIUM CHLORIDE FLUSH SYRINGE 10 ML IV PRN (22:46)
[2018-12-13] MEDS ORDERED: REGLAN IV PRN (22:46)
[2018-12-13] MEDS ORDERED: ZOFRAN IV PRN (22:46)
[2018-12-14] MEDS: DILAUDID IV PRN ×3 (00:10→13:39)
[2018-12-14] MEDS: NACL 0.9% 1000 ML 1,000 ML IV SCH ×2 (00:24→13:38)
[2018-12-14 01:16] LABS: Hematocrit 35.5 % (30.3-42.9); Hemoglobin 11.7 gm/dl (10.1-14.3)
--- NOTE | 2018-12-14 07:44 | Gastroenterology Consultation ---
History of Present Illness - Reason for Consult Consult date: 12/14/18 Abd pain and rectal bleeding Requesting physician: NADEEM WILLIS III - History of Present Illness 58-year-old female with a new, separate abd pain for the last 2 days. She had a colonoscopy on Tuesday with no intervention (no polypectomy etc) with unremarkable results. She reports the next day had new severe abd pain, cramping/squeezing quality focused in the lower abd but radiating to the rest of the abd, associated with nausea and with rectal bleeding. she reports however the rectal bleeding stopped overnight. She reports the pain is constant, worse with palpation and better with nothing. CT neg for acute process Past Medical History Previous Medical History?: Yes Hypertension: Yes CVA: Yes (2008) Arthritis: Yes Seizures: Yes (past hx, recent 08/24) Asthma: Yes Additional medical history: 'nerve disorder,' a-fib, fibroids - Surgical History Past Surgical History?: Yes Cholecystectomy: Yes Appendectomy: Yes Additional Surgical History: head sx, hysterectomy. right ankle surgery. spinal surgery x 2. jaw surgery. nasal surgery Family History HTN Social History Smoking Status: Never Smoker Substance Use Type: None home meds reviewed/updated/reconciled Medications and Allergies Allergies Allergy/AdvReac Type Severity Reaction Status Date / Time Penicillins Allergy Itching Verified 08/05/18 12:50 seafood Allergy Swelling Uncoded 06/29/16 13:16 tape Allergy Rash Uncoded 06/29/16 13:16 Home Medications Medication Instructions Recorded Confirmed Last Taken Type levETIRAcetam [Keppra TAB] 1,500 mg PO BID 05/13/17 12/13/18 12/13/18 History Metoprolol Xl [Metoprolol 50 mg PO QDAY #30 tablet 05/16/17 12/13/18 12/13/18 Rx SUCCINATE ER TAB] Cyclobenzaprine HCl [Flexeril 5 MG 5 mg PO TID 08/26/17 12/13/18 12/03/18 History TAB] Pregabalin [Lyrica] 150 mg PO TID 08/26/17 12/13/18 12/13/18 History Zolpidem [Ambien] 10 mg PO QHS 08/26/17 12/13/18 12/12/18 History Aspirin 325 mg PO QDAY #30 tablet 0512/13/18 12/13/18 Rx AtorvaSTATin [Lipitor] 40 mg PO QHS #30 tablet 09/03/17 12/13/18 12/13/18 Rx ALBUTEROL Inhaler (OR & NICU) 2 puff IH QID PRN #1 inhalation 09/25/18 12/13/18 12/12/18 Rx [ProAir HFA Inhaler] ALBUTEROL NEB's [Proventil 0.083% 2.5 mg IH TID PRN #1 box 09/25/18 12/13/18 12/11/18 Rx NEBS] Active Meds: Active Medications Acetaminophen (Tylenol) 650 mg PO Q4H PRN PRN Reason: Pain MILD(1-3)/Fever >100.5/SANCHEZ Albuterol (Proventil) 2.5 mg IH TIDRT PRN PRN Reason: Wheezing Clonidine HCl (Catapres-Tts Patch) 0.2 mg TD Th@1000 FINA Hydromorphone HCl (Dilaudid) 0.5 mg IV Q3H PRN PRN Reason: Pain , Severe (7-10) Last Admin: 12/14/18 00:10 Dose: 0.5 mg Documented by: Sodium Chloride (Nacl 0.9% 1000 Ml) 1,000 mls @ 75 mls/hr IV DIRECT FINA Last Admin: 12/14/18 00:24 Dose: 75 mls/hr Documented by: Levetiracetam 1,000 mg/ (Dextrose) 110 mls @ 400 mls/hr IV Q12HR FINA Metoclopramide HCl (Reglan) 10 mg IV Q6H PRN PRN Reason: Nausea And Vomiting Last Admin: 12/14/18 00:11 Dose: 10 mg Documented by: Ondansetron HCl (Zofran) 4 mg IV Q8H PRN PRN Reason: Nausea And Vomiting Sodium Chloride (Sodium Chloride Flush Syringe 10 Ml) 10 ml IV BID FINA Sodium Chloride (Sodium Chloride Flush Syringe 10 Ml) 10 ml IV PRN PRN PRN Reason: LINE FLUSH Review of Systems - Review of Systems All systems: negative (10 systems reviewed and negative except as mentioned above in HPI) Exam - Constitutional Vital Signs: Temp Pulse Resp BP Pulse Ox 97.5 F L 73 20 88/42 92 12/14/18 04:54 12/14/18 04:54 12/14/18 04:54 12/14/18 04:54 12/14/18 04:54 General appearance: no acute distress - EENT Eyes: EOM intact - Neck Neck: supple - Respiratory Respiratory: bilateral: CTA - Cardiovascular Rhythm: regular - Gastrointestinal General gastrointestinal: Present: soft (severe lower abd TTP) - Integumentary Integumentary: Present: dry - Musculoskeletal Musculoskeletal: normal - Neurologic Neurological: alert and oriented x3 - Psychiatric Psychiatric: appropriate mood/affect - Labs CBC & Chem 7: 12/14/18 11:03 12/14/18 07:07 Lab Results: Laboratory Results - last 24 hr 12/13/18 12/13/18 12/13/18 10:42 10:42 11:00 WBC 6.5 RBC 4.23 Hgb 11.7 Hct 35.0 MCV 83 MCH 28 MCHC 34 RDW 15.3 H Plt Count 271 Lymph % (Auto) 39.3 H [place] % (Auto) 9.8 H Eos % (Auto) 1.8 Baso % (Auto) 0.7 Lymph # 2.6 [place] # 0.6 Eos # 0.1 Baso # 0.0 Seg Neutrophils % 48.4 Seg Neutrophils # 3.2 PT INR APTT Sodium 143 Potassium 4.0 Chloride 104.7 Carbon Dioxide 25 Anion Gap 17 BUN 17 Creatinine 0.8 Estimated GFR > 60 BUN/Creatinine Ratio 21 Glucose 99 Hemoglobin A1c Lactic Acid Calcium 9.5 Total Bilirubin < 0.20 AST 16 ALT 16 Alkaline Phosphatase 116 Total Protein 7.9 Albumin 3.8 L Albumin/Globulin Ratio 0.9 Urine Color Yellow Urine Turbidity Slightly-cloudy Urine pH 5.0 Ur Specific [place] 1.021 Urine Protein <15 mg/dl Urine Glucose (UA) Neg Urine Ketones Neg Urine Blood Sm Urine Nitrite Neg Urine Bilirubin Neg Urine Urobilinogen < 2.0 Ur Leukocyte Esterase Tr Urine WBC (Auto) 5.0 Urine RBC (Auto) 5.0 U Epithel Cells (Auto) 6.0 Urine Mucus Few 12/13/18 12/13/18 12/13/18 16:30 16:45 23:47 WBC RBC Hgb Hct MCV MCH MCHC RDW Plt Count Lymph % (Auto) [place] % (Auto) Eos % (Auto) Baso % (Auto) Lymph # [place] # Eos # Baso # Seg Neutrophils % Seg Neutrophils # PT 12.8 INR 0.99 APTT 26.9 Sodium Potassium Chloride Carbon Dioxide Anion Gap BUN Creatinine Estimated GFR BUN/Creatinine Ratio Glucose Hemoglobin A1c 5.9 Lactic Acid 1.40 Calcium Total Bilirubin AST ALT Alkaline Phosphatase Total Protein Albumin Albumin/Globulin Ratio Urine Color Urine Turbidity Urine pH Ur Specific [place] Urine Protein Urine Glucose (UA) Urine Ketones Urine Blood Urine Nitrite Urine Bilirubin Urine Urobilinogen Ur Leukocyte Esterase Urine WBC (Auto) Urine RBC (Auto) U Epithel Cells (Auto) Urine Mucus 12/13/18 23:47 WBC RBC Hgb 11.7 Hct 35.5 MCV MCH MCHC RDW Plt Count Lymph % (Auto) [place] % (Auto) Eos % (Auto) Baso % (Auto) Lymph # [place] # Eos # Baso # Seg Neutrophils % Seg Neutrophils # PT INR APTT Sodium Potassium Chloride Carbon Dioxide Anion Gap BUN Creatinine Estimated GFR BUN/Creatinine Ratio Glucose Hemoglobin A1c Lactic Acid Calcium Total Bilirubin AST ALT Alkaline Phosphatase Total Protein Albumin Albumin/Globulin Ratio Urine Color Urine Turbidity Urine pH Ur Specific [place] Urine Protein Urine Glucose (UA) Urine Ketones Urine Blood Urine Nitrite Urine Bilirubin Urine Urobilinogen Ur Leukocyte Esterase Urine WBC (Auto) Urine RBC (Auto) U Epithel Cells (Auto) Urine Mucus Assessment and Plan start diet, if tolerates diet and symptoms improving may discharge with outpatient followup Discussion: Regarding underlying issue, unclear etiology, differential diagnosis infection, ischemia, functional, etc; neg CT and exam not compatible with perforation, and bleeding has stopped (the bleeding was due to the hemorrhoids most likely) - Patient Problems (1) Abdominal pain Current Visit: Yes Status: Acute Qualifiers: Abdominal location: lower abdomen, unspecified Qualified Code(s): R10.30 - Lower abdominal pain, unspecified (2) BRBPR (bright red blood per rectum) Current Visit: Yes Status: Acute (3) Intractable abdominal pain Current Visit: Yes Status: Acute (4) Lower GI bleed Current Visit: Yes Status: Acute
[2018-12-14 08:24] LABS: Basophils % (Auto) 0.4 % (0.0-1.8); Eosinophils # (Auto) 0.1 K/mm3 (0.0-0.4); Eosinophils % (Auto) 2.2 % (0.0-4.3); Hematocrit 34.4 % (30.3-42.9); Hemoglobin 11.2 gm/dl (10.1-14.3); Lymphocytes # (Auto) 1.9 K/mm3 (1.2-5.4); Lymphocytes % (Auto) 34.2 % (13.4-35.0); Mean Corpuscular HGB Conc 33 % (30-34); Mean Corpuscular Volume 84 fl (79-97); Monocytes # (Auto) 0.5 K/mm3 (0.0-0.8); Monocytes % (Auto) 8.4 % (0.0-7.3); Platelet Count 265 K/mm3 (140-440); Red Cell Distribution Width 15.8 % (13.2-15.2)
[2018-12-14 08:38] LABS: Alanine Aminotransferase 16 units/L (7-56); Albumin 3.4 g/dL (3.9-5); BUN/Creatinine Ratio 24; Blood Urea Nitrogen 12 mg/dL (7-17); Calcium 8.3 mg/dL (8.4-10.2); Hemolysis Index 3
[2018-12-14] MEDS ORDERED: SODIUM CHLORIDE FLUSH SYRINGE 10 ML IV SCH (10:00)
[2018-12-14] MEDS ORDERED: CATAPRES-TTS PATCH TD SCH (10:00)
[2018-12-14] MEDS ORDERED: KEPPRA 1,000 MG in D5W 100 ML IV SCH (10:00)
[2018-12-14 11:22] LABS: Hematocrit 32.1 % (30.3-42.9)
--- NOTE | 2018-12-14 14:21 | Discharge Summary ---
Providers - Providers Date of Admission: 12/13/18 16:25 Date of discharge: 12/14/18 Attending physician: DANIELITO GUTIERREZ 12/13/18 16:25 Consult to Physician [CONS] Routine Comment: DR SAQIB BAUTISTA W/DR ALMANZA @1600 Consulting Provider: ALISA ALMANZA Physician Instructions: Reason For Exam: prbpr Primary care physician: OSITO MA Hospitalization Condition: Critical Pertinent studies: CT abdomen/pelvis: 1. No acute process identified within the abdomen or pelvis to account for patient's abdominal pain. Hospital course: 58-year-old female with a new, separate abd pain for the last 2 days. She had a colonoscopy on Tuesday with no intervention (no polypectomy etc) with unremarkable results. She reports the next day had new severe abd pain, cramping/squeezing quality focused in the lower abd but radiating to the rest of the abd, associated with nausea and with rectal bleeding. she reports however the rectal bleeding stopped overnight. She reports the pain is constant, worse with palpation and better with nothing. CT neg for acute process Discharge diagnosis and management: / Lower GI bleed Possible diverticular bleed GI consulted, Monitored H/H No active bleeding noted, H&H remained stable Recommended high-fiber diet and A outpatient follow-up No endoscopic recommended by GI / HTN (hypertension) On catapress patch at home / Seizure disorder on Keppra / HLD (hyperlipidemia) on statins / Peripheral neuropathy on Lyrica / Asthma Albuterol Prn / DVT prophylaxis On Scd's and GI prophylaxis Disposition: - TO HOME OR SELFCARE Time spent for discharge: 34 minutes Core Measure Documentation - Palliative Care Palliative Care/ Comfort Measures: Not Applicable - Core Measures Any of the following diagnoses?: none Exam - Constitutional Vitals: Temp Pulse Resp BP Pulse Ox 98.0 F 66 18 127/67 98 12/14/18 11:36 12/14/18 11:36 12/14/18 11:36 12/14/18 11:36 12/14/18 11:36 General appearance: Present: no acute distress, obese - EENT Eyes: Present: PERRL ENT: hearing intact, clear oral mucosa - Neck Neck: Present: supple, normal ROM - Respiratory Respiratory effort: normal Respiratory: bilateral: CTA - Cardiovascular Heart Sounds: Present: S1 & S2. Absent: rub, click - Extremities Extremities: pulses symmetrical, No edema Peripheral Pulses: within normal limits - Abdominal General gastrointestinal: Present: soft, non-tender, non-distended, normal bowel sounds - Integumentary Integumentary: Present: clear, warm, dry - Musculoskeletal Musculoskeletal: gait normal, strength equal bilaterally - Psychiatric Psychiatric: appropriate mood/affect, intact judgment & insight - Neurologic Neurologic: CNII-XII intact, moves all extremities Plan Activity: advance as tolerated Weight Bearing Status: Weight Bear as Tolerated Diet: other (fiber rich diet) Follow up with: OSITO MA V [Other] - 3-5 Days
[2018-12-14 19:22] VITALS: BP 115/67
== END 2018-12-14 18:55 | disposition home or self-care (01) ==
LOC: ED 10:15 → 3A 16:25
PROVIDERS: ADMIT Internal Medicine; ATTEND Internal Medicine
DX: K92.2 Gastrointestinal hemorrhage, unspecified (principal); I10 Essential (primary) hypertension; G40.909 Epilepsy, unspecified, not intractable, without status epilepticus; E78.5 Hyperlipidemia, unspecified; G62.9 Polyneuropathy, unspecified; J45.909 Unspecified asthma, uncomplicated; M19.90 Unspecified osteoarthritis, unspecified site; I48.91 Unspecified atrial fibrillation; Z90.710 Acquired absence of both cervix and uterus; Z90.49 Acquired absence of other specified parts of digestive tract; Z79.82 Long term (current) use of aspirin
CPT/HCPCS: 36415; 74177; 80053; 81001; 82140; 83036; 85014; 85018; 85025; 85610; 85730; 96365; 96375; 96376; 99291; G0378; J1170; J1953; J2765; J7030

== ENCOUNTER 2019-05-19 15:17 | Emergency (ER) | payer MEDICARE ==
[2019-05-19 17:19] VITALS: BP 125/77
--- NOTE | 2019-05-19 18:04 | Emergency Department Report ---
Upper Extremity - HPI Chief Complaint: Extremity Injury, Upper Stated Complaint: laceration to right hand Occurred When: Today Mechanism: Fall, Other (cut right hand) Symptoms: Yes Pain with Movement, Yes Limited Range of Movement, Yes Laceration or Abrasion, No Deformity, No Numbness, No Weakness, No Swelling, No Bruising/Ecchymosis Other History: Ms. Rivero is a 59 yo female who presents with cut right hand my knife. Tetanus status UTD. She has had right shoulder pain for the past weeks. She has had falls due to seizures. She has bruising on the right shoulder with limited range of motion. ED Review of Systems ROS: Stated complaint: laceration to right hand Other details as noted in HPI Constitutional: denies: fever, malaise Respiratory: denies: cough, shortness of breath Gastrointestinal: denies: abdominal pain, nausea, vomiting Musculoskeletal: arthralgia Neurological: denies: numbness, paresthesias ED Past Medical Hx - Past Medical History Previous Medical History?: Yes Hx Hypertension: Yes Hx CVA: Yes (2008) Hx Heart Attack/AMI: No Hx Congestive Heart Failure: No Hx Diabetes: No Hx Deep Vein Thrombosis: No Hx Pulmonary Embolism: No Hx GERD: No Hx Liver Disease: No Hx Renal Disease: No Hx Sickle Cell Disease: No Hx Arthritis: Yes Hx Headaches / Migraines: No Hx Seizures: Yes (past hx, recent 08/24) Hx Kidney Stones: No Hx Psychiatric Treatment: No Hx Asthma: Yes Hx COPD: No Hx Tuberculosis: No Hx Dementia: No Hx HIV: No Additional medical history: 'nerve disorder,' a-fib, fibroids - Surgical History Past Surgical History?: Yes Hx Coronary Stent: No Hx Open Heart Surgery: No Hx Pacemaker: No Hx Internal Defibrillator: No Hx Cholecystectomy: Yes Hx Appendectomy: Yes Hx Breast Surgery: No Additional Surgical History: head sx, hysterectomy. right ankle surgery. spinal surgery x 2. jaw surgery. nasal surgery - Social History Smoking Status: Never Smoker - Medications Home Medications: Home Medications Medication Instructions Recorded Confirmed Last Taken Type levETIRAcetam [Keppra TAB] 1,500 mg PO BID 05/13/17 12/13/18 12/13/18 History Metoprolol Xl [Metoprolol 50 mg PO QDAY #30 tablet 05/16/17 12/13/18 12/13/18 Rx SUCCINATE ER TAB] Cyclobenzaprine HCl [Flexeril 5 MG 5 mg PO TID 08/26/17 12/13/18 12/03/18 History TAB] Pregabalin [Lyrica] 150 mg PO TID 08/26/17 12/13/18 12/13/18 History Zolpidem [Ambien] 10 mg PO QHS 08/26/17 12/13/18 12/12/18 History Aspirin 325 mg PO QDAY #30 tablet 09/03/17 12/13/18 12/13/18 Rx AtorvaSTATin [Lipitor] 40 mg PO QHS #30 tablet 09/03/17 12/13/18 12/13/18 Rx ALBUTEROL NEB's [Proventil 0.083% 2.5 mg IH TID PRN #1 box 09/25/18 12/13/18 12/11/18 Rx NEBS] Albuterol INH(or & Nicu Only) 2 puff IH QID PRN #1 inhalation 09/25/18 12/13/18 12/12/18 Rx [ProAir HFA Inhaler] Upper Extremity Exam - Exam General: Vital signs noted. No distress. Alert and acting appropriately. right shoulder iwth ecchymosis Head and Torso: No HEENT Abnormality Shoulder Exam: Yes Shoulder Tenderness, No Clavicle Tenderness, No Normal Range of Motion in Shoulder, No Shoulder Deformity, No AC Joint Tenderness Arm Exam: No Arm/Humerus Tenderness, No Arm Deformity Elbow: Yes Normal Range of Motion in Elbow, No Elbow Tenderness, No Elbow Deformity Forearm: No Forearm Tenderness, No Forearm Deformity, No Pain with Pronation, No Pain with Supination Wrist: Yes Normal ROM in Wrist, No Wrist Tenderness, No Wrist Deformity, No Snuffbox Tenderness Hand: Yes Normal ROM in Digit(s), No Hand Tenderness, No Hand Deformity, No Digit Tenderness, No Digit(s) Deformity, No Tendon Dysfunction CMS Exam: Yes Broken Skin (superficial 1 cm horizontal laceration palmar crease right hand), Yes Normal Distal Pulses, Yes Normal Capillary Refill ED Course Vital Signs 05/19/19 17:17 Temperature 98.8 F Pulse Rate 101 H Respiratory 18 Rate Blood Pressure 125/77 O2 Sat by Pulse 95 Oximetry ED Medical Decision Making - Radiology Data Radiology results: image reviewed right shoulders 3 views reviewed by me: no fx no subluxation - Medical Decision Making 1. superficial 1 cm hand laceration: wound care provided with cleansing and bandaid Tetanus UTD 2. right shoulder pain with hx of seizures and falls: xr WNL, Critical care attestation.: If time is entered above; I have spent that time in minutes in the direct care of this critically ill patient, excluding procedure time. ED Disposition Clinical Impression: Laceration of right hand, Sprain of right shoulder Disposition: - TO HOME OR SELFCARE Is pt being admited?: No Does the pt Need Aspirin: No Condition: Stable Instructions: Shoulder Sprain (ED) Referrals: ELLEN ELENA MD [Staff Physician] - 3-5 Days
--- NOTE | 2019-05-19 18:26 | XRay Report ---
Right shoulder 3 views INDICATION: Right shoulder pain following fall IMPRESSION: No fracture or subluxation of the right shoulder is identified. Signer Name: Yosi Cabral MD Signed: 05/19/2019 6:22 PM Workstation Name: [id number]
== END 2019-05-19 18:22 | disposition home or self-care (01) ==
LOC: ED 15:17
DX: S61.411A Laceration without foreign body of right hand, initial encounter (principal); S43.401A Unspecified sprain of right shoulder joint, initial encounter; I10 Essential (primary) hypertension; M19.90 Unspecified osteoarthritis, unspecified site; G40.909 Epilepsy, unspecified, not intractable, without status epilepticus; J45.909 Unspecified asthma, uncomplicated; Z90.49 Acquired absence of other specified parts of digestive tract; Z90.710 Acquired absence of both cervix and uterus; Z86.73 Personal history of transient ischemic attack (TIA), and cerebral infarction without residual deficits; Z98.890 Other specified postprocedural states; Z79.899 Other long term (current) drug therapy; Z88.0 Allergy status to penicillin; Z91.013 Allergy to seafood; Z88.8 Allergy status to other drugs, medicaments and biological substances; W26.0XXA Contact with knife, initial encounter; Y93.89 Activity, other specified; Y92.89 Other specified places as the place of occurrence of the external cause; Y99.8 Other external cause status

== ENCOUNTER 2019-06-09 14:54 | Emergency (ER) | payer MEDICARE ==
--- NOTE | 2019-06-09 15:31 | Event Note ---
ED Screening Note ED Screening Note: states she cough for a few months states today she has difficulty in breathing no fever PMHx nephrolithiasis, HLD, HTN allergy: PCN This initial assessment/diagnostic orders/clinical plan/treatment(s) is/are subject to change based on patients health status, clinical progression and re- assessment by fellow clinical providers in the ED. Further treatment and workup at subsequent clinical providers discretion. Patient/guardian urged not to elope from the ED as their condition may be serious if not clinically assessed and managed. Initial orders include: CXR
--- NOTE | 2019-06-09 15:57 | XRay Report ---
CHEST 2 VIEWS 1543 INDICATION / CLINICAL INFORMATION: cough COMPARISON: 09/25/2018 FINDINGS: SUPPORT DEVICES: None. HEART / MEDIASTINUM: No significant abnormality. LUNGS / PLEURA: No significant pulmonary or pleural abnormality. No pneumothorax. ADDITIONAL FINDINGS: No significant additional findings. IMPRESSION: No significant acute abnormality Signer Name: Mack Zeng MD Signed: 06/09/2019 3:53 PM Workstation Name: [id number]
[2019-06-09] MEDS ORDERED: guaiFENesin 100 MG/5 ML ORAL LIQD PO ONE (17:15)
[2019-06-09] MEDS ORDERED: ACETAMINOPEN W/CODEINE 120-12MG ORAL LIQD 5 ML PO ONE (17:15)
[2019-06-09] MEDS ORDERED: dexAMETHasone 20 MG/5 ML VIAL IM ONE (17:20)
[2019-06-09 17:36] VITALS: BP 156/99
--- NOTE | 2019-06-09 17:38 | Emergency Department Report ---
Minor Respiratory - HPI Chief Complaint: Upper Respiratory Infection Stated Complaint: COUGH/CHEST PAIN Time Seen by Provider: 06/09/19 15:29 Minor Respiratory: Yes Cough, No Rhinorrhea, No Sore Throat, No Able to Tolerate Fluids, No Ear Pain, No Sick Contacts, No Hemoptysis, No Shortness of Breath, No Fever Other History: This is a 59-year-old female with a history of COPD and asthma who presents to ED complaining of nonproductive intermittent cough the past 3 weeks. Patient states that she is on home oxygen at home and has asthma medication. Patient states that coughing has been intermittent throughout the day and the cough is getting worse. ED Review of Systems ROS: Stated complaint: COUGH/CHEST PAIN Other details as noted in HPI Comment: All other systems reviewed and negative ED Past Medical Hx - Past Medical History Hx Hypertension: Yes Hx CVA: Yes (R sided deficits) Hx Heart Attack/AMI: No Hx Congestive Heart Failure: No Hx Diabetes: No Hx Deep Vein Thrombosis: No Hx Pulmonary Embolism: No Hx GERD: No Hx Liver Disease: No Hx Renal Disease: No Hx Sickle Cell Disease: No Hx Arthritis: Yes Hx Headaches / Migraines: No Hx Seizures: Yes (past hx, recent 08/24) Hx Kidney Stones: No Hx Psychiatric Treatment: No Hx Asthma: Yes Hx COPD: No Hx Tuberculosis: No Hx Dementia: No Hx HIV: No Additional medical history: 'nerve disorder,' a-fib, fibroids - Surgical History Hx Coronary Stent: No Hx Open Heart Surgery: No Hx Pacemaker: No Hx Internal Defibrillator: No Hx Cholecystectomy: Yes Hx Appendectomy: Yes Hx Breast Surgery: No Additional Surgical History: head sx, hysterectomy. right ankle surgery. spinal surgery x 2. jaw surgery. nasal surgery - Social History Smoking Status: Never Smoker Substance Use Type: None - Medications Home Medications: Home Medications Medication Instructions Recorded Confirmed Last Taken Type levETIRAcetam [Keppra TAB] 1,500 mg PO BID 05/13/17 12/13/18 12/13/18 History Metoprolol Xl [Metoprolol 50 mg PO QDAY #30 tablet 05/16/17 12/13/18 12/13/18 Rx SUCCINATE ER TAB] Cyclobenzaprine HCl [Flexeril 5 MG 5 mg PO TID 08/26/17 12/13/18 12/03/18 History TAB] Pregabalin [Lyrica] 150 mg PO TID 08/26/17 12/13/18 12/13/18 History Zolpidem [Ambien] 10 mg PO QHS 08/26/17 12/13/18 12/12/18 History Aspirin 325 mg PO QDAY #30 tablet 09/03/17 12/13/18 12/13/18 Rx AtorvaSTATin [Lipitor] 40 mg PO QHS #30 tablet 09/03/17 12/13/18 12/13/18 Rx ALBUTEROL NEB's [Proventil 0.083% 2.5 mg IH TID PRN #1 box 09/25/18 12/13/18 12/11/18 Rx NEBS] Albuterol INH(or & Nicu Only) 2 puff IH QID PRN #1 inhalation 09/25/18 12/13/18 12/12/18 Rx [ProAir HFA Inhaler] Acetamin/Codeine 120-12Mg/5 ml 5 ml PO TID PRN #80 ml 06/09/19 Unknown Rx [Tylenol/Codeine] Benzonatate [Tessalon Perles] 100 mg PO Q8HR #20 capsule 06/09/19 Unknown Rx Minor Respiratory Exam - Exam General: Vital signs noted. No distress. Alert and acting appropriately. HEENT: Yes Moist Mucous Membranes, No Pharyngeal Erythema, No Pharyngeal Exudates, No Rhinorrhea, No Conjuctival Injection, No Frontal Tenderness, No Maxillary Tenderness Ear: Neither TM Bulge, Neither TM Erythema, Neither EAC Pain, Neither EAC Discharge Neck: Yes Supple, No Adenopathy Lungs: Yes Good Air Exchange, No Wheezes, No Ronchi, No Stridor, No Cough, No Labored Respirations, No Retractions, No Use of Accessory Muscles, No Other Abnormal Lung Sounds Heart: Yes Regular, No Murmur Abdomen: Yes Normal Bowel Sounds, No Tenderness, No Peritoneal Signs Skin: No Rash, No Edema Neurologic: Alert and oriented, no deficits. Musculoskeletal: Unremarkable. ED Course Vital Signs 06/09/19 15:02 Temperature 98.7 F Pulse Rate 120 H Respiratory 20 Rate Blood Pressure 129/87 O2 Sat by Pulse 95 Oximetry ED Medical Decision Making - Radiology Data Radiology results: report reviewed, image reviewed CHEST 2 VIEWS 1543 INDICATION / CLINICAL INFORMATION: cough COMPARISON: 09/25/2018 FINDINGS: SUPPORT DEVICES: None. HEART / MEDIASTINUM: No significant abnormality. LUNGS / PLEURA: No significant pulmonary or pleural abnormality. No pneumothorax. ADDITIONAL FINDINGS: No significant additional findings. IMPRESSION: No significant acute abnormality Signer Name: Mack Zeng MD Signed: 06/09/2019 3:53 PM Workstation Name: [id number] Transcribed By: KELSY Dictated By: Mack Zeng MD Electronically Authenticated By: Mack Zeng MD Signed Date/Time: 06/09/19 1553 - Medical Decision Making 59-year-old female presents with bronchitis ED course: Patient received , prednisone, cough suppressant in the ED. Chest x-ray ordered, chest x-ray shows no acute findings. Patient had no respiratory distress in the ED. Post evaluation: No wheezing heard, no use of accessory muscles, I discussed with the patient to follow up with her primary care physician. I discussed with the patient to continue her home irrigations of albuterol inhaler as well as nebulizer Vital signs are normalized, patient is saturation at 99% on room air. I discussed with the patient is symptoms worsen to return to ED immediately. Critical care attestation.: If time is entered above; I have spent that time in minutes in the direct care of this critically ill patient, excluding procedure time. ED Disposition Clinical Impression: Bronchitis, Acute bronchitis with COPD Disposition: DC-01 TO HOME OR SELFCARE Is pt being admited?: No Does the pt Need Aspirin: No Condition: Stable Instructions: Chronic Bronchitis (ED), Acute Bronchitis (ED) Additional Instructions: Make sure to follow up with the primary care physician as discussed. Take all your medications as you've been prescribed. If you have any worsening symptoms or develop new symptoms please return to ED immediately. Prescriptions: Benzonatate [Tessalon Perles] 100 mg PO Q8HR #20 capsule Acetamin/Codeine 120-12Mg/5 ml [Tylenol/Codeine] 5 ml PO TID PRN #80 ml PRN Reason: Pain Referrals: RACHEAL SHEEHAN MD [Referring] - 3-5 Days [facility] [Provider Group] - 3-[address] [facility] [Provider Group] - 3-5 Days [facility] [Outside] - 3-5 Days [facility] [Outside] - 3-5 Days Forms: Work/School Release Form(ED) Time of Disposition: 18:21
== END 2019-06-09 18:41 | disposition home or self-care (01) ==
LOC: ED 14:54
DX: J44.0 Chronic obstructive pulmonary disease with (acute) lower respiratory infection (principal); I10 Essential (primary) hypertension; R56.9 Unspecified convulsions; M19.90 Unspecified osteoarthritis, unspecified site; Z98.890 Other specified postprocedural states; Z86.73 Personal history of transient ischemic attack (TIA), and cerebral infarction without residual deficits; Z90.710 Acquired absence of both cervix and uterus; Z79.899 Other long term (current) drug therapy; Z88.0 Allergy status to penicillin; Z91.013 Allergy to seafood
CPT/HCPCS: 71046; 96372; 99284; J1100

== ENCOUNTER 2019-06-10 08:08 | Emergency (ER) | payer MEDICARE ==
--- NOTE | 2019-06-10 11:46 | Emergency Department Report ---
ED General Adult HPI - General Chief complaint: Pain General Stated complaint: CHRONIC PAIN Time Seen by Provider: 06/10/19 11:02 Source: patient Mode of arrival: Wheelchair Limitations: No Limitations - History of Present Illness Initial comments: This is a 59-year-old female nontoxic, well nourished in appearance, no acute signs of distress presents to the ED with c/o of acute on chronic body aches. Patient stated has taken Percocet prior to arrival and now symptoms are improving and subsiding. HX of fibromyalgia. PAtient denies any chest pain, shortness of breathe, fever, chills, nausea, vomiting, back pain, urinary symptoms, headache or stiff neck. Denies any other complaints. -: days(s) Radiation: non-radiation Severity scale (0 -10): 0 Consistency: now resolved Improves with: none Worsens with: none Associated Symptoms: denies other symptoms. denies: confusion, chest pain, cough, diaphoresis, fever/chills, headaches, loss of appetite, malaise, nausea/vomiting, rash, seizure, shortness of breath, syncope, weakness Treatments Prior to Arrival: none - Related Data Home Medications Medication Instructions Recorded Confirmed Last Taken levETIRAcetam [Keppra TAB] 1,500 mg PO BID 05/13/17 12/13/18 12/13/18 Cyclobenzaprine HCl [Flexeril 5 MG 5 mg PO TID 08/26/17 12/13/18 12/03/18 TAB] Pregabalin [Lyrica] 150 mg PO TID 08/26/17 12/13/18 12/13/18 Zolpidem [Ambien] 10 mg PO QHS 08/26/17 12/13/18 12/12/18 Previous Rx's Medication Instructions Recorded Last Taken Type Metoprolol Xl [Metoprolol 50 mg PO QDAY #30 tablet 05/16/17 12/13/18 Rx SUCCINATE ER TAB] Aspirin 325 mg PO QDAY #30 tablet 09/03/17 12/13/18 Rx AtorvaSTATin [Lipitor] 40 mg PO QHS #30 tablet 09/03/17 12/13/18 Rx ALBUTEROL NEB's [Proventil 0.083% 2.5 mg IH TID PRN #1 box 09/25/18 12/11/18 Rx NEBS] Albuterol INH(or & Nicu Only) 2 puff IH QID PRN #1 inhalation 09/25/18 12/12/18 Rx [ProAir HFA Inhaler] Acetamin/Codeine 120-12Mg/5 ml 5 ml PO TID PRN #80 ml 06/09/19 Unknown Rx [Tylenol/Codeine] Benzonatate [Tessalon Perles] 100 mg PO Q8HR #20 capsule 06/09/19 Unknown Rx Allergies Allergy/AdvReac Type Severity Reaction Status Date / Time Penicillins Allergy Itching Verified 08/05/18 12:50 seafood Allergy Swelling Uncoded 06/29/16 13:16 tape Allergy Rash Uncoded 06/29/16 13:16 ED Review of Systems ROS: Stated complaint: CHRONIC PAIN Other details as noted in HPI Constitutional: denies: chills, fever Eyes: denies: eye pain, eye discharge, vision change ENT: denies: ear pain, throat pain Respiratory: denies: cough, shortness of breath, wheezing Cardiovascular: denies: chest pain, palpitations Endocrine: no symptoms reported Gastrointestinal: denies: abdominal pain, nausea, diarrhea Genitourinary: denies: urgency, dysuria, discharge Musculoskeletal: denies: back pain, joint swelling, arthralgia Skin: denies: rash, lesions Neurological: denies: headache, weakness, paresthesias Psychiatric: denies: anxiety, depression Hematological/Lymphatic: denies: easy bleeding, easy bruising ED Past Medical Hx - Past Medical History Previous Medical History?: Yes Hx Hypertension: Yes Hx CVA: Yes (R sided deficits) Hx Heart Attack/AMI: No Hx Congestive Heart Failure: No Hx Diabetes: No Hx Deep Vein Thrombosis: No Hx Pulmonary Embolism: No Hx GERD: No Hx Liver Disease: No Hx Renal Disease: No Hx Sickle Cell Disease: No Hx Arthritis: Yes Hx Headaches / Migraines: No Hx Seizures: No (past hx, recent 08/24) Hx Kidney Stones: No Hx Psychiatric Treatment: No Hx Asthma: Yes Hx COPD: No Hx Tuberculosis: No Hx Dementia: No Hx HIV: No Additional medical history: 'nerve disorder,' a-fib, fibroids - Surgical History Past Surgical History?: Yes Hx Coronary Stent: No Hx Open Heart Surgery: No Hx Pacemaker: No Hx Internal Defibrillator: No Hx Cholecystectomy: Yes Hx Appendectomy: Yes Hx Breast Surgery: No Additional Surgical History: head sx, hysterectomy. right ankle surgery. spinal surgery x 2. jaw surgery. nasal surgery - Social History Smoking Status: Never Smoker Substance Use Type: None - Medications Home Medications: Home Medications Medication Instructions Recorded Confirmed Last Taken Type levETIRAcetam [Keppra TAB] 1,500 mg PO BID 05/13/17 12/13/18 12/13/18 History Metoprolol Xl [Metoprolol 50 mg PO QDAY #30 tablet 05/16/17 12/13/18 12/13/18 Rx SUCCINATE ER TAB] Cyclobenzaprine HCl [Flexeril 5 MG 5 mg PO TID 08/26/17 12/13/18 12/03/18 History TAB] Pregabalin [Lyrica] 150 mg PO TID 08/26/17 12/13/18 12/13/18 History Zolpidem [Ambien] 10 mg PO QHS 08/26/17 12/13/18 12/12/18 History Aspirin 325 mg PO QDAY #30 tablet 09/03/17 12/13/18 12/13/18 Rx AtorvaSTATin [Lipitor] 40 mg PO QHS #30 tablet 09/03/17 12/13/18 12/13/18 Rx ALBUTEROL NEB's [Proventil 0.083% 2.5 mg IH TID PRN #1 box 09/25/18 12/13/18 12/11/18 Rx NEBS] Albuterol INH(or & Nicu Only) 2 puff IH QID PRN #1 inhalation 09/25/18 12/13/18 12/12/18 Rx [ProAir HFA Inhaler] Acetamin/Codeine 120-12Mg/5 ml 5 ml PO TID PRN #80 ml 06/09/19 Unknown Rx [Tylenol/Codeine] Benzonatate [Tessalon Perles] 100 mg PO Q8HR #20 capsule 06/09/19 Unknown Rx ED Physical Exam - General Limitations: No Limitations General appearance: alert, in no apparent distress - Head Head exam: Present: atraumatic, normocephalic - Neck Neck exam: Present: normal inspection, full ROM. Absent: tenderness, meningismus, lymphadenopathy - Respiratory Respiratory exam: Present: normal lung sounds bilaterally. Absent: respiratory distress, wheezes, rales, rhonchi, stridor, chest wall tenderness, accessory muscle use, decreased breath sounds, prolonged expiratory - Cardiovascular Cardiovascular Exam: Present: regular rate, normal rhythm, normal heart sounds. Absent: irregular rhythm, systolic murmur, diastolic murmur, rubs, gallop - GI/Abdominal GI/Abdominal exam: Present: soft, normal bowel sounds. Absent: distended, tenderness, guarding, rebound, rigid, diminished bowel sounds - Extremities Exam Extremities exam: Present: normal inspection, full ROM - Back Exam Back exam: Present: normal inspection, full ROM - Neurological Exam Neurological exam: Present: alert, oriented X3, normal gait - Psychiatric Psychiatric exam: Present: normal affect, normal mood - Skin Skin exam: Present: warm, dry, intact, normal color. Absent: rash ED Course Vital Signs 06/10/19 08:20 Temperature 98.7 F Pulse Rate 105 H Respiratory 20 Rate Blood Pressure 145/85 O2 Sat by Pulse 93 Oximetry - Reevaluation(s) Reevaluation #1: 06/10/19 11:41 Patient is speaking in full sentences with no signs of distress noted. ED Medical Decision Making - Medical Decision Making 59-year-old female that presents chronic generalized pain. Patient is stable and was examined by me. Vital signs are within normal limits. Patient has taken Percocet prior to coming to emergency room and symptoms are currently subsided. Patient was instructed to follow-up with a primary care doctor in 3-5 days or if symptoms worsen and continue return to emergency room as soon as possible. At time of discharge, the patient does not seem toxic or ill in appearance. No acute signs of distress noted. Patient agrees to discharge treatment plan of care. No further questions noted by the patient. Critical care attestation.: If time is entered above; I have spent that time in minutes in the direct care of this critically ill patient, excluding procedure time. ED Disposition Clinical Impression: Generalized pain Disposition: MED SCREENING EXAM-LEFT Is pt being admited?: No Does the pt Need Aspirin: No Condition: Stable Additional Instructions: Follow-up with a primary care doctor in 3-5 days or if symptoms worsen and continue return to emergency room as soon as possible. Referrals: LISS ANGEL MD [Primary Care Provider] - 3-5 Days MARCIE SEVERINO MD [Staff Physician] - 3-5 Days [facility] [Outside] - 3-5 Days
[2019-06-10 12:18] VITALS: BP 134/84
== END 2019-06-10 12:10 | disposition left against medical advice (07) ==
LOC: ED 08:08
DX: G89.29 Other chronic pain (principal); I10 Essential (primary) hypertension; M19.90 Unspecified osteoarthritis, unspecified site; J45.909 Unspecified asthma, uncomplicated; I48.91 Unspecified atrial fibrillation; Z88.0 Allergy status to penicillin; Z91.013 Allergy to seafood; Z91.048 Other nonmedicinal substance allergy status; Z86.73 Personal history of transient ischemic attack (TIA), and cerebral infarction without residual deficits; Z90.49 Acquired absence of other specified parts of digestive tract; Z90.710 Acquired absence of both cervix and uterus; Z98.890 Other specified postprocedural states; Z79.899 Other long term (current) drug therapy

== ENCOUNTER 2019-06-24 20:48 | Emergency (ER) | payer MEDICARE ==
[2019-06-24] MEDS ORDERED: MORPHINE 4 MG/1 ML INJ IV ONE (21:12)
[2019-06-24] MEDS ORDERED: KETOROLAC 30 MG/1 ML INJ IV ONE (21:12)
[2019-06-24] MEDS ORDERED: ONDANSETRON 4 MG/2 ML INJ IV ONE (21:12)
[2019-06-24 21:31] LABS: Basophils % (Auto) 0.4 % (0.0-1.8); Eosinophils # (Auto) 0.1 K/mm3 (0.0-0.4); Eosinophils % (Auto) 0.7 % (0.0-4.3); Hematocrit 41.4 % (30.3-42.9); Hemoglobin 13.8 gm/dl (10.1-14.3); Lymphocytes # (Auto) 1.7 K/mm3 (1.2-5.4); Lymphocytes % (Auto) 20.7 % (13.4-35.0); Mean Corpuscular HGB Conc 33 % (30-34); Mean Corpuscular Volume 86 fl (79-97); Monocytes # (Auto) 0.5 K/mm3 (0.0-0.8); Monocytes % (Auto) 6.3 % (0.0-7.3); Platelet Count 293 K/mm3 (140-440); Red Cell Distribution Width 15.1 % (13.2-15.2)
[2019-06-24 21:51] LABS: BUN/Creatinine Ratio 13; Blood Urea Nitrogen 10 mg/dL (7-17); Calcium 9.3 mg/dL (8.4-10.2); Hemolysis Index 27
[2019-06-24 22:28] VITALS: BP 141/88
[2019-06-24 22:34] LABS: Bilirubin,Urine NEG (Negative); Blood,Urine LG (Negative); Color,Urine Yellow (Yellow); Mucus,Urine 3+ /HPF; RBC,Urine > 182.0 /HPF (0.0-6.0); Urobilinogen,Urine < 2.0 mg/dL (<2.0)
--- NOTE | 2019-06-24 22:41 | Cat Scan Report ---
CT abdomen pelvis wo con INDICATION / CLINICAL INFORMATION: left flank pain. TECHNIQUE: Axial CT imaging of abdomen and pelvis was obtained without contrast. Coronal and sagittal reformatte d imaging obtained and reviewed. All CT scans at this location are performed using CT dose reduction for ALARA by means of automated exposure control. COMPARISON: 12/13/2018 FINDINGS: CT abdomen without contrast demonstrates grossly normal appearance of the liver, spleen, pancreas, an d adrenal glands. Prior cholecystectomy. There is a small simple cyst arising from the anterior aspec t of the right kidney. There is a nonobstructing 2 mm calculus in the right kidney. There is mild lef t hydronephrosis caused by 2 small calculi in the proximal left ureter at the level of the UPJ. Each calculus measures approximately 3 mm in caliber. The left kidney is otherwise unremarkable. CT pelvis without contrast demonstrates normal appearance of the appendix. No pelvic mass, free fluid , or focal inflammatory change noted. GI tract is unremarkable. Visualized lung bases are clear. No acute significant osseous abnormality. IMPRESSION: 1. Mild left hydronephrosis is present caused by 2 adjacent small calculi in the proximal left ureter at the level of the UPJ. Each calculus measures approximately 3 mm. 2. Right nephrolithiasis. Signer Name: Marcelle Lopez MD Signed: 06/24/2019 10:37 PM Workstation Name: [id number]
--- NOTE | 2019-06-24 22:59 | Emergency Department Report ---
ED Abdominal Pain HPI - General Chief Complaint: Abdominal Pain Stated Complaint: ABD PAIN Time Seen by Provider: 06/24/19 21:09 Source: patient, EMS Mode of arrival: Stretcher Limitations: No Limitations - History of Present Illness Initial Comments: Patient is a 59-year-old female who is presenting with left-sided flank pain. Patient states she has a history of kidney stones however never on the left side. She has had problems with her right kidney for many years. Patient is on continuous antibiotics secondary to frequent UTIs. Patient states several hours ago she had intense pain in the left flank that was a 10 out of 10. She denies nausea but states she is never nauseous. She states she was diaphoretic and dizzy secondary to the pain. Patient denies fevers chills cough cold congestion or diarrhea. Severity scale (0 -10): 6 - Related Data Home Medications Medication Instructions Recorded Confirmed Last Taken levETIRAcetam [Keppra TAB] 1,500 mg PO BID 05/13/17 12/13/18 12/13/18 Cyclobenzaprine HCl [Flexeril 5 MG 5 mg PO TID 08/26/17 12/13/18 12/03/18 TAB] Pregabalin [Lyrica] 150 mg PO TID 08/26/17 12/13/18 12/13/18 Zolpidem [Ambien] 10 mg PO QHS 08/26/17 12/13/18 12/12/18 Previous Rx's Medication Instructions Recorded Last Taken Type Metoprolol Xl [Metoprolol 50 mg PO QDAY #30 tablet 05/16/17 12/13/18 Rx SUCCINATE ER TAB] Aspirin 325 mg PO QDAY #30 tablet 09/03/17 12/13/18 Rx AtorvaSTATin [Lipitor] 40 mg PO QHS #30 tablet 09/03/17 12/13/18 Rx ALBUTEROL NEB's [Proventil 0.083% 2.5 mg IH TID PRN #1 box 09/25/18 12/11/18 Rx NEBS] Albuterol INH(or & Nicu Only) 2 puff IH QID PRN #1 inhalation 09/25/18 12/12/18 Rx [ProAir HFA Inhaler] Acetamin/Codeine 120-12Mg/5 ml 5 ml PO TID PRN #80 ml 06/09/19 Unknown Rx [Tylenol/Codeine] Benzonatate [Tessalon Perles] 100 mg PO Q8HR #20 capsule 06/09/19 Unknown Rx HYDROcodone/APAP 5-325 [Emblem 1 each PO Q6HR PRN #14 tablet 06/24/19 Unknown Rx 5/325] Ibuprofen [Motrin 800 MG tab] 800 mg PO Q8HR PRN #10 tablet 06/24/19 Unknown Rx Nitrofurantoin Humphreys/M-Cryst 100 mg PO Q12HR #14 capsule 06/24/19 Unknown Rx [Macrobid CAP] Allergies Allergy/AdvReac Type Severity Reaction Status Date / Time Penicillins Allergy Itching Verified 08/05/18 12:50 seafood Allergy Swelling Uncoded 06/29/16 13:16 tape Allergy Rash Uncoded 06/29/16 13:16 ED Review of Systems ROS: Stated complaint: ABD PAIN Other details as noted in HPI Comment: All other systems reviewed and negative ED Past Medical Hx - Past Medical History Hx Hypertension: Yes Hx CVA: Yes (R sided deficits) Hx Heart Attack/AMI: No Hx Congestive Heart Failure: No Hx Diabetes: No Hx Deep Vein Thrombosis: No Hx Pulmonary Embolism: No Hx GERD: No Hx Liver Disease: No Hx Renal Disease: No Hx Sickle Cell Disease: No Hx Arthritis: Yes Hx Headaches / Migraines: No Hx Seizures: No (past hx, recent 08/24) Hx Kidney Stones: No Hx Psychiatric Treatment: No Hx Asthma: Yes Hx COPD: No Hx Tuberculosis: No Hx Dementia: No Hx HIV: No Additional medical history: 'nerve disorder,' a-fib, fibroids - Surgical History Hx Coronary Stent: No Hx Open Heart Surgery: No Hx Pacemaker: No Hx Internal Defibrillator: No Hx Cholecystectomy: Yes Hx Appendectomy: Yes Hx Breast Surgery: No Additional Surgical History: head sx, hysterectomy. right ankle surgery. spinal surgery x 2. jaw surgery. nasal surgery - Social History Smoking Status: Never Smoker Substance Use Type: None - Medications Home Medications: Home Medications Medication Instructions Recorded Confirmed Last Taken Type levETIRAcetam [Keppra TAB] 1,500 mg PO BID 05/13/17 12/13/18 12/13/18 History Metoprolol Xl [Metoprolol 50 mg PO QDAY #30 tablet 05/16/17 12/13/18 12/13/18 Rx SUCCINATE ER TAB] Cyclobenzaprine HCl [Flexeril 5 MG 5 mg PO TID 08/26/17 12/13/18 12/03/18 Histo ry TAB] Pregabalin [Lyrica] 150 mg PO TID 08/26/17 12/13/18 12/13/18 History Zolpidem [Ambien] 10 mg PO QHS 08/26/17 12/13/18 12/12/18 History Aspirin 325 mg PO QDAY #30 tablet 09/03/17 12/13/18 12/13/18 Rx AtorvaSTATin [Lipitor] 40 mg PO QHS #30 tablet 09/03/17 12/13/18 12/13/18 Rx ALBUTEROL NEB's [Proventil 0.083% 2.5 mg IH TID PRN #1 box 09/25/18 12/13/18 12/11/18 Rx NEBS] Albuterol INH(or & Nicu Only) 2 puff IH QID PRN #1 inhalation 09/25/18 12/13/18 12/12/18 Rx [ProAir HFA Inhaler] Acetamin/Codeine 120-12Mg/5 ml 5 ml PO TID PRN #80 ml 06/09/19 Unknown Rx [Tylenol/Codeine] Benzonatate [Tessalon Perles] 100 mg PO Q8HR #20 capsule 06/09/19 Unknown Rx HYDROcodone/APAP 5-325 [Emblem 1 each PO Q6HR PRN #14 tablet 06/24/19 Unknown Rx 5/325] Ibuprofen [Motrin 800 MG tab] 800 mg PO Q8HR PRN #10 tablet 06/24/19 Unknown Rx Nitrofurantoin Humphreys/M-Cryst 100 mg PO Q12HR #14 capsule 06/24/19 Unknown Rx [Macrobid CAP] ED Physical Exam - General Limitations: No Limitations General appearance: alert, in distress - Head Head exam: Present: atraumatic, normocephalic - Eye Eye exam: Present: normal appearance - ENT ENT exam: Present: mucous membranes moist - Neck Neck exam: Present: normal inspection - Respiratory Respiratory exam: Present: normal lung sounds bilaterally. Absent: respiratory distress, wheezes, rales, rhonchi - Cardiovascular Cardiovascular Exam: Present: regular rate, normal rhythm. Absent: systolic murmur, diastolic murmur, rubs, gallop - GI/Abdominal GI/Abdominal exam: Present: soft, tenderness (Left flank), normal bowel sounds. Absent: distended, guarding, rebound - Extremities Exam Extremities exam: Present: normal inspection - Back Exam Back exam: Present: normal inspection, CVA tenderness (L) - Neurological Exam Neurological exam: Present: alert, oriented X3 - Psychiatric Psychiatric exam: Present: normal affect, normal mood - Skin Skin exam: Present: warm, dry, intact, normal color. Absent: rash ED Course Vital Signs 06/24/19 06/24/19 06/24/19 20:57 21:00 22:00 Temperature 98.5 F Pulse Rate 99 H 95 H Respiratory 20 20 16 Rate Blood Pressure 147/87 Blood Pressure 141/88 [Right] O2 Sat by Pulse 95 95 Oximetry ED Medical Decision Making - Lab Data Result diagrams: 06/24/19 21:21 06/24/19 21:21 Lab Results 06/24/19 06/24/19 06/24/19 Range/Units 21:21 21:21 Unknown WBC 8.3 (4.5-11.0) K/mm3 RBC 4.80 (3.65-5.03) M/mm3 Hgb 13.8 (10.1-14.3) gm/dl Hct 41.4 (30.3-42.9) % MCV 86 (79-97) fl MCH 29 (28-32) pg MCHC 33 (30-34) % RDW 15.1 (13.2-15.2) % Plt Count 293 (140-440) K/mm3 Lymph % (Auto) 20.7 (13.4-35.0) % Humphreys % (Auto) 6.3 (0.0-7.3) % Eos % (Auto) 0.7 (0.0-4.3) % Baso % (Auto) 0.4 (0.0-1.8) % Lymph # 1.7 (1.2-5.4) K/mm3 Humphreys # 0.5 (0.0-0.8) K/mm3 Eos # 0.1 (0.0-0.4) K/mm3 Baso # 0.0 (0.0-0.1) K/mm3 Seg Neutrophils % 71.9 H (40.0-70.0) % Seg Neutrophils # 6.0 (1.8-7.7) K/mm3 Sodium 142 (137-145) mmol/L Potassium 3.5 L (3.6-5.0) mmol/L Chloride 103.4 (98-107) mmol/L Carbon Dioxide 21 L (22-30) mmol/L Anion Gap 21 mmol/L BUN 10 (7-17) mg/dL Creatinine 0.8 (0.7-1.2) mg/dL Estimated GFR > 60 ml/min BUN/Creatinine Ratio 13 % Glucose 123 H (65-100) mg/dL Calcium 9.3 (8.4-10.2) mg/dL Urine Color Yellow (Yellow) Urine Turbidity Cloudy (Clear) Urine pH 5.0 (5.0-7.0) Ur Specific [place] 1.019 (1.003-1.030) Urine Protein 30 mg/dl (Negative) mg/dL Urine Glucose (UA) Neg (Negative) mg/dL Urine Ketones Tr (Negative) mg/dL Urine Blood Lg (Negative) Urine Nitrite Neg (Negative) Urine Bilirubin Neg (Negative) Urine Urobilinogen < 2.0 (<2.0) mg/dL Ur Leukocyte Esterase Tr (Negative) Urine WBC (Auto) 46.0 H (0.0-6.0) /HPF Urine RBC (Auto) > 182.0 (0.0-6.0) /HPF U Epithel Cells (Auto) 14.0 H (0-13.0) /HPF Urine Mucus 3+ /HPF Urine Yeast (Budding) 1+ /HPF - Radiology Data Ordering Physician: FE BONNER MD Date of Service: 06/24/19 Procedure(s): CT abdomen pelvis wo con Accession Number(s): [id number] cc: FE BONNER MD CT abdomen pelvis wo con INDICATION / CLINICAL INFORMATION: left flank pain. TECHNIQUE: Axial CT imaging of abdomen and pelvis was obtained without contrast. Coronal and sagittal reformatted imaging obtained and reviewed. All CT scans at this location are performed using CT dose reduction for ALARA by means of automated exposure control. COMPARISON: 12/13/2018 FINDINGS: CT abdomen without contrast demonstrates grossly normal appearance of the liver, spleen, pancreas, and adrenal glands. Prior cholecystectomy. There is a small simple cyst arising from the anterior aspect of the right kidney. There is a nonobstructing 2 mm calculus in the right kidney. There is mild left hydronephrosis caused by 2 small calculi in the proximal left ureter at the level of the UPJ. Each calculus measures approximately 3 mm in caliber. The left kidney is otherwise unremarkable. CT pelvis without contrast demonstrates normal appearance of the appendix. No pelvic mass, free fluid, or focal inflammatory change noted. GI tract is unremarkable. Visualized lung bases are clear. No acute significant osseous abnormality. IMPRESSION: 1. Mild left hydronephrosis is present caused by 2 adjacent small calculi in the proximal left ureter at the level of the UPJ. Each calculus measures approximately 3 mm. 2. Right nephrolithiasis. Signer Name: Marcelle Lopez MD Signed: 06/24/2019 10:37 PM Workstation Name: [id number] - Medical Decision Making Patient has 2 small obstructing stones in the left ureter. Patient has some mild hydronephrosis. Patient's pain was treated and improved while here in emergency department. Patient will be DC'd home with medications for symptomatic relief and follow-up with her urologist. Critical care attestation.: If time is entered above; I have spent that time in minutes in the direct care of this critically ill patient, excluding procedure time. ED Disposition Clinical Impression: Hydronephrosis Qualifiers: Hydronephrosis type: with ureteral calculous obstruction Qualified Code(s): N13.2 - Hydronephrosis with renal and ureteral calculous obstruction UTI (urinary tract infection) Qualifiers: Urinary tract infection type: acute cystitis Hematuria presence: with hematuria Qualified Code(s): N30.01 - Acute cystitis with hematuria Disposition: DC- TO HOME OR SELFCARE Is pt being admited?: No Does the pt Need Aspirin: No Condition: Stable Instructions: Abdominal Pain (ED), Urinary Tract Infection in Women (ED), Kidney Stones (ED), How to Strain Your Urine (ED) Referrals: PRIMARY MD STANLEY [Primary Care Provider] - 3-5 Days Time of Disposition: 22:58
== END 2019-06-24 23:21 | disposition home or self-care (01) ==
LOC: ED 20:48
DX: N13.30 Unspecified hydronephrosis (principal); N39.0 Urinary tract infection, site not specified; I10 Essential (primary) hypertension; M19.91 Primary osteoarthritis, unspecified site; J45.909 Unspecified asthma, uncomplicated; Z86.73 Personal history of transient ischemic attack (TIA), and cerebral infarction without residual deficits; Z98.890 Other specified postprocedural states; Z90.49 Acquired absence of other specified parts of digestive tract; Z90.710 Acquired absence of both cervix and uterus; Z79.1 Long term (current) use of non-steroidal anti-inflammatories (NSAID); Z79.899 Other long term (current) drug therapy; Z88.0 Allergy status to penicillin; Z91.013 Allergy to seafood
CPT/HCPCS: 36415; 74176; 80048; 81001; 85025; 87086; 96374; 96375; 99284; J1885; J2270; J2405

== ENCOUNTER 2019-12-19 22:08 | Emergency (ER) | payer MEDICARE ==
[2019-12-19 22:54] LABS: Basophils % (Auto) 0.5 % (0.0-1.8); Eosinophils # (Auto) 0.2 K/mm3 (0.0-0.4); Eosinophils % (Auto) 1.5 % (0.0-4.3); Hematocrit 41.3 % (30.3-42.9); Hemoglobin 14.3 gm/dl (10.1-14.3); Lymphocytes % (Auto) 29.8 % (13.4-35.0); Mean Corpuscular HGB Conc 35 % (30-34); Mean Corpuscular Volume 86 fl (79-97); Monocytes # (Auto) 0.9 K/mm3 (0.0-0.8); Monocytes % (Auto) 9.2 % (0.0-7.3); Platelet Count 306 K/mm3 (140-440); Red Cell Distribution Width 14.9 % (13.2-15.2)
--- NOTE | 2019-12-19 22:57 | XRay Report ---
CHEST 1 VIEW INDICATION: Chest Pain. COMPARISON: 06/09/2019 FINDINGS: Support devices: None. Heart: Within normal limits. Lungs/Pleura: No acute air space or interstitial disease. Additional findings: None. IMPRESSION: No acute abnormality. Signer Name: Domo Bower MD Signed: 12/19/2019 10:53 PM Workstation Name: [id number]
[2019-12-19 23:16] LABS: BUN/Creatinine Ratio 19; Blood Urea Nitrogen 17 mg/dL (7-17); Calcium 9.8 mg/dL (8.4-10.2); Hemolysis Index 5
[2019-12-20 00:03] LABS: Alanine Aminotransferase 36 units/L (7-56); Albumin 4.6 g/dL (3.9-5)
--- NOTE | 2019-12-20 00:13 | Cat Scan Report ---
CT angio chest INDICATION / CLINICAL INFORMATION: Chest pain. Shortness of breath. TECHNIQUE: Axial CT images were obtained after injection of Omnipaque 350, 100 cc IV contrast using CTA protocol . 3 plane MIP / 3D reconstructions were produced. All CT scans at this location are performed using C T dose reduction for ALARA by means of automated exposure control. COMPARISON: None available. FINDINGS: The lungs contain no mass, infiltrate or pleural fluid. Negative for mediastinal mass or ad enopathy. Negative for aneurysm, dissection or pulmonary embolus. Imaging of the upper abdomen demonstrates a l arge fatty liver, benign hepatic cysts and probable benign right renal cyst which is partially imaged . Status post previous cholecystectomy. No biliary dilatation. IMPRESSION: Negative for pulmonary embolus or pneumonia. Signer Name: Domo Bower MD Signed: 12/20/2019 12:08 AM Workstation Name: [id number]
[2019-12-20 00:16] LABS: Bilirubin,Direct < 0.2 mg/dL (0-0.2)
[2019-12-20] MEDS ORDERED: ASPIRIN 325 MG TAB ONE (00:30)
[2019-12-20] MEDS: ASPIRIN 325 MG TAB PO ONE ×2 (00:31→00:54)
[2019-12-20] MEDS ORDERED: ONDANSETRON 4 MG/2 ML INJ IV ONE (00:44)
[2019-12-20] MEDS ORDERED: IPRATROPIUM/ALBUTEROL SULFATE 3 ML AMPUL.NEB IH ONE ×2 (00:44→03:09)
[2019-12-20] MEDS ORDERED: MORPHINE 4 MG/1 ML INJ IV ONE (00:44)
--- NOTE | 2019-12-20 00:58 | Emergency Department Report ---
ED General Adult HPI - General Chief complaint: Chest Pain Stated complaint: CHEST PAIN Time Seen by Provider: 12/19/19 22:51 Source: patient Mode of arrival: Wheelchair Limitations: No Limitations - History of Present Illness Initial comments: The patient presents to the emergency department the chief complaint of chest pain has been present for the last 3 days. Patient states the pain radiates from her left chest into her left shoulder. Patient states she has a history of a stroke and hypertension. Patient states she has a history of LA with the last one being 2016. States she follows up with her contact lens curve grinder regularly who is Dr. Mcneal. Patient states she has a history of COPD and wears 3 L of O2 via nasal cannula at home. Patient also states she had one episode of throwing up pills today but other than that she is not nauseous. -: Sudden, days(s) (3) Location: chest Radiation: back Severity scale (0 -10): 10 Quality: sharp Consistency: constant Improves with: none Worsens with: none Associated Symptoms: denies other symptoms Treatments Prior to Arrival: none - Related Data Home Medications Medication Instructions Recorded Confirmed Last Taken levETIRAcetam [Keppra TAB] 1,500 mg PO BID 05/13/17 12/13/18 12/13/18 Cyclobenzaprine HCl [Flexeril 5 MG 5 mg PO TID 08/26/17 12/13/18 12/03/18 TAB] Pregabalin [Lyrica] 150 mg PO TID 08/26/17 12/13/18 12/13/18 Zolpidem [Ambien] 10 mg PO QHS 08/26/17 12/13/18 12/12/18 Previous Rx's Medication Instructions Recorded Last Taken Type Metoprolol Xl [Metoprolol 50 mg PO QDAY #30 tablet 05/16/17 12/13/18 Rx SUCCINATE ER TAB] Aspirin 325 mg PO QDAY #30 tablet 09/03/17 12/13/18 Rx AtorvaSTATin [Lipitor] 40 mg PO QHS #30 tablet 09/03/17 12/13/18 Rx ALBUTEROL NEB's [Proventil 0.083% 2.5 mg IH TID PRN #1 box 09/25/18 12/11/18 Rx NEBS] Albuterol Mdi (or & Nicu Only) 2 puff IH QID PRN #1 inhalation 09/25/18 12/12/18 Rx [ProAir HFA Inhaler] Acetamin/Codeine 120-12Mg/5 ml 5 ml PO TID PRN #80 ml 06/09/19 Unknown Rx [Tylenol/Codeine] Benzonatate [Tessalon Perles] 100 mg PO Q8HR #20 capsule 06/09/19 Unknown Rx HYDROcodone/APAP 5-325 [[place] 1 each PO Q6HR PRN #14 tablet 06/24/19 Unknown Rx 5/325] Ibuprofen [Motrin 800 MG tab] 800 mg PO Q8HR PRN #10 tablet 06/24/19 Unknown Rx Nitrofurantoin [place]/M-Cryst 100 mg PO Q12HR #14 capsule 06/24/19 Unknown Rx [Macrobid CAP] oxyCODONE /ACETAMINOPHEN [Percocet 1 tab PO Q6HR PRN #10 tablet 12/20/19 Unknown Rx 5/325] Allergies Allergy/AdvReac Type Severity Reaction Status Date / Time Penicillins Allergy Itching Verified 08/05/18 12:50 seafood Allergy Swelling Uncoded 06/29/16 13:16 tape Allergy Rash Uncoded 06/29/16 13:16 ED Review of Systems ROS: Stated complaint: CHEST PAIN Other details as noted in HPI Constitutional: denies: chills, fever Eyes: denies: eye pain, eye discharge, vision change ENT: denies: ear pain, throat pain Respiratory: denies: cough, shortness of breath, wheezing Cardiovascular: chest pain. denies: palpitations Endocrine: no symptoms reported Gastrointestinal: denies: abdominal pain, nausea, diarrhea Genitourinary: denies: urgency, dysuria, discharge Musculoskeletal: denies: back pain, joint swelling, arthralgia Skin: denies: rash, lesions Neurological: denies: headache, weakness, paresthesias Psychiatric: denies: anxiety, depression Hematological/Lymphatic: denies: easy bleeding, easy bruising ED Past Medical Hx - Past Medical History Previous Medical History?: Yes Hx Hypertension: Yes Hx CVA: Yes (R sided deficits) Hx Heart Attack/AMI: No Hx Congestive Heart Failure: No Hx Diabetes: No Hx Deep Vein Thrombosis: No Hx Pulmonary Embolism: No Hx GERD: No Hx Liver Disease: No Hx Renal Disease: No Hx Sickle Cell Disease: No Hx Arthritis: Yes Hx Headaches / Migraines: No Hx Seizures: No (past hx, recent 08/24) Hx Kidney Stones: No Hx Psychiatric Treatment: No Hx Asthma: Yes Hx COPD: No Hx Tuberculosis: No Hx Dementia: No Hx HIV: No Additional medical history: 'nerve disorder,' a-fib, fibroids - Surgical History Hx Coronary Stent: No Hx Open Heart Surgery: No Hx Pacemaker: No Hx Internal Defibrillator: No Hx Cholecystectomy: Yes Hx Appendectomy: Yes Hx Breast Surgery: No Additional Surgical History: head sx, hysterectomy. right ankle surgery. spinal surgery x 2. jaw surgery. nasal surgery - Social History Smoking Status: Never Smoker Substance Use Type: None - Medications Home Medications: Home Medications Medication Instructions Recorded Confirmed Last Taken Type levETIRAcetam [Keppra TAB] 1,500 mg PO BID 05/13/17 12/13/18 12/13/18 History Metoprolol Xl [Metoprolol 50 mg PO QDAY #30 tablet 05/16/17 12/13/18 12/13/18 Rx SUCCINATE ER TAB] Cyclobenzaprine HCl [Flexeril 5 MG 5 mg PO TID 08/26/17 12/13/18 12/03/18 History TAB] Pregabalin [Lyrica] 150 mg PO TID 08/26/17 12/13/18 12/13/18 History Zolpidem [Ambien] 10 mg PO QHS 08/26/17 12/13/18 12/12/18 History Aspirin 325 mg PO QDAY #30 tablet 09/03/17 12/13/18 12/13/18 Rx AtorvaSTATin [Lipitor] 40 mg PO QHS #30 tablet 09/03/17 12/13/18 12/13/18 Rx ALBUTEROL NEB's [Proventil 0.083% 2.5 mg IH TID PRN #1 box 09/25/18 12/13/18 12/11/18 Rx NEBS] Albuterol Mdi (or & Nicu Only) 2 puff IH QID PRN #1 inhalation 09/25/18 12/13/18 12/12/18 Rx [ProAir HFA Inhaler] Acetamin/Codeine 120-12Mg/5 ml 5 ml PO TID PRN #80 ml 06/09/19 Unknown Rx [Tylenol/Codeine] Benzonatate [Tessalon Perles] 100 mg PO Q8HR #20 capsule 06/09/19 Unknown Rx HYDROcodone/APAP 5-325 [[place] 1 each PO Q6HR PRN #14 tablet 06/24/19 Unknown Rx 5/325] Ibuprofen [Motrin 800 MG tab] 800 mg PO Q8HR PRN #10 tablet 06/24/19 Unknown Rx Nitrofurantoin [place]/M-Cryst 100 mg PO Q12HR #14 capsule 06/24/19 Unknown Rx [Macrobid CAP] oxyCODONE /ACETAMINOPHEN [Percocet 1 tab PO Q6HR PRN #10 tablet 12/20/19 Unknown Rx 5/325] ED Physical Exam - General Limitations: No Limitations General appearance: alert, in no apparent distress - Head Head exam: Present: atraumatic, normocephalic - Eye Eye exam: Present: normal appearance, PERRL, EOMI - ENT ENT exam: Present: mucous membranes moist - Neck Neck exam: Present: normal inspection - Respiratory Respiratory exam: Present: normal lung sounds bilaterally. Absent: respiratory distress - Cardiovascular Cardiovascular Exam: Present: normal rhythm, tachycardia. Absent: systolic murmur, diastolic murmur, rubs, gallop - GI/Abdominal GI/Abdominal exam: Present: soft, normal bowel sounds. Absent: distended, tenderness - Extremities Exam Extremities exam: Present: normal inspection - Back Exam Back exam: Present: normal inspection - Neurological Exam Neurological exam: Present: alert, oriented X3, CN II-XII intact. Absent: motor sensory deficit - Psychiatric Psychiatric exam: Present: normal affect, normal mood - Skin Skin exam: Present: warm, dry, intact, normal color. Absent: rash ED Course Vital Signs 12/19/19 12/19/19 12/19/19 22:22 22:23 23:07 Temperature 98.2 F 98.2 F Pulse Rate 122 H 122 H Respiratory 24 18 Rate Blood Pressure 146/95 146/95 O2 Sat by Pulse 94 94 98 Oximetry 12/19/19 12/19/19 12/19/19 23:15 23:31 23:55 Temperature Pulse Rate 127 H 108 H Respiratory 36 H 23 Rate Blood Pressure 142/84 146/88 146/88 O2 Sat by Pulse 97 97 100 Oximetry 12/20/19 12/20/19 00:01 00:15 Temperature Pulse Rate 103 H 102 H Respiratory 21 20 Rate Blood Pressure 146/88 149/80 O2 Sat by Pulse 100 99 Oximetry ED Medical Decision Making - Lab Data Result diagrams: 12/19/19 22:36 12/19/19 22:36 Lab Results 12/19/19 12/19/19 12/19/19 Range/Units 22:36 22:36 23:19 WBC 10.2 (4.5-11.0) K/mm3 RBC 4.80 (3.65-5.03) M/mm3 Hgb 14.3 (10.1-14.3) gm/dl Hct 41.3 (30.3-42.9) % MCV 86 (79-97) fl MCH 30 (28-32) pg MCHC 35 H (30-34) % RDW 14.9 (13.2-15.2) % Plt Count 306 (140-440) K/mm3 Lymph % (Auto) 29.8 (13.4-35.0) % [place] % (Auto) 9.2 H (0.0-7.3) % Eos % (Auto) 1.5 (0.0-4.3) % Baso % (Auto) 0.5 (0.0-1.8) % Lymph # 3.0 (1.2-5.4) K/mm3 [place] # 0.9 H (0.0-0.8) K/mm3 Eos # 0.2 (0.0-0.4) K/mm3 Baso # 0.0 (0.0-0.1) K/mm3 Seg Neutrophils % 59.0 (40.0-70.0) % Seg Neutrophils # 6.0 (1.8-7.7) K/mm3 Sodium 139 (137-145) mmol/L Potassium 4.5 (3.6-5.0) mmol/L Chloride 100.1 (98-107) mmol/L Carbon Dioxide 20 L (22-30) mmol/L Anion Gap 23 mmol/L BUN 17 (7-17) mg/dL Creatinine 0.9 (0.6-1.2) mg/dL Estimated GFR > 60 ml/min BUN/Creatinine Ratio 19 % Glucose 160 H (65-100) mg/dL Calcium 9.8 (8.4-10.2) mg/dL Magnesium 2.00 (1.7-2.3) mg/dL Total Bilirubin 0.20 (0.1-1.2) mg/dL Direct Bilirubin < 0.2 (0-0.2) mg/dL Indirect Bilirubin 0.0 mg/dL AST 30 (5-40) units/L ALT 36 (7-56) units/L Alkaline Phosphatase 128 (35-129) units/L Troponin T < 0.010 (0.00-0.029) ng/mL NT-Pro-B Natriuret Pep 20.88 (0-900) pg/mL Total Protein 8.8 H (6.3-8.2) g/dL Albumin 4.6 (3.9-5) g/dL Albumin/Globulin Ratio 1.1 % 12/20/19 Range/Units 01:24 WBC (4.5-11.0) K/mm3 RBC (3.65-5.03) M/mm3 Hgb (10.1-14.3) gm/dl Hct (30.3-42.9) % MCV (79-97) fl MCH (28-32) pg MCHC (30-34) % RDW (13.2-15.2) % Plt Count (140-440) K/mm3 Lymph % (Auto) (13.4-35.0) % [place] % (Auto) (0.0-7.3) % Eos % (Auto) (0.0-4.3) % Baso % (Auto) (0.0-1.8) % Lymph # (1.2-5.4) K/mm3 [place] # (0.0-0.8) K/mm3 Eos # (0.0-0.4) K/mm3 Baso # (0.0-0.1) K/mm3 Seg Neutrophils % (40.0-70.0) % Seg Neutrophils # (1.8-7.7) K/mm3 Sodium (137-145) mmol/L Potassium (3.6-5.0) mmol/L Chloride (98-107) mmol/L Carbon Dioxide (22-30) mmol/L Anion Gap mmol/L BUN (7-17) mg/dL Creatinine (0.6-1.2) mg/dL Estimated GFR ml/min BUN/Creatinine Ratio % Glucose (65-100) mg/dL Calcium (8.4-10.2) mg/dL Magnesium (1.7-2.3) mg/dL Total Bilirubin (0.1-1.2) mg/dL Direct Bilirubin (0-0.2) mg/dL Indirect Bilirubin mg/dL AST (5-40) units/L ALT (7-56) units/L Alkaline Phosphatase (35-129) units/L Troponin T < 0.010 (0.00-0.029) ng/mL NT-Pro-B Natriuret Pep (0-900) pg/mL Total Protein (6.3-8.2) g/dL Albumin (3.9-5) g/dL Albumin/Globulin Ratio % - EKG Data -: EKG Interpreted by Me EKG shows normal: sinus rhythm Rate: tachycardia - Radiology Data Radiology results: report reviewed - Medical Decision Making Discussed results with patient Repeat examination at 2:30 AM the patient states that she believes she was having no chest pain shortness of breath due to being out of Percocet Critical care attestation.: If time is entered above; I have spent that time in minutes in the direct care of this critically ill patient, excluding procedure time. ED Disposition Clinical Impression: Chest pain, non-cardiac Disposition: DC-01 TO HOME OR SELFCARE Is pt being admited?: No Does the pt Need Aspirin: No Condition: Stable Instructions: Chest Pain (ED) Additional Instructions: return if worse Referrals: OSITO MA JR, MD [Primary Care Provider] - 3-5 Days SINGH MCNEAL MD [Staff Physician] - 3-5 Days Time of Disposition: 02:45
[2019-12-20 04:02] VITALS: BP 52/37
== END 2019-12-20 04:09 | disposition home or self-care (01) ==
LOC: ED 22:08
DX: R07.89 Other chest pain (principal); Z88.0 Allergy status to penicillin; Z91.013 Allergy to seafood; Z91.018 Allergy to other foods; I10 Essential (primary) hypertension; M13.88 Other specified arthritis, other site; J45.909 Unspecified asthma, uncomplicated; Z90.49 Acquired absence of other specified parts of digestive tract; Z98.890 Other specified postprocedural states; Z79.899 Other long term (current) drug therapy; Z90.710 Acquired absence of both cervix and uterus
CPT/HCPCS: 36415; 71045; 71275; 80048; 80076; 83735; 83880; 84484; 85025; 93005; 94640; 96374; 96375; 99285; J2270; J2405; Q9967; 94644

== ENCOUNTER 2020-01-03 15:44 | Emergency (ER) | payer MEDICARE ==
[2020-01-03 20:21] LABS: Basophils % (Auto) 0.6 % (0.0-1.8); Eosinophils # (Auto) 0.2 K/mm3 (0.0-0.4); Eosinophils % (Auto) 2.6 % (0.0-4.3); Hemoglobin 12.4 gm/dl (10.1-14.3); Lymphocytes % (Auto) 37.6 % (13.4-35.0); Mean Corpuscular HGB Conc 33 % (30-34); Mean Corpuscular Volume 88 fl (79-97); Monocytes # (Auto) 0.8 K/mm3 (0.0-0.8); Monocytes % (Auto) 9.8 % (0.0-7.3); Platelet Count 293 K/mm3 (140-440); Red Blood Count 4.33 M/mm3 (3.65-5.03); Red Cell Distribution Width 14.8 % (13.2-15.2)
[2020-01-03 20:30] LABS: INR 0.93 (0.87-1.13)
[2020-01-03 20:31] LABS: Partial Thromboplastin Time 27.3 Sec. (24.2-36.6)
[2020-01-03 20:41] LABS: Alanine Aminotransferase 24 units/L (7-56); Albumin 4.1 g/dL (3.9-5); BUN/Creatinine Ratio 30; Blood Urea Nitrogen 24 mg/dL (7-17); Calcium 9.1 mg/dL (8.4-10.2); Hemolysis Index 7
[2020-01-03] MEDS ORDERED: MORPHINE 4 MG/1 ML INJ IV ONE (22:00)
[2020-01-03] MEDS ORDERED: ONDANSETRON 4 MG/2 ML INJ IV ONE (22:00)
--- NOTE | 2020-01-03 22:06 | Emergency Department Report ---
ED Abdominal Pain HPI - General Chief Complaint: Vaginal Bleeding Stated Complaint: ABD PAIN/VAGINAL BLEEDING Time Seen by Provider: 01/03/20 21:48 Source: patient Mode of arrival: Stretcher Limitations: No Limitations - History of Present Illness Initial Comments: Patient is 59 years old female with history of hypertension, CVA, COPD and asthma. Patient presented to the ER planing of lower abdominal pain bilateral flank pain and also stated that she is having some vaginal bleeding and she thinks rectal bleeding also. Patient stated that she fell 3 days ago and worried that might be the cause for it. Patient denied taking any blood thinner medicine she said she supposed to be on aspirin but she is not taking it. Patient denied any nausea or vomiting. No fever or chills. Patient had history of hysterectomy. MD Complaint: abdominal pain -: days(s) (3) Location: suprapubic, L flank, R flank Migration to: no migration Quality: sharp Associated Symptoms: denies other symptoms - Related Data Home Medications Medication Instructions Recorded Confirmed Last Taken levETIRAcetam [Keppra TAB] 1,500 mg PO BID 05/13/17 12/13/18 12/13/18 Cyclobenzaprine HCl [Flexeril 5 MG 5 mg PO TID 08/26/17 12/13/18 12/03/18 TAB] Pregabalin [Lyrica] 150 mg PO TID 08/26/17 12/13/18 12/13/18 Zolpidem [Ambien] 10 mg PO QHS 08/26/17 12/13/18 12/12/18 Previous Rx's Medication Instructions Recorded Last Taken Type Metoprolol Xl [Metoprolol 50 mg PO QDAY #30 tablet 05/16/17 12/13/18 Rx SUCCINATE ER TAB] Aspirin 325 mg PO QDAY #30 tablet 09/03/17 12/13/18 Rx AtorvaSTATin [Lipitor] 40 mg PO QHS #30 tablet 09/03/17 12/13/18 Rx ALBUTEROL NEB's [Proventil 0.083% 2.5 mg IH TID PRN #1 box 09/25/18 12/11/18 Rx NEBS] Albuterol Mdi (or & Nicu Only) 2 puff IH QID PRN #1 inhalation 09/25/18 12/12/18 Rx [ProAir HFA Inhaler] Acetamin/Codeine 120-12Mg/5 ml 5 ml PO TID PRN #80 ml 06/09/19 Unknown Rx [Tylenol/Codeine] Benzonatate [Tessalon Perles] 100 mg PO Q8HR #20 capsule 06/09/19 Unknown Rx HYDROcodone/APAP 5-325 [[place] 1 each PO Q6HR PRN #14 tablet 06/24/19 Unknown Rx 5/325] Ibuprofen [Motrin 800 MG tab] 800 mg PO Q8HR PRN #10 tablet 06/24/19 Unknown Rx Nitrofurantoin [place]/M-Cryst 100 mg PO Q12HR #14 capsule 06/24/19 Unknown Rx [Macrobid CAP] oxyCODONE /ACETAMINOPHEN [Percocet 1 tab PO Q6HR PRN #10 tablet 12/20/19 Unknown Rx 5/325] Allergies Allergy/AdvReac Type Severity Reaction Status Date / Time Penicillins Allergy Itching Verified 08/05/18 12:50 seafood Allergy Swelling Uncoded 06/29/16 13:16 tape Allergy Rash Uncoded 06/29/16 13:16 ED Review of Systems ROS: Stated complaint: ABD PAIN/VAGINAL BLEEDING Other details as noted in HPI Comment: All other systems reviewed and negative Constitutional: denies: chills, fever Respiratory: denies: cough, shortness of breath, SOB with exertion Cardiovascular: denies: chest pain, palpitations Gastrointestinal: abdominal pain. denies: nausea, vomiting, diarrhea, constipation, hematemesis, melena, hematochezia Musculoskeletal: denies: back pain Neurological: denies: headache, weakness, numbness, paresthesias, confusion, abnormal gait ED Past Medical Hx - Past Medical History Previous Medical History?: Yes Hx Hypertension: Yes Hx CVA: Yes (R sided deficits) Hx Heart Attack/AMI: No Hx Congestive Heart Failure: No Hx Diabetes: No Hx Deep Vein Thrombosis: No Hx Pulmonary Embolism: No Hx GERD: No Hx Liver Disease: No Hx Renal Disease: No Hx Sickle Cell Disease: No Hx Arthritis: Yes Hx Headaches / Migraines: No Hx Seizures: (past hx, recent 08/24) Hx Kidney Stones: No Hx Psychiatric Treatment: No Hx Asthma: Yes Hx COPD: Yes Hx Tuberculosis: No Hx Dementia: No Hx HIV: No Additional medical history: 'nerve disorder,' a-fib, fibroids, fibromyalgia, osteoarthritis - Surgical History Hx Coronary Stent: No Hx Open Heart Surgery: No Hx Pacemaker: No Hx Internal Defibrillator: No Hx Cholecystectomy: Yes Hx Appendectomy: Yes Hx Breast Surgery: No Additional Surgical History: head sx, hysterectomy. right ankle surgery. spinal surgery x 2. jaw surgery. nasal surgery - Social History Smoking Status: Never Smoker Substance Use Type: None - Medications Home Medications: Home Medications Medication Instructions Recorded Confirmed Last Taken Type levETIRAcetam [Keppra TAB] 1,500 mg PO BID 05/13/17 12/13/18 12/13/18 History Metoprolol Xl [Metoprolol 50 mg PO QDAY #30 tablet 05/16/17 12/13/18 12/13/18 Rx SUCCINATE ER TAB] Cyclobenzaprine HCl [Flexeril 5 MG 5 mg PO TID 08/26/17 12/13/18 12/03/18 History TAB] Pregabalin [Lyrica] 150 mg PO TID 08/26/17 12/13/18 12/13/18 History Zolpidem [Ambien] 10 mg PO QHS 08/26/17 12/13/18 12/12/18 History Aspirin 325 mg PO QDAY #30 tablet 09/03/17 12/13/18 12/13/18 Rx AtorvaSTATin [Lipitor] 40 mg PO QHS #30 tablet 09/03/17 12/13/18 12/13/18 Rx ALBUTEROL NEB's [Proventil 0.083% 2.5 mg IH TID PRN #1 box 09/25/18 12/13/18 12/11/18 Rx NEBS] Albuterol Mdi (or & Nicu Only) 2 puff IH QID PRN #1 inhalation 09/25/18 12/13/18 12/12/18 Rx [ProAir HFA Inhaler] Acetamin/Codeine 120-12Mg/5 ml 5 ml PO TID PRN #80 ml 06/09/19 Unknown Rx [Tylenol/Codeine] Benzonatate [Tessalon Perles] 100 mg PO Q8HR #20 capsule 06/09/19 Unknown Rx HYDROcodone/APAP 5-325 [[place] 1 each PO Q6HR PRN #14 tablet 06/24/19 Unknown Rx 5/325] Ibuprofen [Motrin 800 MG tab] 800 mg PO Q8HR PRN #10 tablet 06/24/19 Unknown Rx Nitrofurantoin [place]/M-Cryst 100 mg PO Q12HR #14 capsule 06/24/19 Unknown Rx [Macrobid CAP] oxyCODONE /ACETAMINOPHEN [Percocet 1 tab PO Q6HR PRN #10 tablet 12/20/19 Unknown Rx 5/325] ED Physical Exam - General Limitations: No Limitations General appearance: alert, in no apparent distress - Head Head exam: Present: atraumatic, normocephalic, normal inspection - Eye Eye exam: Present: normal appearance - ENT ENT exam: Present: normal exam, normal orophraynx, mucous membranes moist - Neck Neck exam: Present: normal inspection, full ROM. Absent: tenderness, meningismus - Respiratory Respiratory exam: Present: normal lung sounds bilaterally - Cardiovascular Cardiovascular Exam: Present: regular rate, normal rhythm, normal heart sounds - GI/Abdominal GI/Abdominal exam: Present: soft, tenderness, normal bowel sounds. Absent: distended, guarding, rebound, rigid, organomegaly, mass, bruit, pulsatile mass, hernia - Rectal Rectal exam: Present: deferred - Extremities Exam Extremities exam: Present: normal inspection, full ROM, normal capillary refill. Absent: pedal edema, calf tenderness - Back Exam Back exam: Present: normal inspection, full ROM, CVA tenderness (L). Absent: tenderness, muscle spasm, paraspinal tenderness, vertebral tenderness - Neurological Exam Neurological exam: Present: alert, oriented X3, CN II-XII intact, normal gait, reflexes normal - Psychiatric Psychiatric exam: Present: normal mood - Skin Skin exam: Present: warm, intact, normal color ED Course Vital Signs 01/03/20 15:57 Temperature 98.2 F Pulse Rate 77 Respiratory 18 Rate Blood Pressure 148/82 O2 Sat by Pulse 94 Oximetry ED Medical Decision Making - Lab Data Result diagrams: 01/03/20 20:06 01/03/20 20:06 - Radiology Data Radiology results: report reviewed - Medical Decision Making Patient is 59 years old female with history of hypertension, CVA, COPD and asthma. Patient presented to the ER planing of lower abdominal pain bilateral flank pain and also stated that she is having some vaginal bleeding and she thinks rectal bleeding also. Patient stated that she fell 3 days ago and worried that might be the cause for it. Patient denied taking any blood thinner medicine she said she supposed to be on aspirin but she is not taking it. Patient denied any nausea or vomiting. No fever or chills. Patient had history of hysterectomy. Patient received morphine for pain and stated that her pain is completely resolved. Labs reviewed and is unremarkable with a stable hemoglobin. CT abdomen and pelvis with IV contrast is unremarkable. Patient advised to follow- up with her primary doctor in the next 2 to 3 days and to return to the ER if she develop any new symptoms. Critical care attestation.: If time is entered above; I have spent that time in minutes in the direct care of this critically ill patient, excluding procedure time. ED Disposition Clinical Impression: Abdominal pain, Lower GI bleed Disposition: TO HOME OR SELFCARE Is pt being admited?: No Condition: Stable Instructions: Abdominal Pain (ED), Rectal Bleeding (ED) Referrals: OSITO MA JR, MD [Primary Care Provider] - 3-5 Days
--- NOTE | 2020-01-03 23:23 | Cat Scan Report ---
CT abdomen pelvis w con INDICATION: Patient complains of abdominal pain. TECHNIQUE: All CT scans at this location are performed using the following dose modulation technique: Automated exposure control. CONTRAST: Omnipaque 300, 100 cc IV injection. COMPARISON: None available. CT ABDOMEN: Evaluation the parenchymal organs demonstrates fatty infiltration of the liver and a manuel gn left hepatic cyst measuring 1.7 cm. Bilateral renal cysts and a 2 mm nonobstructing right renal st one remain. Scarring at the kidneys is greatest at the lower pole the right kidney. Mild prominence o f the right renal collecting system is stable. The remaining parenchymal organs are unremarkable. Status post previous cholecystectomy. No biliary dilatation. A small fat-containing ventral hernia ju st below the left lobe of the liver is unchanged. The bowel is not dilated or thickened. CT PELVIS: Status post previous hysterectomy. Mild fluid is seen at the pelvis without localized infl ammation. IMPRESSION: 1. Mild pelvic free fluid. No localized inflammation. 2. Incidental findings unchanged. Signer Name: Domo Bower MD Signed: 01/03/2020 11:19 PM Workstation Name: [id number]
[2020-01-03 23:49] VITALS: BP 111/74
== END 2020-01-04 | disposition home or self-care (01) ==
LOC: ED 15:44
DX: R10.30 Lower abdominal pain, unspecified (principal); R10.2 Pelvic and perineal pain; K92.2 Gastrointestinal hemorrhage, unspecified; I10 Essential (primary) hypertension; M19.91 Primary osteoarthritis, unspecified site; J44.9 Chronic obstructive pulmonary disease, unspecified; Z90.49 Acquired absence of other specified parts of digestive tract; Z90.710 Acquired absence of both cervix and uterus; Z98.890 Other specified postprocedural states; Z79.1 Long term (current) use of non-steroidal anti-inflammatories (NSAID); Z79.899 Other long term (current) drug therapy; Z88.0 Allergy status to penicillin; Z91.013 Allergy to seafood; Z88.8 Allergy status to other drugs, medicaments and biological substances
CPT/HCPCS: 36415; 74177; 80053; 85025; 85610; 85730; 96374; 96375; 99284; J2270; J2405; Q9967

== ENCOUNTER 2020-02-05 20:00 | Emergency (ER) | payer MEDICARE ==
[2020-02-05] MEDS ORDERED: SODIUM CHLORIDE 0.9% 1000 ML 1,000 ML IV ONE (20:44)
[2020-02-05] MEDS ORDERED: NALOXONE 2 MG/2 ML INJ IV ONE (20:45)
[2020-02-05] MEDS ORDERED: ONDANSETRON 4 MG/2 ML INJ IV ONE (20:45)
--- NOTE | 2020-02-05 20:53 | Emergency Department Report ---
History of Present Illness - General Chief Complaint: Overdose Stated Complaint: OVERDOSE Time Seen by Provider: 02/05/20 20:29 Source: patient Mode of arrival: Ambulatory Limitations: No Limitations - History of Present Illness Initial Comments: Patient is 60 years old female with history of COPD, CVA with right-sided deficit, hypertension, seizure and chronic pain on chronic pain medication mainly oxycodone. Patient also reported nerve problem and she is on benzodiazepine also. Patient brought to the emergency room via EMS from home after patient friends called and said that he overdose on medications. Patient is obtunded however she is answering questions she stated that she did not try to kill herself she just wanted to get some help with the pain. Patient came with a bag of multiple medications bottle. I reviewed all her medication and most of the bottle is still full except for oxycodone which was filled January 01, 1990 tablets in completely empty now. Patient denied any suicidal or homicidal ideation. Reviewed patient records in the ER and there is no history of mental issues before. MD Complaint: accidental overdose, other -: Sudden, This evening Intent: want to go to sleep How Overdose Was Discovered: called family/friend Treatments Prior to Arrival: none - Related Data Home Medications Medication Instructions Recorded Confirmed Last Taken levETIRAcetam [Keppra TAB] 1,500 mg PO BID 05/13/17 12/13/18 12/13/18 Cyclobenzaprine HCl [Flexeril 5 MG 5 mg PO TID 08/26/17 12/13/18 12/03/18 TAB] Pregabalin [Lyrica] 150 mg PO TID 08/26/17 12/13/18 12/13/18 Zolpidem [Ambien] 10 mg PO QHS 08/26/17 12/13/18 12/12/18 Previous Rx's Medication Instructions Recorded Last Taken Type Metoprolol Xl [Metoprolol 50 mg PO QDAY #30 tablet 05/16/17 12/13/18 Rx SUCCINATE ER TAB] Aspirin 325 mg PO QDAY #30 tablet 09/03/17 12/13/18 Rx AtorvaSTATin [Lipitor] 40 mg PO QHS #30 tablet 09/03/17 12/13/18 Rx ALBUTEROL NEB's [Proventil 0.083% 2.5 mg IH TID PRN #1 box 09/25/18 12/11/18 Rx NEBS] Albuterol Mdi (or & Nicu Only) 2 puff IH QID PRN #1 inhalation 09/25/18 12/12/18 Rx [ProAir HFA Inhaler] Acetamin/Codeine 120-12Mg/5 ml 5 ml PO TID PRN #80 ml 06/09/19 Unknown Rx [Tylenol/Codeine] Benzonatate [Tessalon Perles] 100 mg PO Q8HR #20 capsule 06/09/19 Unknown Rx HYDROcodone/APAP 5-325 [[place] 1 each PO Q6HR PRN #14 tablet 06/24/19 Unknown Rx 5/325] Ibuprofen [Motrin 800 MG tab] 800 mg PO Q8HR PRN #10 tablet 06/24/19 Unknown Rx Nitrofurantoin [place]/M-Cryst 100 mg PO Q12HR #14 capsule 06/24/19 Unknown Rx [Macrobid CAP] oxyCODONE /ACETAMINOPHEN [Percocet 1 tab PO Q6HR PRN #10 tablet 12/20/19 Unknown Rx 5/325] Ondansetron [Zofran Odt] 4 mg PO Q8HR PRN #14 tab.rapdis 01/03/20 Unknown Rx traMADoL [Ultram 50 MG tab] 50 mg PO Q4HR PRN #14 tablet 01/03/20 Unknown Rx Allergies Allergy/AdvReac Type Severity Reaction Status Date / Time Penicillins Allergy Itching Verified 08/05/18 12:50 seafood Allergy Swelling Uncoded 06/29/16 13:16 tape Allergy Rash Uncoded 06/29/16 13:16 ED Review of Systems ROS: Stated complaint: OVERDOSE Other details as noted in HPI Comment: All other systems reviewed and negative Constitutional: denies: chills, fever Respiratory: denies: cough, shortness of breath, SOB with exertion Cardiovascular: denies: chest pain Gastrointestinal: denies: abdominal pain Neurological: denies: headache, numbness, paresthesias, abnormal gait ED Past Medical Hx - Past Medical History Previous Medical History?: Yes Hx Hypertension: Yes Hx CVA: Yes (R sided deficits) Hx Heart Attack/AMI: No Hx Congestive Heart Failure: No Hx Diabetes: No Hx Deep Vein Thrombosis: No Hx Pulmonary Embolism: No Hx GERD: No Hx Liver Disease: No Hx Renal Disease: No Hx Sickle Cell Disease: No Hx Arthritis: Yes Hx Headaches / Migraines: No Hx Seizures: (past hx, recent 08/24) Hx Kidney Stones: No Hx Psychiatric Treatment: No Hx Asthma: Yes Hx COPD: Yes Hx Tuberculosis: No Hx Dementia: No Hx HIV: No Additional medical history: 'nerve disorder,' a-fib, fibroids, fibromyalgia, osteoarthritis - Surgical History Past Surgical History?: Yes Hx Coronary Stent: No Hx Open Heart Surgery: No Hx Pacemaker: No Hx Internal Defibrillator: No Hx Cholecystectomy: Yes Hx Appendectomy: Yes Hx Breast Surgery: No Additional Surgical History: head sx, hysterectomy. right ankle surgery. spinal surgery x 2. jaw surgery. nasal surgery - Social History Smoking Status: Never Smoker Substance Use Type: None - Medications Home Medications: Home Medications Medication Instructions Recorded Confirmed Last Taken Type levETIRAcetam [Keppra TAB] 1,500 mg PO BID 05/13/17 12/13/18 12/13/18 History Metoprolol Xl [Metoprolol 50 mg PO QDAY #30 tablet 05/16/17 12/13/18 12/13/18 Rx SUCCINATE ER TAB] Cyclobenzaprine HCl [Flexeril 5 MG 5 mg PO TID 08/26/17 12/13/18 12/03/18 History TAB] Pregabalin [Lyrica] 150 mg PO TID 08/26/17 12/13/18 12/13/18 History Zolpidem [Ambien] 10 mg PO QHS 08/26/17 12/13/18 12/12/18 History Aspirin 325 mg PO QDAY #30 tablet 09/03/17 12/13/18 12/13/18 Rx AtorvaSTATin [Lipitor] 40 mg PO QHS #30 tablet 09/03/17 12/13/18 12/13/18 Rx ALBUTEROL NEB's [Proventil 0.083% 2.5 mg IH TID PRN #1 box 09/25/18 12/13/18 12/11/18 Rx NEBS] Albuterol Mdi (or & Nicu Only) 2 puff IH QID PRN #1 inhalation 09/25/18 12/13/18 12/12/18 Rx [ProAir HFA Inhaler] Acetamin/Codeine 120-12Mg/5 ml 5 ml PO TID PRN #80 ml 06/09/19 Unknown Rx [Tylenol/Codeine] Benzonatate [Tessalon Perles] 100 mg PO Q8HR #20 capsule 06/09/19 Unknown Rx HYDROcodone/APAP 5-325 [[place] 1 each PO Q6HR PRN #14 tablet 06/24/19 Unknown Rx 5/325] Ibuprofen [Motrin 800 MG tab] 800 mg PO Q8HR PRN #10 tablet 06/24/19 Unknown Rx Nitrofurantoin [place]/M-Cryst 100 mg PO Q12HR #14 capsule 06/24/19 Unknown Rx [Macrobid CAP] oxyCODONE /ACETAMINOPHEN [Percocet 1 tab PO Q6HR PRN #10 tablet 12/20/19 Unknown Rx 5/325] Ondansetron [Zofran Odt] 4 mg PO Q8HR PRN #14 tab.rapdis 01/03/20 Unknown Rx traMADoL [Ultram 50 MG tab] 50 mg PO Q4HR PRN #14 tablet 01/03/20 Unknown Rx ED Physical Exam - General Limitations: No Limitations General appearance: in no apparent distress, obtunded - Head Head exam: Present: atraumatic, normocephalic, normal inspection - Eye Eye exam: Present: normal appearance Pupils: Present: miosis - ENT ENT exam: Present: mucous membranes dry - Neck Neck exam: Present: normal inspection, full ROM. Absent: tenderness, m eningismus - Respiratory Respiratory exam: Present: normal lung sounds bilaterally - Cardiovascular Cardiovascular Exam: Present: regular rate, normal rhythm, normal heart sounds - GI/Abdominal GI/Abdominal exam: Present: soft, normal bowel sounds. Absent: distended, tenderness, guarding, rebound, rigid, mass, bruit, pulsatile mass, hernia - Extremities Exam Extremities exam: Present: normal inspection, full ROM, normal capillary refill. Absent: pedal edema, calf tenderness - Back Exam Back exam: Present: normal inspection, full ROM. Absent: CVA tenderness (R), CVA tenderness (L) - Neurological Exam Neurological exam: Present: oriented X3, CN II-XII intact, reflexes normal. Absent: altered, motor sensory deficit - Psychiatric Psychiatric exam: Present: flat affect. Absent: suicidal ideation - Skin Skin exam: Present: warm, intact, normal color ED Course Vital Signs 02/05/20 02/05/20 02/06/20 20:28 23:38 02:27 Temperature 98 F Pulse Rate 88 78 64 Respiratory 16 16 16 Rate Blood Pressure 107/65 97/51 115/70 [Left] O2 Sat by Pulse 96 96 96 Oximetry 02/06/20 02:31 Temperature Pulse Rate 74 Respiratory 16 Rate Blood Pressure 115/70 [Left] O2 Sat by Pulse 96 Oximetry ED Medical Decision Making - Lab Data Result diagrams: 02/05/20 20:50 02/05/20 20:50 - EKG Data -: EKG Interpreted by Me EKG shows normal: sinus rhythm Rate: normal - EKG Data Interpretation: no acute changes - Radiology Data Radiology results: report reviewed - Medical Decision Making Patient is 60 years old female with history of COPD, CVA with right-sided deficit, hypertension, seizure and chronic pain on chronic pain medication ma inly oxycodone. Patient also reported nerve problem and she is on benzodiazepine also. Patient brought to the emergency room via EMS from home after patient friends called and said that he overdose on medications. Patient is obtunded however she is answering questions she stated that she did not try to kill herself she just wanted to get some help with the pain. Patient came with a bag of multiple medications bottle. I reviewed all her medication and most of the bottle is still full except for oxycodone which was filled January 01, 1990 tablets in completely empty now. Patient denied any suicidal or homicidal ideation. Reviewed patient records in the ER and there is no history of mental issues before. Patient received Narcan and patient immediately start working up and since then patient has been alert, oriented x3 in no acute distress. Patient went to the bathroom multiple times by herself. Poison control contacted and advised to monitor for 6 hours after Narcan. Patient has been observed in the ER more than 6 hours now. Patient is medically cleared to be evaluated by psychiatric team. Critical care attestation.: If time is entered above; I have spent that time in minutes in the direct care of this critically ill patient, excluding procedure time. ED Disposition Clinical Impression: Drug overdose Condition: Stable Referrals: PRIMARY CARE, [Primary Care Provider] - 3-5 Days
[2020-02-05 21:16] LABS: Basophils % (Auto) 0.7 % (0.0-1.8); Eosinophils # (Auto) 0.1 K/mm3 (0.0-0.4); Eosinophils % (Auto) 2.9 % (0.0-4.3); Hematocrit 36.1 % (30.3-42.9); Lymphocytes % (Auto) 44.8 % (13.4-35.0); Mean Corpuscular HGB Conc 33 % (30-34); Mean Corpuscular Volume 86 fl (79-97); Monocytes # (Auto) 0.5 K/mm3 (0.0-0.8); Monocytes % (Auto) 11.1 % (0.0-7.3); Platelet Count 239 K/mm3 (140-440); Red Cell Distribution Width 15.1 % (13.2-15.2)
[2020-02-05 21:24] LABS: Calcium 8.5 mg/dL (8.4-10.2)
--- NOTE | 2020-02-05 21:28 | XRay Report ---
CHEST 1 VIEW INDICATION / CLINICAL INFORMATION: Medical Clearance Psych. COMPARISON: 12/19/2019 FINDINGS: SUPPORT DEVICES: None. HEART / MEDIASTINUM: No significant abnormality. LUNGS / PLEURA: No significant pulmonary or pleural abnormality. No pneumothorax. ADDITIONAL FINDINGS: No significant additional findings. IMPRESSION: 1. No acute findings. No significant interval change Signer Name: Joel Stone MD Signed: 02/05/2020 9:23 PM Workstation Name: [id number]
[2020-02-05 22:15] LABS: Bilirubin,Urine NEG (Negative); Blood,Urine LG (Negative); Color,Urine Yellow (Yellow); Hyaline Casts,Urine 4 /LPF; Mucus,Urine FEW /HPF; Protein,Urine <15 mg/dL mg/dL (Negative); Urobilinogen,Urine < 2.0 mg/dL (<2.0)
[2020-02-05 22:22] LABS: Amphetamine Screen,Urine PRESUMPTIVE NEGATIVE; Benzodiazepines Screen,Urine PRESUMPTIVE NEGATIVE; Cannabinoid Screen,Urine PRESUMPTIVE NEGATIVE; Cocaine Screen,Urine PRESUMPTIVE NEGATIVE; Methadone Screen,Urine PRESUMPTIVE NEGATIVE; Opiate Screen,Urine PRESUMPTIVE NEGATIVE
[2020-02-06] MEDS ORDERED: SODIUM CHLORIDE 0.9% 1000 ML 1,000 ML ONE (00:23)
[2020-02-06 02:05] LABS: Alanine Aminotransferase 96 units/L (7-56); Albumin 3.6 g/dL (3.9-5)
[2020-02-06 02:09] LABS: Bilirubin,Direct < 0.2 mg/dL (0-0.2)
[2020-02-06] MEDS: NITROFURANTOIN MONOHYD/M-CRYST 100 MG CAP PO SCH ×2 (10:20→10:21)
[2020-02-06 11:44] LABS: Alanine Aminotransferase 83 units/L (7-56); Albumin 3.8 g/dL (3.9-5)
[2020-02-06 12:00] LABS: Bilirubin,Direct < 0.2 mg/dL (0-0.2)
[2020-02-06 17:12] VITALS: BP 147/76
== END 2020-02-06 17:24 ==
LOC: ED 20:00
DX: T42.4X1A Poisoning by benzodiazepines, accidental (unintentional), initial encounter (principal); I10 Essential (primary) hypertension; M13.88 Other specified arthritis, other site; J44.9 Chronic obstructive pulmonary disease, unspecified; Z90.49 Acquired absence of other specified parts of digestive tract; Z90.710 Acquired absence of both cervix and uterus; Z98.890 Other specified postprocedural states; Z79.899 Other long term (current) drug therapy; Z88.0 Allergy status to penicillin; Z91.018 Allergy to other foods; Y92.89 Other specified places as the place of occurrence of the external cause
CPT/HCPCS: 36415; 71045; 80048; 80076; 80307; 81001; 85025; 87086; 93005; 96361; 96374; 96375; 99285; J2310; J2405; J7030; U0003; 80320; G0480

== ENCOUNTER 2020-02-06 16:16 | Inpatient (IN) | payer MEDICARE ==
[2020-02-06] MEDS ORDERED: PREGABALIN 75 MG CAP PO ONE (22:00)
[2020-02-06] MEDS ORDERED: levETIRAcetam 500 MG TAB PO ONE (22:00)
[2020-02-06] MEDS ORDERED: CYCLOBENZAPRINE 10 MG TAB PO ONE (22:00)
[2020-02-06] MEDS ORDERED: levETIRAcetam 500 MG TAB PO SCH (22:00)
[2020-02-06] MEDS ORDERED: NON-FORMULARY EACH (Zolpidem 10 MG) PO SCH (22:00)
[2020-02-06] MEDS ORDERED: ZOLPIDEM 5 MG TAB PO ONE (22:00)
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
[2020-02-07] MEDS: ASPIRIN 325 MG TAB PO SCH (15:13)
[2020-02-07] MEDS: METOPROLOL SUCCINATE XL 50 MG TAB PO SCH (15:15)
[2020-02-07 17:25] LABS: Basophils % (Auto) 0.5 % (0.0-1.8); Eosinophils # (Auto) 0.1 K/mm3 (0.0-0.4); Eosinophils % (Auto) 0.8 % (0.0-4.3); Hemoglobin 12.1 gm/dl (10.1-14.3); Lymphocytes # (Auto) 1.8 K/mm3 (1.2-5.4); Lymphocytes % (Auto) 28.2 % (13.4-35.0); Mean Corpuscular HGB Conc 34 % (30-34); Mean Corpuscular Volume 86 fl (79-97); Monocytes # (Auto) 0.5 K/mm3 (0.0-0.8); Platelet Count 234 K/mm3 (140-440); Red Blood Count 4.18 M/mm3 (3.65-5.03)
[2020-02-07 17:26] LABS: Alanine Aminotransferase 59 units/L (7-56); Albumin 3.9 g/dL (3.9-5); BUN/Creatinine Ratio 14; Blood Urea Nitrogen 13 mg/dL (7-17); Calcium 8.8 mg/dL (8.4-10.2); Chol/HDL Ratio 4.56 %; HDL Cholesterol 41 mg/dL (40-59); Hemolysis Index 3; LDL Cholesterol,Direct 132 mg/dL (50-130)
[2020-02-07] MEDS: levETIRAcetam 500 MG TAB PO SCH (21:54)
--- NOTE | 2020-02-08 08:17 | Consultation ---
History of Present Illness - Reason for Consult Consult date: 02/08/20 Medical consult Requesting physician: PATRICIA SHEIKH - History of Present Illness 60-year-old 60-year-old female patient with significant past medical history of COPD history of CVA with right-sided residual weakness hypertension seizure disorder chronic pain syndrome neuropathy was admitted through emergency room to inpatient psych unit with history of drug overdose Severe anxiety and depression and danger to self, social and family issues found to have altered level of consciousness possible drug overdose accidental versus intentional, patient was admitted to inpatient psych unit for further evaluation and management Hospitalist service was requested medical consult When I evaluated the patient patient is alert and awake oriented x3 Patient denies intentional drug overdose, denies suicidal thoughts or ideation Denies severe depression and homicidal thoughts Patient reports that she does not know why she was brought to the psych unit She does not remember Patient denies chest pain or shortness of breath Denies headache dizziness Denies fever nausea vomiting or abdominal pain Past History Past Medical History: COPD, hypertension, hyperlipidemia, seizures, stroke (With residual weakness on the right side), other (Chronic pain syndrome) Past Surgical History: appendectomy, cholecystectomy, hysterectomy, Other (Ankle spinal and jaw surgery) Social history: denies: smoking, alcohol abuse, prescription drug abuse Family history: hypertension Medications and Allergies Allergies Allergy/AdvReac Type Severity Reaction Status Date / Time Penicillins Allergy Itching Verified 08/05/18 12:50 seafood Allergy Swelling Uncoded 06/29/16 13:16 tape Allergy Rash Uncoded 06/29/16 13:16 Home Medications Medication Instructions Recorded Confirmed Last Taken Type levETIRAcetam [Keppra TAB] 1,500 mg PO BID 05/13/17 02/06/20 12/13/18 History Metoprolol Xl [Metoprolol 50 mg PO QDAY #30 tablet 05/16/17 02/06/20 12/13/18 Rx SUCCINATE ER TAB] Cyclobenzaprine HCl [Flexeril 5 MG 5 mg PO TID 08/26/17 02/06/20 12/03/18 History TAB] Pregabalin [Lyrica] 150 mg PO TID 08/26/17 02/06/20 12/13/18 History Aspirin 325 mg PO QDAY #30 tablet 09/03/17 02/06/20 12/13/18 Rx AtorvaSTATin [Lipitor] 40 mg PO QHS #30 tablet 09/03/17 02/06/20 12/13/18 Rx oxyCODONE /ACETAMINOPHEN [Percocet 1 tab PO Q6HR PRN #10 tablet 12/20/19 02/06/20 Unknown Rx 5/325 mg] Ondansetron [Zofran ODT TAB] 4 mg PO Q8HR PRN #14 tab.rapdis 01/03/20 02/06/20 Unknown Rx ALBUTEROL NEB's [Proventil 0.083% 2.5 mg IH TID PRN 02/06/20 02/06/20 Unknown History NEBS] Acetamin/Codeine 120-12Mg/5 ml 5 ml PO TID PRN 02/06/20 02/06/20 Unknown History [Tylenol/Codeine 120-12 mg/5 ml] Albuterol Mdi (or & Nicu Only) 2 puff IH QID PRN 02/06/20 02/06/20 Unknown History [ProAir HFA Inhaler] Benzonatate [Tessalon Perles] 100 mg PO Q8HR 02/06/20 02/06/20 Unknown History Ibuprofen [Motrin 800 MG tab] 800 mg PO Q8HR PRN 02/06/20 02/06/20 Unknown History Zolpidem [Ambien] 10 mg PO QHS 02/06/20 02/06/20 Unknown History traMADoL [Ultram 50 MG tab] 50 mg PO Q4HR PRN 02/06/20 02/06/20 Unknown History Active Meds: Active Medications Aspirin (Aspirin) 325 mg PO QDAY [facility] [place] Last Admin: 02/07/20 15:13 Dose: 325 mg Documented by: Levetiracetam (Keppra) 1,500 mg PO BID [facility] Last Admin: 02/07/20 21:54 Dose: 1,500 mg Documented by: Metoprolol Succinate (Metoprolol Xl) 50 mg PO QDAY [facility] Last Admin: 02/07/20 15:15 Dose: 50 mg Documented by: Review of Systems Constitutional: weakness, no weight loss, no weight gain, no fever, no chills Ears, nose, mouth and throat: no nasal congestion, no nasal discharge Cardiovascular: no chest pain, no orthopnea, no syncope, no lightheadedness Respiratory: no cough, no shortness of breath Gastrointestinal: no abdominal pain, no nausea, no vomiting Genitourinary Female: no flank pain, no dysuria Musculoskeletal: myalgias, arthritis Integumentary: no rash, no lesions Neurological: seizures (Chronic), other (CVA with residual right-sided weakness), no syncope Psychiatric: anxiety, depression, anxiety attacks Endocrine: no cold intolerance, no heat intolerance Hematologic/Lymphatic: no easy bruising, no easy bleeding Allergic/Immunologic: no urticaria, no allergic rhinitis Exam - Constitutional Vitals: Temp Pulse Resp BP Pulse Ox 98.4 F 75 18 127/70 95 02/07/20 22:00 02/07/20 22:00 02/07/20 22:00 02/07/20 22:00 02/07/20 22:00 General appearance: Present: no acute distress, well-nourished - EENT Eyes: Present: PERRL, EOM intact - Neck Neck: Present: supple, normal ROM - Respiratory Respiratory effort: normal Respiratory: bilateral: diminished, negative: rales, rhonchi, wheezing - Cardiovascular Rhythm: regular Heart Sounds: Present: S1 & S2 - Extremities Extremities: no ischemia, No edema - Abdominal General gastrointestinal: Present: soft, non-tender, non-distended, normal bowel sounds - Integumentary Integumentary: Present: clear, warm - Musculoskeletal Musculoskeletal: right sided weakness, generalized weakness - Psychiatric Psychiatric: appropriate mood/affect, other (Sometimes anxious) - Neurologic Neurologic: moves all extremities Results - Labs CBC & Chem 7: 02/07/20 16:37 02/07/20 16:37 Labs: Abnormal lab results 02/07/20 02/07/20 02/07/20 Range/Units 16:37 16:37 16:37 [place] % (Auto) 8.0 H (0.0-7.3) % Glucose 114 H (65-100) mg/dL Hemoglobin A1c 6.4 H (4-6) % ALT 59 H (7-56) units/L Alkaline Phosphatase 130 H (35-129) units/L LDL Cholesterol Direct 132 H (50-130) mg/dL Assessment and Plan --Acute stress disorder; Management per psych --Danger to self severe anxiety and depression; Management per psych --Possible drug overdose; Patient is alert awake oriented Supportive care --History of seizure disorder; Seizure precautions, do not drive until cleared by PMD or neurology antiepileptic medications --Hypertension; moderate control Continue metoprolol and as needed hydralazine --History of COPD/asthma Patient is stable, no symptoms of shortness of breath or wheeze Comfortable on room air oxygen --History of CVA with right-sided residual weakness; Patient is ambulatory without support Fall precautions and supportive care --History of fibromyalgia; Pain medications as needed --DVT prophylaxis; SCDs while resting --Full CODE STATUS We will closely monitor the patient and adjust the management as needed Thank you for this consultation we will follow the patient along with you as needed Call us with questions or concerns Plan of care reviewed with the patient and her nurse
--- NOTE | 2020-02-08 09:27 | Progress Note ---
Subjective Date of service: 02/08/20 Principal diagnosis: Major Depressive Disorder Subjective Comment: During my interview with the patient she is sitting in the dayroom. She is a/o x 3. She is calm and cooperative. She is pleasant. She says "I have no idea why I'm here." The patient says, "my said I was mumbling like I was having a nervous breakdown." She denies hallucinations of any kind. She also denies SI/HI. The patient states, "If I ever have any of that please lock me up for good." Reason for continued inpatient treatment: The patient appears to be at her baseline. Will plan for a safe discharge tomorrow once social scientist reaches out to family. REVIEW OF SYSTEMS Constitutional: Negative for weight loss ENT: Negative for stridor Respiratory: Negative for cough or hemoptysis All other systems reviewed and are negative MENTAL STATUS EXAMINATION General Appearance and Behavior: Age appropriate, good hygiene, wearing appropriate clothes, good eye contact Cooperation: Participating/engaged Psychomotor Behavior: Psychomotor normal Mood: good Affect and affective range: congruent with mood Thought Process: logical Thought Content: within reality Speech: Normal rate, volume Suicidal Ideation: denies SI Homicidal Ideation: Denies HI Hallucinations: Denies Delusions: None elicited Impulse Control: unimpaired Insight and Judgment: Limited insight and judgment Memory: Normal Attention: Normal Orientation: Alert, oriented Assessment and Plan (1) Acute stress disorder Current Visit: Yes Status: Acute Treatment Plan Patient admitted for inpatient psychiatric evaluation, medication adjustment and close monitoring The patient's behavior, mood, sleep and appetite will be closely monitored. Patient enrolled in individual and group therapeutic sessions and encouraged to attend. Patient provided with a safe and structured environment. Patient's physical health needs will be addressed by the Hospitalist. Hospitalist Consulted Labs including CBC, CMP, Lipid profile and Hemoglobin A1C levels ordered for baseline reference Social Assessment will be completed and the Concrete Swimming Pool Installer will work with patient and family to ensure a suitable and safe disposition Medication adjustment will be made as clinically indicated No medication changes made Usual Wellness Anabaptist/Preservation: - Start Trazodone 50 mg po QHS & 50 mg po QHS PRN between 10 PM & 2 AM for insomnia - Start Melatonin 5 mg po QHS to promote circadian rhythm - Start [place]-3 for brain health, reduce impulsivity, and as adjunctive treatment for mood disorder, continue upon discharge given overall benefits. - Start B1 prophylaxis with 200 mg po for 5 days The patient agreed on the treatment plan, understood the risk, benefit, alternative treatment, potential consequence of no treatment, and gave informed consent. Estimated days: 2 Post hospital care: primary care provider, psychiatric provider Medications and Allergies Allergies Allergy/AdvReac Type Severity Reaction Status Date / Time Penicillins Allergy Itching Verified 08/05/18 12:50 seafood Allergy Swelling Uncoded 06/29/16 13:16 tape Allergy Rash Uncoded 06/29/16 13:16 Home Medications Medication Instructions Recorded Confirmed Last Taken Type levETIRAcetam [Keppra TAB] 1,500 mg PO BID 05/13/17 02/06/20 12/13/18 History Metoprolol Xl [Metoprolol 50 mg PO QDAY #30 tablet 05/16/17 02/06/20 12/13/18 Rx SUCCINATE ER TAB] Cyclobenzaprine HCl [Flexeril 5 MG 5 mg PO TID 08/26/17 02/06/20 12/03/18 History TAB] Pregabalin [Lyrica] 150 mg PO TID 08/26/17 02/06/20 12/13/18 History Aspirin 325 mg PO QDAY #30 tablet 09/03/17 02/06/20 12/13/18 Rx AtorvaSTATin [Lipitor] 40 mg PO QHS #30 tablet 09/03/17 02/06/20 12/13/18 Rx oxyCODONE /ACETAMINOPHEN [Percocet 1 tab PO Q6HR PRN #10 tablet 12/20/19 02/06/20 Unknown Rx 5/325] Ondansetron [Zofran Odt] 4 mg PO Q8HR PRN #14 tab.rapdis 01/03/20 02/06/20 Unknown Rx ALBUTEROL NEB's [Proventil 0.083% 2.5 mg IH TID PRN 02/06/20 02/06/20 Unknown History NEBS] Acetamin/Codeine 120-12Mg/5 ml 5 ml PO TID PRN 02/06/20 02/06/20 Unknown History [Tylenol/Codeine] Albuterol Mdi (or & Nicu Only) 2 puff IH QID PRN 02/06/20 02/06/20 Unknown History [ProAir HFA Inhaler] Benzonatate [Tessalon Perles] 100 mg PO Q8HR 02/06/20 02/06/20 Unknown History Ibuprofen [Motrin] 800 mg PO Q8HR PRN 02/06/20 02/06/20 Unknown History Zolpidem [Ambien] 10 mg PO QHS 02/06/20 02/06/20 Unknown History traMADoL [Ultram] 50 mg PO Q4HR PRN 02/06/20 02/06/20 Unknown History Active Meds: Active Medications Aspirin (Aspirin) 325 mg PO QDAY [facility] Last Admin: 02/07/20 15:13 Dose: 325 mg Documented by: Levetiracetam (Keppra) 1,500 mg PO BID [facility] Last Admin: 02/07/20 21:54 Dose: 1,500 mg Documented by: Metoprolol Succinate (Metoprolol Xl) 50 mg PO QDAY [facility] Last Admin: 02/07/20 15:15 Dose: 50 mg Documented by: Results - Results Labs/Vitals: Laboratory Last Values WBC 6.3 K/mm3 (4.5-11.0) 02/07/20 16:37 RBC 4.18 M/mm3 (3.65-5.03) 02/07/20 16:37 Hgb 12.1 gm/dl (10.1-14.3) 02/07/20 16:37 Hct 36.0 % (30.3-42.9) 02/07/20 16:37 MCV 86 fl (79-97) 02/07/20 16:37 MCH 29 pg (28-32) 02/07/20 16:37 MCHC 34 % (30-34) 02/07/20 16:37 RDW 15.0 % (13.2-15.2) 02/07/20 16:37 Plt Count 234 K/mm3 (140-440) 02/07/20 16:37 Lymph % (Auto) 28.2 % (13.4-35.0) 02/07/20 16:37 [place] % (Auto) 8.0 % (0.0-7.3) H 02/07/20 16:37 Eos % (Auto) 0.8 % (0.0-4.3) 02/07/20 16:37 Baso % (Auto) 0.5 % (0.0-1.8) 02/07/20 16:37 Lymph # (Auto) 1.8 K/mm3 (1.2-5.4) 02/07/20 16:37 [place] # (Auto) 0.5 K/mm3 (0.0-0.8) 02/07/20 16:37 Eos # (Auto) 0.1 K/mm3 (0.0-0.4) 02/07/20 16:37 Baso # (Auto) 0.0 K/mm3 (0.0-0.1) 02/07/20 16:37 Seg Neutrophils % 62.5 % (40.0-70.0) 02/07/20 16:37 Seg Neutrophils # 3.9 K/mm3 (1.8-7.7) 02/07/20 16:37 Sodium 139 mmol/L (137-145) 02/07/20 16:37 Potassium 3.7 mmol/L (3.6-5.0) D 02/07/20 16:37 Chloride 102.8 mmol/L (98-107) 02/07/20 16:37 Carbon Dioxide 25 mmol/L (22-30) 02/07/20 16:37 Anion Gap 15 mmol/L 02/07/20 16:37 BUN 13 mg/dL (7-17) 02/07/20 16:37 Creatinine 0.9 mg/dL (0.6-1.2) 02/07/20 16:37 Estimated GFR > 60 ml/min 02/07/20 16:37 BUN/Creatinine Ratio 14 % 02/07/20 16:37 Glucose 114 mg/dL (65-100) H 02/07/20 16:37 POC Glucose 98 mg/dL (70-105) 02/07/20 06:44 Hemoglobin A1c 6.4 % (4-6) H 02/07/20 16:37 Calcium 8.8 mg/dL (8.4-10.2) 02/07/20 16:37 Total Bilirubin 0.20 mg/dL (0.1-1.2) 02/07/20 16:37 AST 38 units/L (5-40) 02/07/20 16:37 ALT 59 units/L (7-56) H 02/07/20 16:37 Alkaline Phosphatase 130 units/L (35-129) H 02/07/20 16:37 Total Protein 7.8 g/dL (6.3-8.2) 02/07/20 16:37 Albumin 3.9 g/dL (3.9-5) 02/07/20 16:37 Albumin/Globulin Ratio 1.0 % 02/07/20 16:37 Triglycerides 106 mg/dL (2-149) 02/07/20 16:37 Cholesterol 187 mg/dL (50-199) 02/07/20 16:37 LDL Cholesterol Direct 132 mg/dL (50-130) H 02/07/20 16:37 HDL Cholesterol 41 mg/dL (40-59) 02/07/20 16:37 Cholesterol/HDL Ratio 4.56 % 02/07/20 16:37 TSH 3.090 mlU/mL (0.270-4.200) 02/07/20 16:37 Last Vital Signs Temp 98.4 F 02/07/20 22:00 Pulse 75 02/07/20 22:00 Resp 18 02/07/20 22:00 BP 127/70 02/07/20 22:00 Pulse Ox 95 02/07/20 22:00
[2020-02-08] MEDS ORDERED: oxyCODONE /ACETAMINOPHEN 5-325MG TAB PO PRN (09:29)
[2020-02-08] MEDS ORDERED: traMADol 50 MG TAB PO PRN (09:29)
[2020-02-08] MEDS: levETIRAcetam 500 MG TAB PO SCH ×2 (09:43→22:14)
[2020-02-08] MEDS: ASPIRIN 325 MG TAB PO SCH (09:44)
[2020-02-08] MEDS: METOPROLOL SUCCINATE XL 50 MG TAB PO SCH (09:44)
[2020-02-08] MEDS ORDERED: levETIRAcetam 500 MG TAB PO SCH ×2 (10:00→22:00)
[2020-02-08] MEDS ORDERED: IBUPROFEN 800 MG TAB PO PRN (10:05)
[2020-02-08] MEDS ORDERED: ALBUTEROL 2.5 MG/3 ML NEBU IH PRN (10:05)
[2020-02-08] MEDS: PREGABALIN 75 MG CAP PO SCH ×2 (13:17→22:14)
[2020-02-08] MEDS ORDERED: NON-FORMULARY EACH (Pregabalin [Lyrica] 150 MG) PO SCH (14:00)
[2020-02-09] MEDS: PREGABALIN 75 MG CAP PO SCH (07:55)
--- NOTE | 2020-02-09 08:45 | Discharge Summary ---
Providers - Providers Date of Admission: 02/06/20 17:35 Date of discharge: 02/09/20 Attending physician: PATRICIA SHEIKH MD 02/06/20 16:34 Consult to Physician [CONS] Routine Comment: Consulting Provider: CATHLEEN FARNSWORTH Physician Instructions: Reason For Exam: Medical Management Primary care physician: VEST BACKER Hospitalization Reason for admission: depression Admitting Diagnosis: F33.9 - MAJOR DEPRESSIVE DISORDER, RECURRENT, UNSPECIFIED Hospital course: The patient was provided inpatient psychiatric treatment with safe and supportive care, medication adjustment, adverse effect monitor, medical evaluation, medical treatment, assessment and psycho-evaluation. The patient's mood, cognition, behavior and moral support are improved and stabilized. At the time of discharge, the patient had no endangering behavior and no debilitating adverse effects. The patient agreed on potential consequence of no treatment and gave informed consent. Disposition: - TO HOME OR SELFCARE Time spent for discharge: 38 Allergies/Adverse Reactions: Allergies Penicillins Allergy (Verified 08/05/18 12:50) Itching seafood Allergy (Uncoded 06/29/16 13:16) Swelling tape Allergy (Uncoded 06/29/16 13:16) Rash Vital Signs: Last Vital Signs Temp 97.4 F L 02/08/20 19:21 Pulse 86 02/08/20 19:21 Resp 16 02/08/20 19:21 BP 114/68 02/08/20 19:21 Pulse Ox 96 02/08/20 19:21 Last Lab: Laboratory Last Values WBC 6.3 K/mm3 (4.5-11.0) 02/07/20 16:37 RBC 4.18 M/mm3 (3.65-5.03) 02/07/20 16:37 Hgb 12.1 gm/dl (10.1-14.3) 02/07/20 16:37 Hct 36.0 % (30.3-42.9) 02/07/20 16:37 MCV 86 fl (79-97) 02/07/20 16:37 MCH 29 pg (28-32) 02/07/20 16:37 MCHC 34 % (30-34) 02/07/20 16:37 RDW 15.0 % (13.2-15.2) 02/07/20 16:37 Plt Count 234 K/mm3 (140-440) 02/07/20 16:37 Lymph % (Auto) 28.2 % (13.4-35.0) 02/07/20 16:37 [place] % (Auto) 8.0 % (0.0-7.3) H 02/07/20 16:37 Eos % (Auto) 0.8 % (0.0-4.3) 02/07/20 16:37 Baso % (Auto) 0.5 % (0.0-1.8) 02/07/20 16:37 Lymph # (Auto) 1.8 K/mm3 (1.2-5.4) 02/07/20 16:37 [place] # (Auto) 0.5 K/mm3 (0.0-0.8) 02/07/20 16:37 Eos # (Auto) 0.1 K/mm3 (0.0-0.4) 02/07/20 16:37 Baso # (Auto) 0.0 K/mm3 (0.0-0.1) 02/07/20 16:37 Seg Neutrophils % 62.5 % (40.0-70.0) 02/07/20 16:37 Seg Neutrophils # 3.9 K/mm3 (1.8-7.7) 02/07/20 16:37 Sodium 139 mmol/L (137-145) 02/07/20 16:37 Potassium 3.7 mmol/L (3.6-5.0) D 02/07/20 16:37 Chloride 102.8 mmol/L (98-107) 02/07/20 16:37 Carbon Dioxide 25 mmol/L (22-30) 02/07/20 16:37 Anion Gap 15 mmol/L 02/07/20 16:37 BUN 13 mg/dL (7-17) 02/07/20 16:37 Creatinine 0.9 mg/dL (0.6-1.2) 02/07/20 16:37 Estimated GFR > 60 ml/min 02/07/20 16:37 BUN/Creatinine Ratio 14 % 02/07/20 16:37 Glucose 114 mg/dL (65-100) H 02/07/20 16:37 POC Glucose 98 mg/dL (70-105) 02/07/20 06:44 Hemoglobin A1c 6.4 % (4-6) H 02/07/20 16:37 Calcium 8.8 mg/dL (8.4-10.2) 02/07/20 16:37 Total Bilirubin 0.20 mg/dL (0.1-1.2) 02/07/20 16:37 AST 38 units/L (5-40) 02/07/20 16:37 ALT 59 units/L (7-56) H 02/07/20 16:37 Alkaline Phosphatase 130 units/L (35-129) H 02/07/20 16:37 Total Protein 7.8 g/dL (6.3-8.2) 02/07/20 16:37 Albumin 3.9 g/dL (3.9-5) 02/07/20 16:37 Albumin/Globulin Ratio 1.0 % 02/07/20 16:37 Triglycerides 106 mg/dL (2-149) 02/07/20 16:37 Cholesterol 187 mg/dL (50-199) 02/07/20 16:37 LDL Cholesterol Direct 132 mg/dL (50-130) H 02/07/20 16:37 HDL Cholesterol 41 mg/dL (40-59) 02/07/20 16:37 Cholesterol/HDL Ratio 4.56 % 02/07/20 16:37 TSH 3.090 mlU/mL (0.270-4.200) 02/07/20 16:37 Core Measure Documentation - Palliative Care Palliative Care/ Comfort Measures: Not Applicable - Core Measures Any of the following diagnoses?: none Exam - Constitutional Vitals: Temp Pulse Resp BP Pulse Ox 97.4 F L 86 16 114/68 96 02/08/20 19:21 02/08/20 19:21 02/08/20 19:21 02/08/20 19:21 02/08/20 19:21 General appearance: Present: no acute distress - EENT Eyes: Present: PERRL, EOM intact ENT: hearing intact, clear oral mucosa - Neck Neck: Present: supple, normal ROM - Respiratory Respiratory effort: normal Plan Activity: advance as tolerated Weight Bearing Status: Weight Bear as Tolerated Care Plan Goals: maintain good and stable mental health Plan of Treatment: The patient should be compliant with medications, not to use drugs, and not to drink alcohol. The patient understands that if suicidal ideas, homicidal ideas or any endangering feeling arise, the patient should seek assistance including, but not limited to crisis hotline, and emergency room. Assessment: Major Depressive Disorder Acute Stress Disorder Follow up with: PRIMARY CARE, [Primary Care Provider] - 7 Days
[2020-02-09] MEDS: METOPROLOL SUCCINATE XL 50 MG TAB PO SCH (10:41)
[2020-02-09] MEDS: ASPIRIN 325 MG TAB PO SCH (10:41)
[2020-02-09] MEDS: levETIRAcetam 500 MG TAB PO SCH (10:41)
[2020-02-09 10:44] VITALS: BP 115/70
== END 2020-02-09 12:10 | disposition home or self-care (01) | DRG 885 ==
LOC: UNDOADMIN 16:16 → 3A 16:16 → 5A 17:35
PROVIDERS: ADMIT Psychiatry & Neurology Psychiatry; ATTEND Psychiatry & Neurology Psychiatry
DX: F33.9 Major depressive disorder, recurrent, unspecified (principal); I69.351 Hemiplegia and hemiparesis following cerebral infarction affecting right dominant side; G40.909 Epilepsy, unspecified, not intractable, without status epilepticus; F43.0 Acute stress reaction; J44.9 Chronic obstructive pulmonary disease, unspecified; G89.4 Chronic pain syndrome; I10 Essential (primary) hypertension; Z79.899 Other long term (current) drug therapy; Z88.0 Allergy status to penicillin; Z79.51 Long term (current) use of inhaled steroids; Z91.013 Allergy to seafood; Z91.048 Other nonmedicinal substance allergy status; Z82.49 Family history of ischemic heart disease and other diseases of the circulatory system; Z90.49 Acquired absence of other specified parts of digestive tract; Z90.89 Acquired absence of other organs
CPT/HCPCS: 36415; 71045; 80048; 80053; 80061; 80076; 80307; 80320; 81001; 82962; 83036; 84443; 85025; 87086; 93005; 96361; 96374; 96375; G0378; A9270-GY; G0480; J2310; J2405; J7030; U0003